=== PATIENT | female | born 1940 | race Caucasian/White ===

== ENCOUNTER 2022-03-21 15:28 | Emergency (ER) | payer MEDICARE, MEDICAID, SELFPAY ==
[2022-03-21] VITALS (8 sets, daily range): BP systolic 153–176; BP diastolic 67–92; PULSE 96–110; RESP 16–20; TEMP 36.4; O2SAT 93–97
--- NOTE | ~2022-03-21 | CT_ITS ---
EXAMINATION: CT abdomen pelvis wo con DATE: 03/21/2022 16:43 INDICATION: L flank pain, difficulty urinating. TECHNIQUE: Computed tomography (CT) of the abdomen and pelvis was performed without intravenous contr ast. Automated exposure control and iterative reconstruction technique were employed. The dose-length product was 1146.22 mGy-cm. COMPARISON: None. FINDINGS: Lower thorax: Right medial basal scar/atelectasis. Peripheral tree-in-bud opacities. Aortic valve, co ronary artery, and mediastinal/hilar node calcifications. Small hiatal hernia. Liver: Hepatomegaly. Granulomas calcifications. Biliary/Gallbladder: Gallbladder is absent. No bile duct dilation. Pancreas: No mass or duct dilation. Spleen: Granulomatous calcifications Adrenals:No mass. Kidneys: Bilateral perinephric stranding. No mass, stone, or hydronephrosis. GI tract: No small or large bowel dilation. Appendix not confidently visualized. Hypermobile cecum. D iverticulosis without diverticulitis. Mesentery/Peritoneum: No ascites, mass, or free air. Retroperitoneum: No mass. Atherosclerotic abdominal aortic and/or arterial calcifications. Pelvis: Calcified uterine fibroids. Urinary bladder wall thickening and inflammation.. Soft Tissues: Uncomplicated fat-containing umbilical and bilateral inguinal hernias. Bilateral lower abdominal dermal thickening, likely injection sites. Bones: No acute osseous finding. IMPRESSION: Pulmonary opacities as can be seen with atypical infection (MAC, TB, fungal), ABPA, airways disease ( CF, bronchiectasis), and aspiration. Bladder wall thickening and inflammation, which may represent cy stitis in the appropriate clinical context. Otherwise, no acute abdominopelvic process detected. Reviewed, dictated and finalized at location K. LY PHYSICIAN IMPRESSION: Pulmonary opacities as can be seen with atypical infection (MAC, TB, fungal), A BPA, airways disease (CF, bronchiectasis), and aspiration. Bladder wall thicken ing and inflammation, which may represent cystitis in the appropriate clinical context. Otherwise, no acute abdominopelvic process detected.
[2022-03-21 16:07] LABS: Appearance Urine Cloudy (Clear); Bilirubin Urine Negative (Negative); Blood Urine Trace-lysed (Negative); Color Urine Yellow (Yellow); Glucose Urine UA 1+ mg/dL (Negative); Ketones Urine Negative (Negative); Leukocyte Esterase Ur 2+ LEU/UL (Negative); Nitrate Urine Negative (Negative); Protein Urine Negative (Negative); Specific Grav Ur 1.015 (1.001-1.035); Urobilinogen Urine 0.2 mg/dL (<2.0)
--- NOTE | 2022-03-21 16:16 | PC.NURSE ---
EDP at bedside to assess pt.
--- NOTE | 2022-03-21 16:19 | ED.GENADULT ---
HPI - General Adult General Chief complaint: Urogenital-Female Stated complaint: low back pain, diff urinating Time Seen by Provider: 03/21/22 15:37 Source: patient Mode of arrival: EMS Limitations: no limitations History of Present Illness HPI narrative: Patient is an 81 y/o female who presents to the ED via EMS from [facility] with c/o L flank pain and difficulty urinating. Patient reports having difficulty urinating over the last 3 to 4 days, mostly at night. She states she feels the urge to go, but is only able to void a small amount. She complains of dysuria, denies hematuria. This morning, she also developed pain in her left-sided abdomen/left lower back. She was referred to the ED for further evaluation. Patient has a history of chronic UTIs and sees Dr. Gaitan. Scheduled to be seen in the office on . She also notes a history of a kidney stone 15 years ago. Patient does also report having diarrhea, denies any fever, nausea, vomiting, constipation, rectal bleeding, CP, SOB. Related Data Home Medications Medication Instructions Recorded Confirmed acetaminophen 500 mg tablet 500 mg PO Q6H PRN 12/17/19 12/17/19 (Tylenol Extra Strength) amlodipine 5 mg tablet 5 mg PO DAILY 12/17/19 12/17/19 aspirin 81 mg tablet,delayed 81 mg PO DAILY 12/17/19 12/17/19 release (Adult Aspirin Regimen) atorvastatin 40 mg tablet 40 mg PO DAILY 12/17/19 12/17/19 cannabidiol 100 mg/mL oral solution PO 12/17/19 12/17/19 cholecalciferol (vitamin D3) 125 125 mcg PO DAILY 12/17/19 12/17/19 mcg (5,000 unit) capsule citalopram 20 mg tablet 20 mg PO DAILY 12/17/19 12/17/19 clotrimazole 1 % topical cream 1 applic topical Q12H 12/17/19 12/17/19 conjugated estrogens 0.625 mg 0.625 mg PO DAILY 12/17/19 12/17/19 tablet cranberry 400 mg capsule 400 mg PO DAILY 12/17/19 12/17/19 duloxetine 30 mg capsule,delayed 30 mg PO DAILY 12/17/19 12/17/19 release esomeprazole magnesium 40 mg 40 mg PO DAILY 12/17/19 12/17/19 capsule,delayed release ferrous sulfate 325 mg (65 mg 325 mg PO DAILY 12/17/19 12/17/19 iron) tablet flaxseed oil 1,000 mg capsule 1,000 mg PO DAILY 12/17/19 12/17/19 gabapentin 300 mg capsule 300 mg PO DAILY 12/17/19 12/17/19 insulin aspart U-100 100 unit/mL 5 unit subcut TID 12/17/19 12/17/19 (3 mL) subcutaneous pen (Novolog FlexPen U-100 Insulin aspart) lisinopril 2.5 mg tablet 2.5 mg PO DAILY 12/17/19 12/17/19 loratadine 10 mg capsule 10 mg PO DAILY 12/17/19 12/17/19 meclizine 25 mg tablet 25 mg PO BID 12/17/19 12/17/19 melatonin 3 mg capsule mg PO 12/17/19 12/17/19 metoprolol succinate 50 mg 50 mg PO DAILY 12/17/19 12/17/19 tablet,extended release 24 hr mirabegron 50 mg tablet,extended 50 mg PO DAILY 12/17/19 12/17/19 release 24 hr nitrofurantoin macrocrystal 50 mg 50 mg PO Q12H 12/17/19 12/17/19 capsule sennosides 8.6 mg tablet 8.6 mg PO DAILY 12/17/19 12/17/19 trazodone 100 mg tablet 50 mg PO BID 12/17/19 12/17/19 Allergies Allergy/AdvReac Type Severity Reaction Status Date / Time prednisone Allergy Mild Verified 05/23/10 15:41 azithromycin Allergy Unknown Verified 07/09/18 09:15 ceftriaxone Allergy Unknown Verified 07/09/18 09:15 codeine Allergy Unknown Verified 06/12/14 08:23 ibuprofen Allergy Unknown Verified 10/14/12 15:14 latex Allergy Unknown Verified 06/12/14 08:23 naproxen Allergy Unknown Verified 06/12/14 08:23 CEFTRIAXONE SODIUM Allergy Mild Uncoded 05/23/10 14:55 ROSIGLITAZONE MALEATE Allergy Mild Uncoded 05/23/10 14:55 Review of Systems Review of Systems: CONSTITUTIONAL: Denies fever, chills, or sweats. CARDIOVASCULAR: Denies chest pain. RESPIRATORY: Denies dyspnea. GASTROINTESTINAL: See HPI. GENITOURINARY: See HPI. SKIN: Denies rash or itching. MUSCULOSKELETAL: See HPI. NEUROLOGIC: Denies headache, numbness, or weakness. All systems reviewed & are unremarkable except as noted in HPI and below [facility] Past Medical History Medical History (Reviewed 03/21/22 @ 16:25 by
[2022-03-21 16:21] LABS: Bacteria Urine Trace /hpf; RBC Urine 0-2 /hpf (0-2); WBC Urine >75 /hpf
[2022-03-21 16:22] LABS: Add Urine Microscopic? YES
[2022-03-21 16:26] LABS: Basophils Absolute Auto 0.1 K/mm3 (0.0-0.1); Basophils Percent Auto 0.5 % (0.2-1.2); Eosinophils Absolute Auto 0.3 K/mm3 (0-0.3); Eosinophils Percent Auto 1.8 % (0-4.4); Hematocrit 38.7 % (37.0-47.0); Hemoglobin 12.1 g/dL (12.0-15.0); Immature Granulocyte Absolute 0.06 K/mm3 (0.00-0.031); Immature Granulocyte Percent A 0.4 % (0-0.5); Lymphocytes Absolute Auto 3.23 K/mm3 (0.9-3.2); Lymphocytes Percent Auto 21.9 % (18.3-44.2); Mean Corpuscular HGB Conc 31.3 g/dl (32-36); Mean Corpuscular Hemoglobin 27.9 pg (26-34); Mean Corpuscular Volume 89.2 fl (80-100); Mean Platelet Volume 8.8 fl (7.4-10.4); Monocytes Absolute Auto 1.2 K/mm3 (0.1-0.6); Monocytes Percent Auto 8.3 % (2.6-8.5); Neutrophils Absolute Auto 9.9 K/mm3 (1.3-6.7); Neutrophils Percent Auto 67.1 % (45.5-73.1); Platelet Count Result 354 k/mm3 (150-375); Red Blood Count 4.34 M/mm3 (4.2-5.4); Red Cell Distribution Width 15.2 % (11.5-14.5); White Blood Count 14.7 K/mm3 (4.5-10.0)
[2022-03-21] MEDS: SODIUM CHLORIDE 0.9% IV 1,000 ML 999 ML IV CONT (16:28)
--- NOTE | 2022-03-21 16:34 | PC.NURSE ---
Patient off unit to CT.
[2022-03-21 17:36] LABS: Alanine Aminotransferase 28 U/L (6-35); Albumin Level 4.2 g/dL (3.5-5.1); Alkaline Phosphatase 96 U/L (38-126); Anion Gap 6 mmol/L (8-16); Aspartate Amino Transferase 21 U/L (14-36); Bilirubin,Total 0.9 mg/dL (0.2-1.3); Blood Urea Nitrogen 13 mg/dL (7-17); Calcium 8.7 mg/dL (8.4-10.2); Carbon Dioxide 26 mmol/L (22-30); Chloride 96 mmol/L (98-107); Estimated CRCL calculation 52 ml/min; Estimated Glomerular Filt Rate > 60; Glucose 236 mg/dL (65-110); Potassium 4.6 mmol/L (3.4-5.0); Sodium 128 mmol/L (137-145)
[2022-03-21] MEDS: CIPROFLOXACIN 500 MG TAB PO (19:27)
== END 2022-03-21 20:14 ==
PROVIDERS: Emergency Provider Physician Assistant
DX: E87.1 Hypo-osmolality and hyponatremia (principal); N30.00 Acute cystitis without hematuria; D64.9 Anemia, unspecified; I11.0 Hypertensive heart disease with heart failure; I50.9 Heart failure, unspecified; E11.9 Type 2 diabetes mellitus without complications; Z79.4 Long term (current) use of insulin
CPT/HCPCS: 36415; 51701; 74176; 80053; 81001; 83605; 85025; 87077; 87086; 87186; 96361; 96365; 99284; A9270; J0131; J7030

== ENCOUNTER 2022-04-04 15:45 | Emergency (ER) | payer MEDICARE, MEDICAID, SELFPAY ==
[2022-04-04] VITALS (16 sets, daily range): BP systolic 124–172; BP diastolic 58–75; PULSE 76–93; RESP 16–23; TEMP 36.6–36.7; O2SAT 92–98
--- NOTE | ~2022-04-04 | US_ITS ---
EXAMINATION: US venous doppler [facility] DATE: 04/04/2022 19:21 INDICATION: Left lower limb pain and swelling TECHNIQUE: Grayscale ultrasound images without and with compression and Doppler ultrasound images of the left lower extremity veins were obtained. COMPARISON: None. FINDINGS: The visualized portions of left common femoral vein, profunda (deep) femoral vein, femoral vein, popl iteal vein, peroneal veins, posterior tibial veins, gastrocnemius vein and greater saphenous vein out flow are patent. IMPRESSION: 1. No deep venous thrombosis in the left lower limb. Reviewed, dictated and finalized at location A. EL LATHE OPERATOR OUTSIDE
--- NOTE | ~2022-04-04 | CT_ITS ---
EXAMINATION: CT lumbar spine wo con DATE: 04/04/2022 17:50 INDICATION: Fall with midline lumbar tenderness TECHNIQUE: Computed tomography (CT) of the lumbar spine was performed without intravenous contrast. A utomated exposure control and iterative reconstruction technique were employed. The dose-length produ ct was 1233.33 mGy-cm. COMPARISON: None FINDINGS: 4 mm retrolisthesis L1 on L2, 2 mm retrolisthesis L2 on L3 and L3 on L4, 3 mm anterolisthesis L4 on L 5. Vertebral body heights are normal. No fracture. Severe disc height loss at T11-T12, L1 and L2-L3 L 4 and at L5-S1. Mild disc height loss at T12-L1 . Moderate disc height loss at L4-L5. Small sliding-t ype hiatal hernia. There are calcified hepatic and splenic nodules consistent with old granulomatous disease. Severe sigmoid diverticulosis without adjacent inflammatory stranding to suggest diverticuli tis. Calcified uterine fibroids. The following disc levels are specifically discussed: T11-T12: Right paracentral disc protrusion. There is moderate bilateral facet joint osteoarthritis. T here is mild left neural foraminal stenosis. There is mild central canal stenosis. T12-L1: Disc is mildly bulging. There is severe left facet joint osteoarthritis. There is mild right neural foraminal stenosis. There is mild central canal stenosis. L1-L2: Small posterior endplate osteophytes. There is mild bilateral facet joint osteoarthritis. Ther e is moderate bilateral neural foraminal stenosis. There is mild central canal stenosis. L2-L3: Small posterior endplate osteophytes. There is mild left and moderate right facet joint osteoa rthritis. There is moderate bilateral neural foraminal stenosis. There is mild to moderate central ca nal stenosis. L3-L4: Small posterior endplate osteophytes. There is mild right and moderate left facet joint osteoa rthritis. There is right and moderate to severe left neural foraminal stenosis. There is moderate to severe central canal stenosis. L4-L5: Disc is bulging. There is severe bilateral facet joint osteoarthritis. There is moderate bilat eral neural foraminal stenosis. There is severe central canal stenosis. L5-S1: Left paracentral to foraminal zone disc protrusion There is moderate bilateral facet joint ost eoarthritis. There is moderate left and mild right neural foraminal stenosis. There is no central can al stenosis. IMPRESSION: 1. Severe lumbar spondylosis. No acute osseous abnormality. Reviewed, dictated and finalized at location A. K SURFACING MACHINE OPERATOR
[2022-04-04 16:22] LABS: Basophils Absolute Auto 0.1 K/mm3 (0.0-0.1); Basophils Percent Auto 0.7 % (0.2-1.2); Eosinophils Absolute Auto 0.3 K/mm3 (0-0.3); Eosinophils Percent Auto 3.1 % (0-4.4); Hematocrit 36.3 % (37.0-47.0); Hemoglobin 11.6 g/dL (12.0-15.0); Immature Granulocyte Absolute 0.03 K/mm3 (0.00-0.031); Immature Granulocyte Percent A 0.3 % (0-0.5); Lymphocytes Absolute Auto 3.08 K/mm3 (0.9-3.2); Lymphocytes Percent Auto 29.9 % (18.3-44.2); Mean Corpuscular Hemoglobin 28.4 pg (26-34); Mean Platelet Volume 8.8 fl (7.4-10.4); Monocytes Absolute Auto 0.8 K/mm3 (0.1-0.6); Monocytes Percent Auto 7.7 % (2.6-8.5); Neutrophils Percent Auto 58.3 % (45.5-73.1); Platelet Count Result 364 k/mm3 (150-375); Red Blood Count 4.08 M/mm3 (4.2-5.4); Red Cell Distribution Width 15.1 % (11.5-14.5); White Blood Count 10.3 K/mm3 (4.5-10.0)
[2022-04-04 16:31] LABS: Alanine Aminotransferase 33 U/L (6-35); Albumin Level 4.3 g/dL (3.5-5.1); Alkaline Phosphatase 44 U/L (38-126); Anion Gap 7 mmol/L (8-16); Aspartate Amino Transferase 38 U/L (14-36); Blood Urea Nitrogen 16 mg/dL (7-17); Calcium 8.5 mg/dL (8.4-10.2); Carbon Dioxide 26 mmol/L (22-30); Chloride 95 mmol/L (98-107); Estimated CRCL calculation 51 ml/min; Estimated Glomerular Filt Rate > 60; Glucose 89 mg/dL (65-110); Potassium 4.9 mmol/L (3.4-5.0); Sodium 128 mmol/L (137-145)
--- NOTE | 2022-04-04 17:19 | ECG_ITS ---
Measurements Intervals [place] Rate: 79 P: 33 HI: 196 QRS: -33 QRSD: 154 T: 120 QT: 400 QTc: 460 Interpretive Statements SINUS RHYTHM LEFT AXIS DEVIATION LEFT BUNDLE BRANCH BLOCK ABNORMAL ECG NO PREVIOUS ECG AVAILABLE FOR COMPARISON Electronically Signed On 04-05-2022 15:04:29 [employer]'S [employer] by Adan Aguilar M.D.
--- NOTE | 2022-04-04 17:39 | ED.GENADULT ---
HPI - General Adult General Chief complaint: Extremity Injury, Lower Stated complaint: swelling left leg Time Seen by Provider: 04/04/22 17:16 History of Present Illness HPI narrative: Patient is an 81-year-old female with a history of hyperlipidemia, CAD, hypertension, diabetes presenting with concerns for cellulitis. Patient states that she noticed pain in her left calf about a day ago. She went to urgent care earlier today and was told that she had signs of early cellulitis. She was prescribed Bactrim which she took 1 dose of. She then returned to her nursing facility and complained of persistent pain in her left calf. It was noticed that the redness in that leg had gotten worse so they brought her in for evaluation. Patient states that it has also been weeping clear fluid. Patient also complains of acute on chronic lower back pain after a mechanical fall several days ago. States that she fell from the toilet landing on her back. States her pain has been persistent since then. No fevers or chills, numbness or weakness, saddle anesthesia, bladder or bowel incontinence. No chest pain, shortness of breath, abdominal pain, vomiting, diarrhea, dysuria. Related Data Home Medications Medication Instructions Recorded Confirmed acetaminophen 500 mg tablet 500 mg PO Q6H PRN 12/17/19 12/17/19 (Tylenol Extra Strength) amlodipine 5 mg tablet 5 mg PO DAILY 12/17/19 12/17/19 aspirin 81 mg tablet,delayed 81 mg PO DAILY 12/17/19 12/17/19 release (Adult Aspirin Regimen) atorvastatin 40 mg tablet 40 mg PO DAILY 12/17/19 12/17/19 cannabidiol 100 mg/mL oral solution PO 12/17/19 12/17/19 cholecalciferol (vitamin D3) 125 125 mcg PO DAILY 12/17/19 12/17/19 mcg (5,000 unit) capsule citalopram 20 mg tablet 20 mg PO DAILY 12/17/19 12/17/19 clotrimazole 1 % topical cream 1 applic topical Q12H 12/17/19 12/17/19 conjugated estrogens 0.625 mg 0.625 mg PO DAILY 12/17/19 12/17/19 tablet cranberry 400 mg capsule 400 mg PO DAILY 12/17/19 12/17/19 duloxetine 30 mg capsule,delayed 30 mg PO DAILY 12/17/19 12/17/19 release esomeprazole magnesium 40 mg 40 mg PO DAILY 12/17/19 12/17/19 capsule,delayed release ferrous sulfate 325 mg (65 mg 325 mg PO DAILY 12/17/19 12/17/19 iron) tablet flaxseed oil 1,000 mg capsule 1,000 mg PO DAILY 12/17/19 12/17/19 gabapentin 300 mg capsule 300 mg PO DAILY 12/17/19 12/17/19 insulin aspart U-100 100 unit/mL 5 unit subcut TID 12/17/19 12/17/19 (3 mL) subcutaneous pen (Novolog FlexPen U-100 Insulin aspart) lisinopril 2.5 mg tablet 2.5 mg PO DAILY 12/17/19 12/17/19 loratadine 10 mg capsule 10 mg PO DAILY 12/17/19 12/17/19 meclizine 25 mg tablet 25 mg PO BID 12/17/19 12/17/19 melatonin 3 mg capsule mg PO 12/17/19 12/17/19 metoprolol succinate 50 mg 50 mg PO DAILY 12/17/19 12/17/19 tablet,extended release 24 hr mirabegron 50 mg tablet,extended 50 mg PO DAILY 12/17/19 12/17/19 release 24 hr nitrofurantoin macrocrystal 50 mg 50 mg PO Q12H 12/17/19 12/17/19 capsule sennosides 8.6 mg tablet 8.6 mg PO DAILY 12/17/19 12/17/19 trazodone 100 mg tablet 50 mg PO BID 12/17/19 12/17/19 Allergies Allergy/AdvReac Type Severity Reaction Status Date / Time prednisone Allergy Mild Verified 05/23/10 15:41 azithromycin Allergy Unknown Verified 07/09/18 09:15 ceftriaxone Allergy Unknown Verified 07/09/18 09:15 codeine Allergy Unknown Verified 06/12/14 08:23 ibuprofen Allergy Unknown Verified 10/14/12 15:14 latex Allergy Unknown Verified 06/12/14 08:23 naproxen Allergy Unknown Verified 06/12/14 08:23 CEFTRIAXONE SODIUM Allergy Mild Uncoded 05/23/10 14:55 ROSIGLITAZONE MALEATE Allergy Mild Uncoded 05/23/10 14:55 Review of Systems Review of Systems: All systems reviewed & are unremarkable except as noted in HPI and below [facility] Past Medical History Medical History Anemia Arthritis of lumbar spine BMI 35.0-35.9,adult CHF (congestive heart failure) Diab
[2022-04-04] MEDS: fentaNYL CITRATE INJ (*CRX) 100 MCG/2 ML VIAL 50 MCG IV PUSH (18:17)
[2022-04-04 19:32] LABS: NT Pro B Type Natriuretic Pept 291 pg/mL (19.9-100)
[2022-04-04] MEDS: SULFAMETHOXAZOLE/TRIMETHOPRIM 800/160 MG DS TABLET 1 TAB PO (20:18)
[2022-04-04] MEDS: CEPHALEXIN 500 MG CAPSULE PO (22:21)
== END 2022-04-04 22:43 ==
PROVIDERS: Emergency Medicine; Emergency Provider Emergency Medicine
DX: L03.116 Cellulitis of left lower limb (principal); M54.50 Low back pain, unspecified; E78.5 Hyperlipidemia, unspecified; I25.10 Atherosclerotic heart disease of native coronary artery without angina pectoris; E11.9 Type 2 diabetes mellitus without complications; I50.9 Heart failure, unspecified; D64.9 Anemia, unspecified; M47.816 Spondylosis without myelopathy or radiculopathy, lumbar region; M85.80 Other specified disorders of bone density and structure, unspecified site; Z87.891 Personal history of nicotine dependence; Z79.4 Long term (current) use of insulin; Z79.82 Long term (current) use of aspirin; I44.7 Left bundle-branch block, unspecified
CPT/HCPCS: 36415; 72131; 80053; 83880; 85025; 93005; 93971; 96365; 96366; 96375; 99284; A9270; J0131; J3010

== ENCOUNTER 2022-04-18 09:55 | Outpatient (CLI) | payer MEDICARE, MEDICAID, SELFPAY ==
[2022-04-18 18:09] LABS: Anion Gap 10 mmol/L (8-16); Blood Urea Nitrogen 14 mg/dL (7-17); Calcium 9.2 mg/dL (8.4-10.2); Carbon Dioxide 26 mmol/L (22-30); Chloride 93 mmol/L (98-107); Cholesterol 151 mg/dL (0-200); Estimated Glomerular Filt Rate > 60; Glucose 160 mg/dL (65-110); HDL Direct 34 mg/dL; Potassium 5.1 mmol/L (3.4-5.0); Sodium 129 mmol/L (137-145); Triglycerides 221 mg/dL (<150)
[2022-04-18 18:21] LABS: LDL Cholesterol Direct 69 mg/dL
[2022-04-18 18:40] LABS: Free T4 Free Thyroxine 0.91 ng/mL (0.78-2.19); Vitamin D 25 Hydroxy 36.2 ng/mL
== END 2022-04-18 09:56 | disposition home or self-care (01) ==
LOC: ANHWCLAB 09:57
PROVIDERS: PCP Internal Medicine; Visit Provider Internal Medicine Endocrinology, Diabetes & Metabolism
DX: E11.9 Type 2 diabetes mellitus without complications (principal); E87.1 Hypo-osmolality and hyponatremia; R79.89 Other specified abnormal findings of blood chemistry
CPT/HCPCS: 36415; 80048; 80061; 82306; 82607; 83930; 84439; 84443

== ENCOUNTER 2022-04-18 13:46 | Inpatient (IN) | payer MEDICARE, MEDICAID, SELFPAY ==
[2022-04-18] VITALS (18 sets, daily range): BP systolic 153–194; BP diastolic 59–99; PULSE 96–189; RESP 15–31; TEMP 36.5; O2SAT 91–100; BMI 36.8
--- NOTE | ~2022-04-18 | CT_ITS ---
EXAMINATION: CT abdomen pelvis w con DATE: 04/18/2022 16:43 INDICATION: Left lower quadrant abdominal pain TECHNIQUE: Computed tomography (CT) of the abdomen and pelvis was performed with 100 mL Omnipaque-350 intravenous contrast. Automated exposure control and iterative reconstruction technique were employe d. The dose-length product was 1236.47 mGy-cm. COMPARISON: 03/21/2022 FINDINGS: No significant overall change in multiple <5 mm pulmonary nodules scattered throughout both lungs wit h random distribution. Again seen is mild discoid atelectasis at the lingula and dependent atelectasi s/scarring in the posterior medial right lower lobe. Heart size is normal. Atherosclerotic coronary a rtery calcification. Aortic valve calcification. Calcified right hilar and mediastinal lymph nodes al aric with multiple hepatic and splenic calcifications consistent with old granulomatous disease. No pe ricardial or pleural effusion. Small sliding-type hiatal hernia. Cholecystectomy clips the gallbladde r fossa. 1.6 cm duodenal diverticulum posterior to the second portion of the duodenum. Pancreas and a nd bilateral adrenal glands are normal. 7 mm cyst at the lower pole of the left kidney. There are cou ple small wedge-shaped region of subtle decreased parenchymal enhancement at the left kidney which co uld be seen in the setting of pyelonephritis. Mild wall thickening with smooth mucosal surface along the anterior bladder with subtle haziness to the adjacent fat which could be seen with cystitis. Calc ified uterine fibroids. Small fat-containing right inguinal hernia. There is moderate colonic diverti culosis with a sigmoid predominance. There is no adjacent inflammatory change to suggest diverticuli tis. No bowel obstruction. No free intraperitoneal gas or fluid. No pathologically enlarged abdomina l or pelvic lymphadenopathy. Severe lumbar and moderate lower thoracic spondylosis. IMPRESSION: 1. Wall thickening and subtle associated inflammatory change along the anterior bladder wall suspicio us for cystitis which could be either acute or chronic. Correlate with urinalysis. 2. Possible small wedge-shaped region of subtle decreased parenchymal enhancement the left kidney whi ch can be seen with pyelonephritis or sequela of scarring related to chronic infection or infarction. Again would correlate with urinalysis. 3. Multiple small pulmonary nodules in the bilateral lower lungs most likely sequela of old granuloma tous disease however differential would include metastatic disease in the appropriate clinical settin g. If there is a known history of prior malignancy would consider 3-6 month follow-up low-dose noncon trast chest CT. 4. Diverticulosis. 5. Small sliding-type hiatal hernia. Reviewed, dictated and finalized at location A. TELEHEALTH IMPRESSION: 1. Wall thickening and subtle associated inflammatory change along the anterior bladder wall suspicious for cystitis which could be either acute or chronic. C orrelate with urinalysis. 2. Possible small wedge-shaped region of subtle decreased parenchymal enhanceme nt the left kidney which can be seen with pyelonephritis or sequela of scarring related to chronic infection or infarction. Again would correlate with urinaly sis. 3. Multiple small pulmonary nodules in the bilateral lower lungs most likely se quela of old granulomatous disease however differential would include metastati c disease in the appropriate clinical setting. If there is a known history of p rior malignancy would consider 3-6 month follow-up low-dose noncontrast chest C T. 4. Diverticulosis. 5. Small sliding-type hiatal hernia.
--- NOTE | ~2022-04-18 | US_ITS ---
EXAMINATION:US venous doppler LE BI INDICATION:Lower extremity edema. TECHNIQUE: Multiple grayscale, color flow and Doppler images of the right and left lower extremity de ep venous systems were obtained and reviewed. COMPARISON:04/04/2022 FINDINGS: The common femoral, superficial femoral and popliteal veins demonstrate normal respiratory variation, augmentation and compressibility. Color flow is also seen within the posterior tibial, pe roneal, greater saphenous and profunda veins. IMPRESSION: 1: No lower extremity deep venous thrombosis. Reviewed, dictated and finalized at location B. II TUBE BENDER
--- NOTE | 2022-04-18 13:58 | ED.ABDPAIN ---
HPI - Abdominal Pain General Chief Complaint: GI Bleed Stated Complaint: GI bleed Time Seen by Provider: 04/18/22 13:58 History of Present Illness HPI narrative: This is a 81-year-old female with PMH of diabetes type 2 who presents to the ED via EMS with chief complaint of GI bleed. She had 4 episodes of diarrhea this morning starting at around 8:00. Reports during the fifth or 6 episodes she started seeing bright red blood in the stool. Patient reports some abdominal pain with palpation. She notes eating some spicy food last night, but is unsure of anything else that would have caused the diarrhea. Patient also reports some shortness of breath and lightheadedness. Denies any known sick contacts. Denies nausea or vomiting. Denies fevers, chills, LOC. Related Data Home Medications Medication Instructions Recorded Confirmed acetaminophen 500 mg tablet 500 mg PO Q6H PRN 12/17/19 04/18/22 (Tylenol Extra Strength) amlodipine 5 mg tablet 5 mg PO DAILY 12/17/19 04/18/22 aspirin 81 mg tablet,delayed 81 mg PO DAILY 12/17/19 04/18/22 release (Adult Aspirin Regimen) atorvastatin 40 mg tablet 40 mg PO DAILY 12/17/19 04/18/22 cholecalciferol (vitamin D3) 125 125 mcg PO DAILY 12/17/19 04/18/22 mcg (5,000 unit) capsule cranberry 400 mg capsule 400 mg PO DAILY 12/17/19 04/18/22 duloxetine 30 mg capsule,delayed 30 mg PO DAILY 12/17/19 04/18/22 release esomeprazole magnesium 40 mg 40 mg PO DAILY 12/17/19 04/18/22 capsule,delayed release ferrous sulfate 325 mg (65 mg 325 mg PO DAILY 12/17/19 04/18/22 iron) tablet gabapentin 300 mg capsule 300 mg PO DAILY 12/17/19 04/18/22 lisinopril 2.5 mg tablet 2.5 mg PO DAILY 12/17/19 04/18/22 loratadine 10 mg capsule 10 mg PO DAILY 12/17/19 04/18/22 melatonin 3 mg capsule mg PO 12/17/19 04/18/22 metoprolol succinate 50 mg 50 mg PO DAILY 12/17/19 04/18/22 tablet,extended release 24 hr mirabegron 50 mg tablet,extended 50 mg PO DAILY 12/17/19 04/18/22 release 24 hr nitrofurantoin macrocrystal 50 mg 50 mg PO Q12H 12/17/19 04/18/22 capsule sennosides 8.6 mg tablet 8.6 mg PO DAILY 12/17/19 04/18/22 albuterol sulfate 90 mcg/actuation 1 puff inhalation Q4H PRN 04/18/22 aerosol inhaler benzonatate 100 mg capsule 100 mg PO TID 04/18/22 esomeprazole magnesium 40 mg 40 mg PO DAILY 04/18/22 granules delayed release for susp fluorometholone 0.1 % eye 1 drp EACH EYE DAILY 04/18/22 drops,suspension fluticasone propionate 115 2 puff inhalation Q12H 04/18/22 mcg-salmeterol 21 mcg/actuation HFA inhaler (Advair HFA) insulin glargine U-300 conc 300 95 unit subcut DAILY 04/18/22 04/18/22 unit/mL (3 mL) subcutaneous pen (Toujeo Max U-300 SoloStar) insulin lispro 100 unit/mL 35 sliding scale dose subcut 04/18/22 04/18/22 subcutaneous pen (Humalog KwikPen TIDWMEAL (U-100) Insulin) ketoconazole 2 % topical cream 1 applic topical DAILY 04/18/22 losartan 100 mg tablet 100 mg PO DAILY 04/18/22 mirabegron 50 mg tablet,extended 50 mg PO DAILY 04/18/22 release 24 hr (Myrbetriq) Allergies Allergy/AdvReac Type Severity Reaction Status Date / Time prednisone Allergy Mild Unknown Verified 04/18/22 14:12 azithromycin Allergy Unknown Unknown Verified 04/18/22 14:12 ceftriaxone Allergy Unknown Unknown Verified 04/18/22 14:12 codeine Allergy Unknown Unknown Verified 04/18/22 14:12 ibuprofen Allergy Unknown Unknown Verified 04/18/22 14:12 latex Allergy Unknown Unknown Verified 04/18/22 14:12 naproxen Allergy Unknown Unknown Verified 04/18/22 14:12 CEFTRIAXONE SODIUM Allergy Mild Unknown Uncoded 04/18/22 14:12 ROSIGLITAZONE MALEATE Allergy Mild Unknown Uncoded 04/18/22 14:12 Review of Systems Review of Systems: CONSTITUTIONAL: Denies fever, chills, or sweats. EYES: Denies visual changes, redness, or discharge. ENT: Denies rhinorrhea, congestion, sore throat, or otalgia. CARDIOVASCULAR: Endorses palpitations. Denies chest pain, or edema. RESPIRATORY: Endorses dyspnea. Denies cough
--- NOTE | 2022-04-18 14:26 | ECG_ITS ---
Measurements Intervals [place] Rate: 104 P: 112 WA: 198 QRS: -53 QRSD: 142 T: 111 QT: 348 QTc: 458 Interpretive Statements SINUS TACHYCARDIA MARKED LEFT AXIS DEVIATION [QRS AXIS < -30] LEFT BUNDLE BRANCH BLOCK [120+ ms QRS DURATION, 80+ ms Q/S IN V1/V2, 85+ ms R IN I/aVL/V5/V6] ABNORMAL ECG COMPARED TO ECG 04/04/2022 17:25:33 SINUS TACHYCARDIA NOW PRESENT Electronically Signed On 04-19-2022 13:35:39 REPLACER by Ottoniel Cantrell M.D.
[2022-04-18 15:15] LABS: Basophils Absolute Auto 0.1 K/mm3 (0.0-0.1); Basophils Percent Auto 0.9 % (0.2-1.2); Eosinophils Absolute Auto 0.4 K/mm3 (0-0.3); Eosinophils Percent Auto 3.7 % (0-4.4); Hematocrit 36.4 % (37.0-47.0); Hemoglobin 11.9 g/dL (12.0-15.0); Immature Granulocyte Absolute 0.04 K/mm3 (0.00-0.031); Immature Granulocyte Percent A 0.4 % (0-0.5); Lymphocytes Absolute Auto 2.73 K/mm3 (0.9-3.2); Lymphocytes Percent Auto 26.7 % (18.3-44.2); Mean Corpuscular HGB Conc 32.7 g/dl (32-36); Mean Corpuscular Hemoglobin 28.5 pg (26-34); Mean Corpuscular Volume 87.1 fl (80-100); Mean Platelet Volume 8.4 fl (7.4-10.4); Monocytes Absolute Auto 0.8 K/mm3 (0.1-0.6); Monocytes Percent Auto 7.5 % (2.6-8.5); Neutrophils Absolute Auto 6.2 K/mm3 (1.3-6.7); Neutrophils Percent Auto 60.8 % (45.5-73.1); Platelet Count Result 368 k/mm3 (150-375); Red Blood Count 4.18 M/mm3 (4.2-5.4); Red Cell Distribution Width 14.8 % (11.5-14.5); White Blood Count 10.2 K/mm3 (4.5-10.0)
[2022-04-18] MEDS: SODIUM CHLORIDE 0.9% IV 1,000 ML 999 ML IV CONT (15:15)
[2022-04-18 15:25] LABS: Prothrombin Time 12.9 Seconds (11.1-14.7)
[2022-04-18 15:26] LABS: Partial Thromboplastin Time 25.2 SECONDS (22.3-36.8)
[2022-04-18 15:37] LABS: Alanine Aminotransferase 33 U/L (6-35); Albumin Level 4.4 g/dL (3.5-5.1); Alkaline Phosphatase 76 U/L (38-126); Anion Gap 6 mmol/L (8-16); Aspartate Amino Transferase 26 U/L (14-36); Bilirubin,Total 0.6 mg/dL (0.2-1.3); Blood Urea Nitrogen 13 mg/dL (7-17); CRP < 0.5 mg/dL (<1.0); Calcium 9.1 mg/dL (8.4-10.2); Carbon Dioxide 27 mmol/L (22-30); Chloride 89 mmol/L (98-107); Estimated CRCL calculation 58 ml/min; Estimated Glomerular Filt Rate > 60; Glucose 213 mg/dL (65-110); Sodium 122 mmol/L (137-145); Troponin I < 0.012 ng/mL (0.000-0.034)
[2022-04-18 15:40] LABS: D Dimer 0.59 ug/mL (<0.48)
[2022-04-18 15:45] LABS: Potassium 4.6 mmol/L (3.4-5.0)
[2022-04-18 16:16] LABS: Influenza A QL RT-PCR Negative (Negative); Influenza B QL RT-PCR Negative (Negative); SARS-CoV-2 RNA PCR Negative
[2022-04-18 18:01] LABS: Anion Gap 9 mmol/L (8-16); Blood Urea Nitrogen 11 mg/dL (7-17); Calcium 9.1 mg/dL (8.4-10.2); Carbon Dioxide 23 mmol/L (22-30); Chloride 94 mmol/L (98-107); Estimated CRCL calculation 67 ml/min; Estimated Glomerular Filt Rate > 60; Glucose 237 mg/dL (65-110); Lactic Acid Reflex 1.2 mmol/L (0.7-2.0); Potassium 4.6 mmol/L (3.4-5.0); Sodium 126 mmol/L (137-145)
--- NOTE | 2022-04-18 19:00 | PM.IMHP ---
H&P: HPI History of Present Illness Date/Time: 04/18/22 19:00 Chief Complaint: Blood in stool. Narrative: This is a pleasant 81-year-old female with insulin-dependent diabetes, congestive heart failure, sleep apnea, hypertension, GERD, and other comorbidities who presented to the emergency department via EMS from [facility] for evaluation of blood in stool. Patient provides the following history. She felt fine when she got up this morning and when saw her inspector golf ball for routine appointment. While at the office she reports the sudden sensation of having to have a bowel movement and she had a couple of small episodes of diarrhea. When she got back to [facility] she got ready for lunch but she once again had some diarrhea and when she stood up she noticed that she had passed bright red blood per rectum admixed with clots. She cleaned herself up and went to lunch. Unfortunately she had several other similar episodes thereafter and she came in for evaluation. She has not had any abdominal pain or discomfort with the bowel movements. She has not felt lightheaded or dizzy or weak. Blood pressures were stable on arrival to the emergency department though she has been tachycardic however admittedly anxious. Hemoglobin and hematocrit are stable when compared to labs drawn a couple of weeks ago. Her lactic acid level was within normal limits. It appears that she has chronic hyponatremia but her sodium level was lower today than what it usually runs, currently 122 with a baseline sodium between [address] of the abdomen and pelvis did not show any findings to correlate with the bright red blood per rectum. Wall thickening and subtle associated phlegm a jada changes were noted along the anterior bladder wall and patient reports having frequent urinary tract infections and more recently she has had urgency, hesitancy, dysuria, and incontinence. She is being admitted in this setting for closer monitoring and GI evaluation given rectal bleeding. Review of Systems Review of Systems: Twelve systems were reviewed. No fever, chills, or sweats. No cold or flu symptoms. She denies chest pain shortness a breath. Mild sensations of racing heart. She admits that she is feeling anxious and she thinks that is why her heart is going fast. No epigastric pain, bloating, or belching. She has not had nausea or vomiting. She has occasional lower extremity edema which is unchanged. Denies history of venous thromboembolism. Except as documented, all other systems were reviewed and are negative. [facility]LY [facility] Past Medical History Medical History (Updated 04/18/22 @ 23:50 by Bronwyn Walker PA-C) Anemia Arthritis Depression Diabetes Frequent urinary tract infections Gastroesophageal reflux disease Heart failure of unknown type Hypertension Insulin dependent type 2 diabetes mellitus Obstructive sleep apnea Osteopenia Skin cancer Surgical History Surgical History (Updated 04/18/22 @ 23:50 by Bronwyn Walker PA-C) History of appendectomy History of cholecystectomy History of dilation and curettage History of esophageal dilatation History of lumbar surgery (1990) Family History Family History Mother Hypertension Family history of diabetes mellitus in first degree relative Family history of heart disease in male family member before age 55 Father Carcinoma of colon Family history of malignant neoplasm of gastrointestinal tract Social History Social History (Updated 04/18/22 @ 23:47 by Bronwyn Walker PA-C) Social History: Surrogate medical decision maker: angel Dye. Code status: Full code. Smoking status: Never smoker Second hand tobacco smoke exposure: No Smoking end date: 02/27/80 Alcohol intake: never Substance use: never Lack of Transportation: No Lack of Food: Never True Current Housing: I Have Housing Concerned About Future Housing: No Di
[2022-04-18 20:39] LABS: Anion Gap 7 mmol/L (8-16); Blood Urea Nitrogen 10 mg/dL (7-17); Calcium 8.9 mg/dL (8.4-10.2); Carbon Dioxide 26 mmol/L (22-30); Chloride 93 mmol/L (98-107); Estimated CRCL calculation 67 ml/min; Estimated Glomerular Filt Rate > 60; Glucose 234 mg/dL (65-110); Potassium 4.6 mmol/L (3.4-5.0); Sodium 126 mmol/L (137-145)
[2022-04-19] VITALS (9 sets, daily range): BP systolic 178–188; BP diastolic 68–74; PULSE 81–124; RESP 16–18; TEMP 36.6–36.7; O2SAT 95–97
[2022-04-19] MEDS: ACETAMINOPHEN 325 MG TABLET 650 MG PO (00:25)
[2022-04-19 00:38] LABS: Hematocrit 36.3 % (37.0-47.0); Hemoglobin 12.4 g/dL (12.0-15.0)
[2022-04-19] MEDS: METOPROLOL TARTRATE 50 MG TAB PO (04:26)
[2022-04-19 05:54] LABS: Hematocrit 37.4 % (37.0-47.0); Hemoglobin 12.8 g/dL (12.0-15.0); Mean Corpuscular HGB Conc 34.2 g/dl (32-36); Mean Corpuscular Hemoglobin 28.3 pg (26-34); Mean Corpuscular Volume 82.6 fl (80-100); Mean Platelet Volume 8.5 fl (7.4-10.4); Platelet Count Result 406 k/mm3 (150-375); Red Blood Count 4.53 M/mm3 (4.2-5.4); Red Cell Distribution Width 14.6 % (11.5-14.5); White Blood Count 12.4 K/mm3 (4.5-10.0)
[2022-04-19 06:16] LABS: Alanine Aminotransferase 30 U/L (6-35); Albumin Level 4.5 g/dL (3.5-5.1); Alkaline Phosphatase 71 U/L (38-126); Anion Gap 8 mmol/L (8-16); Aspartate Amino Transferase 27 U/L (14-36); Bilirubin,Total 1.1 mg/dL (0.2-1.3); Blood Urea Nitrogen 9 mg/dL (7-17); Carbon Dioxide 24 mmol/L (22-30); Chloride 94 mmol/L (98-107); Estimated CRCL calculation 78 ml/min; Estimated Glomerular Filt Rate > 60; Glucose 222 mg/dL (65-110); Magnesium 1.5 mg/dL (1.6-2.3); Potassium 4.4 mmol/L (3.4-5.0); Sodium 126 mmol/L (137-145)
--- NOTE | 2022-04-19 08:00 | ECHO_ITS ---
Patient Info Name: Megan Menon Age: 81 years : 1940 Gender: Female Ht: 63 in Wt: 208 lbs BSA: 2.09 m2 HR: 88 bpm BP: 185 / 60 mmHg Exam Date: 04/19/2022 1:04 PM Exam Location: [facility] Patient Status: Inpatient Admit Date: 04/18/2022 Staff Ordering Physician: Bronwyn Walker PA-C Tone Cabinet Assembler: Oscar Romano RDCS, RT Attending Provider: Ana Morris MD Referring Physician: Aaron ROGEL; Exam Type: CA echo doppler color flow Study Info Indications R00.0 - Tachycardia, unspecified I11.0 - Hypertensive heart disease with heart failure I50.9 - Heart failure, unspecified Complete two-dimensional, color flow and Doppler transthoracic echocardiogram is performed. Strain analysis performed. Summary 1. Complete two-dimensional, color flow and Doppler transthoracic echocardiogram is performed. 2. Left ventricular chamber dimension is normal. 3. Left ventricular systolic function is mildly reduced, estimated at 40-45%. 4. There is mildly increased left ventricular wall thickness. 5. Left ventricular septal wall motion is abnormal with septal motion related to bundle branch block. 6. Global longitudinal strain is abnormal at -10 %. 7. Right ventricular systolic function is normal. 8. There is mild mitral valve regurgitation. 9. There is small pericardial effusion. Left Ventricle Left ventricular chamber dimension is normal. Left ventricular systolic function is mildly reduced, estimated at 40-45%. There is mildly increased left ventricular wall thickness. Left ventricular septal wall motion is abnormal with septal motion related to bundle branch block. Global longitudinal strain is abnormal at -10 %. Right Ventricle Right ventricular chamber dimension is normal. Right ventricular systolic function is normal. Left Atria Left atrial chamber dimension is normal. Right Atria Right atrial chamber dimension is normal. Atrial Septum Intact interatrial septum visualized by color flow imaging. Aortic Valve The aortic valve is probable trileaflet. There is mild aortic valve sclerosis. There is no aortic valve stenosis. There is no aortic valve regurgitation. Pulmonic Valve The pulmonic valve is not well visualized. Mitral Valve There is no mitral valve stenosis. There is mild mitral valve regurgitation. The mitral valve annulus is mildly calcified. Tricuspid Valve There is no significant tricuspid valve stenosis. There is trace tricuspid valve regurgitation. Pericardium/Pleural There is small pericardial effusion. Inferior Vena Cava Normal inferior vena cava with >50% collapse upon inspiration consistent with normal right atrial pressure, 3 mmHg. Aorta The aortic root size at the sinus of Valsalva is normal. Left Ventricular Outflow Tract Name Value Normal LVOT 2D LVOT Diameter 1.9 cm LVOT Doppler LVOT Peak Gradient 4 mmHg LVOT Mean Gradient 2 mmHg LVOT VTI 17 cm LVOT VTI/AV VTI Ratio 0.7 LVOT Stroke Volume
[2022-04-19 08:53] LABS: Glucose Point of Care 278 mg/dl (65-105)
[2022-04-19] MEDS: INSULIN ASPART (*BKC) 100 UNITS/ML SUB-Q ×3 (09:20→17:09)
--- NOTE | 2022-04-19 11:53 | P.PNIM_ITS ---
Progress Note: A&P Assessment and Plan (1) Lower GI bleeding: Code(s): K92.2 - Gastrointestinal hemorrhage, unspecified Status: Acute Assessment and Plan: Patient presented to the hospital with c/o blood in her stool and multiple loose bowel movements. * Monitor H/H, currently 12.8 and stable. * Monitor I/O and stools * GI consulted and appreciate recommendations. * Hold aspirin (2) Lower urinary tract symptoms: Code(s): R39.9 - Unspecified symptoms and signs involving the genitourinary system Status: Acute Assessment and Plan: Patient c/o dysuria, urinary urgency, hesitancy and incontinence. She reports acute worsening of chronic lower back pain. She endorses frequent urinary tract infections and appears she was treated with Cephalexin recently for cellulitis and prescribed Bactrim prior to this but ED notes report she only took a few tablets. * CT abd/pelvis with possible left kidney pyelonephritis versus scarring. * WBC increased 12.4. Trend CBC * Check UA C&S as it does not appear one was sent in the ED. * Patient requesting Urology consult, which has been placed. * Start empiric Levaquin 750 mg PO daily IV (until evaluated by GI) and adjust per urine culture and Urology recommendations. * Hold Myrbetriq due to ADR urinary retention (3) Chronic anemia: Code(s): D64.9 - Anemia, unspecified Status: Chronic Assessment and Plan: Patient is on iron supplementation outpatient. * Hemoglobin 12.8 and stable from admission. * MCV, MCH, MCHC all within normal limits * Continue to trend H&H. * Continue iron supplementation (4) Hyponatremia: Code(s): E87.1 - Hypo-osmolality and hyponatremia Status: Acute Assessment and Plan: Acute on chronic hyponatremia, baseline sodium appears to be 128-129. Was 122 admission * May be secondary to Cymbalta. Hold Cymbalta for now. * Give gentle IV fluids NS at 50 mL/hour, * Check urine sodium, creatinine, urea -FENa 0.8% suggesting pre-renal * Monitor I's and O's (5) Insulin dependent type 2 diabetes mellitus: Code(s): E11.9 - Type 2 diabetes mellitus without complications; Z79.4 - skilled nursing (current) use of insulin Status: Chronic Assessment and Plan: Patient has be NPO for most of the day and. She takes approximately 80 units of Toujeo daily and 35 units Humalog t.i.d. with meals. * Accu-Cheks a.c. HS while eating changed to q.6 when NPO * Will give high-dose aspart sliding scale with meals and give Lantus 23 units at HS and will likely need a dosing again in the morning opal await GI recommendations that p.o. status to adjust insulin dosing (6) Tachycardia: Code(s): R00.0 - Tachycardia, unspecified Status: Acute Assessment and Plan: HR 84-95 today, was noted to be 124 overnight. May be secondary to acute infection, such as UTI versus GI bleeding versus anxiety. BP stable. (7) Hypertension: Qualifiers: Hypertension type: primary hypertension Qualified Code(s): I10 - Essential (primary) hypertension Code(s): I10 - Essential (primary) hypertension Status: Chronic Assessment and Plan: Chronic, blood pressures reviewed. * Continue amlodipine 5 mg daily, losartan 100 mg daily, Toprol XL 50 mg daily (8) Heart failure: Qualifiers: Heart failure type: systolic Heart failure chronicity: chronic Qualified Code(s): I50.22 - Chronic systolic (congestive) heart failure Code(s): I50.9 - Heart failure, unspecified Status: Chronic
--- NOTE | 2022-04-19 11:53 | PM.IMPN ---
Progress Note: A&P Assessment and Plan (1) Lower GI bleeding: Code(s): K92.2 - Gastrointestinal hemorrhage, unspecified Status: Acute Assessment and Plan: Patient presented to the hospital with c/o blood in her stool and multiple loose bowel movements. Monitor H/H, currently 12.8 and stable. Monitor I/O and stools GI consulted and appreciate recommendations. Hold aspirin (2) Lower urinary tract symptoms: Code(s): R39.9 - Unspecified symptoms and signs involving the genitourinary system Status: Acute Assessment and Plan: Patient c/o dysuria, urinary urgency, hesitancy and incontinence. She reports acute worsening of chronic lower back pain. She endorses frequent urinary tract infections and appears she was treated with Cephalexin recently for cellulitis and prescribed Bactrim prior to this but ED notes report she only took a few tablets. CT abd/pelvis with possible left kidney pyelonephritis versus scarring. WBC increased 12.4. Trend CBC Check UA C&S as it does not appear one was sent in the ED. Patient requesting Urology consult, which has been placed. Start empiric Levaquin 750 mg PO daily IV (until evaluated by GI) and adjust per urine culture and Urology recommendations. Hold Myrbetriq due to ADR urinary retention (3) Chronic anemia: Code(s): D64.9 - Anemia, unspecified Status: Chronic Assessment and Plan: Patient is on iron supplementation outpatient. Hemoglobin 12.8 and stable from admission. MCV, MCH, MCHC all within normal limits Continue to trend H&H. Continue iron supplementation (4) Hyponatremia: Code(s): E87.1 - Hypo-osmolality and hyponatremia Status: Acute Assessment and Plan: Acute on chronic hyponatremia, baseline sodium appears to be 128-129. Was 122 admission May be secondary to Cymbalta. Hold Cymbalta for now. Give gentle IV fluids NS at 50 mL/hour, Check urine sodium, creatinine, urea -FENa 0.8% suggesting pre-renal Monitor I's and O's (5) Insulin dependent type 2 diabetes mellitus: Code(s): E11.9 - Type 2 diabetes mellitus without complications; Z79.4 - senior care (current) use of insulin Status: Chronic Assessment and Plan: Patient has be NPO for most of the day and. She takes approximately 80 units of Toujeo daily and 35 units Humalog t.i.d. with meals. Accu-Cheks a.c. HS while eating changed to q.6 when NPO Will give high-dose aspart sliding scale with meals and give Lantus 23 units at HS and will likely need a dosing again in the morning opal await GI recommendations that p.o. status to adjust insulin dosing (6) Tachycardia: Code(s): R00.0 - Tachycardia, unspecified Status: Acute Assessment and Plan: HR 84-95 today, was noted to be 124 overnight. May be secondary to acute infection, such as UTI versus GI bleeding versus anxiety. BP stable. (7) Hypertension: Qualifiers: Hypertension type: primary hypertension Qualified Code(s): I10 - Essential (primary) hypertension Code(s): I10 - Essential (primary) hypertension Status: Chronic Assessment and Plan: Chronic, blood pressures reviewed. Continue amlodipine 5 mg daily, losartan 100 mg daily, Toprol XL 50 mg daily (8) Heart failure: Qualifiers: Heart failure type: systolic Heart failure chronicity: chronic Qualified Code(s): I50.22 - Chronic systolic (congestive) heart failure Code(s): I50.9 - Heart failure, unspecified Status: Chronic Assessment and Plan: Chronic, does not appear to be in acute exacerbation Echocardiogram shows mildly reduced left ventricular systolic function with EF 40-45% and mildly increased left ventricular wall thickness, septal wall motion is abnormal consistent with bundle branch block which is known, normal right ventricular systolic function and mild MR Will good gentle IV fluids for hyponatremia
[2022-04-19 12:08] LABS: Glucose Point of Care 253 mg/dl (65-105)
[2022-04-19] MEDS: PROCHLORPERAZINE EDISYLATE 10 MG/2 ML VIAL 5 MG IV PUSH ×2 (12:36→18:50)
[2022-04-19] MEDS: HYDROcodone/acetaminophen (*CRX) 5-325 MG TABLET 1 TAB PO ×2 (12:37→18:54)
[2022-04-19] MEDS: MAGNESIUM SULF 2 GM/WATER 50ML 2 GM/50 ML BAG IVPB (12:39)
[2022-04-19] MEDS: SODIUM CHLORIDE 0.9% IV 1,000 ML 50 ML IV CONT (12:40)
[2022-04-19 13:16] LABS: Appearance Urine Clear (Clear); Bilirubin Urine Negative (Negative); Blood Urine 3+ (Negative); Color Urine Yellow (Yellow); Glucose Urine UA 2+ mg/dL (Negative); Ketones Urine 1+ mg/dL (Negative); Leukocyte Esterase Ur Negative LEU/UL (Negative); Nitrate Urine Negative (Negative); Protein Urine 2+ mg/dL (Negative); Urobilinogen Urine 0.2 mg/dL (<2.0)
[2022-04-19 13:20] LABS: Mucus Urine Rare /lpf; RBC Urine >75 /hpf (0-2); Squamous Epithelial Cell Urine Rare /hpf (Few); WBC Urine 21-30 /hpf
[2022-04-19 13:37] LABS: Add Urine Microscopic? YES
[2022-04-19 15:08] LABS: Creatinine Urine 60.3 mg/dL
[2022-04-19 15:11] LABS: Sodium Urine Random 124 meq/L
--- NOTE | 2022-04-19 16:08 | WPDURCON ---
Assessment and Plan Assessment and plan (1) Lower urinary tract symptoms: Code(s): R39.9 - Unspecified symptoms and signs involving the genitourinary system Status: Acute Assessment and Plan: Continue Myrbetriq 50mg and add Vesicare 10mg QD for maximal OAB control. Bladder scan after void to ensure complete emptying and rule out retention. (2) Chronic UTI: Code(s): N39.0 - Urinary tract infection, site not specified Status: Acute Assessment and Plan: We discussed starting Cephalexin 250mg after discharge when infection is gone. She has no obvious source of infection in her upper tracts, cysto from 2019 was normal, but she should have a repeat cysto as an outpatient with Dr. De Los Santos. No further evaluation at this time. Urology Consult Note HPI Date Seen: 04/19/22 Time Seen: 16:08 Requesting Physician: Ana Morris MD Primary Care Provider: Deandre Waters, Consult Narrative Reason for consult: OAB/Chronic UTI/Pyelonehpritis. Narrative: Megan Menon is a 81 year old female who was in the ER on 04/18/22 initially for a GI bleed. She was found on CT to have bladder wall thickening as well as left pyelonephritis. Her culture from 03/21/22 grew Klebsiella and she has current symptoms of dysuria, frequency, urgency and diaphoresis. She denies hematuria, incontinence or flank pain at this time. SHe is afebrile but has a WBC of 12.4 and creatinine of 0.50. She is currently on Levaquin for her UTI, but requested a urology consult d/t worsening OAB symptoms and chronic UTI's. She is a patient in the office and was seen recently on 03/23/22 by Lora davis [employer] APPRENTICE. She remains on Myrbetriq 50mg which is not effective for her as she is interested in other options for treatment. She had a repeat urine culture today and blood cultures as well as a positive urine culture in 01/17 growing E-Coli at that time. Review of Systems Cardiovascular: Cardiovascular: Denies chest pain Respiratory: Respiratory: Reports no additional respiratory complaints Gastrointestinal: Gastrointestinal: Denies abdominal pain, Denies nausea and Denies vomiting Genitourinary: Genitourinary: Denies hematuria, Reports nocturia, Reports dysuria, Denies pelvic pain, Denies flank pain, Denies urinary hesitancy and Reports urinary urgency [facility] Past Medical History Medical History Anemia Arthritis Depression Diabetes Frequent urinary tract infections Gastroesophageal reflux disease Heart failure of unknown type Hypertension Insulin dependent type 2 diabetes mellitus Obstructive sleep apnea Osteopenia Skin cancer Surgical History Surgical History History of appendectomy History of cholecystectomy History of dilation and curettage History of esophageal dilatation History of lumbar surgery (1990) Family History Family History Mother Hypertension Family history of diabetes mellitus in first degree relative Family history of heart disease in male family member before age 55 Father Carcinoma of colon Family history of malignant neoplasm of gastrointestinal tract Social History Social History Social History: Surrogate medical decision maker: angel Dye. Code status: Full code. Smoking status: Never smoker Second hand tobacco smoke exposure: No Smoking end date: 02/27/80 Alcohol intake: never Substance use: never Lack of Transportation: No Lack of Food: Never True Current Housing: I Have Housing Concerned About Future Housing: No Difficulty Paying Gas/Electric Bills: No Difficulty Paying for Meds: No Currently Unemployed: No Education: High School Diploma/GED Difficulty w/ Childcare or Family Care: No Additional living arrangements c
--- NOTE | 2022-04-19 16:52 | WPDGICN ---
Assessment and Plan Assessment and plan (1) Lower GI bleeding: Code(s): K92.2 - Gastrointestinal hemorrhage, unspecified Status: Acute Assessment and Plan: she denies any more bleeding h/h stable differential include perianal source, diverticular bleeding, etc she says that already had several colonoscopies and does not want it continue medical management and monitor for more signs of bleeding (2) Chronic anemia: Code(s): D64.9 - Anemia, unspecified Status: Chronic Assessment and Plan: h/h stable (3) Colon, diverticulosis: Code(s): K57.30 - Diverticulosis of large intestine without perforation or abscess without bleeding Status: Acute (4) Hyponatremia: Code(s): E87.1 - Hypo-osmolality and hyponatremia Status: Acute Assessment and Plan: by medical team (5) Chronic UTI: Code(s): N39.0 - Urinary tract infection, site not specified Status: Acute Assessment and Plan: by urology, on abx (6) Hypertension: Qualifiers: Hypertension type: primary hypertension Qualified Code(s): I10 - Essential (primary) hypertension Code(s): I10 - Essential (primary) hypertension Status: Chronic (7) Insulin dependent type 2 diabetes mellitus: Code(s): E11.9 - Type 2 diabetes mellitus without complications; Z79.4 - [facility] (current) use of insulin Status: Chronic GI Consult Note Consult date/time: 04/19/22 16:52 Reason for consult: rectal bleeding HPI: Megan Menon is a 81 year old female with history of insulin-dependent diabetes, congestive heart failure, sleep apnea, hypertension, GERD who came to the emergency department via EMS from [facility] for evaluation of blood in stool and loose stool. She says that had couple of small episodes of diarrhea while at her doctor office then noted small amount of blood in stool, nursing staff decided to call EMS. She says that her BP was also high and was tachycardic, also has chronic hyponatremia but on admission lower than usual 122 with a baseline sodium between [address] of the abdomen and pelvis reviewed and showed wall thickening and subtle associated inflammatory change along the anterior bladder wall suspicious for cystitis which could be either acute or chronic, also diverticulosis. She says that had multiple colonoscopies normally every 3 years being last time about 3 years ago (father had colon cancer) and she does not want to get anymore. She is hungry. Review of Systems Constitutional: Constitutional: Denies chills Eyes: Eyes: Denies blurry vision ENT: Reports Normal hearing present Cardiovascular: Cardiovascular: Denies chest pain Respiratory: Respiratory: Denies chest congestion Gastrointestinal: Gastrointestinal: Reports hematochezia and Reports diarrhea Genitourinary: Genitourinary: Reports urinary urgency Musculoskeletal: Musculoskeletal: Denies back pain Integumentary/Breasts: Skin/Breast: Denies dry skin Neurologic: Denies Abnormal speech present Psychiatric: Psychiatric: Denies behavioral changes FORMERLY [facility], 1928–1983 Past Medical History Medical History (Updated 04/19/22 @ 16:57 by Scott Arceo MD) Anemia Arthritis Colon, diverticulosis Depression Diabetes Frequent urinary tract infections Gastroesophageal reflux disease Heart failure of unknown type Hypertension Insulin dependent type 2 diabetes mellitus Obstructive sleep apnea Osteopenia Skin cancer Surgical History Surgical History History of appendectomy History of cholecystectomy History of dilation and curettage History of esophageal dilatation History of lumbar surgery (1990) Family History Family History Mother Hypertension Family history of diabetes mellitus in first degree relative Family history of heart disease in male family membe
[2022-04-19 17:00] LABS: Glucose Point of Care 201 mg/dl (65-105)
[2022-04-19] MEDS: methocarbamoL 500 MG TABLET PO (17:08)
[2022-04-19] MEDS: ACETAMINOPHEN 500 MG TABLET 1000 MG PO (17:08)
[2022-04-19] MEDS: GABAPENTIN 300 MG CAPSULE 600 MG PO (17:08)
[2022-04-19] MEDS: MELATONIN 5 MG TABLET 10 MG PO (22:19)
[2022-04-19] MEDS: ATORVASTATIN 40 MG TABLET PO (22:19)
[2022-04-19] MEDS: INSULIN GLARGINE (*BKC) 100 UNITS/ML 23 UNITS SUB-Q (22:19)
[2022-04-20] VITALS (10 sets, daily range): BP systolic 123–172; BP diastolic 46–61; PULSE 71–111; RESP 17–18; TEMP 36.4–37.3; O2SAT 95–97
[2022-04-20] MEDS: HYDROcodone/acetaminophen (*CRX) 5-325 MG TABLET 1 TAB PO ×3 (04:11→20:45)
[2022-04-20 06:04] LABS: Basophils Absolute Auto 0.1 K/mm3 (0.0-0.1); Basophils Percent Auto 0.7 % (0.2-1.2); Eosinophils Absolute Auto 0.2 K/mm3 (0-0.3); Eosinophils Percent Auto 1.6 % (0-4.4); Hematocrit 37.9 % (37.0-47.0); Hemoglobin 12.5 g/dL (12.0-15.0); Immature Granulocyte Absolute 0.07 K/mm3 (0.00-0.031); Immature Granulocyte Percent A 0.5 % (0-0.5); Lymphocytes Absolute Auto 3.44 K/mm3 (0.9-3.2); Lymphocytes Percent Auto 26.4 % (18.3-44.2); Mean Corpuscular Volume 84.8 fl (80-100); Mean Platelet Volume 8.3 fl (7.4-10.4); Monocytes Absolute Auto 1.1 K/mm3 (0.1-0.6); Monocytes Percent Auto 8.2 % (2.6-8.5); Neutrophils Absolute Auto 8.2 K/mm3 (1.3-6.7); Neutrophils Percent Auto 62.6 % (45.5-73.1); Platelet Count Result 406 k/mm3 (150-375); Red Blood Count 4.47 M/mm3 (4.2-5.4); Red Cell Distribution Width 14.7 % (11.5-14.5)
[2022-04-20 06:19] LABS: Alanine Aminotransferase 29 U/L (6-35); Albumin Level 4.4 g/dL (3.5-5.1); Alkaline Phosphatase 70 U/L (38-126); Anion Gap 10 mmol/L (8-16); Aspartate Amino Transferase 22 U/L (14-36); Blood Urea Nitrogen 11 mg/dL (7-17); Calcium 8.9 mg/dL (8.4-10.2); Carbon Dioxide 25 mmol/L (22-30); Chloride 92 mmol/L (98-107); Estimated CRCL calculation 57 ml/min; Estimated Glomerular Filt Rate > 60; Glucose 188 mg/dL (65-110); Potassium 3.9 mmol/L (3.4-5.0); Sodium 127 mmol/L (137-145)
[2022-04-20 08:08] LABS: Glucose Point of Care 197 mg/dl (65-105)
[2022-04-20] MEDS: ACETAMINOPHEN 500 MG TABLET 1000 MG PO ×2 (08:18→16:51)
[2022-04-20] MEDS: LOSARTAN POTASSIUM 100 MG TABLET PO (08:18)
[2022-04-20] MEDS: SOLIFENACIN 5 MG TABLET 10 MG PO (08:18)
[2022-04-20] MEDS: methocarbamoL 500 MG TABLET PO ×2 (08:19→16:52)
[2022-04-20] MEDS: GABAPENTIN 300 MG CAPSULE 600 MG PO ×2 (08:19→16:51)
[2022-04-20] MEDS: METOPROLOL SUCCINATE EXT REL 50 MG TABCR PO (08:19)
[2022-04-20] MEDS: FERROUS SULFATE 324 MG TABLET PO (08:20)
[2022-04-20] MEDS: amLODIPine BESYLATE 5 MG TABLET PO (08:20)
[2022-04-20] MEDS: CHOLECALCIFEROL 1,000 UNITS TABLET 1000 UNITS PO (08:21)
[2022-04-20] MEDS: PANTOPRAZOLE SODIUM IV 40 MG VIAL IV PUSH (08:21)
--- NOTE | 2022-04-20 08:43 | P.PNIM_ITS ---
Progress Note: A&P Assessment and Plan (1) Lower GI bleeding: Code(s): K92.2 - Gastrointestinal hemorrhage, unspecified Status: Acute Assessment and Plan: Patient presented to the hospital with c/o blood in her stool and multiple loose bowel movements. * Monitor H/H, currently 12.5 and stable. * Monitor I/O and stools * GI consulted and appreciate recommendations- Patient does not want endoscopy. Continue supportive care. * Hold aspirin for now. Resume in am if H/H still stable. (2) Lower urinary tract symptoms: Code(s): R39.9 - Unspecified symptoms and signs involving the genitourinary system Status: Acute Assessment and Plan: Patient c/o dysuria, urinary urgency, hesitancy and incontinence. She reports acute worsening of chronic lower back pain. She endorses frequent urinary tract infections and appears she was treated with Cephalexin recently for cellulitis and prescribed Bactrim prior to this but ED notes report she only took a few tablets. * CT abd/pelvis with possible left kidney pyelonephritis versus scarring. * WBC increased 13. Trend CBC * UA C&S with 3+ blood, 21-30 WBC, rare epi, negative for nitrates and leukocytes. * Patient requesting Urology consult, which has been placed. * Continue empiric Levaquin 750 mg PO daily IV (until evaluated by GI) and adjust per urine culture and Urology recommendations. * Awaiting urine culture, but symptoms improving. (3) Chronic anemia: Code(s): D64.9 - Anemia, unspecified Status: Chronic Assessment and Plan: Patient is on iron supplementation outpatient. * Hemoglobin 12.8 and stable from admission. * MCV, MCH, MCHC all within normal limits * Continue to trend H&H. * Continue iron supplementation (4) Hyponatremia: Code(s): E87.1 - Hypo-osmolality and hyponatremia Status: Acute Assessment and Plan: Acute on chronic hyponatremia, baseline sodium appears to be 128-129. Was 122 admission * Hold Cymbalta for now. * Give gentle IV fluids NS at 50 mL/hour, * Check urine sodium, creatinine, urea -FENa 0.8% suggesting pre-renal * Monitor I's and O's * Sodium improving 127 today, with baseline 128-129 (5) Insulin dependent type 2 diabetes mellitus: Code(s): E11.9 - Type 2 diabetes mellitus without complications; Z79.4 - [facility] (current) use of insulin Status: Chronic Assessment and Plan: Patient has be NPO for most of the day and. She takes approximately 80 units of Toujeo daily and 35 units Humalog t.i.d. with meals. * Accu-Cheks a.c. HS * Continue high-dose aspart sliding scale with meals * Increase Lantus 40 units at HS and give 20 units in am (reduced dose from usual 80 units daily). (6) Tachycardia: Code(s): R00.0 - Tachycardia, unspecified Status: Acute Assessment and Plan: HR/BP stable. May be secondary to acute infection, such as UTI versus GI bleeding versus anxiety. (7) Hypertension: Qualifiers: Hypertension type: primary hypertension Qualified Code(s): I10 - Essential (primary) hypertension Code(s): I10 - Essential (primary) hypertension Status: Chronic Assessment and Plan: Chronic, blood pressures reviewed. * Continue amlodipine 5 mg daily, losartan 100 mg daily, Toprol XL 50 mg daily (8) Heart failure: Qualifiers: Heart failure chronicity: chronic Heart failure type: systolic Qualified Code(s): I50.22 - Chronic systolic (congestive) heart failure Code(s): I50.9 - Heart failure, unspe
--- NOTE | 2022-04-20 08:43 | PM.IMPN ---
Progress Note: A&P Assessment and Plan (1) Lower GI bleeding: Code(s): K92.2 - Gastrointestinal hemorrhage, unspecified Status: Acute Assessment and Plan: Patient presented to the hospital with c/o blood in her stool and multiple loose bowel movements. Monitor H/H, currently 12.5 and stable. Monitor I/O and stools GI consulted and appreciate recommendations- Patient does not want endoscopy. Continue supportive care. Hold aspirin for now. Resume in am if H/H still stable. (2) Lower urinary tract symptoms: Code(s): R39.9 - Unspecified symptoms and signs involving the genitourinary system Status: Acute Assessment and Plan: Patient c/o dysuria, urinary urgency, hesitancy and incontinence. She reports acute worsening of chronic lower back pain. She endorses frequent urinary tract infections and appears she was treated with Cephalexin recently for cellulitis and prescribed Bactrim prior to this but ED notes report she only took a few tablets. CT abd/pelvis with possible left kidney pyelonephritis versus scarring. WBC increased 13. Trend CBC UA C&S with 3+ blood, 21-30 WBC, rare epi, negative for nitrates and leukocytes. Patient requesting Urology consult, which has been placed. Continue empiric Levaquin 750 mg PO daily IV (until evaluated by GI) and adjust per urine culture and Urology recommendations. Awaiting urine culture, but symptoms improving. (3) Chronic anemia: Code(s): D64.9 - Anemia, unspecified Status: Chronic Assessment and Plan: Patient is on iron supplementation outpatient. Hemoglobin 12.8 and stable from admission. MCV, MCH, MCHC all within normal limits Continue to trend H&H. Continue iron supplementation (4) Hyponatremia: Code(s): E87.1 - Hypo-osmolality and hyponatremia Status: Acute Assessment and Plan: Acute on chronic hyponatremia, baseline sodium appears to be 128-129. Was 122 admission Hold Cymbalta for now. 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 She takes approximately 80 units of Toujeo daily and 35 units Humalog t.i.d. with meals. Accu-Cheks a.c. HS Continue high-dose aspart sliding scale with meals Increase Lantus 40 units at HS and give 20 units in am (reduced dose from usual 80 units daily). (6) Tachycardia: Code(s): R00.0 - Tachycardia, unspecified Status: Acute Assessment and Plan: HR/BP stable. May be secondary to acute infection, such as UTI versus GI bleeding versus anxiety. (7) Hypertension: Qualifiers: Hypertension type: primary hypertension Qualified Code(s): I10 - Essential (primary) hypertension Code(s): I10 - Essential (primary) hypertension Status: Chronic Assessment and Plan: Chronic, blood pressures reviewed. Continue amlodipine 5 mg daily, losartan 100 mg daily, Toprol XL 50 mg daily (8) Heart failure: Qualifiers: Heart failure chronicity: chronic Heart failure type: systolic Qualified Code(s): I50.22 - Chronic systolic (congestive) heart failure Code(s): I50.9 - Heart failure, unspecified Status: Chronic Assessment and Plan: Chronic, does not appear to be in acute exacerbation Echocardiogram shows mildly reduced left ventricular systolic function with EF 40-45% and mildly increased left ventricular wall thickness, septal wall motion is abnormal consistent with bundle branch block which is known, normal right ventricular systolic function and mild MR continue gentle IV fluids for
--- NOTE | 2022-04-20 10:12 | WPDGIPROGNO ---
Progress Note: A&P Assessment and Plan (1) Lower GI bleeding: Code(s): K92.2 - Gastrointestinal hemorrhage, unspecified Status: Acute Assessment and Plan: no more bleeding and h/h stable patient does not want to have another colonoscopy [place], call if questions (2) Colon, diverticulosis: Code(s): K57.30 - Diverticulosis of large intestine without perforation or abscess without bleeding Status: Acute (3) Chronic UTI: Code(s): N39.0 - Urinary tract infection, site not specified Status: Acute Assessment and Plan: on abx (4) Hypertension: Qualifiers: Hypertension type: primary hypertension Qualified Code(s): I10 - Essential (primary) hypertension Code(s): I10 - Essential (primary) hypertension Status: Chronic (5) Hyponatremia: Code(s): E87.1 - Hypo-osmolality and hyponatremia Status: Acute Assessment and Plan: na now is stable, chronic problem Subjective Date/time seen: 04/20/22 10:12 Interval history: doing well, no more gib Review of Systems Review of Systems: All systems reviewed & are unremarkable except as noted in HPI and below Exam Const: General: comfortable and no acute distress HENMT: Face/Nose/Sinus: Normal nares present Eyes: General: appearance normal, both eyes and all related structures Neck: Neck: supple Resp: Auscultation: clear to auscultation bilaterally Cardio: Rate: regular rate Rhythm: regular rhythm GI: Inspection: non-distended GI Palp: Yes Soft to palpation, No Tenderness to palpation present (GI) and No Guarding due to palpation present (GI) Skin: General skin exam: normal color Neuro: Speech: normal speech Motor exam (neuro): 5/5 motor strength present throughout Extrem: General: normal to inspection Psych: Mental Status: mental status grossly normal Objective Data Vital Signs Vital Signs: Vital Signs - 24 hr 04/19/22 12:00 04/19/22 15:00 04/19/22 16:00 Temperature 98.1 F Pulse Rate 86 95 85 Respiratory Rate 18 Blood Pressure 178/68 H Pulse Oximetry 95 Oxygen Delivery 04/19/22 20:00 04/19/22 20:00 04/20/22 00:00 Temperature Pulse Rate 85 91 90 Respiratory Rate 18 Blood Pressure Pulse Oximetry 95 Oxygen Delivery Room Air 04/20/22 04:00 04/20/22 05:46 04/20/22 08:19 Temperature 97.6 F Pulse Rate 95 111 H 96 Respiratory Rate 18 Blood Pressure 172/61 H Pulse Oximetry 95 Oxygen Delivery Intake/Output Intake/Output: Intake & Output 04/17/22 04/18/22 04/19/22 04/20/22 23:59 23:59 23:59 23:59 Intake Total 1000 400 460 Output Total 300 400 Balance 1000 100 60 Meds/Results Medications: Active Medications Generic Name Dose Route Start Last Admin Trade Name Freq PRN Reason Stop Dose Admin Acetaminophen 650 mg 04/18/22 23:56 04/19/22 00:25 Acetaminophen 325 Mg Tablet PO 650 mg Q6H PRN Administration Mild Pain (1-3) or Fever Acetaminophen 1,000 mg 04/19/22 17:00 04/20/22 08:18 Acetaminophen 500 Mg Tablet PO 1,000 mg BID LIDIA Administration Hydrocodone Bitart/Acetaminophen 1 tab 04/19/22 11:44 04/20/22 04:11 Hydrocodone/Acetaminophen (*Crx) 5-325 Mg Tablet PO 1 tab Q6H PRN Administration moderate to severe pain Amlodipine Besylate 5 mg 04/20/22 09:00 04/20/22 08:20 Amlodipine Besylate 5 Mg Tablet PO 5 mg DAILY LIDIA Administration Atorvastatin Calcium 40 mg 04/19/22 21:00 04/19/22 22:19 Atorvastatin 40 Mg Tablet PO 40 mg HS LIDIA Administration Dextrose 12.5 gm 04/18/22 23:57 Dextrose 50% 25 Gm/50 Ml Syringe IV PUSH PRN PRN Hypoglycemia Protocol Ferrous Sulfate 324 mg 04/20/22 09:00 04/20/22 08:20 Ferrous Sulfate 324 Mg Tablet PO 324 mg DAILY LIDIA Administration Fluticasone Propionate 1 spray 04/19/22 17:00 04/20/22 08:30 Fluticasone Propionate 0.05% Na Spr 16 Gm Btl (*Bkc) [employer]
[2022-04-20 12:04] LABS: Glucose Point of Care 269 mg/dl (65-105)
[2022-04-20] MEDS: INSULIN ASPART (*BKC) 100 UNITS/ML SUB-Q (12:08)
[2022-04-20 16:54] LABS: Glucose Point of Care 161 mg/dl (65-105)
[2022-04-20] MEDS: MELATONIN 5 MG TABLET 10 MG PO (20:44)
[2022-04-20] MEDS: ATORVASTATIN 40 MG TABLET PO (20:45)
[2022-04-20] MEDS: INSULIN GLARGINE (*BKC) 100 UNITS/ML 40 UNITS SUB-Q (20:45)
[2022-04-20 21:00] LABS: Glucose Point of Care 211 mg/dl (65-105)
[2022-04-21 03:43] VITALS: BP 144/56; PULSE 90; RESP 17; TEMP 36.6; O2SAT 99
[2022-04-21 05:09] LABS: Hematocrit 35.3 % (37.0-47.0); Hemoglobin 11.5 g/dL (12.0-15.0); Mean Corpuscular HGB Conc 32.6 g/dl (32-36); Mean Corpuscular Hemoglobin 27.9 pg (26-34); Mean Corpuscular Volume 85.7 fl (80-100); Mean Platelet Volume 8.4 fl (7.4-10.4); Platelet Count Result 371 k/mm3 (150-375); Red Blood Count 4.12 M/mm3 (4.2-5.4); Red Cell Distribution Width 14.6 % (11.5-14.5); White Blood Count 10.4 K/mm3 (4.5-10.0)
[2022-04-21 05:21] LABS: Anion Gap 4 mmol/L (8-16); Blood Urea Nitrogen 9 mg/dL (7-17); CRP < 0.5 mg/dL (<1.0); Calcium 8.7 mg/dL (8.4-10.2); Carbon Dioxide 25 mmol/L (22-30); Chloride 97 mmol/L (98-107); Estimated CRCL calculation 58 ml/min; Estimated Glomerular Filt Rate > 60; Glucose 142 mg/dL (65-110); Magnesium 1.8 mg/dL (1.6-2.3); Potassium 3.7 mmol/L (3.4-5.0); Sodium 126 mmol/L (137-145)
[2022-04-21 08:00] VITALS: O2SAT 98
[2022-04-21 08:25] LABS: Glucose Point of Care 171 mg/dl (65-105)
[2022-04-21 08:39] VITALS: BP 153/67; PULSE 98; O2SAT 98
[2022-04-21] MEDS: GABAPENTIN 300 MG CAPSULE 600 MG PO ×2 (08:41→16:23)
[2022-04-21] MEDS: ACETAMINOPHEN 500 MG TABLET 1000 MG PO ×2 (08:41→16:23)
[2022-04-21] MEDS: CHOLECALCIFEROL 1,000 UNITS TABLET 1000 UNITS PO (08:41)
[2022-04-21] MEDS: SOLIFENACIN 5 MG TABLET 10 MG PO (08:41)
[2022-04-21] MEDS: LOSARTAN POTASSIUM 100 MG TABLET PO (08:41)
[2022-04-21] MEDS: methocarbamoL 500 MG TABLET PO ×2 (08:41→16:23)
[2022-04-21] MEDS: amLODIPine BESYLATE 5 MG TABLET PO (08:41)
[2022-04-21] MEDS: FERROUS SULFATE 324 MG TABLET PO (08:41)
[2022-04-21] MEDS: PANTOPRAZOLE SODIUM IV 40 MG VIAL IV PUSH (08:41)
[2022-04-21 08:42] VITALS: PULSE 98
[2022-04-21] MEDS: METOPROLOL SUCCINATE EXT REL 50 MG TABCR PO (08:42)
[2022-04-21] MEDS: INSULIN GLARGINE (*BKC) 100 UNITS/ML 20 UNITS SUB-Q (08:47)
[2022-04-21] MEDS: levoFLOXacin 750 MG TABLET PO (10:03)
[2022-04-21 11:58] LABS: Glucose Point of Care 251 mg/dl (65-105)
[2022-04-21] MEDS: INSULIN ASPART (*BKC) 100 UNITS/ML SUB-Q ×2 (12:03→17:03)
[2022-04-21 14:32] VITALS: BP 146/61; PULSE 93; RESP 18; TEMP 36.8; O2SAT 98
[2022-04-21 14:39] LABS: Sodium 124 mmol/L (137-145)
--- NOTE | 2022-04-21 15:21 | P.PNIM_ITS ---
Progress Note: A&P Assessment and Plan (1) Lower GI bleeding: Code(s): K92.2 - Gastrointestinal hemorrhage, unspecified Status: Acute Assessment and Plan: Patient presented to the hospital with c/o blood in her stool and multiple loose bowel movements. * Monitor H/H, currently 12.5 and stable. * Monitor I/O and stools * GI consulted and appreciate recommendations- Patient does not want endoscopy. Continue supportive care. * Hold aspirin for now. Resume in am if H/H still stable. (2) Lower urinary tract symptoms: Code(s): R39.9 - Unspecified symptoms and signs involving the genitourinary system Status: Acute Assessment and Plan: Patient c/o dysuria, urinary urgency, hesitancy and incontinence. She reports acute worsening of chronic lower back pain. She endorses frequent urinary tract infections and appears she was treated with Cephalexin recently for cellulitis and prescribed Bactrim prior to this but ED notes report she only took a few tablets. * CT abd/pelvis with possible left kidney pyelonephritis versus scarring. * WBC increased 13. Trend CBC * UA C&S with 3+ blood, 21-30 WBC, rare epi, negative for nitrates and leukocytes. * Patient requesting Urology consult, which has been placed. * Continue empiric Levaquin 750 mg PO daily IV (until evaluated by GI) and adjust per urine culture and Urology recommendations. * Awaiting urine culture, but symptoms improving. (3) Chronic anemia: Code(s): D64.9 - Anemia, unspecified Status: Chronic Assessment and Plan: Patient is on iron supplementation outpatient. * Hemoglobin 12.8 and stable from admission. * MCV, MCH, MCHC all within normal limits * Continue to trend H&H. * Continue iron supplementation (4) Hyponatremia: Code(s): E87.1 - Hypo-osmolality and hyponatremia Status: Acute Assessment and Plan: Acute on chronic hyponatremia, baseline sodium appears to be 128-129. Was 122 admission * Hold Cymbalta for now. * Give gentle IV fluids NS at 50 mL/hour, * Check urine sodium, creatinine, urea -FENa 0.8% suggesting pre-renal * Monitor I's and O's * Sodium improving 127 today, with baseline 128-129 (5) Insulin dependent type 2 diabetes mellitus: Code(s): E11.9 - Type 2 diabetes mellitus without complications; Z79.4 - [facility] (current) use of insulin Status: Chronic Assessment and Plan: Patient has be NPO for most of the day and. She takes approximately 80 units of Toujeo daily and 35 units Humalog t.i.d. with meals. * Accu-Cheks a.c. HS * Continue high-dose aspart sliding scale with meals * Increase Lantus 40 units at HS and give 20 units in am (reduced dose from usual 80 units daily). (6) Tachycardia: Code(s): R00.0 - Tachycardia, unspecified Status: Acute Assessment and Plan: HR/BP stable. May be secondary to acute infection, such as UTI versus GI bleeding versus anxiety. (7) Hypertension: Qualifiers: Hypertension type: primary hypertension Qualified Code(s): I10 - Essential (primary) hypertension Code(s): I10 - Essential (primary) hypertension Status: Chronic Assessment and Plan: Chronic, blood pressures reviewed. * Continue amlodipine 5 mg daily, losartan 100 mg daily, Toprol XL 50 mg daily (8) Heart failure: Qualifiers: Heart failure type: systolic Heart failure chronicity: chronic Qualified Code(s): I50.22 - Chronic systolic (congestive) heart failure Code(s): I50.9 - Heart failure, unspe
--- NOTE | 2022-04-21 15:21 | PM.IMPN ---
Progress Note: A&P Assessment and Plan (1) Lower GI bleeding: Code(s): K92.2 - Gastrointestinal hemorrhage, unspecified Status: Acute Assessment and Plan: Patient presented to the hospital with c/o blood in her stool and multiple loose bowel movements. Monitor H/H, currently 12.5 and stable. Monitor I/O and stools GI consulted and appreciate recommendations- Patient does not want endoscopy. Continue supportive care. Hold aspirin for now. Resume in am if H/H still stable. (2) Lower urinary tract symptoms: Code(s): R39.9 - Unspecified symptoms and signs involving the genitourinary system Status: Acute Assessment and Plan: Patient c/o dysuria, urinary urgency, hesitancy and incontinence. She reports acute worsening of chronic lower back pain. She endorses frequent urinary tract infections and appears she was treated with Cephalexin recently for cellulitis and prescribed Bactrim prior to this but ED notes report she only took a few tablets. CT abd/pelvis with possible left kidney pyelonephritis versus scarring. WBC increased 13. Trend CBC UA C&S with 3+ blood, 21-30 WBC, rare epi, negative for nitrates and leukocytes. Patient requesting Urology consult, which has been placed. Continue empiric Levaquin 750 mg PO daily IV (until evaluated by GI) and adjust per urine culture and Urology recommendations. Awaiting urine culture, but symptoms improving. (3) Chronic anemia: Code(s): D64.9 - Anemia, unspecified Status: Chronic Assessment and Plan: Patient is on iron supplementation outpatient. Hemoglobin 12.8 and stable from admission. MCV, MCH, MCHC all within normal limits Continue to trend H&H. Continue iron supplementation (4) Hyponatremia: Code(s): E87.1 - Hypo-osmolality and hyponatremia Status: Acute Assessment and Plan: Acute on chronic hyponatremia, baseline sodium appears to be 128-129. Was 122 admission Hold Cymbalta for now. 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 She takes approximately 80 units of Toujeo daily and 35 units Humalog t.i.d. with meals. Accu-Cheks a.c. HS Continue high-dose aspart sliding scale with meals Increase Lantus 40 units at HS and give 20 units in am (reduced dose from usual 80 units daily). (6) Tachycardia: Code(s): R00.0 - Tachycardia, unspecified Status: Acute Assessment and Plan: HR/BP stable. May be secondary to acute infection, such as UTI versus GI bleeding versus anxiety. (7) Hypertension: Qualifiers: Hypertension type: primary hypertension Qualified Code(s): I10 - Essential (primary) hypertension Code(s): I10 - Essential (primary) hypertension Status: Chronic Assessment and Plan: Chronic, blood pressures reviewed. Continue amlodipine 5 mg daily, losartan 100 mg daily, Toprol XL 50 mg daily (8) Heart failure: Qualifiers: Heart failure type: systolic Heart failure chronicity: chronic Qualified Code(s): I50.22 - Chronic systolic (congestive) heart failure Code(s): I50.9 - Heart failure, unspecified Status: Chronic Assessment and Plan: Chronic, does not appear to be in acute exacerbation Echocardiogram shows mildly reduced left ventricular systolic function with EF 40-45% and mildly increased left ventricular wall thickness, septal wall motion is abnormal consistent with bundle branch block which is known, normal right ventricular systolic function and mild MR continue gentle IV fluids for
[2022-04-21] MEDS: FLUTICASONE PROPIONATE 0.05% NA SPR 16 GM BTL (*BKC) 1 SPRAY NASAL (16:23)
[2022-04-21 16:54] LABS: Glucose Point of Care 203 mg/dl (65-105)
[2022-04-21] MEDS: INSULIN ASPART (*BKC) 100 UNITS/ML 10 UNITS SUB-Q (17:02)
--- NOTE | 2022-04-21 21:37 | PC.NURSE ---
Pt voided 40ml, post-void bladder scan shows 300ml, pt then voided an additional 50ml.
[2022-04-21] MEDS: ATORVASTATIN 40 MG TABLET PO (21:40)
[2022-04-21] MEDS: MELATONIN 5 MG TABLET 10 MG PO (21:40)
[2022-04-21] MEDS: INSULIN GLARGINE (*BKC) 100 UNITS/ML 40 UNITS SUB-Q (21:47)
[2022-04-21 22:00] LABS: Glucose Point of Care 191 mg/dl (65-105)
[2022-04-21 22:17] LABS: Potassium Urine Random 10.8 meq/L; Sodium Urine Random 33 meq/L
[2022-04-21 22:33] VITALS: BP 128/47; PULSE 82; RESP 21; TEMP 36.2; O2SAT 100
[2022-04-22 05:36] LABS: Hematocrit 33.1 % (37.0-47.0); Mean Corpuscular HGB Conc 33.2 g/dl (32-36); Mean Corpuscular Hemoglobin 28.6 pg (26-34); Mean Platelet Volume 8.1 fl (7.4-10.4); Platelet Count Result 334 k/mm3 (150-375); Red Blood Count 3.85 M/mm3 (4.2-5.4); Red Cell Distribution Width 15.1 % (11.5-14.5); White Blood Count 9.9 K/mm3 (4.5-10.0)
[2022-04-22] MEDS: HYDROcodone/acetaminophen (*CRX) 5-325 MG TABLET 1 TAB PO (05:39)
[2022-04-22 05:48] LABS: Albumin Level 3.8 g/dL (3.5-5.1); Anion Gap 7 mmol/L (8-16); Blood Urea Nitrogen 11 mg/dL (7-17); Calcium 9.2 mg/dL (8.4-10.2); Carbon Dioxide 24 mmol/L (22-30); Chloride 97 mmol/L (98-107); Estimated CRCL calculation 51 ml/min; Estimated Glomerular Filt Rate > 60; Glucose 198 mg/dL (65-110); Magnesium 1.5 mg/dL (1.6-2.3); Potassium 3.9 mmol/L (3.4-5.0); Sodium 128 mmol/L (137-145)
[2022-04-22 06:00] VITALS: BP 147/46; PULSE 82; RESP 18; TEMP 36.6; O2SAT 95
--- NOTE | 2022-04-22 07:35 | PM.DS ---
DS: Admitting Diagnosis Discharge Date 04/22/2022 Admitting Diagnosis Lower GI bleeding Anemia, unspecified Hyponatremia Insulin dependent type 2 diabetes mellitus: Lower urinary tract symptoms: Abnormal findings on diagnostic imaging of other abdominal regions, including retroperitoneum Tachycardia, unspecified Heart failure, unspecified? 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 Status: Chronic (6) Tachycardia: Code(s): R00.0 - Tachycardia, unspecified Status: Acute (7) Hypertension: Qualifiers: Hypertension type: primary hypertension Qualified Code(s): I10 - Essential (primary) hypertension Code(s): I10 - Essential (primary) hypertension Status: Chronic (8) Pulmonary nodules: Code(s): R91.8 - Other nonspecific abnormal finding of lung field Status: Chronic (9) Systolic heart failure: Qualifiers: Heart failure chronicity: chronic Qualified Code(s): I50.22 - Chronic systolic (congestive) heart failure Code(s): I50.20 - Unspecified systolic (congestive) heart failure Status: Acute (10) Colon, diverticulosis: Code(s): K57.30 - Diverticulosis of large intestine without perforation or abscess without bleeding Status: Chronic (11) Chronic UTI: Code(s): N39.0 - Urinary tract infection, site not specified Status: Chronic (12) OAB (overactive bladder): Code(s): N32.81 - Overactive bladder Status: Acute DS: Summary Hospital Course Reason for hospitalization: blood in stool Hospital Course: Patient is an 81-year-old insulin-dependent diabetic, unspecified congestive heart failure, sleep apnea, hypertension, GERD and hypertension.? She presented to the emergency department for evaluation of blood in her stool.?She reported bright red blood per rectum admixed with clots while at her PCPs office on the day of admission. She had several other similar episodes thereafter and she came in for evaluation. She denied abdominal pain or discomfort with the bowel movements. She denied lightheadedness, dizziness or weak. Blood pressures were stable on arrival to the emergency department though she was tachycardic, however admittedly anxious. Hemoglobin and hematocrit were stable when compared to labs drawn a couple of weeks ago. Her lactic acid level was within normal limits. She also complained of frequent urination, urgency, hesitancy and incontinence.? She was admitted for further GI evaluation. 1) Lower GI bleeding Patient presented to the hospital with c/o blood in her stool and multiple loose bowel movements. Monitor H/H, currently 11-12.5 and stable. Monitor I/O and stools diverticulosis without diverticulitis present GI consulted and appreciate recommendations- Patient does not want endoscopy. Given supportive care. Held aspirin for now. Resumed prior to discharge with stable H/H 2) Lower urinary tract symptoms 3) Chronic UTIs 4) overactive bladder Patient c/o dysuria, urinary urgency, hesitancy and incontinence. She reported acute worsening of chronic lower back pain. She endorsed frequent urinary tract infections and appears she was treated with Cephalexin recently for cellulitis and prescribed Bactrim prior to this but ED notes report she only took a few tablets. CT abd/
[2022-04-22] MEDS: MAGNESIUM SULF 2 GM/WATER 50ML 2 GM/50 ML BAG IVPB (07:41)
[2022-04-22 08:43] LABS: Glucose Point of Care 198 mg/dl (65-105)
[2022-04-22] MEDS: PANTOPRAZOLE SODIUM IV 40 MG VIAL IV PUSH (08:55)
[2022-04-22 08:59] VITALS: PULSE 80
[2022-04-22] MEDS: METOPROLOL SUCCINATE EXT REL 50 MG TABCR PO (08:59)
[2022-04-22] MEDS: amLODIPine BESYLATE 5 MG TABLET PO (09:00)
[2022-04-22] MEDS: FERROUS SULFATE 324 MG TABLET PO (09:00)
[2022-04-22] MEDS: GABAPENTIN 300 MG CAPSULE 600 MG PO (09:00)
[2022-04-22] MEDS: LOSARTAN POTASSIUM 100 MG TABLET PO (09:00)
[2022-04-22] MEDS: CHOLECALCIFEROL 1,000 UNITS TABLET 1000 UNITS PO (09:00)
[2022-04-22] MEDS: methocarbamoL 500 MG TABLET PO (09:00)
[2022-04-22] MEDS: INSULIN ASPART (*BKC) 100 UNITS/ML 10 UNITS SUB-Q ×2 (09:01→12:04)
[2022-04-22] MEDS: ACETAMINOPHEN 500 MG TABLET 1000 MG PO (09:01)
[2022-04-22] MEDS: FLUTICASONE PROPIONATE 0.05% NA SPR 16 GM BTL (*BKC) 1 SPRAY NASAL (09:01)
[2022-04-22] MEDS: MIRABEGRON 50 MG ER TABLET PO (09:02)
[2022-04-22] MEDS: BISACODYL 5 MG TABLET EC 10 MG PO (11:11)
[2022-04-22 12:12] LABS: Glucose Point of Care 155 mg/dl (65-105)
[2022-04-25 20:26] LABS: Osmolality, Urine 219 mOsm/kg (50-1200)
== END 2022-04-22 13:11 | DRG 378 ==
LOC: ANHED 15:17 → ANH2MED 20:08
PROVIDERS: Emergency Medicine; Physician Assistant; Admitting Provider Family Medicine; Emergency Provider Physician Assistant; PCP Internal Medicine; Visit Provider Nurse Practitioner Family
DX: K92.2 Gastrointestinal hemorrhage, unspecified (principal); E87.1 Hypo-osmolality and hyponatremia; I50.22 Chronic systolic (congestive) heart failure; N39.0 Urinary tract infection, site not specified; I11.0 Hypertensive heart disease with heart failure; K57.30 Diverticulosis of large intestine without perforation or abscess without bleeding; Z20.822 Contact with and (suspected) exposure to COVID-19; D64.9 Anemia, unspecified; E11.9 Type 2 diabetes mellitus without complications; R00.0 Tachycardia, unspecified; F41.9 Anxiety disorder, unspecified; N32.81 Overactive bladder; K21.9 Gastro-esophageal reflux disease without esophagitis; G47.33 Obstructive sleep apnea (adult) (pediatric); R91.8 Other nonspecific abnormal finding of lung field; M19.09 Primary osteoarthritis, other specified site; Z79.4 Long term (current) use of insulin; Z79.82 Long term (current) use of aspirin; Z90.49 Acquired absence of other specified parts of digestive tract; Z85.828 Personal history of other malignant neoplasm of skin
CPT/HCPCS: 36415; 74177; 80048; 80053; 80061; 80069; 81001; 82306; 82533; 82570; 82607; 82948; 83605; 83735; 83930; 83935; 84133; 84145; 84295; 84300; 84439; 84443; 84484; 85014; 85018; 85025; 85027; 85380; 85610; 85730; 86140; 86850; 86900; 86901; 87040; 87086; 87636; 93005; 93306; 93970; 96360; 97161; 97165; 99285; A9270; C9113; J0780; J1815; J1956; J3475; J7030; Q9967

== ENCOUNTER 2022-04-28 14:54 | Outpatient (CLI) | payer MEDICARE, MEDICAID, SELFPAY ==
[2022-04-28 15:46] LABS: Anion Gap 9 mmol/L (8-16); Blood Urea Nitrogen 15 mg/dL (7-17); Calcium 9.3 mg/dL (8.4-10.2); Carbon Dioxide 25 mmol/L (22-30); Chloride 102 mmol/L (98-107); Estimated Glomerular Filt Rate 60; Glucose 76 mg/dL (65-110); Potassium 4.2 mmol/L (3.4-5.0); Sodium 136 mmol/L (137-145)
== END 2022-04-28 14:55 | disposition home or self-care (01) ==
LOC: ANHLAB 14:57
PROVIDERS: PCP Internal Medicine; Visit Provider Nurse Practitioner Family
DX: E87.1 Hypo-osmolality and hyponatremia (principal); I50.20 Unspecified systolic (congestive) heart failure
CPT/HCPCS: 36415; 80048

== ENCOUNTER 2022-05-30 09:48 | Outpatient (CLI) | payer MEDICARE, MEDICAID, SELFPAY ==
[2022-05-30 17:10] LABS: HDL Direct 32 mg/dL
[2022-05-30 17:21] LABS: LDL Cholesterol Direct 60 mg/dL
[2022-05-30 17:40] LABS: MALB Creatinine Ratio 213.8 mg/g (0-30); Microalbumin Urine Random 153.9 mg/L (0-16.7)
== END 2022-05-30 09:49 | disposition home or self-care (01) ==
LOC: ANHWCLAB 09:54
PROVIDERS: PCP Internal Medicine; Visit Provider Internal Medicine Endocrinology, Diabetes & Metabolism
DX: E11.9 Type 2 diabetes mellitus without complications (principal); E87.1 Hypo-osmolality and hyponatremia; Z71.3 Dietary counseling and surveillance; R79.89 Other specified abnormal findings of blood chemistry
CPT/HCPCS: 36415; 82043; 83718; 83721

== ENCOUNTER 2022-07-18 15:26 | Outpatient (CLI) | payer MEDICARE, MEDICAID, SELFPAY ==
[2022-07-18 18:13] LABS: Appearance Urine Cloudy (Clear); Bilirubin Urine Negative (Negative); Blood Urine 2+ (Negative); Color Urine Yellow (Yellow); Glucose Urine UA Negative (Negative); Ketones Urine Negative (Negative); Leukocyte Esterase Ur 3+ LEU/UL (Negative); Nitrate Urine Positive (Negative); Protein Urine 2+ mg/dL (Negative); Specific Grav Ur 1.015 (1.001-1.035); Urobilinogen Urine 0.2 mg/dL (<2.0); pH Urine 6.5 (5.0-9.0)
[2022-07-18 18:34] LABS: Add Urine Microscopic? YES
[2022-07-18 18:35] LABS: Bacteria Urine 3+ /hpf; WBC Urine >100 /hpf
== END 2022-07-18 15:27 | disposition home or self-care (01) ==
LOC: ANHWCLAB 15:28
PROVIDERS: PCP Internal Medicine; Visit Provider Internal Medicine Endocrinology, Diabetes & Metabolism
DX: N39.0 Urinary tract infection, site not specified (principal)
CPT/HCPCS: 81001; 87077; 87086; 87186

== ENCOUNTER 2022-12-13 16:39 | Emergency (ER) | payer MEDICARE, MEDICAID, SELFPAY ==
--- NOTE | ~2022-12-13 | XR_ITS ---
EXAMINATION: XR chest 2V DATE: 12/13/2022 17:30 INDICATION: Congestive heart failure. TECHNIQUE: Frontal and lateral views of the chest were obtained. COMPARISON: CT abdomen and pelvis 04/18/2022 FINDINGS: There is chronic mild elevation of right hemidiaphragm. No pneumonia, pleural effusion, or pneumothorax. The heart size is normal. Surgical clips in the right upper quadrant are likely from ch olecystectomy. IMPRESSION: 1. Chronic mild elevation of right hemidiaphragm. Reviewed, dictated and finalized at location E.
--- NOTE | ~2022-12-13 | US_ITS ---
EXAMINATION: US venous doppler [facility] DATE: 12/13/2022 22:31 INDICATION: Lower limb pain. TECHNIQUE: Grayscale ultrasound images without and with compression and Doppler ultrasound images of the bilateral lower extremity veins were obtained. COMPARISON: Ultrasound 04/19/2022 FINDINGS: The visualized portions of right common femoral vein, profunda (deep) femoral vein, femoral vein, pop liteal vein, peroneal veins, posterior tibial veins, and greater saphenous vein outflow are patent. The visualized portions of left common femoral vein, profunda femoral vein, femoral vein, popliteal v ein, peroneal veins, posterior tibial veins, and greater saphenous vein outflow are patent. IMPRESSION: 1. No deep venous thrombosis. Reviewed, dictated and finalized at location E.
[2022-12-13 16:42] VITALS: BP 133/81; PULSE 88; RESP 18; TEMP 36.7; O2SAT 96
--- NOTE | 2022-12-13 16:45 | ECG_ITS ---
Measurements Intervals [place] Rate: 82 P: 63 [place]: 193 QRS: -49 QRSD: 144 T: 97 QT: 394 QTc: 463 Interpretive Statements SINUS RHYTHM LEFT AXIS DEVIATION [QRS AXIS < -30] LEFT BUNDLE BRANCH BLOCK [120+ ms QRS DURATION, 80+ ms Q/S IN V1/V2, 85+ ms R IN I/aVL/V5/V6] ABNORMAL ECG COMPARED TO ECG 07/29/2022 10:37:57 SINUS RHYTHM NOW PRESENT LEFT-AXIS DEVIATION NOW PRESENT Electronically Signed On 12-13-2022 18:39:56 CDT by Adan Aguilar M.D.
[2022-12-13 17:13] LABS: Basophils Absolute Auto 0.1 K/mm3 (0.0-0.1); Basophils Percent Auto 0.8 % (0.2-1.2); Eosinophils Absolute Auto 0.4 K/mm3 (0-0.3); Eosinophils Percent Auto 3.5 % (0-4.4); Hematocrit 38.7 % (37.0-47.0); Hemoglobin 12.1 g/dL (12.0-15.0); Immature Granulocyte Absolute 0.05 K/mm3 (0.00-0.031); Immature Granulocyte Percent A 0.4 % (0-0.5); Lymphocytes Absolute Auto 3.74 K/mm3 (0.9-3.2); Lymphocytes Percent Auto 33.5 % (18.3-44.2); Mean Corpuscular HGB Conc 31.3 g/dl (32-36); Mean Corpuscular Hemoglobin 28.5 pg (26-34); Mean Corpuscular Volume 91.1 fl (80-100); Mean Platelet Volume 8.9 fl (7.4-10.4); Monocytes Absolute Auto 0.9 K/mm3 (0.1-0.6); Monocytes Percent Auto 8.3 % (2.6-8.5); Neutrophils Percent Auto 53.5 % (45.5-73.1); Platelet Count Result 342 k/mm3 (150-375); Red Blood Count 4.25 M/mm3 (4.2-5.4); Red Cell Distribution Width 14.5 % (11.5-14.5); White Blood Count 11.2 K/mm3 (4.5-10.0)
[2022-12-13 17:26] LABS: Alanine Aminotransferase 24 U/L (6-35); Albumin Level 4.2 g/dL (3.5-5.1); Alkaline Phosphatase 68 U/L (38-126); Anion Gap 10 mmol/L (8-16); Aspartate Amino Transferase 22 U/L (14-36); Bilirubin,Total 0.9 mg/dL (0.2-1.3); Blood Urea Nitrogen 13 mg/dL (7-17); Calcium 9.2 mg/dL (8.4-10.2); Carbon Dioxide 25 mmol/L (22-30); Chloride 100 mmol/L (98-107); Estimated Glomerular Filt Rate 53; Glucose 91 mg/dL (65-110); Potassium 3.9 mmol/L (3.4-5.0); Sodium 135 mmol/L (137-145)
[2022-12-13 17:27] LABS: INR 0.9; Partial Thromboplastin Time 23.2 SECONDS (22.3-36.8)
[2022-12-13 17:38] LABS: NT Pro B Type Natriuretic Pept 251 pg/mL (19.9-100); Troponin I < 0.012 ng/mL (0.000-0.034)
[2022-12-13 21:11] VITALS: BP 179/78; PULSE 88; RESP 16; TEMP 36.5; O2SAT 96
[2022-12-13 21:40] LABS: Appearance Urine Clear (Clear); Bacteria Urine None Seen /hpf; Bilirubin Urine Negative (Negative); Blood Urine Negative (Negative); Color Urine Dark Yellow (Yellow); Glucose Urine UA Negative (Negative); Ketones Urine Negative (Negative); Leukocyte Esterase Ur 2+ LEU/UL (Negative); Need Manual Microscopic Reviewed; Nitrate Urine Positive (Negative); Non Pathogenic Casts 0-2; Protein Urine Negative (Negative); RBC Urine 0-2 /hpf (0-2); Specific Grav Ur 1.008 (1.001-1.035); Squamous Epithelial Cell Urine Few /hpf (Few)
[2022-12-13 21:46] LABS: Add Urine Microscopic? YES
[2022-12-13 22:58] VITALS: BP 154/62; PULSE 91; RESP 14; O2SAT 94
--- NOTE | 2022-12-13 22:58 | ED.GENADULT ---
HPI - General Adult General Chief complaint: Extremity Problem,Nontraumatic Stated complaint: left leg swelling Time Seen by Provider: 12/13/22 21:28 Source: patient Mode of arrival: ambulatory Limitations: no limitations History of Present Illness HPI narrative: This is a 82-year-old female presents to the ED with chief complaint of bilateral lower extremity swelling and left leg pain ongoing for the last couple of days. She reports she called the primary care office who told her to come here to rule out a DVT or cellulitis. Patient reports both legs have been generally painful but the left seems to be a little worse. She has known arthritis in the left knee and feels that it is flared up lately. Denies any fevers, chills, nausea, vomiting. Related Data Home Medications Medication Instructions Recorded Confirmed acetaminophen 500 mg tablet 100 mg PO BID 12/17/19 11/08/22 (Tylenol Extra Strength) amlodipine 5 mg tablet 5 mg PO DAILY 12/17/19 11/08/22 aspirin 81 mg tablet,delayed 81 mg PO DAILY 12/17/19 11/08/22 release (Adult Aspirin Regimen) atorvastatin 40 mg tablet 40 mg PO HS 12/17/19 11/08/22 gabapentin 300 mg capsule 600 mg PO BID 12/17/19 11/08/22 metoprolol succinate 50 mg 50 mg PO DAILY 12/17/19 11/08/22 tablet,extended release 24 hr sennosides 8.6 mg tablet 17.2 mg PO BID 12/17/19 11/08/22 Daily-Danette 1 tab-cap PO DAILY 04/18/22 11/08/22 albuterol sulfate 90 mcg/actuation 1 puff inhalation Q4H PRN Wheezing 04/18/22 11/08/22 aerosol inhaler fluticasone propionate 50 1 spray intranasal BID 04/18/22 11/08/22 mcg/actuation nasal spray,suspension losartan 100 mg tablet 100 mg PO DAILY 04/18/22 11/08/22 melatonin 10 mg tablet 10 mg PO HS 04/18/22 11/08/22 methocarbamol 500 mg tablet 500 mg PO BID 04/18/22 11/08/22 nitroglycerin 0.4 mg sublingual 0.4 mg sublingual PRN PRN Chest 04/18/22 11/08/22 tablet Pain ergocalciferol (vitamin D2) 1,250 1,250 mcg PO DIRECTED 07/29/22 11/08/22 mcg (50,000 unit) capsule polyethylene glycol 3350 17 17 g PO DAILY PRN Constipation 07/29/22 11/08/22 gram/dose oral powder cranberry 400 mg capsule 400 mg PO DAILY 08/15/22 11/08/22 cephalexin 250 mg capsule 250 mg PO QHS 11/07/22 11/08/22 clobetasol 0.05 % topical ointment 1 applic topical DAILY 11/07/22 11/08/22 conjugated estrogens 0.625 mg/gram 0.625 mg vaginal .COMPLEX 11/07/22 11/08/22 vaginal cream (Premarin) hydroxyzine HCl 25 mg tablet 25 mg PO TID PRN 11/07/22 11/08/22 trazodone 50 mg tablet 50 mg PO QHS PRN 11/07/22 11/08/22 Allergies Allergy/AdvReac Type Severity Reaction Status Date / Time prednisone Allergy Mild Unknown Verified 11/07/22 10:54 rosiglitazone Allergy Mild Unknown Verified 11/07/22 10:54 azithromycin Allergy Unknown Unknown Verified 11/07/22 10:54 ceftriaxone Allergy Unknown Unknown Verified 11/07/22 10:54 codeine Allergy Unknown Unknown Verified 11/07/22 10:54 ibuprofen Allergy Unknown Unknown Verified 11/07/22 10:54 latex Allergy Unknown Unknown Verified 11/07/22 10:54 naproxen Allergy Unknown Unknown Verified 11/07/22 10:54 Review of Systems Review of Systems: All systems as dictated in [facility] Past Medical History Medical History Anemia Arthritis Basal cell carcinoma Depression Frequent urinary tract infections Gastroesophageal reflux disease Heart failure with reduced ejection fraction (03/2022) EF 40 to 45%. Hyperlipidemia Hypertension Insulin dependent type 2 diabetes mellitus Obstructive sleep apnea Osteopenia Overactive bladder Surgical History Surgical History History of appendectomy History of cholecystectomy History of dilation and curettage History of esophageal dilatation History of lumbar surgery (1990) Family History Family History Mother Hypertension Family history of diabet
[2022-12-13] MEDS: HYDROcodone/acetaminophen (*CRX) 5-325 MG TABLET 1 TAB PO (23:03)
[2022-12-13] MEDS: GABAPENTIN 300 MG CAPSULE PO (23:10)
== END 2022-12-14 00:17 | disposition home or self-care (01) ==
PROVIDERS: Emergency Medicine; Emergency Provider Physician Assistant; PCP Nurse Practitioner
DX: R60.0 Localized edema (principal); N39.0 Urinary tract infection, site not specified; E78.5 Hyperlipidemia, unspecified; E11.9 Type 2 diabetes mellitus without complications; I11.0 Hypertensive heart disease with heart failure; I50.20 Unspecified systolic (congestive) heart failure
CPT/HCPCS: 36415; 71046; 80053; 81001; 83880; 84484; 85025; 85610; 85730; 87086; 87088; 93005; 93970; 99284; A9270

== ENCOUNTER 2023-01-30 09:47 | Outpatient (CLI) | payer MEDICARE, MEDICAID, SELFPAY ==
--- NOTE | ~2023-01-30 | XR_ITS ---
XR abdomen/kub 1V 01/30/2023 10:10 INDICATION: Flank pain TECHNIQUE: KUB COMPARISON: None FINDINGS: Bowel gas pattern is normal. There is no evidence of free air, mass, organomegaly, ascites or obstruction. There are multiple coarse calcifications in the pelvis, some of which may represent calcified uterine fibroids. Many are phleboliths. The bones appear intact. There are cholecystectomy clips. IMPRESSION: 1: No acute abdominal abnormality identified. Reviewed, dictated and finalized at location L. ONNEL PSYCHOLOGIST
--- NOTE | ~2023-01-30 | CT_ITS ---
Non-contrast CT scan of the Abdomen and Pelvis Clinical indication: Infection Technique: 2.5 mm axial scans were obtained through the abdomen and pelvis without intravenous or or al contrast. Dose reduction technique was used on this scan by utilizing automated exposure control a nd iterative reconstruction technique. The dose-length product (DLP) was 1036.25 mGy-cm. COMPARISON: 04/18/2022 Findings: Images through the lung bases reveal several subcentimeter groundglass pulmonary nodules o f the lung bases. There is no evidence of renal or ureteral calculi. The kidneys and the ureters are nondilated. The liver, spleen, pancreas, and adrenals appear normal. Cholecystectomy clips are present. There are atherosclerotic calcifications of the aorta. There is no evidence of bowel obstruction. Images through the pelvis were performed. There is no evidence of ascites or lymphadenopathy. Urinary bladder unremarkable. Small fat-containing right inguinal hernia present. Small calcified fibroids p resent. Impression: No acute abnormality evident. Small calcified fibroids. Small fat-containing right inguinal hernia. Several subcentimeter groundglass pulmonary nodules the lung bases. These appear less confluent/promi nent as compared to prior exam. Reviewed, dictated and finalized at location . 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 Small calcified fibroids. Small fat-containing right inguinal hernia. Several subcentimeter groundglass pulmonary nodules the lung bases. These appea r less confluent/prominent as compared to prior exam.
== END 2023-01-30 09:48 | disposition home or self-care (01) ==
PROVIDERS: PCP Nurse Practitioner; Visit Provider Nurse Practitioner Adult Health
DX: A49.8 Other bacterial infections of unspecified site (principal); K40.90 Unilateral inguinal hernia, without obstruction or gangrene, not specified as recurrent; R91.8 Other nonspecific abnormal finding of lung field
CPT/HCPCS: 74018; 74176

== ENCOUNTER 2023-07-13 08:48 | Emergency (ER) | payer MEDICARE, MEDICAID, SELFPAY ==
--- NOTE | ~2023-07-13 | XR_ITS ---
EXAMINATION: XR foot LT min 3V DATE: 07/13/2023 09:23 INDICATION: Left foot pain TECHNIQUE: Dorsoplantar, two oblique and lateral views of the left foot were obtained. COMPARISON: None. FINDINGS: Bone alignment is normal. No fracture. Sensitivity for nondisplaced fractures mildly decreased by dif fuse osteopenia. There is flattening of the articular surface at the head of the fifth metatarsal wit hout underlying sclerosis or lucency which could represent sequela of old trauma or osteonecrosis. Mi ld polyarticular osteoarthritis at several of the tarsal metatarsal, metatarsophalangeal and interpha langeal joints. Moderate-sized Achilles and plantar calcaneal spurs. Soft tissues are unremarkable. IMPRESSION: 1. Chronic appearing flattening of the head of the left fifth metatarsal which could represent sequel a of old trauma or osteonecrosis. No acute osseous abnormality. 2. Degenerative changes including calcaneal enthesophytes and mild polyarticular osteoarthritis in th e mid and forefoot. Reviewed, dictated and finalized at location A. IMPRESSION: 1. Chronic appearing flattening of the head of the left fifth metatarsal which could represent sequela of old trauma or osteonecrosis. No acute osseous abnorm ality. 2. Degenerative changes including calcaneal enthesophytes and mild polyarticula r osteoarthritis in the mid and forefoot.
[2023-07-13 08:52] VITALS: BP 179/60; PULSE 70; RESP 16; TEMP 36.5; O2SAT 97
--- NOTE | 2023-07-13 09:05 | ED.LOWEXIN ---
HPI - Extremity Injury (Lower) General Chief Complaint: Extremity Injury, Lower <Claudine Isabel PA-C - Last Filed: 07/13/23 10:09> Stated Complaint: L foot/ankle pain after fall <Claudine Isabel PA-C - Last Filed: 07/13/23 10:09> Time Seen by Provider: 07/13/23 08:57 <Claudine Isabel PA-C - Last Filed: 07/13/23 10:09> History of Present Illness HPI Narrative: 83 y/o F presents to the emergency department for left foot pain. Patient states last night around 3:30 a.m. she went to the bathroom and sat on the toilet for too long. States her left leg became numb and when she got up she lowered herself to the ground while holding onto the safety bars. States in the process she hit her left foot on the toilet. She did not hit her head or lose consciousness. She denies other injuries acquired. She is reporting pain to the plantar aspect of her left foot and her left great toe. States she normally ambulates with a walker. Lives at [facility]. <Claudine Isabel PA-C - Last Filed: 07/13/23 10:09> Related Data Home Medications: Home Medications Medication Instructions Recorded Confirmed acetaminophen 500 mg tablet 100 mg PO BID 12/17/19 04/04/23 (Tylenol Extra Strength) amlodipine 5 mg tablet 5 mg PO DAILY 12/17/19 04/04/23 aspirin 81 mg tablet,delayed 81 mg PO DAILY 12/17/19 04/04/23 release (Adult Aspirin Regimen) atorvastatin 40 mg tablet 40 mg PO HS 12/17/19 04/04/23 gabapentin 300 mg capsule 600 mg PO BID 12/17/19 04/04/23 metoprolol succinate 50 mg 50 mg PO DAILY 12/17/19 04/04/23 tablet,extended release 24 hr sennosides 8.6 mg tablet 17.2 mg PO BID 12/17/19 04/04/23 Daily-Danette 1 tab-cap PO DAILY 04/18/22 04/04/23 albuterol sulfate 90 mcg/actuation 1 puff inhalation Q4H PRN Wheezing 04/18/22 04/04/23 aerosol inhaler fluticasone propionate 50 1 spray intranasal BID 04/18/22 04/04/23 mcg/actuation nasal spray,suspension losartan 100 mg tablet 100 mg PO DAILY 04/18/22 04/04/23 melatonin 10 mg tablet 10 mg PO HS 04/18/22 04/04/23 methocarbamol 500 mg tablet 500 mg PO BID 04/18/22 04/04/23 nitroglycerin 0.4 mg sublingual 0.4 mg sublingual PRN PRN Chest 04/18/22 04/04/23 tablet Pain ergocalciferol (vitamin D2) 1,250 1,250 mcg PO DIRECTED 07/29/22 04/04/23 mcg (50,000 unit) capsule polyethylene glycol 3350 17 17 g PO DAILY PRN Constipation 07/29/22 04/04/23 gram/dose oral powder cranberry 400 mg capsule 400 mg PO DAILY 08/15/22 04/04/23 clobetasol 0.05 % topical ointment 1 applic topical DAILY 11/07/22 04/04/23 conjugated estrogens 0.625 mg/gram 0.625 mg vaginal .COMPLEX 11/07/22 04/04/23 vaginal cream (Premarin) hydroxyzine HCl 25 mg tablet 25 mg PO TID PRN 11/07/22 04/04/23 trazodone 50 mg tablet 50 mg PO QHS PRN 11/07/22 04/04/23 <Claudine Isabel PA-C - Last Filed: 07/13/23 10:09> Allergies/Adverse Reactions: Allergies Allergy/AdvReac Type Severity Reaction Status Date / Time prednisone Allergy Mild Unknown Verified 07/13/23 09:01 rosiglitazone Allergy Mild Unknown Verified 07/13/23 09:01 azithromycin Allergy Unknown Unknown Verified 07/13/23 09:01 ceftriaxone Allergy Unknown Unknown Verified 07/13/23 09:01 codeine Allergy Unknown Unknown Verified 07/13/23 09:01 ibuprofen Allergy Unknown Unknown Verified 07/13/23 09:01 latex Allergy Unknown Unknown Verified 07/13/23 09:01 naproxen Allergy Unknown Unknown Verified 07/13/23 09:01 <Claudine Isabel PA-C - Last Filed: 07/13/23 10:09> Review of Systems Review of Systems: CONSTITUTIONAL: Denies fever, chills, or sweats. EYES: Denies visual changes, redness, or discharge. ENT: Denies rhinorrhea, congestion, sore throat, or otalgia. CARDIOVASCULAR: Denies chest pain, palpitations, or edema. RESPIRATORY: Denies cough or dyspnea. GASTROINTESTINAL: Denies abdominal pain, nausea, vomiting, or diarrhea. GENITOURINARY: Denies dysuria or hematuria. SKIN: Denies rash or itching. MUSCULOSKELETAL: S
[2023-07-13] MEDS: ACETAMINOPHEN 500 MG TABLET 1000 MG PO (09:13)
== END 2023-07-13 10:28 ==
PROVIDERS: Emergency Provider Physician Assistant; PCP Nurse Practitioner
DX: M79.672 Pain in left foot (principal); Z79.82 Long term (current) use of aspirin; F32.A Depression, unspecified; E78.5 Hyperlipidemia, unspecified; K21.9 Gastro-esophageal reflux disease without esophagitis; G47.33 Obstructive sleep apnea (adult) (pediatric); Z79.4 Long term (current) use of insulin; E11.9 Type 2 diabetes mellitus without complications; I50.9 Heart failure, unspecified; I11.0 Hypertensive heart disease with heart failure
CPT/HCPCS: 73630; 99283; A9270

== ENCOUNTER 2023-07-17 11:56 | Outpatient (CLI) | payer MEDICARE, MEDICAID, SELFPAY ==
[2023-07-17 12:53] LABS: Basophils Absolute Auto 0.1 K/mm3 (0.0-0.1); Basophils Percent Auto 0.6 % (0.2-1.2); Eosinophils Absolute Auto 0.3 K/mm3 (0-0.3); Eosinophils Percent Auto 3.6 % (0-4.4); Hemoglobin 12.5 g/dL (12.0-15.0); Immature Granulocyte Absolute 0.03 K/mm3 (0.00-0.031); Immature Granulocyte Percent A 0.4 % (0-0.5); Lymphocytes Absolute Auto 2.89 K/mm3 (0.9-3.2); Lymphocytes Percent Auto 34.3 % (18.3-44.2); Mean Corpuscular HGB Conc 31.3 g/dl (32-36); Mean Corpuscular Hemoglobin 28.9 pg (26-34); Mean Corpuscular Volume 92.4 fl (80-100); Mean Platelet Volume 9.3 fl (7.4-10.4); Monocytes Absolute Auto 0.5 K/mm3 (0.1-0.6); Monocytes Percent Auto 5.8 % (2.6-8.5); Neutrophils Absolute Auto 4.7 K/mm3 (1.3-6.7); Neutrophils Percent Auto 55.3 % (45.5-73.1); Platelet Count Result 318 k/mm3 (150-375); Red Blood Count 4.33 M/mm3 (4.2-5.4); Red Cell Distribution Width 13.6 % (11.5-14.5); White Blood Count 8.4 K/mm3 (4.5-10.0)
[2023-07-17 13:03] LABS: Alanine Aminotransferase 22 U/L (6-35); Albumin Level 4.4 g/dL (3.5-5.1); Alkaline Phosphatase 74 U/L (38-126); Anion Gap 9 mmol/L (4-12); Aspartate Amino Transferase 21 U/L (14-36); Blood Urea Nitrogen 12 mg/dL (7-17); Calcium 9.3 mg/dL (8.4-10.2); Carbon Dioxide 22 mmol/L (22-30); Chloride 104 mmol/L (98-107); Cholesterol 136 mg/dL (0-200); Estimated Glomerular Filt Rate 47; Glucose 194 mg/dL (65-110); HDL Direct 37 mg/dL; Potassium 4.6 mmol/L (3.4-5.0); Sodium 135 mmol/L (137-145); Triglycerides 183 mg/dL (<150)
[2023-07-17 13:14] LABS: LDL Cholesterol Direct 77 mg/dL
[2023-07-17 13:21] LABS: Vitamin D 25 Hydroxy 60.7 ng/mL
[2023-07-19 21:13] LABS: Vitamin B6 15.6 ng/mL (2.1-21.7)
[2023-07-20 08:13] LABS: Vitamin B1 18 nmol/L (8-30)
== END 2023-07-17 11:57 | disposition home or self-care (01) ==
LOC: ANHLAB 12:02
PROVIDERS: PCP Nurse Practitioner; Visit Provider Nurse Practitioner
DX: E55.9 Vitamin D deficiency, unspecified (principal); G62.9 Polyneuropathy, unspecified; I10 Essential (primary) hypertension; E11.69 Type 2 diabetes mellitus with other specified complication; E78.2 Mixed hyperlipidemia; Z79.4 Long term (current) use of insulin
CPT/HCPCS: 36415; 80053; 80061; 82306; 82607; 84207; 84425; 84443; 85025

== ENCOUNTER 2023-11-19 09:24 | Emergency (ER) | payer MEDICARE, MEDICAID, SELFPAY ==
[2023-11-19 09:27] VITALS: BP 141/42; PULSE 75; RESP 20; TEMP 37.1; O2SAT 95
--- NOTE | 2023-11-19 09:48 | ED.SKABFB ---
HPI - Skin/Abscess/Foreign Bdy General Chief complaint: Skin/Abscess/Foreign Body Stated complaint: Rash/Body Itching Source: patient, RN notes reviewed and old records reviewed Mode of arrival: ambulatory Limitations: no limitations History of Present Illness HPI narrative: patient presents with complaints of redness and tenderness to the skin of the left lower leg. She also reports some urinary frequency and burning. She reports that the skin symptoms began about 3 days ago, the urinary symptoms began earlier today. She does take cephalexin daily as prophylaxis against UTI. She denies any fever, chills, sweats. Patient was in Express Care for an extended period of time, she was having difficulty giving a urine sample Related Data Home Medications Medication Instructions Recorded Confirmed acetaminophen 500 mg tablet 100 mg PO BID 12/17/19 11/19/23 (Tylenol Extra Strength) amlodipine 5 mg tablet 5 mg PO DAILY 12/17/19 11/19/23 aspirin 81 mg tablet,delayed 81 mg PO DAILY 12/17/19 11/19/23 release (Adult Aspirin Regimen) atorvastatin 40 mg tablet 40 mg PO HS 12/17/19 11/19/23 metoprolol succinate 50 mg 50 mg PO DAILY 12/17/19 11/19/23 tablet,extended release 24 hr sennosides 8.6 mg tablet 17.2 mg PO BID 12/17/19 11/19/23 Daily-Danette 1 tab-cap PO DAILY 04/18/22 11/19/23 albuterol sulfate 90 mcg/actuation 1 puff inhalation Q4H PRN Wheezing 04/18/22 11/19/23 aerosol inhaler fluticasone propionate 50 1 spray intranasal BID 04/18/22 11/19/23 mcg/actuation nasal spray,suspension melatonin 10 mg tablet 10 mg PO HS 04/18/22 11/19/23 methocarbamol 500 mg tablet 500 mg PO BID 04/18/22 11/19/23 nitroglycerin 0.4 mg sublingual 0.4 mg sublingual PRN PRN Chest 04/18/22 11/19/23 tablet Pain ergocalciferol (vitamin D2) 1,250 1,250 mcg PO DIRECTED 07/29/22 11/19/23 mcg (50,000 unit) capsule polyethylene glycol 3350 17 17 g PO DAILY PRN Constipation 07/29/22 11/19/23 gram/dose oral powder cranberry 400 mg capsule 400 mg PO DAILY 08/15/22 11/19/23 clobetasol 0.05 % topical ointment 1 applic topical DAILY 11/07/22 11/19/23 conjugated estrogens 0.625 mg/gram 0.625 mg vaginal .COMPLEX 11/07/22 11/19/23 vaginal cream (Premarin) hydroxyzine HCl 25 mg tablet 25 mg PO TID 11/07/22 11/19/23 trazodone 50 mg tablet 50 mg PO QHS 11/07/22 11/19/23 gabapentin 300 mg capsule 1,100 mg PO TID 07/19/23 11/19/23 losartan 100 mg tablet 50 mg PO DAILY 07/19/23 11/19/23 Allergies Allergy/AdvReac Type Severity Reaction Status Date / Time prednisone Allergy Mild Unknown Verified 11/19/23 09:37 rosiglitazone Allergy Mild Unknown Verified 11/19/23 09:37 azithromycin Allergy Unknown Unknown Verified 11/19/23 09:37 ceftriaxone Allergy Unknown Unknown Verified 11/19/23 09:37 codeine Allergy Unknown Unknown Verified 11/19/23 09:37 ibuprofen Allergy Unknown Unknown Verified 11/19/23 09:37 latex Allergy Unknown Unknown Verified 11/19/23 09:37 naproxen Allergy Unknown Unknown Verified 11/19/23 09:37 Review of Systems Review of Systems: All systems reviewed & are unremarkable except as noted in HPI and below Constitutional: Constitutional: Reports as per HPI, Reports no additional constitutional complaints and Denies fever(s) ENT: Reports system reviewed and no additional complaints, except as documented Cardiovascular: Cardiovascular: Reports no additional cardiovascular complaints Respiratory: Respiratory: Reports no additional respiratory complaints Gastrointestinal: Gastrointestinal: Reports no additional gastrointestinal complaints Genitourinary: Genitourinary: Reports no additional female genitourinary complaints, Reports as per HPI, Reports dysuria, Reports urinary hesitancy and Reports urinary urgency Integumentary/Breasts: Skin/Breast: Reports system reviewed and no additional complaints, except as docu, Reports as per HPI and Reports erythema PMFSH Past Medical History Medical History (Reviewed 10/31/23 @ 09:50 by Cecily Nicole
[2023-11-19 11:07] LABS: EDUAAPPEAR Clear; EDUABILI Negative (Negative); EDUABLOOD Negative (Negative); EDUACOLOR1 Yellow; EDUAGLUCOSE Negative (Negative); EDUAKETONE Negative (Negative); EDUALEUKO Trace (Negative); EDUANITRATE Negative (Negative); EDUAPROTEIN Negative (Negative); EDUASPGRAVITY 1.025; EDUAUROBILI 0.2
== END 2023-11-19 11:35 | disposition home or self-care (01) ==
PROVIDERS: Emergency Provider Nurse Practitioner Family; PCP Nurse Practitioner
DX: L03.115 Cellulitis of right lower limb (principal); N39.0 Urinary tract infection, site not specified; M19.90 Unspecified osteoarthritis, unspecified site; K21.9 Gastro-esophageal reflux disease without esophagitis; E78.5 Hyperlipidemia, unspecified; I10 Essential (primary) hypertension; E11.9 Type 2 diabetes mellitus without complications; Z79.4 Long term (current) use of insulin; M85.80 Other specified disorders of bone density and structure, unspecified site; Z85.828 Personal history of other malignant neoplasm of skin; F32.A Depression, unspecified; I50.9 Heart failure, unspecified; Z79.82 Long term (current) use of aspirin
CPT/HCPCS: 81003; 87086; 99213; G0463

== ENCOUNTER 2024-01-09 11:36 | Outpatient (CLI) | payer MEDICARE, MEDICAID, SELFPAY ==
--- NOTE | ~2024-01-09 | XR_ITS ---
3 VIEWS LUMBAR SPINE Ordering provider: Natalie Tam, ANP History: . CHRONIC LBP, PAST INJURY . Comparison: None. FINDINGS: VERTEBRAL BODIES: No visible fracture or subluxation. Degenerative changes of the spine. Minimal ante rolisthesis at the level of L4-L5. Minimal retrolisthesis at the level of L1-L2 and L2-L3 DISK SPACES: Narrowing of all the disc spaces. Facet joint disease at the level of L4-L5 and L5-S1 SOFT TISSUES: Atherosclerotic changes of the aorta. Calcified fibroid or lymph node in the right side of the pelvis. IMPRESSION: No acute osseous abnormality lumbar spine. Multilevel degenerative disc disease. Reviewed, dictated and finalized at location A. 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
== END 2024-01-09 11:37 | disposition home or self-care (01) ==
PROVIDERS: PCP Nurse Practitioner; Visit Provider Nurse Practitioner
DX: M54.42 Lumbago with sciatica, left side (principal); M54.41 Lumbago with sciatica, right side; G89.29 Other chronic pain; M48.061 Spinal stenosis, lumbar region without neurogenic claudication; M51.369 Other intervertebral disc degeneration, lumbar region without mention of lumbar back pain or lower extremity pain
CPT/HCPCS: 72100

== ENCOUNTER 2024-03-11 09:12 | Outpatient (CLI) | payer MEDICARE, MEDICAID, SELFPAY ==
--- NOTE | ~2024-03-11 | MR_ITS ---
EXAMINATION: MR lumbar spine wo con DATE: 03/11/2024 11:36 INDICATION: Foraminal stenosis of lumbar region. TECHNIQUE: Magnetic resonance imaging (MRI) of the lumbar spine was performed without intravenous con trast. Sequences included sagittal T2-weighted FSE, sagittal T2-weighted FS FSE, sagittal T1-weighted FSE, and axial T2-weighted FSE. COMPARISON: Lumbar spine radiographs 01/09/2024 FINDINGS: There is 12 degrees levoscoliosis of thoracolumbar spine. There is 4 mm retrolisthesis of L 1 on L2 and L2 on L3, 3 mm retrolisthesis of L3 on L4, and 4 mm anterolisthesis of L4 on L5. Vertebra l body heights are normal. There is severely decreased disc height from L1-L2 through L3-L4, moderate ly decreased disc height at L4-L5, and severely decreased disc height at L5-S1. There is interbody fu marcy at L5-S1. There is ligamentum flavum hypertrophy at the disc levels from L1-L2 through L4-L5. Th e distal spinal cord signal intensity is normal. The conus medullaris is at L1. The following disc le vels are specifically discussed: L1-L2: The disc is bulging. There is moderate bilateral facet joint osteoarthritis. There is moderate bilateral neural foraminal stenosis. There is mild central canal stenosis. L2-L3: The disc is bulging. There is moderate right and mild left facet joint osteoarthritis. There i s mild bilateral neural foraminal stenosis. There is mild central canal stenosis. L3-L4: The disc is bulging. There is moderate bilateral facet joint osteoarthritis. There is moderate bilateral neural foraminal stenosis. There is mild central canal stenosis. L4-L5: The disc is bulging with superimposed central extrusion. There is severe bilateral facet joint osteoarthritis. There is moderate bilateral neural foraminal stenosis. There is severe central canal stenosis. L5-S1: The disc is bulging. There is moderate bilateral facet joint osteoarthritis. There is mild elise ateral neural foraminal stenosis. There is mild central canal stenosis. IMPRESSION: 1. Severe lumbar spondylosis. Reviewed, dictated and finalized at location A. 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
== END 2024-03-11 09:13 | disposition home or self-care (01) ==
PROVIDERS: PCP Nurse Practitioner; Visit Provider Nurse Practitioner
DX: M48.061 Spinal stenosis, lumbar region without neurogenic claudication (principal); M43.06 Spondylolysis, lumbar region
CPT/HCPCS: 72148

== ENCOUNTER 2024-04-01 10:24 | Emergency (ER) | payer MEDICARE, MEDICAID, SELFPAY ==
--- NOTE | ~2024-04-01 | XR_ITS ---
EXAMINATION: XR chest 2V DATE: 04/01/2024 11:23 INDICATION: Cough and wheezing and fever. TECHNIQUE: Frontal and lateral views of the chest were obtained. 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 No pleural effusion or pneumo thorax. The heart size is normal. Surgical clips in the right upper quadrant are likely from cholecys tectomy. IMPRESSION: 1. No acute cardiopulmonary disease. Reviewed, dictated and finalized at location A. [employer]
--- NOTE | 2024-04-01 10:35 | ED.URI ---
HPI - URI/Sore Throat General Chief Complaint: Upper Respiratory Infection Stated Complaint: Upper Respiratory Symptoms Time Seen by Provider: 04/01/24 11:02 Source: patient Mode of arrival: ambulatory Limitations: no limitations History of Present Illness HPI Narrative: Megan is a 83-year-old female patient presenting to the clinic today with complaints of productive cough with feeling feverish, coughing up yellow phlegm, nasal congestion, and chest congestion. She reports no shortness of breath or chest pain. Does feel rattling in her chest MD elicited complaint: sore throat and nasal congestion Related Data Home Medications ?Medication ?Instructions ?Recorded ?Confirmed ?Last Taken ?Type acetaminophen 500 mg tablet 100 mg PO BID 12/17/19 02/06/24 Unknown History (Tylenol Extra Strength) amlodipine 5 mg tablet 5 mg PO DAILY 12/17/19 02/06/24 Unknown History aspirin 81 mg tablet,delayed 81 mg PO DAILY 12/17/19 02/06/24 Unknown History release (Adult Aspirin Regimen) atorvastatin 40 mg tablet 40 mg PO HS 12/17/19 02/06/24 Unknown History metoprolol succinate 50 mg 50 mg PO DAILY 12/17/19 02/06/24 Unknown History tablet,extended release 24 hr sennosides 8.6 mg tablet 17.2 mg PO BID 12/17/19 02/06/24 Unknown History Daily-Danette 1 tab-cap PO DAILY 04/18/22 02/06/24 Unknown History albuterol sulfate 90 mcg/actuation 1 puff inhalation Q4H PRN Wheezing 04/18/22 02/06/24 Unknown History aerosol inhaler fluticasone propionate 50 1 spray intranasal BID 04/18/22 02/06/24 Unknown History mcg/actuation nasal spray,suspension melatonin 10 mg tablet 10 mg PO HS 04/18/22 02/06/24 Unknown History methocarbamol 500 mg tablet 500 mg PO BID 04/18/22 02/06/24 Unknown History nitroglycerin 0.4 mg sublingual 0.4 mg sublingual PRN PRN Chest 04/18/22 02/06/24 Unknown History tablet Pain ergocalciferol (vitamin D2) 1,250 1,250 mcg PO DIRECTED 07/29/22 02/06/24 Unknown History mcg (50,000 unit) capsule polyethylene glycol 3350 17 17 g PO DAILY PRN Constipation 07/29/22 02/06/24 Unknown History gram/dose oral powder cranberry 400 mg capsule 400 mg PO DAILY 08/15/22 02/06/24 Unknown History clobetasol 0.05 % topical ointment 1 applic topical DAILY 11/07/22 02/06/24 Unknown History conjugated estrogens 0.625 mg/gram 0.625 mg vaginal .COMPLEX 11/07/22 02/06/24 Unknown History vaginal cream (Premarin) hydroxyzine HCl 25 mg tablet 25 mg PO TID 11/07/22 02/06/24 Unknown History trazodone 50 mg tablet 50 mg PO QHS 11/07/22 02/06/24 Unknown History gabapentin 300 mg capsule 1,100 mg PO TID 07/19/23 02/06/24 Unknown History losartan 100 mg tablet 50 mg PO DAILY 07/19/23 02/06/24 Unknown History duloxetine 30 mg capsule,delayed mg PO 04/01/24 Unknown History release gabapentin 600 mg tablet mg 04/01/24 Unknown History levocetirizine 5 mg tablet mg 04/01/24 Unknown History vibegron 75 mg tablet (Gemtesa) mg 04/01/24 Unknown History Allergies Allergy/AdvReac Type Severity Reaction Status Date / Time prednisone Allergy Mild Unknown Verified 04/01/24 10:56 rosiglitazone Allergy Mild Unknown Verified 04/01/24 10:56 azithromycin Allergy Unknown Unknown Verified 04/01/24 10:56 ceftriaxone Allergy Unknown Unknown Verified 04/01/24 10:56 codeine Allergy Unknown Unknown Verified 04/01/24 10:56 ibuprofen Allergy Unknown Unknown Verified 04/01/24 10:56 latex Allergy Unknown Unknown Verified 04/01/24 10:56 naproxen Allergy Unknown Unknown Verified 04/01/24 10:56 Review of Systems Review of Systems: Pertinent positives per HPI. Patient denies any rash, headache, visual changes, dizziness, shortness of breath, chest pain, palpitations, nausea, vomiting, diarrhea, constipation, abdominal pain, or any urinary issues. [facility] Past Medical History Medical History Hyperlipidemia Heart failure with reduced ejection fraction (03/2022) EF 40 to 45%. Basal cell carcinoma Overactive bladder Depression Frequent urinary tract infections Obstructive sleep apnea Arthritis Insulin dependent type 2 diabetes mellitus Gastroesophageal reflux disease Anemia Hypertension Osteopenia Surgical History Surgical History History of esophageal dilatation History of dilation and curettage History of lumbar surgery (1990) History of cholecystectomy History of appendectomy Family History Family History Mother Hypertension Family history of diabetes mellitus in first degree relative Family history of heart disease in male family member before age 55 Father Carcinoma of colon Family history of malignant neoplasm of gastrointestinal tract Social History Social History Social History: Surrogate medical decision maker: angel Dye. Code status: Full code. Smoking status: Never smoker Second hand tobacco smoke exposure: No Alcohol intake: never Substance use: never Lack of Transportation: No Lack of Food: Never True Current Housing: I Have Housing Concerned About Future Housing: No Difficulty Paying Gas/Electric Bills: No Difficulty Paying for Meds: No Currently Unemployed: No Education: High School Diploma/GED Difficulty w/ Childcare or Family Care: No Additional living arrangements comments: Assisted living at [facility] since 12/15/2021. Spiritual care concerns: No Comments At the time of my signature, I reviewed and agree with the nursing past medical, surgical, social, and family history. There is no relevant family history pertinent to the patient complaint. Exam Narrative: General: Well-developed, well nourished, in no apparent distress Head: Normocephalic, atraumatic Eyes: Pupils equally round and reactive to light bilaterally, EOM intact, sclera and conjunctive clear, no discharge, lids normal Ears: TMs intact and clear, ear canals clear, no drainage, grossly hearing normal. Nose: Nares patent, clear nasal discharge, no inflammation, no sinus tenderness. Mouth: Oral pharynx red without lesions or masses, good dentition, MMM. Postnasal drip Neck: Supple, trachea midline, no enlargement of anterior or posterior cervical nodes, no thyroid masses or goiter palpable. Cardio: Regular rate and rhythm, s1 and s2 normal, no murmur appreciated. Resp: Inspiratory wheezing with faint expiratory rhonchi, no rales or rubs Course Course Emergency Course: Portions of this record may have been created with voice recognition software. Level of Care: Express Care Visit Vital Signs Vital signs: Vital Signs Temperature 36.6 C 04/01/24 11:01 Pulse Rate 75 04/01/24 11:01 Respiratory Rate 16 04/01/24 11:01 Blood Pressure 138/84 04/01/24 11:01 Pulse Oximetry 98 04/01/24 11:01 Temperature 36.6 C 04/01/24 11:01 Pulse Rate 75 04/01/24 11:01 Respiratory Rate 16 04/01/24 11:01 Blood Pressure 138/84 04/01/24 11:01 Pulse Oximetry 98 04/01/24 11:01 Vital signs reviewed MDM - URI/Sore Throat MDM Narrative Medical decision making narrative: At the time of visit patient is resting comfortably on the exam table. Patient appears to be nontoxic. Labs: COVID and Influenza testing was negative. Diagnostics: Chest x-rays negative for any acute cardiopulmonary process. Plan: I suspect patient has URI with cough and congestion and bronchitis. Prescription for albuterol inhaler and doxycycline was sent to the pharmacy. Allergy to steroids. Supportive measures were discussed with the patient and they voiced understanding discharge instructions and agrees to treatment plan. Return precautions reviewed Differential Diagnosis Differential diagnosis: Likely upper respiratory infection, otitis media, sinusitis, viral infection, bronchitis, influenza, pharyngitis and other (COVID) Lab Data Labs: Lab Results 04/01/24 Range/Units 11:24 POC Influenza A Ag Negative (Negative) POC Influenza B Ag Negative (Negative) POC SARS CoV-2 Ag Negative (Negative) Imaging Data Radiologist's impression: ITS Impressions Chest X-Ray 04/01/24 11:27 IMPRESSION: 1. No acute cardiopulmonary disease. Discharge Plan Discharge Clinical Impression: Upper respiratory infection with cough and congestion, Bronchitis Patient Disposition: Home, Self-Care Condition: Stable Instructions: Antibiotic Form, Acute Bronchitis (ED), Cold Symptoms (ED) Additional Instructions: Chest x-rays negative for any acute cardiopulmonary process. COVID and influenza testing was negative Take prescription medications only as prescribed-albuterol inhaler and doxycycline May continue use of albuterol inhaler Increase fluids and stay well hydrated Tylenol/motrin for pain/fever Flonase and OTC antihistamines as directed Vicks vapor rub to open sinuses Sinus rinses for congestion Cepacol spray, cough drops, throat lozenges, warm tea with honey/lemon, gargle salt water to soothe throat BRAT diet for diarrhea Clear liquids x 24 hours then advance as tolerated for nausea/vomiting Go to the ED if you develop a worsening in your condition- high fever not controlled by Tylenol or Motrin, dehydration, weakness, lethargy, shortness of breath, or chest pain. Follow up with your PCP in 3-5 days if symptoms persist. Patient Language: Spanish Prescriptions: New doxycycline monohydrate 100 mg capsule 100 mg PO BID 7 Days Qty: 14 0RF albuterol sulfate 90 mcg/actuation HFA aerosol inhaler 2 puff inhalation Q4-6H PRN (Reason: shortness of breath or wheezing) 30 Days Qty: 8.5 0RF No Action gabapentin 600 mg tablet duloxetine 30 mg capsule,delayed release(DR/EC) PO levocetirizine 5 mg tablet Gemtesa 75 mg tablet albuterol sulfate 90 mcg/actuation HFA aerosol inhaler 1 puff inhalation Q4H PRN (Reason: Wheezing) Ozempic 2 mg/dose (8 mg/3 mL) pen injector 2 mg subcut WEEKLY 90 Days Qty: 9 3RF insulin regular hum U-500 conc 500 unit/mL (3 mL) insulin pen See Rx Instructions subcut BIDWMEAL Qty: 42 1RF Rx Instructions: Humulin u500 115 units 10 mins before breakfast, 40 units 10 mins before lunch acetaminophen [Tylenol Extra Strength] 500 mg tablet 100 mg PO BID amlodipine 5 mg tablet 5 mg PO DAILY aspirin [Adult Aspirin Regimen] 81 mg tablet,delayed release (DR/EC) 81 mg PO DAILY atorvastatin 40 mg tablet 40 mg PO HS metoprolol succinate 50 mg tablet extended release 24 hr 50 mg PO DAILY sennosides 8.6 mg tablet 17.2 mg PO BID gabapentin 300 mg capsule 1,100 mg PO TID Rx Instructions: 400mg in am, 300mg at lunch and 400mg qhs cranberry 400 mg capsule 400 mg PO DAILY Rx Instructions: administer with a meal trazodone 50 mg tablet 50 mg PO QHS Premarin 0.625 mg/gram cream 0.625 mg vaginal .COMPLEX Rx Instructions: 0.625 mg vaginally Sunday and Sunday; apply a peas size amount clobetasol 0.05 % ointment 1 applic topical DAILY hydroxyzine HCl 25 mg tablet 25 mg PO TID famotidine [Pepcid] 40 mg tablet 40 mg PO QHS Qty: 90 3RF losartan 100 mg tablet 50 mg PO DAILY methocarbamol 500 mg tablet 500 mg PO BID nitroglycerin 0.4 mg tablet, sublingual 0.4 mg sublingual PRN PRN (Reason: Chest Pain) Rx Instructions: dissolve 1 tab under the tongue every 5 min for chest pain up to 3 doses in 15 mins if pain persists seek medical attention fluticasone propionate 50 mcg/actuation spray,suspension 1 spray INTRANASAL BID melatonin 10 mg Tablet 10 mg PO HS Daily-Danette 1 tab-cap PO DAILY trimethoprim 100 mg tablet 100 mg PO HS Qty: 30 6RF pantoprazole 40 mg tablet,delayed release (DR/EC) 40 mg PO HS Qty: 30 0RF ergocalciferol (vitamin D2) 1,250 mcg (50,000 unit) capsule 1,250 mcg PO DIRECTED Rx Instructions: every sunday polyethylene glycol 3350 17 gram/dose powder 17 g PO DAILY PRN (Reason: Constipation) miconazole nitrate 2 % Cream 1 appful vaginal HS Qty: 45 0RF phenazopyridine 100 mg Tablet 200 mg PO TIDWM Qty: 30 0RF hydrocodone-acetaminophen 5-325 mg tablet 1 tablet PO Q8H PRN (Reason: Pain) Qty: 12 0RF nystatin 100,000 unit/gram powder 1 applic TOPICAL BID Qty: 60 1RF Rx Instructions: apply to gential area bid Follow-up/Referrals: PHYSICIAN,CHILD WELFARE WORKER [Primary Care Provider] - Time of Disposition: 11:38 Quality NIHSS Nursing Documentation ED NIHSS nursing documentation: reviewed/agree
[2024-04-01 11:01] VITALS: BP 138/84; PULSE 75; RESP 16; TEMP 36.6; O2SAT 98
[2024-04-01 11:26] LABS: EDCOVIDSCREEN Negative (Negative); EDINFLUASCREEN Negative (Negative); EDINFLUBSCREEN Negative (Negative)
== END 2024-04-01 11:43 | disposition home or self-care (01) ==
PROVIDERS: Emergency Provider Nurse Practitioner Family
DX: J06.9 Acute upper respiratory infection, unspecified (principal); R05.9 Cough, unspecified; J40 Bronchitis, not specified as acute or chronic; Z20.822 Contact with and (suspected) exposure to COVID-19; I11.0 Hypertensive heart disease with heart failure; I50.9 Heart failure, unspecified; E78.5 Hyperlipidemia, unspecified; E11.9 Type 2 diabetes mellitus without complications; Z79.4 Long term (current) use of insulin; Z79.85 Long-term (current) use of injectable non-insulin antidiabetic drugs; K21.9 Gastro-esophageal reflux disease without esophagitis; M85.80 Other specified disorders of bone density and structure, unspecified site; M19.90 Unspecified osteoarthritis, unspecified site; F32.A Depression, unspecified; Z79.82 Long term (current) use of aspirin
CPT/HCPCS: 71046; 87426; 87804; 99213; G0463

== ENCOUNTER 2024-05-20 16:04 | Emergency (ER) | payer MEDICARE, MEDICAID, SELFPAY ==
[2024-05-20 16:12] VITALS: BP 125/56; PULSE 72; RESP 16; TEMP 36.6; O2SAT 99
--- NOTE | 2024-05-20 16:21 | ED.DIZZY ---
HPI - Dizziness General Chief Complaint: Dizziness Stated Complaint: Dizziness Time Seen by Provider: 05/20/24 16:15 Source: patient, RN notes reviewed and old records reviewed Mode of arrival: ambulatory (walker) Limitations: no limitations History of Present Illness HPI Narrative: 84 year old female who [facility] with family friend with complaints of falling last week onto her right side scratching up her elbow but does not recall if she hit her head. Patient reports that she started yesterday having some dizziness some left sided headache and some double vision to left eye. Patient is not on any daily blood thinners. Patient ambulates with wheeled walker is able to move all extremities on own power.Patient reports that she had no LOC at time of fall. MD elicited complaint: dizziness and other (headache and double vision left eye) Onset (ago): day(s) (reports started yesterday) History of similar symptoms: No Related Data Home Medications ?Medication ?Instructions ?Recorded ?Confirmed ?Last Taken ?Type amlodipine 5 mg tablet 5 mg PO DAILY 12/17/19 04/30/24 Unknown History aspirin 81 mg tablet,delayed 81 mg PO DAILY 12/17/19 04/30/24 Unknown History release (Adult Aspirin Regimen) atorvastatin 40 mg tablet 40 mg PO HS 12/17/19 04/30/24 Unknown History metoprolol succinate 50 mg 50 mg PO DAILY 12/17/19 04/30/24 Unknown History tablet,extended release 24 hr Daily-Danette 1 tab-cap PO DAILY 04/18/22 04/30/24 Unknown History fluticasone propionate 50 1 spray intranasal BID 04/18/22 04/30/24 Unknown History mcg/actuation nasal spray,suspension nitroglycerin 0.4 mg sublingual 0.4 mg sublingual PRN PRN Chest 04/18/22 04/30/24 Unknown History tablet Pain ergocalciferol (vitamin D2) 1,250 1,250 mcg PO DIRECTED 07/29/22 04/30/24 Unknown History mcg (50,000 unit) capsule polyethylene glycol 3350 17 17 g PO DAILY PRN Constipation 07/29/22 04/30/24 Unknown History gram/dose oral powder clobetasol 0.05 % topical ointment 1 applic topical DAILY 11/07/22 04/30/24 Unknown History conjugated estrogens 0.625 mg/gram 0.625 mg vaginal .COMPLEX 11/07/22 04/30/24 Unknown History vaginal cream (Premarin) trazodone 50 mg tablet 50 mg PO QHS 11/07/22 04/30/24 Unknown History duloxetine 30 mg capsule,delayed mg PO 04/01/24 04/30/24 Unknown History release levocetirizine 5 mg tablet mg 04/01/24 04/30/24 Unknown History vibegron 75 mg tablet (Gemtesa) mg 04/01/24 04/30/24 Unknown History acetaminophen 500 mg tablet 100 mg PO BID PRN 04/30/24 04/30/24 Unknown History (Tylenol Extra Strength) gabapentin 600 mg tablet 600 mg PO TID 04/30/24 04/30/24 Unknown History losartan 50 mg tablet 50 mg PO DAILY 04/30/24 04/30/24 Unknown History amlodipine 2.5 mg tablet mg 05/20/24 Unknown History aspirin 81 mg chewable tablet 05/20/24 Unknown History duloxetine 60 mg capsule,delayed mg PO 05/20/24 Unknown History release hydroxyzine HCl 25 mg tablet mg 05/20/24 Unknown History losartan 100 mg tablet mg 05/20/24 Unknown History multivitamin with folic acid 400 tablet PO 05/20/24 Unknown History mcg tablet (Tab-A-Danette) nystatin 100,000 unit/gram topical topical 05/20/24 Unknown History cream nystatin 100,000 unit/gram topical topical 05/20/24 Unknown History ointment pantoprazole 40 mg tablet,delayed mg PO 05/20/24 Unknown History release sennosides 8.6 mg tablet (senna) mg 05/20/24 Unknown History Allergies Allergy/AdvReac Type Severity Reaction Status Date / Time prednisone Allergy Mild Unknown Verified 05/20/24 16:09 rosiglitazone Allergy Mild Unknown Verified 05/20/24 16:09 azithromycin Allergy Unknown Unknown Verified 05/20/24 16:09 ceftriaxone Allergy Unknown Unknown Verified 05/20/24 16:09 codeine Allergy Unknown Unknown Verified 05/20/24 16:09 ibuprofen Allergy Unknown Unknown Verified 05/20/24 16:09 latex Allergy Unknown Unknown Verified 05/20/24 16:09 naproxen Allergy Unknown Unknown Verified 05/20/24 16:09 Review of Systems Review of Systems: CONSTITUTIONAL: Denies fever, chills, or sweats. EYES: Reports visual changes of double vision to the left eye, no redness, or discharge.reports previous cataract surgery ENT: Denies rhinorrhea, congestion, sore throat, or otalgia. CARDIOVASCULAR: Denies chest pain, palpitations, or edema. RESPIRATORY: Denies cough or dyspnea. GASTROINTESTINAL: Denies abdominal pain, nausea, vomiting, or diarrhea. GENITOURINARY: Denies dysuria or hematuria. SKIN: Denies rash or itching. MUSCULOSKELETAL: Denies back pain, joint pain, or myalgia. NEUROLOGIC: Reports left sided headache,no numbness, or weakness. reports feelings of dizziness PSYCHIATRIC: reports history of anxiety or depression. All systems reviewed & are unremarkable except as noted in HPI and below PMFSH Past Medical History Medical History Hyperlipidemia Heart failure with reduced ejection fraction (03/2022) EF 40 to 45%. Basal cell carcinoma Overactive bladder Depression Frequent urinary tract infections Obstructive sleep apnea Arthritis Insulin dependent type 2 diabetes mellitus Gastroesophageal reflux disease Anemia Hypertension Osteopenia Surgical History Surgical History History of esophageal dilatation History of dilation and curettage History of lumbar surgery (1990) History of cholecystectomy History of appendectomy Family History Family History Mother Hypertension Family history of diabetes mellitus in first degree relative Family history of heart disease in male family member before age 55 Father Carcinoma of colon Family history of malignant neoplasm of gastrointestinal tract Social History Social History Social History: Surrogate medical decision maker: Mario Menon, angel. Code status: Full code. Smoking status: Never smoker Second hand tobacco smoke exposure: No Alcohol intake: never Substance use: never Do You Feel Safe in your Home?: Yes Lack of Transportation: YES Lack of Food: Never True Current Housing: I Have Housing Concerned About Future Housing: No Difficulty Paying Gas/Electric Bills: No Difficulty Paying for Meds: No Currently Unemployed: No Education: High School Diploma/GED Difficulty w/ Childcare or Family Care: No Additional living arrangements comments: Assisted living at [facility] since 12/15/2021. Spiritual care concerns: No Comments At time of signature, agree with nursing past medical, surgical, social and family history. There is no relevant family history pertinent to the presenting complaint Exam Narrative: GENERAL: chronic ill appearing, well-nourished, and in no acute distress. HEAD: Normocephalic, atraumatic.no bumps or bruising noted to head EYES: PERRLA and EOMI. reports visual changes to left eye states double vision. ENT: Nares clear, no rhinorrhea or epistaxis. Mucous membranes moist. NECK: Supple. no lymphadenopathy CHEST: Clear to auscultation. No respiratory distress.SAO2 99% on room air HEART: Regular rate and rhythm. No murmur heard. Normal peripheral pulses. ABDOMEN: Soft, nontender, nondistended, normal active bowel sounds. EXTREMITIES: Normal range of motion. No edema.Moves all extremities on own power, no drift noted SKIN: Warm, dry, no rash. NEURO: No focal deficits. Alert and oriented x3. states some forgetfulness reports left sided headache and visual changes with dizziness, Course Course Emergency Course: Patient is aware of diagnosis, understands and agrees to treatment plan.? Patient agrees to follow-up as directed and is aware of reasons to seek care at the emergency department. Portions of this record may have been created with voice recognition software Level of Care: Express Care Visit Vital Signs Vital signs: Vital Signs Temperature 36.6 C 05/20/24 16:12 Pulse Rate 72 05/20/24 16:12 Respiratory Rate 16 05/20/24 16:12 Blood Pressure 125/56 L 05/20/24 16:12 Pulse Oximetry 99 05/20/24 16:12 Temperature 36.6 C 05/20/24 16:12 Pulse Rate 72 05/20/24 16:12 Respiratory Rate 16 05/20/24 16:12 Blood Pressure 125/56 L 05/20/24 16:12 Pulse Oximetry 99 05/20/24 16:12 Reviewed Transfer Transfered to: [facility] Transportation: Other (per private car with family friend) Transfer rationale: left sided headache with visual changes, had fall last week does not recall if hit head complaining of feelings of dizziness, need higher level of care. Accepting physician: Dr Gonzalez Transfer comments: To [facility] per private car accompanied by family friend MDM - Dizziness MDM Narrative Medical decision making narrative: [id number] Call placed to ED at [facility] ad condition report, vital signs, past medical history reviewed with Leta DANIELS with Dr Gonzalez accepting physician for transfer. Differential Diagnosis Differential diagnosis: Likely benign paroxysmal positional vertigo, cerebrovascular accident, acute vestibular neuronitis and other (visual disturbance left eye, dizziness, left sided headache, fall one week ago) Medical Records Attestation: I reviewed the patient's medical records. Critical Care Time Critical Care Time Critical Care Time: No Discharge Plan Discharge Clinical Impression: Left-sided headache, Alteration in vision, Dizziness Patient Disposition: Acute Care Hospital Condition: Stable Patient Language: Sinhala Prescriptions: No Action duloxetine 30 mg capsule,delayed release(DR/EC) PO levocetirizine 5 mg tablet Gemtesa 75 mg tablet albuterol sulfate 90 mcg/actuation HFA aerosol inhaler 2 puff inhalation Q4-6H PRN (Reason: shortness of breath or wheezing) 30 Days Qty: 8.5 0RF gabapentin 600 mg tablet 600 mg PO TID sennosides [senna] 8.6 mg tablet nystatin 100,000 unit/gram ointment TOPICAL amlodipine 2.5 mg tablet pantoprazole 40 mg tablet,delayed release (DR/EC) PO nystatin 100,000 unit/gram cream TOPICAL aspirin 81 mg tablet,chewable hydroxyzine HCl 25 mg tablet losartan 100 mg tablet duloxetine 60 mg capsule,delayed release(DR/EC) PO multivitamin with folic acid [Tab-A-Danette] 400 mcg tablet PO amlodipine 5 mg tablet 5 mg PO DAILY aspirin [Adult Aspirin Regimen] 81 mg tablet,delayed release (DR/EC) 81 mg PO DAILY atorvastatin 40 mg tablet 40 mg PO HS metoprolol succinate 50 mg tablet extended release 24 hr 50 mg PO DAILY acetaminophen [Tylenol Extra Strength] 500 mg tablet 100 mg PO BID PRN trazodone 50 mg tablet 50 mg PO QHS Premarin 0.625 mg/gram cream 0.625 mg vaginal .COMPLEX Rx Instructions: 0.625 mg vaginally Sunday and Sunday; apply a peas size amount clobetasol 0.05 % ointment 1 applic topical DAILY famotidine [Pepcid] 40 mg tablet 40 mg PO QHS Qty: 90 3RF losartan 50 mg tablet 50 mg PO DAILY insulin regular hum U-500 conc 500 unit/mL (3 mL) insulin pen See Rx Instructions subcut BIDWMEAL 90 Days Qty: 27 1RF Rx Instructions: Humulin u500 115 units 10 mins before breakfast, 35 units 10 mins before lunch Ozempic 2 mg/dose (8 mg/3 mL) pen injector 2 mg subcut WEEKLY 90 Days Qty: 9 3RF doxycycline hyclate 100 mg capsule 100 mg PO BID 7 Days Qty: 14 0RF fluticasone propionate [Flonase Allergy Relief] 50 mcg/actuation spray,suspension 1 spray intranasal Q12H Qty: 16 0RF Rx Instructions: administer into each nostril meclizine 25 mg tablet 25 mg PO BID PRN (Reason: dizziness) Qty: 20 0RF meclizine 25 mg tablet 25 mg PO BID PRN (Reason: dizziness) Qty: 30 0RF doxycycline hyclate 100 mg capsule 100 mg PO BID 7 Days Qty: 14 0RF fluticasone propionate [Flonase Allergy Relief] 50 mcg/actuation spray,suspension 1 spray intranasal BID Qty: 16 0RF Rx Instructions: administer into each nostril nitroglycerin 0.4 mg tablet, sublingual 0.4 mg sublingual PRN PRN (Reason: Chest Pain) Rx Instructions: dissolve 1 tab under the tongue every 5 min for chest pain up to 3 doses in 15 mins if pain persists seek medical attention fluticasone propionate 50 mcg/actuation spray,suspension 1 spray INTRANASAL BID Daily-Danette 1 tab-cap PO DAILY trimethoprim 100 mg tablet 100 mg PO HS Qty: 30 6RF ergocalciferol (vitamin D2) 1,250 mcg (50,000 unit) capsule 1,250 mcg PO DIRECTED Rx Instructions: every sunday polyethylene glycol 3350 17 gram/dose powder 17 g PO DAILY PRN (Reason: Constipation) miconazole nitrate 2 % Cream 1 appful vaginal HS Qty: 45 0RF phenazopyridine 100 mg Tablet 200 mg PO TIDWM Qty: 30 0RF hydrocodone-acetaminophen 5-325 mg tablet 1 tablet PO Q8H PRN (Reason: Pain) Qty: 12 0RF nystatin 100,000 unit/gram powder 1 applic TOPICAL BID Qty: 60 1RF Rx Instructions: apply to gential area bid Follow-up/Referrals: 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
== END 2024-05-20 16:20 | disposition short-term general hospital (02) ==
LOC: EXPGOSH 16:05
PROVIDERS: Emergency Provider Registered Nurse
DX: R51.9 Headache, unspecified (principal); H53.2 Diplopia; R42 Dizziness and giddiness; I11.0 Hypertensive heart disease with heart failure; I50.9 Heart failure, unspecified; E78.5 Hyperlipidemia, unspecified; E11.9 Type 2 diabetes mellitus without complications; Z79.4 Long term (current) use of insulin; Z79.85 Long-term (current) use of injectable non-insulin antidiabetic drugs; K21.9 Gastro-esophageal reflux disease without esophagitis; M19.90 Unspecified osteoarthritis, unspecified site; M85.80 Other specified disorders of bone density and structure, unspecified site; Z79.82 Long term (current) use of aspirin
CPT/HCPCS: 99213; G0463

== ENCOUNTER 2024-05-20 16:47 | Emergency (ER) | payer MEDICARE, MEDICAID, SELFPAY ==
[2024-05-20] VITALS (9 sets, daily range): BP systolic 115–135; BP diastolic 42–76; PULSE 71–81; RESP 16–20; TEMP 36.6; O2SAT 95–98
--- NOTE | ~2024-05-20 | CT_ITS ---
EXAMINATION: CTA brain carotid DATE: 05/20/2024 19:09 INDICATION: fall, head injury, COOK, photophobia, L eye blurred TECHNIQUE: Computed tomographic angiography (CTA) of the head was performed without and with 100 mL O mnipaque-350 intravenous contrast. CTA of the neck was performed with intravenous contrast. Automated exposure control and iterative reconstruction technique were employed. The dose-length product was 1 734.12 mGy-cm. Maximum intensity projection and volume rendered 3D-reconstructions were created by america le technologist on a separate workstation. COMPARISON: CT brain 04/17/2006. FINDINGS: CT BRAIN: No acute large vessel infarct, intracranial hemorrhage, mass, or hydrocephalus. Moderate atrophy and chronic white matter change. Atherosclerotic intracranial calcification. Bilateral lens replacements. CTA HEAD: No large vessel occlusion, aneurysm, high flow vascular malformation, nidus or extravasation. CTA NECK: Aortic arch and proximal great vessels: Normal arch anatomy. Atherosclerotic calcifications at the vi sualized aortic arch and proximal great vessels. Right common carotid, carotid bifurcation, and internal carotid artery: Calcified atherosclerotic omega que at the carotid bifurcation.There is 0% stenosis of the proximal right internal carotid artery rel ative to normal distal artery lumen diameter (NASCET criteria). Left common carotid, carotid bifurcation, and internal carotid artery: No plaque.There is 0% stenosis of the proximal left internal carotid artery relative to normal distal artery lumen diameter (NASCET criteria). Vertebral arteries: No significant plaque or stenosis. Vertebral arteries co-dominant. Other findings: Degenerative changes in the cervical spine. Subcentimeter thyroid nodules. IMPRESSION: No acute intracranial process. No large vessel intracranial occlusion, high-grade intracranial stenosis, or aneurysm. No carotid or vertebral artery occlusion, dissection, or significant stenosis. Reviewed, dictated and finalized at location K. IMPRESSION: No acute intracranial process. No large vessel intracranial occlusion, high-grade intracranial stenosis, or an eurysm. No carotid or vertebral artery occlusion, dissection, or significant stenosis.
--- NOTE | 2024-05-20 17:26 | ED.HA ---
HPI - Headache General Chief Complaint: Headache <Dilip Feng PA-C - Last Filed: 05/21/24 03:03> Stated Complaint: Headache, L eye vision changes- fell 1 week ago <Dilip Feng PA-C - Last Filed: 05/21/24 03:03> Time Seen by Provider: 05/20/24 17:05 <Dilip Feng PA-C - Last Filed: 05/21/24 03:03> Source: patient <Dilip Feng PA-C - Last Filed: 05/21/24 03:03> Mode of arrival: ambulatory <Dilip Feng PA-C - Last Filed: 05/21/24 03:03> Limitations: no limitations <Dilip Feng PA-C - Last Filed: 05/21/24 03:03> History of Present Illness HPI Narrative: This is an 84-year-old female who with PMH of T2 dm, systolic heart failure, GERD, HTN, PONCHO who presents to the ED for chief complaint of headache after head injury that occurred 1 week ago. She states that she was getting ready to play we [employer] at [employer] when she accidentally turned around too fast and hit her head on the bookshelf. Patient states that over the past couple of days she has developed increasing headaches to the left side as well as photophobia to the left eye. States the left eye vision seems more blurry than normal. Endorses nausea, dizziness since the fall as well. Denies extremity numbness, weakness, slurred speech, confusion, neck pain or any further injury <Dilip Feng PA-C - Last Filed: 05/21/24 03:03> Related Data Home Medications: Home Medications ?Medication ?Instructions ?Recorded ?Confirmed ?Last Taken ?Type amlodipine 5 mg tablet 5 mg PO DAILY 12/17/19 04/30/24 Unknown History aspirin 81 mg tablet,delayed 81 mg PO DAILY 12/17/19 04/30/24 Unknown History release (Adult Aspirin Regimen) atorvastatin 40 mg tablet 40 mg PO HS 12/17/19 04/30/24 Unknown History metoprolol succinate 50 mg 50 mg PO DAILY 12/17/19 04/30/24 Unknown History tablet,extended release 24 hr Daily-Danette 1 tab-cap PO DAILY 04/18/22 04/30/24 Unknown History fluticasone propionate 50 1 spray intranasal BID 04/18/22 04/30/24 Unknown History mcg/actuation nasal spray,suspension nitroglycerin 0.4 mg sublingual 0.4 mg sublingual PRN PRN Chest 04/18/22 04/30/24 Unknown History tablet Pain ergocalciferol (vitamin D2) 1,250 1,250 mcg PO DIRECTED 07/29/22 04/30/24 Unknown History mcg (50,000 unit) capsule polyethylene glycol 3350 17 17 g PO DAILY PRN Constipation 07/29/22 04/30/24 Unknown History gram/dose oral powder clobetasol 0.05 % topical ointment 1 applic topical DAILY 11/07/22 04/30/24 Unknown History conjugated estrogens 0.625 mg/gram 0.625 mg vaginal .COMPLEX 11/07/22 04/30/24 Unknown History vaginal cream (Premarin) trazodone 50 mg tablet 50 mg PO QHS 11/07/22 04/30/24 Unknown History duloxetine 30 mg capsule,delayed mg PO 04/01/24 04/30/24 Unknown History release levocetirizine 5 mg tablet mg 04/01/24 04/30/24 Unknown History vibegron 75 mg tablet (Gemtesa) mg 04/01/24 04/30/24 Unknown History acetaminophen 500 mg tablet 100 mg PO BID PRN 04/30/24 04/30/24 Unknown History (Tylenol Extra Strength) gabapentin 600 mg tablet 600 mg PO TID 04/30/24 04/30/24 Unknown History losartan 50 mg tablet 50 mg PO DAILY 04/30/24 04/30/24 Unknown History amlodipine 2.5 mg tablet mg 05/20/24 Unknown History aspirin 81 mg chewable tablet 05/20/24 Unknown History duloxetine 60 mg capsule,delayed mg PO 05/20/24 Unknown History release hydroxyzine HCl 25 mg tablet mg 05/20/24 Unknown History losartan 100 mg tablet mg 05/20/24 Unknown History multivitamin with folic acid 400 tablet PO 05/20/24 Unknown History mcg tablet (Tab-A-Danette) nystatin 100,000 unit/gram topical topical 05/20/24 Unknown History cream nystatin 100,000 unit/gram topical topical 05/20/24 Unknown History ointment pantoprazole 40 mg tablet,delayed mg PO 05/20/24 Unknown History release sennosides 8.6 mg tablet (senna) mg 05/20/24 Unknown History <Dilip Feng PA-C - Last Filed: 05/21/24 03:03> Allergies/Adverse Reactions: Allergies Allergy/AdvReac Type Severity Reaction Status Date / Time prednisone Allergy Mild Unknown Verified 05/20/24 16:09 rosiglitazone Allergy Mild Unknown Verified 05/20/24 16:09 azithromycin Allergy Unknown Unknown Verified 05/20/24 16:09 ceftriaxone Allergy Unknown Unknown Verified 05/20/24 16:09 codeine Allergy Unknown Unknown Verified 05/20/24 16:09 ibuprofen Allergy Unknown Unknown Verified 05/20/24 16:09 latex Allergy Unknown Unknown Verified 05/20/24 16:09 naproxen Allergy Unknown Unknown Verified 05/20/24 16:09 <Dilip Feng PA-C - Last Filed: 05/21/24 03:03> Review of Systems Review of Systems: All systems as dictated in HPI <Dilip Feng PA-C - Last Filed: 05/21/24 03:03> [facility], [facility] Past Medical History Medical History: Medical History Hyperlipidemia Heart failure with reduced ejection fraction (03/2022) EF 40 to 45%. Basal cell carcinoma Overactive bladder Depression Frequent urinary tract infections Obstructive sleep apnea Arthritis Insulin dependent type 2 diabetes mellitus Gastroesophageal reflux disease Anemia Hypertension Osteopenia <IKE Christy Last Filed: 05/21/24 03:03> Surgical History Surgical History: Surgical History History of esophageal dilatation History of dilation and curettage History of lumbar surgery (1990) History of cholecystectomy History of appendectomy <IKE Christy Last Filed: 05/21/24 03:03> Family History Family History: Family History Mother Hypertension Family history of diabetes mellitus in first degree relative Family history of heart disease in male family member before age 55 Father Carcinoma of colon Family history of malignant neoplasm of gastrointestinal tract <Dilip Feng PA-C - Last Filed: 05/21/24 03:03> Social History Social History: Social History Social History: Surrogate medical decision maker: Mario or angel Cannon. Code status: Full code. Smoking status: Never smoker Second hand tobacco smoke exposure: No Alcohol intake: never Substance use: never Do You Feel Safe in your Home?: Yes Lack of Transportation: YES Lack of Food: Never True Current Housing: I Have Housing Concerned About Future Housing: No Difficulty Paying Gas/Electric Bills: No Difficulty Paying for Meds: No Currently Unemployed: No Education: High School Diploma/GED Difficulty w/ Childcare or Family Care: No Additional living arrangements comments: Assisted living at [facility] since 12/15/2021. Spiritual care concerns: No <Dilip Feng PA-C - Last Filed: 05/21/24 03:03> Exam Narrative: GENERAL: Well-appearing, well-nourished, and in no acute distress. HEAD: Normocephalic, atraumatic. EYES: PERRLA. Photophobia present on the left eye. There is some drift of the bilateral eyes during EOMs, worse with the left eye. ENT: Nares clear, no rhinorrhea or epistaxis. Mucous membranes moist. Oropharynx without tonsillar hypertrophy exudate or other lesions. NECK: Supple. No adenopathy or masses. CHEST: No respiratory distress. Clear to auscultation. No wheezes rales or rhonchi HEART: Regular rate and rhythm. No murmur heard. Normal peripheral pulses. ABDOMEN: Soft, nontender, nondistended, normal active bowel sounds. MSK: Normal range of motion. No edema. SKIN: Warm, dry, no rash. NEURO: Alert and oriented x4. Visual velez intact bilaterally. No dysarthria. Normal [id number] and normal [id number]. Negative pronator drift to the upper and lower extremities. PSYCH: Normal mood and affect. <Dilip Feng PA-C - Last Filed: 05/21/24 03:03> Course DATABASE DESIGNER/PA Physician Supervision PA discussed patient with myself. Noted that she had been given medications for headache as well as dizziness with some improvement but not fully resolved initially. I did recommend that could trial promethazine, and antihistamine in it suppresses the tibia end-organ receptors inhibits activation vagal response. This was trialed and patient was feeling much better. SUMA had also discussed patient with the hospitalist given initial consideration of possible admission. She had recommended orthostatics be obtained. There was cerumen and effusion noted by report on physical exam upon removal of hearing aid. This is irrigated by hospitalist who comes down to bedside. It is reported at this time that patient feeling much better and would prefer discharge with outpatient follow-up but with strict ED return precautions. As above, I was available for consultation but did not personally examine this patient and was not directly involved in their care. <Brea Bojorquez MD - Last Filed: 05/21/24 17:58> Reevaluation(s) Reevaluation #1: Patient is feeling much improved overall. She states that the dizziness is resolved. I did re-evaluate the patient with her hearing aids taken out. She does have a left ear effusion and the right TM is normal. This would potentially correlate with a cause of her dizziness. Upon further questioning she is stating that she has had sinusitis symptoms for the past 2 weeks. Again this could be a reason for the dizziness. She was offered admission for further workup for possible stroke, however patient is feeling better and is declining. She would like to go home and follow-up with her doctor. Rx for doxycycline given as well as meclizine and Flonase. <Dilip Feng PA-C - Last Filed: 05/21/24 03:03> Date: 05/20/24 <Dilip Feng PA-C - Last Filed: 05/21/24 03:03> Time: 22:35 <Dilip Feng PA-C - Last Filed: 05/21/24 03:03> Vital Signs Vital signs: Vital Signs Temperature 97.9 F 05/20/24 16:59 Pulse Rate 74 05/20/24 16:59 Respiratory Rate 20 05/20/24 16:59 Blood Pressure 123/42 L 05/20/24 16:59 Pulse Oximetry 95 05/20/24 16:59 Temperature 97.9 F 05/20/24 16:59 Pulse Rate 78 05/20/24 23:23 Respiratory Rate 16 05/20/24 23:23 Blood Pressure 115/76 05/20/24 23:23 Pulse Oximetry 98 05/20/24 23:23 <Dilip Feng PA-C - Last Filed: 05/21/24 03:03> Vital Signs Temperature 97.9 F 05/20/24 16:59 Pulse Rate 74 05/20/24 16:59 Respiratory Rate 20 05/20/24 16:59 Blood Pressure 123/42 L 05/20/24 16:59 Pulse Oximetry 95 05/20/24 16:59 Temperature 97.9 F 05/20/24 16:59 Pulse Rate 78 05/20/24 23:23 Respiratory Rate 16 05/20/24 23:23 Blood Pressure 115/76 05/20/24 23:23 Pulse Oximetry 98 05/20/24 23:23 <Brea Bojorquez MD - Last Filed: 05/21/24 17:58> MDM - Headache Lab Data Result diagrams: 05/20/24 17:34 05/20/24 17:34 <Dilip Feng PA-C - Last Filed: 05/21/24 03:03> Labs: Lab Results 05/20/24 Range/Units 17:34 WBC 12.6 H (4.5-10.0) K/mm3 RBC 4.21 (4.2-5.4) M/mm3 Hgb 12.5 (12.0-15.0) g/dL Hct 37.5 (37.0-47.0) % MCV 89.1 (80-100) fl MCH 29.7 (26-34) pg MCHC 33.3 (32-36) g/dl RDW 12.8 (11.5-14.5) % Plt Count 315 (150-375) k/mm3 MPV 8.3 (7.4-10.4) fl Immature Gran % (Auto) 0.4 (0-0.5) % Neut % (Auto) 63.1 (45.5-73.1) % Lymph % (Auto) 27.2 (18.3-44.2) % [place] % (Auto) 7.0 (2.6-8.5) % Eos % (Auto) 1.7 (0-4.4) % Baso % (Auto) 0.6 (0.2-1.2) % Lymph # (Auto) 3.43 H (0.9-3.2) K/mm3 [place] # (Auto) 0.9 H (0.1-0.6) K/mm3 Eos # (Auto) 0.2 (0-0.3) K/mm3 Baso # (Auto) 0.1 (0.0-0.1) K/mm3 Abs Immat Gran (auto) 0.05 H (0.00-0.031) K/mm3 Absolute Neuts (auto) 8.0 H (1.3-6.7) K/mm3 Absolute Nucleated RBC 0.000 (0.0-0.012) K/mm3 Nucleated RBC % 0.0 (0.0-0.2) % PT 12.7 (11.1-14.7) Seconds INR 0.9 APTT 24.4 (22.3-36.8) Seconds Sodium 131 L (137-145) mmol/L Potassium 4.1 (3.4-5.0) mmol/L Chloride 98 (98-107) mmol/L Carbon Dioxide 23 (22-30) mmol/L Anion Gap 10 (4-12) mmol/L BUN 12 (7-17) mg/dL Creatinine 0.95 (0.7-1.0) mg/dL Estim Creat Clear Calc 40 ml/min Estimated GFR 56 L (59 - ) Glucose 144 H (65-110) mg/dL Calcium 9.0 (8.4-10.2) mg/dL Total Bilirubin 0.6 (0.2-1.3) mg/dL AST 19 (14-36) U/L ALT 28 (6-35) U/L Alkaline Phosphatase 59 (38-126) U/L Total Protein 7.0 (6.3-8.2) g/dL Albumin 4.0 (3.5-5.1) g/dL Urine Color Yellow (Yellow) Urine Appearance Clear (Clear) Urine pH 6.0 (5.0-9.0) Ur Specific [place] 1.014 (1.001-1.035) Urine Protein Negative (Negative) mg/dL Urine Glucose (UA) Negative (Negative) mg/dL Urine Ketones Negative (Negative) mg/dL Ur Blood (Man) Negative (Negative) Urine Nitrate Negative (Negative) Urine Bilirubin Negative (Negative) Urine Urobilinogen 0.2 (<2.0) mg/dL Leukocyte Esterase Rfl Trace H (Negative) JEAN-CLAUDE/UL Urine RBC 3-5 H (0-2) /hpf Urine WBC 6-10 H (0-3) /hpf Ur Squamous Epith Cells Occasional (Few) /hpf Urine Bacteria Rare /hpf Urine Casts 0-2 <Dilip Feng PA-C - Last Filed: 05/21/24 03:03> Lab Results 05/20/24 Range/Units 17:34 WBC 12.6 H (4.5-10.0) K/mm3 RBC 4.21 (4.2-5.4) M/mm3 Hgb 12.5 (12.0-15.0) g/dL Hct 37.5 (37.0-47.0) % MCV 89.1 (80-100) fl MCH 29.7 (26-34) pg MCHC 33.3 (32-36) g/dl RDW 12.8 (11.5-14.5) % Plt Count 315 (150-375) k/mm3 MPV 8.3 (7.4-10.4) fl Immature Gran % (Auto) 0.4 (0-0.5) % Neut % (Auto) 63.1 (45.5-73.1) % Lymph % (Auto) 27.2 (18.3-44.2) % [place] % (Auto) 7.0 (2.6-8.5) % Eos % (Auto) 1.7 (0-4.4) % Baso % (Auto) 0.6 (0.2-1.2) % Lymph # (Auto) 3.43 H (0.9-3.2) K/mm3 [place] # (Auto) 0.9 H (0.1-0.6) K/mm3 Eos # (Auto) 0.2 (0-0.3) K/mm3 Baso # (Auto) 0.1 (0.0-0.1) K/mm3 Abs Immat Gran (auto) 0.05 H (0.00-0.031) K/mm3 Absolute Neuts (auto) 8.0 H (1.3-6.7) K/mm3 Absolute Nucleated RBC 0.000 (0.0-0.012) K/mm3 Nucleated RBC % 0.0 (0.0-0.2) % PT 12.7 (11.1-14.7) Seconds INR 0.9 APTT 24.4 (22.3-36.8) Seconds Sodium 131 L (137-145) mmol/L Potassium 4.1 (3.4-5.0) mmol/L Chloride 98 (98-107) mmol/L Carbon Dioxide 23 (22-30) mmol/L Anion Gap 10 (4-12) mmol/L BUN 12 (7-17) mg/dL Creatinine 0.95 (0.7-1.0) mg/dL Estim Creat Clear Calc 40 ml/min Estimated GFR 56 L (59 - ) Glucose 144 H (65-110) mg/dL Calcium 9.0 (8.4-10.2) mg/dL Total Bilirubin 0.6 (0.2-1.3) mg/dL AST 19 (14-36) U/L ALT 28 (6-35) U/L Alkaline Phosphatase 59 (38-126) U/L Total Protein 7.0 (6.3-8.2) g/dL Albumin 4.0 (3.5-5.1) g/dL Urine Color Yellow (Yellow) Urine Appearance Clear (Clear) Urine pH 6.0 (5.0-9.0) Ur Specific [place] 1.014 (1.001-1.035) Urine Protein Negative (Negative) mg/dL Urine Glucose (UA) Negative (Negative) mg/dL Urine Ketones Negative (Negative) mg/dL Ur Blood (Man) Negative (Negative) Urine Nitrate Negative (Negative) Urine Bilirubin Negative (Negative) Urine Urobilinogen 0.2 (<2.0) mg/dL Leukocyte Esterase Rfl Trace H (Negative) JEAN-CLAUDE/UL Urine RBC 3-5 H (0-2) /hpf Urine WBC 6-10 H (0-3) /hpf Ur Squamous Epith Cells Occasional (Few) /hpf Urine Bacteria Rare /hpf Urine Casts 0-2 <Brea Bojorquez MD - Last Filed: 05/21/24 17:58> Discharge Plan Discharge Clinical Impression: Acute effusion of left ear, Dizziness <Dilip Feng PA-C - Last Filed: 05/21/24 03:03> Patient Disposition: Home, Self-Care <Dilip Feng PA-C - Last Filed: 05/21/24 03:03> Condition: Stable <Dilip Feng PA-C - Last Filed: 05/21/24 03:03> Instructions: Antibiotic Form <Dilip Feng PA-C - Last Filed: 05/21/24 03:03> Additional Instructions: Exam and imaging today are reassuring. There does appear to be collection of fluid on the left ear which could be causing your dizziness. Please take Flonase as prescribed. Use doxycycline for potential sinus infection. Follow-up very closely with your physician on this issue. Please return to the ER immediately if you have any new or worsening symptoms such as increasing dizziness. <Dilip Feng PA-C - Last Filed: 05/21/24 03:03> Patient Language: Thai <Dilip Feng PA-C - Last Filed: 05/21/24 03:03> Prescriptions: New doxycycline hyclate 100 mg capsule 100 mg PO BID 7 Days Qty: 14 0RF fluticasone propionate [Flonase Allergy Relief] 50 mcg/actuation spray,suspension 1 spray intranasal Q12H Qty: 16 0RF Rx Instructions: administer into each nostril meclizine 25 mg tablet 25 mg PO BID PRN (Reason: dizziness) Qty: 20 0RF meclizine 25 mg tablet 25 mg PO BID PRN (Reason: dizziness) Qty: 30 0RF doxycycline hyclate 100 mg capsule 100 mg PO BID 7 Days Qty: 14 0RF fluticasone propionate [Flonase Allergy Relief] 50 mcg/actuation spray,suspension 1 spray intranasal BID Qty: 16 0RF Rx Instructions: administer into each nostril No Action duloxetine 30 mg capsule,delayed release(DR/EC) PO levocetirizine 5 mg tablet Gemtesa 75 mg tablet albuterol sulfate 90 mcg/actuation HFA aerosol inhaler 2 puff inhalation Q4-6H PRN (Reason: shortness of breath or wheezing) 30 Days Qty: 8.5 0RF gabapentin 600 mg tablet 600 mg PO TID sennosides [senna] 8.6 mg tablet nystatin 100,000 unit/gram ointment TOPICAL amlodipine 2.5 mg tablet pantoprazole 40 mg tablet,delayed release (DR/EC) PO nystatin 100,000 unit/gram cream TOPICAL aspirin 81 mg tablet,chewable hydroxyzine HCl 25 mg tablet losartan 100 mg tablet duloxetine 60 mg capsule,delayed release(DR/EC) PO multivitamin with folic acid [Tab-A-Danette] 400 mcg tablet PO amlodipine 5 mg tablet 5 mg PO DAILY aspirin [Adult Aspirin Regimen] 81 mg tablet,delayed release (DR/EC) 81 mg PO DAILY atorvastatin 40 mg tablet 40 mg PO HS metoprolol succinate 50 mg tablet extended release 24 hr 50 mg PO DAILY acetaminophen [Tylenol Extra Strength] 500 mg tablet 100 mg PO BID PRN trazodone 50 mg tablet 50 mg PO QHS Premarin 0.625 mg/gram cream 0.625 mg vaginal .COMPLEX Rx Instructions: 0.625 mg vaginally Sunday and Sunday; apply a peas size amount clobetasol 0.05 % ointment 1 applic topical DAILY famotidine [Pepcid] 40 mg tablet 40 mg PO QHS Qty: 90 3RF losartan 50 mg tablet 50 mg PO DAILY insulin regular hum U-500 conc 500 unit/mL (3 mL) insulin pen See Rx Instructions subcut BIDWMEAL 90 Days Qty: 27 1RF Rx Instructions: Humulin u500 115 units 10 mins before breakfast, 35 units 10 mins before lunch Ozempic 2 mg/dose (8 mg/3 mL) pen injector 2 mg subcut WEEKLY 90 Days Qty: 9 3RF nitroglycerin 0.4 mg tablet, sublingual 0.4 mg sublingual PRN PRN (Reason: Chest Pain) Rx Instructions: dissolve 1 tab under the tongue every 5 min for chest pain up to 3 doses in 15 mins if pain persists seek medical attention fluticasone propionate 50 mcg/actuation spray,suspension 1 spray INTRANASAL BID Daily-Danette 1 tab-cap PO DAILY trimethoprim 100 mg tablet 100 mg PO HS Qty: 30 6RF ergocalciferol (vitamin D2) 1,250 mcg (50,000 unit) capsule 1,250 mcg PO DIRECTED Rx Instructions: every sunday polyethylene glycol 3350 17 gram/dose powder 17 g PO DAILY PRN (Reason: Constipation) miconazole nitrate 2 % Cream 1 appful vaginal HS Qty: 45 0RF phenazopyridine 100 mg Tablet 200 mg PO TIDWM Qty: 30 0RF hydrocodone-acetaminophen 5-325 mg tablet 1 tablet PO Q8H PRN (Reason: Pain) Qty: 12 0RF nystatin 100,000 unit/gram powder 1 applic TOPICAL BID Qty: 60 1RF Rx Instructions: apply to gential area bid <Dilip Feng PA-C - Last Filed: 05/21/24 03:03> Follow-up/Referrals: PHYSICIAN,DIRECTOR VACCINE [Non-Staff] - <Dilip Feng PA-C - Last Filed: 05/21/24 03:03> Time of Disposition: 22:39 <Dilip Feng PA-C - Last Filed: 05/21/24 03:03> 22:39 <Brea Bojorquez MD - Last Filed: 05/21/24 17:58>
[2024-05-20 17:41] LABS: Basophils Absolute Auto 0.1 K/mm3 (0.0-0.1); Basophils Percent Auto 0.6 % (0.2-1.2); Eosinophils Absolute Auto 0.2 K/mm3 (0-0.3); Eosinophils Percent Auto 1.7 % (0-4.4); Hematocrit 37.5 % (37.0-47.0); Hemoglobin 12.5 g/dL (12.0-15.0); Immature Granulocyte Absolute 0.05 K/mm3 (0.00-0.031); Immature Granulocyte Percent A 0.4 % (0-0.5); Lymphocytes Absolute Auto 3.43 K/mm3 (0.9-3.2); Lymphocytes Percent Auto 27.2 % (18.3-44.2); Mean Corpuscular HGB Conc 33.3 g/dl (32-36); Mean Corpuscular Hemoglobin 29.7 pg (26-34); Mean Corpuscular Volume 89.1 fl (80-100); Mean Platelet Volume 8.3 fl (7.4-10.4); Monocytes Absolute Auto 0.9 K/mm3 (0.1-0.6); Neutrophils Percent Auto 63.1 % (45.5-73.1); Platelet Count Result 315 k/mm3 (150-375); Red Blood Count 4.21 M/mm3 (4.2-5.4); Red Cell Distribution Width 12.8 % (11.5-14.5); White Blood Count 12.6 K/mm3 (4.5-10.0)
[2024-05-20 17:52] LABS: Alanine Aminotransferase 28 U/L (6-35); Alkaline Phosphatase 59 U/L (38-126); Anion Gap 10 mmol/L (4-12); Aspartate Amino Transferase 19 U/L (14-36); Bilirubin,Total 0.6 mg/dL (0.2-1.3); Blood Urea Nitrogen 12 mg/dL (7-17); Carbon Dioxide 23 mmol/L (22-30); Chloride 98 mmol/L (98-107); Estimated CRCL calculation 40 ml/min; Estimated Glomerular Filt Rate 56; Glucose 144 mg/dL (65-110); Potassium 4.1 mmol/L (3.4-5.0); Sodium 131 mmol/L (137-145)
[2024-05-20 17:53] LABS: INR 0.9; Prothrombin Time 12.7 Seconds (11.1-14.7)
[2024-05-20 17:54] LABS: Partial Thromboplastin Time 24.4 Seconds (22.3-36.8)
--- NOTE | 2024-05-20 18:00 | ECG_ITS ---
Test Date: 2024-05-20 22:54:35 Measurements Intervals [place] Rate: 69 P: 37 FL: 208 QRS: -26 QRSD: 151 T: 87 QT: 438 QTc: 470 Interpretive Statements SINUS RHYTHM LEFT BUNDLE BRANCH BLOCK [120+ ms QRS DURATION, 80+ ms Q/S IN V1/V2, 85+ ms R IN I/aVL/V5/V6] No previous ECG available for comparison Electronically Signed On 05-21-2024 12:50:07 CDT by Terrie Garcia M.D.
[2024-05-20 18:02] LABS: Add Urine Microscopic? YES; Appearance Urine Clear (Clear); Bacteria Urine Rare /hpf; Bilirubin Urine Negative (Negative); Blood Urine Negative (Negative); Color Urine Yellow (Yellow); Glucose Urine UA Negative (Negative); Ketones Urine Negative (Negative); Leukocyte Esterase Ur Trace LEU/UL (Negative); Nitrate Urine Negative (Negative); Non Pathogenic Casts 0-2; Protein Urine Negative (Negative); Specific Grav Ur 1.014 (1.001-1.035); Squamous Epithelial Cell Urine Occasional /hpf (Few); Urobilinogen Urine 0.2 mg/dL (<2.0)
[2024-05-20] MEDS: LACTATED RINGERS 500 ML 250 ML IV CONT (18:42)
--- OUTSIDE RECORDS SUMMARY | 2024-05-20 18:42 | XMS_ITS | Clinical Summary ---
Author Organization [facility] Address [address] [address] Phone Care Team Providers Care Commercial Airplane Pilot Name Role Phone Ji Blankenship MD Primary Care Provider [phone] Allergies Active Allergy Reactions Criticality Noted Date Comments Codeine Nausea and Vomiting Low 09/22/2014 Latex Rash Low 09/22/2014 Naproxen Hives,Shortness of Breath/Wheezing High 0 09/22/2014 Unclassified Drug Hives,Rash,Itching High 09/22/2014 Medications amLODIPine (NORVASC) 5 mg tablet 09/10/2014 Active valsartan-Hydroc hlorothiazide (DIOVAN HCT) 320-12.5 mg tablet 09/10/2014 Active citalopram (CELEXA) 20 mg tablet 07/17/2014 Active celecoxib (CELEBREX) 200 mg capsule 09/10/2014 Active metoprolol succinate (TOPROL XL) 50 mg Extended Release 24 hour tablet 09/10/2014 Active NOVOLOG FLEXPEN 100 unit/mL Insulin Pen 09/17/2014 Active LANTUS SOLOSTAR 100 unit/mL (3 mL) solution for injection 09/11/2014 Active traZODone (DESYREL) 100 mg tablet 09/10/2014 Active atorvastatin (LIPITOR) 20 mg tablet 09/04/2014 Active INVOKANA 100 mg 06/26/2014 Act dorota cyclobenzaprine (FLEXERIL) 10 mg tablet 08/03/2014 Active metFORMIN (GLUCOPHAGE XR) 500 mg Extended Release 24 hour tablet 07/23/2014 Active gabapentin (NEURONTIN) 300 mg capsule 08/15/2014 Active FIBER, HERBAL, ORAL Take by mouth. Active multivitamin (DAILY-PING) tablet Take 1 Tab by mouth daily. Active FLAXSEED ORAL by Misc.(Non-D rug; Combo Route) route. Active RABEprazole (ACIPHEX) 20 mg Tablet, Delayed Release (E.C.) Take 20 mg by mouth daily. Active FLAXSEED ORALIndications: jackson flaxseed mix with cereal in am by [facility].(Non-D rug; Combo Route) route. Active Active Problems Patient Care Coordination No te Formatting of this note migh t be different from the original. Primary Care: Ji Blankenship MD (General) Referring Provider: Ji Blankenship MD [facility] [address] [place] [address] Other: Problem Noted Date Diagnosed Date Breast pain 09/22/2014 DM (diabetes mellitus), type 2 Arthritis HTN (hypertension) Neuropathy Hx of bladder infections Anemia Diverticulitis Family History Medical History Relation Name Comments Cancer Father rectal ca Colon Cancer Father Diabetes Father Diabetes Maternal Grandmother Cancer Maternal Uncle skin ca Colon Cancer Maternal Uncle Heart Disease Mother Relation Name Status Comments Father Maternal Grandmother Maternal Uncle Mother Social History Tobacco Use Types Packs/Day Years Used Date Smoking Tobacco: Former Cigarettes Q uit: 09/22/1998 Smokeless Tobacco: Never Alcohol Use Standard Drinks/Week Comments Yes 0 (1 standard drink = 0.6 oz pur e alcohol) rarely Comments No Sex and Gender Information Value Date Recorded Sex Assigned at Not on file Legal Sex Female 9:38 AM CDT Gender Identity Not on file Sexual Orientation Not on file Last Filed Vital Signs Vital Sign Reading Time Taken Comments Blood Pressure 125/58 09/22/2014 2:09 PM CDT Pulse 80 09/22/2014 2:09 PM CDT Temperature - - Respiratory Rate - - Oxygen Saturation - - Inhaled Oxygen Concentration - - Weight 88.4 kg (194 lb 12.8 oz) 09/22/2014 2:09 PM CDT Height 160 cm (5' 3 ) 09/22/2014 2:09 PM CDT Body Mass Index 34.51 09/22/2014 2:09 PM CDT Plan of Treatment Health Maintenance Due Date Last Done Comments DIABETES ANNUAL FOOT EXAM 1958 DIABETES ANNUAL RETINAL EXAM 1956 DIABETES MICROALBUMIN ANNUAL SCREEN 1956 LDL CHOLESTEROL ANNUAL 1956 DTAP/TDAP/TD VACCINES (1 - Tdap) 1957 PNEUMOCOCCAL VACCINE 50+ YEARS (1 of 2 - PCV) 04/27/18 58 ZOSTER VACCINE (1 of 2) 1988 OSTEOPOROSIS SCREENING 04/28/2003 DIABETES HBA1C Q 6 MONTHS 05/23/2012 11/24/2011 RSV VACCINE (60+ or ) (1 - 1-dose 75+ series) 2013 INFLUENZA VACCINE (#1) 2023 Insurance MEDICARE PART A AND B Care Teams Commercial Airplane Pilot Relationship Specialty Start Date End Date Ji Blankenship MD [facility] [address] [place] [id number] PCP - General Internal Medicine 09/22/14
--- OUTSIDE RECORDS SUMMARY | 2024-05-20 18:43 | XMS_ITS | Clinical Summary ---
Author Organization [facility] Address [address] [place] [address] Care Team Providers Care Visual Merchandising Coordinator Name Role Phone Marlee Dumont NP Primary Care Provider [phone] Allergies Active Allergy Reactions Criticality Noted Date Comments Azithromycin Barium Sulfate Unknown 04/04/2022 Ceftriaxone Codeine Ibuprofen Latex Lidocaine-Prilocaine Hives,Itching,Rash Medium 015 Stated has used Lidocaine patches without itching or rash Naproxen Prednisone [place] Hips Unknown 04/04/2022 Rosiglitazone Tramadol Unclassified Drug Hives,Itching,Rash High 09/22/2014 Medications ProAir HFA 90 mcg/actuation inhaler INHALE 2 PUFFS BY MOUTH INTO THE LUNGS EVERY 6 HOURS NEEDED FOR WHEEZING 1 Active amLODIPine (NORVASC) 5 mg tablet 1 Active atorvastatin (LIPITOR) 40 mg tablet 1 Active cefdinir (OMNICEF) 300 mg capsule 1 Active citalopram (CeleXA) 20 mg tablet [address] (CYMBALTA) 30 mg capsule [address] (NexIUM) 40 mg capsule 1 Active furosemide (LASIX) 40 mg tablet 1 Active gabapentin (NEURONTIN) 300 mg capsule 1 Active TOUJEO MAX 300 unit/mL (3 mL) pen for injection 1 Active HumaLOG 100 unit/mL pen for injection 1 Active losartan (COZAAR) 100 mg tablet 1 Active metoprolol XL (TOPROL-XL) 50 mg extended release tablet 1 Active Myrbetriq 50 mg tablet extended release 24 hr 1 Active nitrofurantoin (MACRODANTIN) 50 mg capsule 1 Active potassium chloride ER 20 mEq CR tablet 1 Active traZODone (DESYREL) 100 mg tablet 1 Active triamcinolone (NASACORT) 55 mcg nasal inhalerIndication s:Chronic pansinusitis Administer 2 sprays into each nostril daily 16.9 mL 3 1 Active acetaminophen (TYLENOL) 500 mg tablet 3 Active aspirin 81 mg chewable tablet 3 Active clobetasoL (TEMOVATE) 0.05 % ointment 2 Active fluticasone propionate (FLONASE) 50 mcg/actuation nasal spray Administer 1 spray into affected nostril(s) 2 (two) times a day 2 Active losartan-hydrochl orothiazide (HYZAAR) 100-25 mg per tablet losartan 100 mg-hydrochloro thiazide 25 mg tablet Active fluticasone propion-salmetero L (ADVAIR HFA) 115-21 mcg/actuation inhaler Inhale 2 puffs 2 (two) times a day 2 Active benzonatate (TESSALON) 100 mg capsule 2 Active clotrimazole-beta methasone (LOTRISONE) cream 3 Active CRANBERRY ORAL Take 2 capsules by mouth daily 2 Active multivitamin with iron tablet Take 1 tablet by mouth daily 3 Active FeroSuL 325 mg (65 mg iron) tablet 3 Active HYDROcodone-aceta minophen (NORCO) 5-325 mg per tablet Take 1 tablet by mouth every 6 (six) hours as needed 3 Active meloxicam (MOBIC) 15 mg tablet Take 15 mg by mouth daily 2 Active melatonin 10 mg tablet Take 10 mg by mouth daily 1 Active methocarbamoL (ROBAXIN) 500 mg tablet 3 Active Active Problems Problem Noted Date Diagnosed Date Chronic maxillary sinusitis 07/20/2020 Hypertension 07/12/2013 Overview (06/02/2016): HYPERTENSION NOS Type 2 diabetes mellitus 07/12/2013 Overview (06/02/2016): DMII WO CMP UNCNTRLD Pure hypercholesterolemia 07/12/2013 Overview (06/02/2016): PURE HYPERCHOLESTEROLEM Surgical History Surgery Date Site/Laterality Comments OTHER SURGICAL HISTORY D&C BACK SURGERY 02/26/1990 - 02/25/1991 Back surgery APPENDECTOMY Appendectomy CHOLECYSTECTOMY 02/26/1995 - 02/26/1996 Cholecystectomy WRIST SURGERY Medical History Medical History Date Comments Diabetes mellitus (HCC) Diabetes Hypertension Hypertension Hyperlipidemia Hyperlipidemia Hx Other Medical CHF Hx Other Medical DIVERTICULITIS Urinary tract infection Urinary tract infection Type 2 diabetes mellitus (HCC) D iabetes type 2 Hx Other Medical 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 Personal history of other en docrine, nutritional and metabolic disease History of diabetes mellitus - (Added by TW Conv) Personal history of other di seases of the circulatory system History of hypertension - (A dded by TW Conv) Diverticulosis of large inte anahi without perforation or abscess without bleeding Diverticulosis of colon - (A dded by TW Conv) Personal history of other di seases of the digestive system History of diverticulitis of colon - (Added by TW Conv) Sinusitis Family History Medical History Relation Name Comments Colon cancer Father Cancer, colon; /Cancer, colon; Colon cancer Other Family history of Cancer -colon; Relation Name Status Comments Father Other Social History Tobacco Use Types Packs/Day Years Used Date Smoking Tobacco: Never Smokeless Tobacco: Never Tobacco Cessation:Counseling Given: Not Answered Alcohol Use Standard Drinks/Week Comments Yes 0 (1 standard drink = 0.6 oz pur e alcohol) Comments Unknown Sex and Gender Information Value Date Recorded Sex Assigned at Not on file Legal Sex Female 10:21 AM BROADCAST TECHNICIAN Gender Identity Not on file Sexual Orientation Not on file Obstetrics History Last Filed Vital Signs Vital Sign Reading Time Taken Comments Blood Pressure 126/78 04/04/2022 9:19 AM BROADCAST TECHNICIAN Pulse 82 04/04/2022 9:19 AM BROADCAST TECHNICIAN Temperature 36.8 C (98.3 F) 04/04/2022 9:19 AM BROADCAST TECHNICIAN Respiratory Rate 18 04/04/2022 9:19 AM BROADCAST TECHNICIAN Oxygen Saturation 96% 04/04/2022 9:19 AM BROADCAST TECHNICIAN Inhaled Oxygen Concentration - - Weight 100.7 kg (222 lb) 04/04/2022 9:19 AM BROADCAST TECHNICIAN Height 160 cm (5' 3 ) 04/04/2022 9:19 AM BROADCAST TECHNICIAN Body Mass Index 39.33 04/04/2022 9:19 AM BROADCAST TECHNICIAN Plan of Treatment Health Maintenance Due Date Last Done Comments Albumin Creatinine Ratio, Urine 1938 Depression Screening 1938 Fall Risk Assessment 1938 Hemoglobin A1C 1938 eGFR 1938 Dilated Eye Exam 1938 Foot Exam 1938 Lipid Panel 1938 Hepatitis B Screening 1956 Well Visit 65+ 04/28/2003 Zoster Vaccine (2 of 3) 10/17/2015 08/22/2015, 08/09 DTaP/Tdap/Td Vaccine (1 - Tdap) 01/02/2020 0, 01/01/2020 Covid-19 Vaccine (3 - 2023-2 5 season) 2023 06/01/2020, 05/04/2020 Influenza Vaccine (#1) 2023 1, 12/09/2019, 12/09/2019, Additional history exists Pneumococcal vaccine 65+ Completed 019, 08/25/2015, 08/22/2015, Additional history exists Insurance [facility] IDPA IDPA Care Teams Visual Merchandising Coordinator Relationship Specialty [place] [address] [address] [address] PCP - General Nurse Practitioner 04/04/22
--- OUTSIDE RECORDS SUMMARY | 2024-05-20 18:43 | XMS_ITS | Data Portability ---
Author Organization [facility] Address [address] [place] [address] [place] [address] Care Team Providers Care Porcelain Buildup Assistant Name Role Phone VIDHYA CRAFT Referring Provider Assessment No assessment recorded. Plan of Treatment Reminders Order Date Submit Date Provider Last Modified By Organization Details Last Modified Time Details Appointments None recorded. Lab urinalysis, dipstick 2024 025 [email or web address] [address], [address], [place], [address], 5 12:29:59 urinalysis, dipstick 2024 025 [email or web address] [address], [address], [place], [address], 5 15:32:20 urinalysis, dipstick 2023 024 [email or web address] [address], [address], [place], [address], 4 14:45:19 Referral None recorded. Procedures None recorded. Surgeries None recorded. Imaging None recorded. Medication Orders levocetiriz ine 5 mg tablet 2023 024 [facility], [address] [place] [address], [id number], 4 12:03:48 estradiol 0.01% (0.1 mg/gram) vaginal cream 2023 [facility], [address] [place] [address], [address], 11:55:34 Cipro 500 mg tablet 2023 [facility], [address] [place] [address], [address], 11:25:23 oxybutynin chloride ER 5 mg tablet,exte nded release 24 hr 2023 [facility], [address] [place] [address], [id number], 14:55:33 Patient TargetsNo targets recorded. Patient InstructionsNo instructions recorded. Reason for Referral None Reported. Results Created Date Observation Date Name Description Value Unit Range Abnormal Flag Note LastModifiedBy Organization Detail LastModifiedTime 09/19/1909/19/2023 urina lysis , dipst ick Leukocytes + Not Available [facility] [address], [place], [address], 09/19/2023 14:44:49 09/19/1909/19/2023 urina lysis , dipst ick Nitrite neg Not Available Elsa [address], [place], [address], 09/19/2023 14:44:49 09/19/1909/19/2023 urina lysis , dipst ick Urobilinogen neg Not Available Terrence villegas [address], [place], [address], 09/19/2023 14:44:49 09/19/1909/19/2023 urina lysis , dipst ick Protein trace Not Available Elsa [address], [place], [address], 09/19/2023 14:44:49 09/19/1909/19/2023 urina lysis , dipst ick pH 6 Not Available [facility] [address], [place], [address], 09/19/2023 14:44:49 09/19/19 24 09/19/2023 urina lysis , dipst ick Blood trace Not Available [facility], [place], [address], 09/19/2023 14:44:49 09/19/1909/19/2023 urina lysis , dipst ick Specific [place] 1.015 [facility] Available [facility] [address], [place], [address], 09/19/2023 14:44:49 09/19/19 24 09/19/2023 urina lysis , dipst ick Ketone neg Not Available [facility] [address], [place], [address], 09/19/2023 14:44:49 09/19/19 24 09/19/2023 urina lysis , dipst ick Bilirubin neg Not Available Antonietta le [address], [place], [address], 09/19/2023 14:44:49 09/19/1909/19/2023 urina lysis , dipst ick Glucose neg Not Available [facility] [address], [place], [address], 09/19/2023 14:44:49 09/19/19 24 09/19/2023 urina lysis , dipst ick Appearance clear Not Available [facility] [address], [place], [address], 09/19/2023 14:44:49 09/19/19 24 09/19/2023 urina lysis , dipst ick Color yellow Not Available [facility] [address], [place], [address], 09/19/2023 14:44:49 03/14/19 25 03/14/2024 CULTU RE: URINE result report SEE RESULT S BELOW Test: Cultu re: Urine Speci men Sourc e: Urine - Clean Catch Speci men Type: Urine Speci men Date: 2024 1444 Resul t Date: 2024 2134 Resul t Statu s: Final resul t Abnor mal: No Resul ting Lab: [facility] [address] [facility] [address] Tel: CULTU RE ----- ----- ----- --- No growt h in 1 day (dete ction level of 10,00 0 colon ies / ml.) Not Available [facility] (Lab) [address] [facility], [place], [address], 03/15/2024 22:40:00 03/14/19 25 03/14/2024 urina lysis , dipst ick Leukocytes 6 Not Available [facility] [address], [place], [address], 03/14/2024 15:30:25 03/14/19 25 03/14/2024 urina lysis , dipst ick Nitrite NEG Not Available [facility] [address], [place], [address], 03/14/2024 15:30:25 03/14/19 25 03/14/2024 urina lysis , dipst ick Urobilinogen NEG Not Available [facility] bakari [address], [place], [address], 03/14/2024 15:30:25 03/14/19 25 03/14/2024 urina lysis , dipst ick Protein POS Not Available [facility] [address], [place], [address], 03/14/2024 15:30:25 03/14/19 25 03/14/2024 urina lysis , dipst ick pH 5 Not Available [facility] [address], [place], [address], 03/14/2024 15:30:25 03/14/19 25 03/14/2024 urina lysis , dipst ick Blood + Not Available [facility] [address], [place], [address], 03/14/2024 15:30:25 03/14/19 25 03/14/2024 urina lysis , dipst ick Specific [place] 1.010 Not Available [facility] [place] [address], [place], [address], 03/14/2024 15:30:25 03/14/19 25 03/14/2024 urina lysis , dipst ick Ketone NEG Not Available [facility] [address], [place], [address], 03/14/2024 15:30:25 03/14/19 25 03/14/2024 urina lysis , dipst ick Bilirubin NEG Not Available [facility] [address], [place], [address], 03/14/2024 15:30:25 03/14/19 25 03/14/2024 urina lysis , dipst ick Glucose TRACE Not Available [facility] [address], [place], [address], 03/14/2024 15:30:25 03/14/19 25 03/14/2024 urina lysis , dipst ick Color DARK YELLOW Not Available [facility] [address], [place], [address], 03/14/2024 15:30:25 03/24/19 25 03/24/2024 CULTU RE: URINE result report SEE RESULT S BELOW Test: Cultu re: Urine Speci men Sourc e: Urine - Clean Catch Speci men Type: Urine Speci men Date: 2024 1132 Resul t Date: 2024 1110 Resul t Statu s: Final resul t Abnor mal: No Resul ting Lab: [facility] [address] [facility] [address] Tel: CULTU RE ----- ----- ----- --- Cultu re resul t (>=3 organ isms prese nt) indic ates possi ble conta minat ion. Repea t cultu re if sympt oms indic ate. Not Available [facility] (Lab) [address], [place], [address], 03/26/2024 12:15:03 03/24/19 25 03/24/2024 urina lysis , dipst ick Leukocytes + Not Available [facility] [address], [place], [address], 03/24/2024 11:41:12 03/24/19 25 03/24/2024 urina lysis , dipst ick Protein trace Not Available [facility] [address], [place], [address], 03/24/2024 11:41:12 03/24/19 25 03/24/2024 urina lysis , dipst ick pH 5 Not Available [facility] [address], [place], [address], 03/24/2024 11:41:12 03/24/19 25 03/24/2024 urina lysis , dipst ick Blood trace Not Available [facility] [address], [place], [address], 03/24/2024 11:41:12 03/24/19 25 03/24/2024 urina lysis , dipst ick Specific [place] 1.015 Not Available [facility] [address], [place], [address], 03/24/2024 11:41:12 03/24/1903/24/2024 urina lysis , dipst ick Appearance cloudy Not Available [facility] [address], [place], [address], 03/24/2024 11:41:12 03/24/1903/24/2024 urina lysis , dipst ick Color yellow Not Available [place] [address], [place], [address], 03/24/2024 11:41:12 Result Notes None recorded. Problems Name Problem SNOMED Code Status Onset Date Resolution Date Notes Provider Name and Address Organization Details Recorded Time Genital lichen sclerosus 796049812 Active 2021 Jayla Adhikari MD [address], [place], [address], [facility] 11:34:33 Genital herpes simplex 61881558 Active 2022 Jayla Adhikari MD [address], [place], [address], [facility] 12:35:52 Notes:Some problems listed i n Document: #[id number] could not be added to this patient's chart. Please review this document and add these problems to the patient's chart manually as needed. Problem Notes None recorded. Procedures Surgical History Date Name Laterality Status Provider Name and Address Organization Details Recorded Time 022 Vulvar Biopsy completed Jayla Adhikari MD [address], [place], [address], [facility] 09/09/2021 11:23:51 996 cholecystectomy completed Gladys Duran [facility] 08/19/2021 10:18:57 991 procedure on back completed Gladys Duran [facility] 08/19/2021 10:19:23 959 Appendectomy completed Gladys Duran [facility] 08/19/2021 10:19:05 Imaging Results None recorded. Procedure Notes None recorded. Medical Equipment None Reported. Allergies Allergen ID Allergen Name Allergen Category Reaction Reaction Severity Criticality Documentation Date Start Date Code Code System Note Provider Name and Address Organization Details Recorded Time 67895 naproxen medicatio n Not available Not available Not available 08/19/2021 7258 [facility] 10:22:01 20687 codeine medicatio n Not available Not available Not available 08/19/2021 2670 [facility] 10:22:13 74757 latex environme nt,medica tion Not available Not available Not available 08/19/2021 96985 91 RxNorm Gladys holliday, [facility] 2 10:22:18 99534 morphine medicatio n Not available Not available Not available 08/19/2021 7052 [facility] 10:22:23 79675 prednison e medicatio n Not available Not available Not available 08/19/2021 8640 RxNorm Gladys holliday, [facility] 2 10:22:35 57804 Rocephin medicatio n Not available Not available Not available 08/19/2021 9449 [facility] 10:22:42 12253 tramadol medicatio n Not available Not available Not available 08/19/2021 93834 RxNorm Gladys holliday [facility] 2 10:22:53 71232 azithromy franky medicatio n Not available Not available Not available 08/19/2021 58457 RxNorm Gladys Duran null, [facility] 2 10:22:58 99683 Substance with sulfonami de structure and antibacte rial mechanism of action (substanc e) medicatio n Not available Not available Not available 08/19/2021 48165 8003 SNOMED Gladysdonn Duran null, [facility] 2 10:23:26 72743 lidocaine medicatio n rash Not available low 08/19/2021 6387 RxNorm Leesa diaz, [facility]- [address], [place], [address] [place] [address], P[facility] 2 14:19:07 Medications Name Sig Start Date Stop Date Status Note LastModified by Organization Details LastModified Time amoxicillin 500 mg capsule 08/22 completed Not Available Not Available Not Available fluconazole 100 mg tablet TAKE 1 TABLET BY MOUTH DAILY 06/21 completed Not Available Not Available Not Available atorvastati n 40 mg tablet active Not Available Not Available Not Available methocarbam ol 500 mg tablet active Not Available Not Available Not Available BD Alcohol Swabs 03/24 completed Not Available Not Available Not Available prednisone 10 mg tablet 08/22 completed Not Available Not Available Not Available gabapentin 600 mg tablet active Not Available Not Available Not Available doxycycline hyclate 100 mg capsule TAKE 1 CAPSULE BY MOUTH TWICE DAILY FOR 10 DAYS 08/22 completed Not Available Not Available Not Available ipratropium 0.5 mg-albutero l 3 mg (2.5 mg base)/3 mL nebulizatio n soln 08/22 completed Not Available Not Available Not Available trazodone 50 mg tablet active Not Available Not Available Not Available nystatin 100,000 unit/gram topical ointment APPLY TO VULVAR SKIN ALONG WITH TRIAMCINO LONE OINTMENT ONCE DAILY active Not Available Not Available No t Available fluconazole 150 mg tablet Take 1 tablet by oral route. 12/12 completed Not Available Not Available Not Available metoprolol succinate ER 50 mg tablet,exte nded release 24 hr active Not Available Not Available Not Available ampicillin 500 mg capsule 08/19 completed Not Available Not Available Not Available valacyclovi r 1 gram tablet Take 1 tablet every day by oral route for 5 days. 10/03 completed Not Available Not Available Not Available cephalexin 250 mg capsule 12/12 completed Not Available Not Available Not Available hydrocodone 5 mg-acetamin ophen 325 mg tablet TAKE 1 TABLET BY MOUTH EVERY 8 HOURS NEEDED active Not Available Not Available No t Available senna 8.6 mg tablet active Not Available Not Available No t Available fluconazole 200 mg tablet TAKE ONE TABLET BY MOUTH EVERY OTHER DAY FOR 3 DOSES 12/12 completed Not Available Not Available Not Available meloxicam 15 mg tablet 10/03 completed Not Available Not Available Not Available phenazopyri dine 200 mg tablet TAKE ONE TABLET BY MOUTH THREE TIMES DAILY NEEDED 12/12 completed Not Available Not Available Not Available famotidine 40 mg tablet active Not Available Not Available Not Available dexamethaso ne 6 mg tablet 08/22 completed Not Available Not Available Not Available miconazole nitrate 2 % vaginal cream active Not Available Not Available Not Available permethrin 5 % topical cream 08/22 completed Not Available Not Available Not Available clindamycin HCl 150 mg capsule 06/21 completed Not Available Not Available Not Available amlodipine 2.5 mg tablet active Not Available Not Available Not Available amlodipine 5 mg tablet TAKE 1/2 (ONE HALF) TABLET BY MOUTH ONCE DAILY 12/12 completed Not Available Not Available Not Available Benadryl Itch Stopping 1 %-0.1 % topical cream Apply 1 applicati on by topical route as needed, for leg itching. active Not Available Not Available No t Available trimethopri m 100 mg tablet TAKE 1 TABLET BY MOUTH AT BEDTIME active Not Available Not Available No t Available valacyclovi r 500 mg tablet Take 1 tablet twice a day by oral route for 7 days. active Not Available Not Available No t Available ciprofloxac in 500 mg tablet Take 1 tablet every 12 hours by oral route. 12/12 completed Not Available Not Available Not Available sulfamethox azole 800 mg-trimetho prim 160 mg tablet TAKE 1 TABLET BY MOUTH TWICE DAILY FOR 10 DAYS 08/22 completed Not Available Not Available Not Available acetaminoph en 500 mg tablet active Not Available Not Available Not Available triamcinolo ne acetonide 0.1 % topical cream APPLY TOPICALLY TO THE AFFECTED AREA TWICE DAILY 08/22 completed Not Available Not Available Not Available acetaminoph en ER 650 mg tablet,exte nded release 08/22 completed Not Available Not Available Not Available citalopram 20 mg tablet 08/22 completed Not Available Not Available Not Available trazodone 100 mg tablet 08/22 completed Not Available Not Available Not Available phenazopyri dine 100 mg tablet TAKE 1 TABLET BY MOUTH THREE TIMES DAILY NEEDED PAIN 08/19 completed Not Available Not Available Not Available benzonatate 100 mg capsule 08/22 completed Not Available Not Available Not Available doxycycline monohydrate 100 mg capsule TAKE 1 CAPSULE BY MOUTH TWICE DAILY FOR 7 DAYS active Not Available Not Available No t Available cephalexin 500 mg capsule TAKE 1 CAPSULE BY MOUTH EVERY 8 HOURS 12/12 completed Not Available Not Available Not Available pantoprazol e 40 mg tablet,trevor yed release TAKE 1 TABLET BY MOUTH AT BEDTIME active Not Available Not Available No t Available esomeprazol e magnesium 40 mg capsule,del ayed release TAKE 1 CAPSULE BY MOUTH EVERY MORNING BEFORE BREAKFAST 08/22 completed Not Available Not Available Not Available triamcinolo ne acetonide 0.1 % topical ointment APPLY TO VULVAR SKIN ALONG WITH NYSTATIN OINTMENT ONCE DAILY active Not Available Not Available No t Available clotrimazol e-betametha sone 1 %-0.05 % topical cream APPLY TOPICALLY TO THE AFFECTED AREA TWICE DAILY 08/22 completed Not Available Not Available Not Available fluorometho lone 0.1 % eye drops,suspe nsion SHAKE LIQUID AND INSTILL 1 DROP IN LEFT EYE THREE TIMES DAILY 08/22 completed Not Available Not Available Not Available lidocaine 5 % topical patch UNWRAP AND APPLY 1 PATCH TO THE SKIN DAILY. REMOVE AND DISCARD PATCH WITHIN 12 HOURS OR DIRECTED BY 08/19 completed Not Available Not Available Not Available nitroglycer in 0.4 mg sublingual tablet active Not Available Not Available Not Available oxybutynin chloride ER 5 mg tablet,exte nded release 24 hr Take 1 tablet every day by oral route. active Not Available Not Available No t Available gabapentin 300 mg capsule TAKE ONE CAPSULE BY MOUTH TWICE DAILY AND 2 CAPSULES AT BEDTIME 03/24 completed Not Available Not Available Not Available aspirin 81 mg chewable tablet active Not Available Not Available Not Available hydrocortis one 2.5 % topical cream APPLY TOPICALLY TO THE AFFECTED AREA TWICE DAILY 08/19 completed Not Available Not Available Not Available hydroxyzine HCl 25 mg tablet active Not Available Not Available Not Available furosemide 20 mg tablet 08/22 completed Not Available Not Available Not Available gabapentin 100 mg capsule 03/24 completed Not Available Not Available Not Available ergocalcife rol (vitamin D2) 1,250 mcg (50,000 unit) capsule active Not Available Not Available Not Available clobetasol 0.05 % topical ointment APPLY A THIN LAYER TO THE AFFECTED AREA(S) BY TOPICAL ROUTE 2 TIMES PER DAY active Not Available Not Available No t Available nystatin 100,000 unit/gram topical powder active Not Available Not Available Not Available polyethylen e glycol 3350 17 gram/dose oral powder active Not Available Not Available Not Available levofloxaci n 500 mg tablet TAKE 1 TABLET BY MOUTH AT BEDTIME active Not Available Not Available No t Available estradiol 0.01% (0.1 mg/gram) vaginal cream Insert 1 g every 72 hours by vaginal route. active Not Available Not Available No t Available levofloxaci n 750 mg tablet 08/19 completed Not Available Not Available Not Available methylpredn isolone 4 mg tablets in a dose pack 08/19 completed Not Available Not Available Not Available albuterol sulfate HFA 90 mcg/actuati on aerosol inhaler INHALE 2 PUFFS BY MOUTH EVERY 4 TO 6 HOURS NEEDED FOR SHORTNESS OF BREATH OR WHEEZING active Not Available Not Available No t Available ketoconazol e 2 % topical cream 08/22 completed Not Available Not Available Not Available ondansetron 4 mg disintegrat ing tablet DISSOLVE ONE TABLET BY MOUTH EVERY 6 HOURS NEEDED FOR NAUSEA 10/03 completed Not Available Not Available Not Available cefdinir 300 mg capsule 06/21 completed Not Available Not Available Not Available losartan 100 mg tablet active Not Available Not Available Not Available fluticasone propionate 50 mcg/actuati on nasal spray,suspe nsion SHAKE LIQUID AND USE 1 SPRAY IN EACH NOSTRIL TWICE DAILY active Not Available Not Available No t Available amoxicillin 875 mg-potassiu m clavulanate 125 mg tablet 08/22 completed Not Available Not Available Not Available amoxicillin 500 mg-fan m clavulanate 125 mg tablet TAKE 1 TABLET BY MOUTH EVERY 8 HOURS 08/22 completed Not Available Not Available Not Available Premarin 0.625 mg/gram vaginal cream insert 1 applicato rful 3 times a week by vaginal route as needed. active Not Available Not Available No t Available ciprofloxac in 0.3 %-dexametha sone 0.1 % ear drops,suspe nsion INSTILL 4 DROPS INTO LEFT EAR CANAL TWICE DAILY FOR 7 DAYS 08/22 completed Not Available Not Available Not Available nitrofurant oin monohydrate /macrocryst als 100 mg capsule Take 1 capsule every 12 hours by oral route for 7 days. 03/24 completed Not Available Not Available Not Available duloxetine 30 mg capsule,del ayed release active Not Available Not Available Not Available duloxetine 60 mg capsule,del ayed release 08/22 completed Not Available Not Available Not Available solifenacin 10 mg tablet TAKE 1 TABLET BY MOUTH DAILY 10/03 completed Not Available Not Available Not Available Novofine Autocover 30 gauge x 1/3 needle active Not Available Not Available Not Available cranberry 450 mg tablet active Not Available Not Available Not Available Vitamin D active Not Available Not Camila ilable Not Available Premarin 03/24 completed Not Available Not Available Not Available Advair HFA 115 mcg-21 mcg/actuati on aerosol inhaler INHALE 2 PUFFS INTO THE LUNGS TWICE DAILY 08/22 completed Not Available Not Available Not Available FeroSul 325 mg (65 mg iron) tablet 10/03 completed Not Available Not Available Not Available levocetiriz ine 5 mg tablet Take 1 tablet every day by oral route. active Not Available Not Available No t Available Humalog KwikPen (U-100) Insulin 100 unit/mL subcutaneou s active Not Available Not Available Not Available BD AutoShield Duo Pen Needle 30 gauge x 3/16 04/22 completed Not Available Not Available Not Available lidocaine 5 % topical ointment APPLY TOPICALLY TO THE AFFECTED AREA 1 TO 4 TIMES DAILY NEEDED 08/22 completed Not Available Not Available Not Available Myrbetriq 50 mg tablet,exte nded release TAKE ONE TABLET BY MOUTH DAILY 08/22 completed Not Available Not Available Not Available melatonin 10 mg capsule active Not Available Not Available Not Available Humalog KwikPen U-200 Insulin 200 unit/mL (3 mL) subcutaneou s INJECT 40 UNITS UNDER THE SKIN THREE TIMES DAILY WITH MEALS - MAY USE 2 UNITS TO PRIME WITH EACH INJECTION active Not Available Not Available No t Available Humulin R U-500 (Conc) Insulin Kwikpen 500 unit/mL (3 mL) subcutaneou s active Not Available Not Available Not Available Toujeo Max U-300 SoloStar 300 unit/mL (3 mL) subcutaneou s insulin pen ADMINISTE R 90 UNITS UNDER THE SKIN DAILY. MAY USE 2 UNITS TO PRIME BEFORE EACH INJECTION active Not Available Not Available No t Available FreeStyle Shayne 14 Day Edwards USE DIRECTED active Not Available Not Available No t Available Tab-A-Danette 400 mcg tablet active Not Available Not Available Not Available Gemtesa 75 mg tablet active Not Available Not Available No t Available Ozempic 1 mg/dose (4 mg/3 mL) subcutaneou s pen injector 12/12 completed Not Available Not Available Not Available Ozempic 2 mg/dose (8 mg/3 mL) subcutaneou s pen injector active Not Available Not Available Not Available Lagevrio 200 mg capsule (EUA) active Not Available Not Available Not Available Ozempic 0.25 mg or 0.5 mg (2 mg/3 mL) subcutaneou s pen injector 12/12 completed Not Available Not Available Not Available Vitals Date Recorded Body height Body mass index (BMI) Body weight Systolic blood pressure Diastolic blood pressure Provider Name and Address Organization Details Last Updated DateTime 09/19/2023 160.02 cm 35.1 kg/m2 79185.01 g 148 mm[Hg] 67 mm[Hg] Sarah George [facility] 14:02:54 Date Recorded Body height Body mass index (BMI) Body weight Systolic blood pressure Diastolic blood pressure Provider Name and Address Organization Details Last Updated DateTime 12/13/2023 160.02 cm 35.1 kg/m2 34936.29 g 140 mm[Hg] 80 mm[Hg] Lamar Saldana [facility] 4 11:24:48 Date Recorded Body height Body mass index (BMI) Body weight Provider Name and Address Organization Details Last Updated DateTime 03/14/2024 160.02 cm 35.1 kg/m2 62483.29 g ANASTASIA Roach [facility] 03/14/2024 15:30:05 Date Recorded Body height Body mass index (BMI) Body weight Systolic blood pressure Diastolic blood pressure Provider Name and Address Organization Details Last Updated DateTime 03/24/2024 160.02 cm 34.9 kg/m2 24390.7 g 147 mm[Hg] 70 mm[Hg] [facility] 11:39:33 Date Recorded Body height Body mass index (BMI) Body weight Systolic blood pressure Diastolic blood pressure Provider Name and Address Organization Details Last Updated DateTime 04/22/2024 160.02 cm 35.3 kg/m2 85346.88 g 149 mm[Hg] 68 mm[Hg] [facility] [facility] 10:16:43 Social History Question Answer Notes LastModified by Organizat ion Details LastModified Time Tobacco Smoking Status Never Smoker Gladys holliday [facility] 08/19/2021 10:19:33 What Is Your Level Of Alcohol Consumption? None Information not available 08/19/2021 Are You Blind Or Do You Have Difficulty Seeing? No Information not available 08/22/2022 Are You Deaf Or Do You Have Serious Difficulty Hearing? No Information not available 08/22/2022 Do You Use Any Illicit Or Recreational Drugs? No Information not available 08/19/2021 Has Tobacco Cessation Counseling Been Provided? No Information not available 08/19/2021 Do You Or Have You Ever Used Any Other Forms Of Tobacco Or Nicotine? No Information not available 08/19/2021 Sex: Unknown Functional Status Question Answer Note LastModified by Organizat ion Details LastModified Time Do you have difficulty walking or climbing stairs? No Information not available 08/22/2022 Are you able to walk? YESWOREST Information not available 08/22/2022 Are you able to care for yourself? Yes Information not available 08/22/2022 Do you have difficulty dressing or bathing? No Information not available 08/22/2022 Mental Status None recorded. Family History Relationship Description Onset Age of this Age Resolved Age Notes LastModified by Organization Details LastModified Time Mother Heart disease [email or web address] Not available 2021 10:19:44 Mother Hypertensive disorder [email or web address] Not available 2021 10:21:21 Father Carcinoma in situ of colon [email or web address] Not available 2021 10:20:57 Father Diabetes mellitus smcaley Not available 2021 10:21:05 Paternal Uncle Carcinoma in situ of colon smcaley Not available 2021 10:20:58 Medical History Condition Response Allergies (Food, seasonal, environmental ) N Other N Breast Cancer N Drug/Latex Allergies/Reactions N Blood Transfusion N Dermatologic Disorders N Lung Disease N Defects or Inherited Disease N Breast Problem N Gestational Diabetes N Hematologic disorders N Anesthesia Complications N History of STI N Deep Vein Thrombosis N Polycystic ovary syndrome N Anxiety Disorder N Autoimmune disease N Arthritis N Infertility N Polyps N Acid Reflux (GERD) N History of abnormal pap N Cancer N Stroke N Varicosities N Neurologic/Epilepsy N Endometriosis N High Cholesterol Y Headaches N Fibromyalgia N Kidney Disease N Heart Problems N Kidney or Bladder Problems N Thyroid Problems N GI Problems N Eating Disorder N Anemia Y Art (IVF or FET) N Psychiatric Illness N Ovarian Cancer N Diabetes Y Pulmonary (TB, Asthma) N Hepatitis/Liver Disease N No Past Medical History N Eczema N Urinary Tract Infection N Abuse/Domestic Violence N Asthma Y Trauma/Violence N Depression/ depression N Heart Disease N Pre-Eclampsia N Hypertension Y Osteoporosis N Thrombophilias N Gynecological History Statement/Question Response If Post Menopausal, Age at Menopause 50 Abnormal Pap N Sexually Active? N STIs/STDs N Menses Monthly N Age of first menstrual cycle 10 HPV Vaccine N Sexual Problems? N Current Control Method Menopause LMP Unknown Obstetrics History GPAL:G 4 P 4 0 0 4 Type Value Full Term 4 Living 4 Total 4 Past Encounters Encounter ID Performer Location Encounter Start Date Encounter Closed Date Diagnosis/Indication Diagnosis SNOMED-CT Code Diagnosis ICD10 Code Diagnosis Note [id number] Jayla Adhikari MD [facility] [address] [address] 08/19/2021 09:44:34 08/19/2021 11:23:42 Candidal vulvovaginitis 95388989 B37.3 Genital li wan sclerosus 480531668 L90.0 [id number] [facility] [address],[place] [address] 08/30/2021 13:53:12 08/30/2021 14:43:15 Sexually transmitted infectious disease 4526961 A64 Vaginitis 04167536 A60.9 Suspect HSV on examSwab takenNo previous Hx of HSV but does report her spouse was unfaithful in the past when they were together. Medication sentAgreed to updated blood testingCon tinue to use Vulvar care guidelineR eports tolerated Lidocaine Bladder instills so feels she will do okay with topical ointment if needed.Ice the vulva as much as neededLoos e airy clothingBa shara soda soaks in luke warm waterRetur n to see Dr. Adhikari for Bx as scheduled. Time spent in visit is a total of 15 mins with at least 50% of visit consisting of counseling and review of plan of care.If HSV is neg need to r/o other possible issues (i.e. Behcet's dz, LS, DIS). [id number] Jayla Adhikari MD [facility] [address],[place] [address] 09/09/2021 10:55:34 09/09/2021 11:28:40 Pruritus of vulva 88183111 L29.2 Lesion of vulva 93690430 6 N90.89 [id number] Brittani Ríos JEREMIAH [facility] [address],[place] [address] 08/22/2022 09:48:25 08/22/2022 15:12:42 Genital herpes simplex 39398275 A60.9 suspect HSV lesionHSV PCR sentRx for valtrex, R/B/A discussedv ulvar care guidelines discussedl oose clothing recommende drefill clobetasol , R/B/A discussedf /u in 1-2 months for vulvar check Time spent in visit is a total of 30 mins with at least 50% of visit consisting of counseling and review of plan of care. 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 N90.4 [id number] Jayla Adhikari MD [facility] [address],[place] [address] 10/03/2022 12:08:08 10/03/2022 14:13:08 Genital herpes simplex 95795013 A60.9 Genital li wan sclerosus 777846595 L90.0 [id number] DANIELA MCDOWELL MD [facility] [address],[place] [address] 06/22/2023 15:17:12 06/27/2023 02:47:29 Atrophic vaginitis 81081934 N95.2 - UTI symptoms possibly related to genitourin koki syndrome of - will trial estradiol cream 3x weekly to improve atrophy- culture sent- some prolapse on exam, not significan t for causing UTIs- RTC 1 month [id number] DANIELA MCDOWELL MD [facility] [address],[place] [address] 07/24/2023 10:18:06 07/24/2023 11:17:34 Urinary symptoms 100688946 R39.9 - symptoms improved with estradiol cream- continue estradiol per vagina, ok to decrease to 1-2x per week if symptoms continue to improve- rtc 1 year Itching of skin 64808303 0 L29.9 [id number] Db Macario MD [facility] [address],[place] [address] 09/19/2023 13:33:32 09/25/2023 09:16:38 Urinary symptoms 328751763 R39.9 Acute urin koki tract infection 338816594 N39.0 Urgent vilma ethel to urinate 93378999 R39.15 Atrophic vulva 222439104 N90.5 this patient is an 83-year-ol d female who presents for vulvar burning and dysuria. Patient has intense vulvar burning and dysuria. She has a lot of pressure in the pelvis. Has concern about her bladder dropping. She was examined -the vulva is extremely atrophic. , there was severe erythema, it appears very raw and irritated. There is some subclinica l descent of her anterior vaginal compartmen t. No significan t prolapse apically or within any of the anterior-p osterior compartmen ts. Patient has severe atrophic vulvar vaginitis. She needs more specific type of help. She has taken vaginal estrogen. It is not improved the sensation on the vulva. To refer to a vulvovagin al disease expert. Spent over 30 minutes with the patient on her care and with her directly. Treated her for urinary tract infection. Also treated her for urgent urination. We discussed those medication s. We discussed the risks, benefits, and alternativ es to medication s. She was given prescripti ons. She is given precaution s and instructio ns. [id number] Db Macario MD [facility] [address],[place] [address] 12/13/2023 11:00:02 12/14/2023 08:18:55 Atrophic vulvovaginitis 98906894 N95.2 83-year-ol d female severe vulvovagin al atrophy /atrophic vulvovagin itis. She has seen a specialist . She was given a series recommenda tion by the specialist and has noted some improvemen t. She was to follow-up here. She can not make the trip out to [facility]. She has been using Crisco Oil. Keeping it dry as possible. We agreed to add estrogen cream to the affected area. I gave her instructio ns and precaution s on Estrogen cream. We talked about the risks, benefits, and alternativ es to estrogen cream. she agreed to follow up in 3 months. Respirator y tract congestion 593366433 R09.89 [id number] ANASTASIA Roach [facility] [address],[place] [address] 03/14/2024 10:24:18 03/14/2024 16:34:14 Urinary symptoms 489428416 R39.9 [id number] Db Macario MD [facility] [address],[place] [address] 03/24/2024 11:22:24 03/24/2024 12:33:31 Dysuria 34097362 R30.0 Vulvovaginitis 65245257 N76.0 [id number] Db Macario MD [facility] [address] [address] 04/22/2024 09:49:56 04/23/2024 06:32:27 Vulvovaginitis 74745789 N76.0 83-year-ol d female who was treated for severe vulva vaginitis. She had marked skin changes. She reports much improved symptoms. She was treated with a topical antifungal steroid cream. We agreed to treat as needed. She has refills. She will follow-up as needed. Health Concerns Section Related Observation LastModified by Organization Detai ls LastModified Time None Recorded Concern Status LastModified by Organization Details LastModified Time None Recorded Advance Directives Directive None Recorded Payers Encounter Date Sequence Insurance Name Policy Number Policy Mendez Covered Member ID Mendez Member ID Guarantor Name 09/19/2023 1 [facility] (MEDICARE REPLACEMENT/AD VANTAGE - PPO) [id number] Megan Menon [id number] Megan Menon 09/19/2023 2 [facility] (MEDICAID REPLACEMENT - HMO) Megan Menon [id number] Megan Menon 12/13/2023 1 [facility] (MEDICARE REPLACEMENT/AD VANTAGE - PPO) [id number] Megan Menon [id number] Megan Menon 12/13/2023 2 [facility] (MEDICAID REPLACEMENT - HMO) Megan Menon [id number] Megan Menon 03/14/2024 1 [facility] (MEDICARE REPLACEMENT/AD VANTAGE - PPO) [id number] Megan Menon [id number] Megan Menon 03/14/2024 2 [facility] (MEDICAID REPLACEMENT - HMO) Megan Menon [id number] Megan Menon 03/24/2024 1 [facility] (MEDICARE REPLACEMENT/AD VANTAGE - PPO) [id number] Megan Menon [id number] Megan Menon 03/24/2024 2 [facility] (MEDICAID REPLACEMENT - HMO) Megan Menon [id number] Megan Menon 04/22/2024 1 [facility] (MEDICARE REPLACEMENT/AD VANTAGE - PPO) [id number] Megan Menon [id number] Megan Menon 04/22/2024 2 [facility] (MEDICAID REPLACEMENT - HMO) Megna Menon [id number] Megan Menon Notes Date Note Type Note Provider Name and Address Organization Details Recorded Time 09/19/2023 text/html this patient is an 83-year-old female who presents for vulvar burning and dysuria. Patient has intense vulvar burning and dysuria. She has a lot of pressure in the pelvis. Has concern about her bladder dropping. She was examined -the vulva is extremely atrophic. , there was severe erythema, it appears very raw and irritated. There is some subclinical descent of her anterior vaginal compartment. No significant prolapse apically or within any of the anterior-posterior compartments. Patient has severe atrophic vulvar vaginitis. She needs more specific type of help. She has taken vaginal estrogen. It is not improved the sensation on the vulva. To refer to a vulvovaginal disease expert. Spent over 30 minutes with the patient on her care and with her directly. Db Macario MD [address], [place], [address], [facility] 09/22/2023 10:40:41 12/13/2023 text/html 83-year-old fema le severe vulvovaginal atrophy /atrophic vulvovaginitis. She has seen a specialist. She was given a series recommendation by the specialist and has noted some improvement. She was to follow-up here. She can not make the trip out to [place]. She has been using Crisco Oil. Keeping it dry as possible. We agreed to add estrogen cream to the affected area. I gave her instructions and precautions on Estrogen cream. We talked about the risks, benefits, and alternatives to estrogen cream. she agreed to follow up in 3 months. Db Macario MD [address], [place], [address], [facility] 12/14/2023 03:30:45 03/24/2024 text/html 3-year-old femessie le with severe vulvar irritation and dysuria. The patient was examined. There was diffuse widely distributed erythema over the vulva and surrounding areas. There is some excoriated tissue. Areas of thin skin and mild mild breakdown. She reports this area to be wet often. Likely fungal infection. We agreed to treat with antifungal /steroid cream. She will follow up in 1 month. I spent over 20 minutes on her care. We talked about the medication. She was given precautions and instructions. Db Macario MD [address], [place], [address], [facility] 03/24/2024 12:30:45 04/22/2024 text/html 83-year-old femsrinivasa live who was treated for severe vulva vaginitis. She had marked skin changes. She reports much improved symptoms. She was treated with a topical antifungal steroid cream. We agreed to treat as needed. She has refills. She will follow-up as needed. Db Macario MD [address], [place], [address], [facility] 04/22/2024 22:29:52 OBGyn Episode Ob Episode Information Episode Created Date Number of Fetuses Patient Bloodtype Patient rh Status Prepregnancy Weight lbs Domestic Partner Domestic Partner Phone Father Name Softlines Supervisor Status 08/20/19 22 1 CLOSED Fetus Data First Name Last Name Admitted to NICU Weight (g) Sex Living Outcome Pediatric Complications Fetus ID Race Codes Race Delivery Type 2778.25 1 M Full Term [id number] Vaginal Delivery Tony Calculation Initial Tony Date Initial Exam Date Initial Exam Provider Initial Ultrasound Date Last Menstrual Period Date Ultra Sound Weeks Gestation 0 Eighteen To Twenty Week Tony Update Ultra Sound Date Fundal Height At Umbil Quickening Date Ultra Sound Latest Weeks Gestation Final Tony Confirmed By Final Tony Confirmed Date Final Tony Date Ultra Sound Latest Days Gestation 0 0 Menstrual History Last Menstrual Date Menses Monthly On Bcp Conception Prior Menses Frequency Hcg Plus Date Menarche Onset Age Delivery Information Delivery Date Delivery Type Labor Anesthesia Weeks Gestation Incision Type Labor Labor Length Hrs Delivered By Post Complications Tubal Sterilization Discharge Date Comments 5 Discharge Information Feeding Method Contraceptive Method Maternal HG B and HCT Levels Ob Episode Information Episode Created Date Number of Fetuses Patient Bloodtype Patient rh Status Prepregnancy Weight lbs Domestic Partner Domestic Partner Phone Father Name Softlines Supervisor Status 08/20/19 22 1 CLOSED Fetus Data First Name Last Name Admitted to NICU Weight (g) Sex Living Outcome Pediatric Complications Fetus ID Race Codes Race Delivery Type 3288.54 2 F Full Term [id number] Vaginal Delivery Tony Calculation Initial Tony Date Initial Exam Date Initial Exam Provider Initial Ultrasound Date Last Menstrual Period Date Ultra Sound Weeks Gestation 0 Eighteen To Twenty Week Tony Update Ultra Sound Date Fundal Height At Umbil Quickening Date Ultra Sound Latest Weeks Gestation Final Tony Confirmed By Final Tony Confirmed Date Final Tony Date Ultra Sound Latest Days Gestation 0 0 Menstrual History Last Menstrual Date Menses Monthly On Bcp Conception Prior Menses Frequency Hcg Plus Date Menarche Onset Age Delivery Information Delivery Date Delivery Type Labor Anesthesia Weeks Gestation Incision Type Labor Labor Length Hrs Delivered By Post Complications Tubal Sterilization Discharge Date Comments 6 Discharge Information Feeding Method Contraceptive Method Maternal HG B and HCT Levels Ob Episode Information Episode Created Date Number of Fetuses Patient Bloodtype Patient rh Status Prepregnancy Weight lbs Domestic Partner Domestic Partner Phone Father Name Softlines Supervisor Status 09/19/19 24 1 CLOSED Fetus Data First Name Last Name Admitted to NICU Weight (g) Sex Living Outcome Pediatric Complications Fetus ID Race Codes Race Delivery Type Full Term [id number] Tony Calculation Initial Tony Date Initial Exam Date Initial Exam Provider Initial Ultrasound Date Last Menstrual Period Date Ultra Sound Weeks Gestation 0 Eighteen To Twenty Week Tony Update Ultra Sound Date Fundal Height At Umbil Quickening Date Ultra Sound Latest Weeks Gestation Final Tony Confirmed By Final Tony Confirmed Date Final Tony Date Ultra Sound Latest Days Gestation 0 0 Menstrual History Last Menstrual Date Menses Monthly On Bcp Conception Prior Menses Frequency Hcg Plus Date Menarche Onset Age Delivery Information Delivery Date Delivery Type Labor Anesthesia Weeks Gestation Incision Type Labor Labor Length Hrs Delivered By Post Complications Tubal Sterilization Discharge Date Comments 0 Discharge Information Feeding Method Contraceptive Method Maternal HG B and HCT Levels Ob Episode Information Episode Created Date Number of Fetuses Patient Bloodtype Patient rh Status Prepregnancy Weight lbs Domestic Partner Domestic Partner Phone Father Name Softlines Supervisor Status 09/19/19 24 1 CLOSED Fetus Data First Name Last Name Admitted to NICU Weight (g) Sex Living Outcome Pediatric Complications Fetus ID Race Codes Race Delivery Type Full Term [id number] Tony Calculation Initial Tony Date Initial Exam Date Initial Exam Provider Initial Ultrasound Date Last Menstrual Period Date Ultra Sound Weeks Gestation 0 Eighteen To Twenty Week Tony Update Ultra Sound Date Fundal Height At Umbil Quickening Date Ultra Sound Latest Weeks Gestation Final Tony Confirmed By Final Tony Confirmed Date Final Tony Date Ultra Sound Latest Days Gestation 0 0 Menstrual History Last Menstrual Date Menses Monthly On Bcp Conception Prior Menses Frequency Hcg Plus Date Menarche Onset Age Delivery Information Delivery Date Delivery Type Labor Anesthesia Weeks Gestation Incision Type Labor Labor Length Hrs Delivered By Post Complications Tubal Sterilization Discharge Date Comments 8 Discharge Information Feeding Method Contraceptive Method Maternal HG B and HCT Levels
--- OUTSIDE RECORDS SUMMARY | 2024-05-20 18:43 | XMS_ITS | Referral Summary ---
Author Organization [facility] [address] Address [address] [place] [address] Care Team Providers Care Director Of Entertainment Name Role Phone Marlee Dumont NP Primary Care Provider [phone] Allergies Active Allergy Reactions Criticality Noted Date [...] Pure hypercholesterolemia 07/12/2013 Overview (06/02/2016): PURE HYPERCHOLESTEROLEM Social History Tobacco Use Types Packs/Day Years Used Date Smoking Tobacco: Never Smokeless Tobacco: Never Tobacco Cessation:Counseling Given: Not Answered Alcohol Use Standard Drinks/Week Comments Yes 0 (1 standard drink = 0.6 oz pur e alcohol) Comments Unknown Sex and Gender Information Value Date Recorded Sex Assigned at Not on file Legal Sex Female 10:21 AM [facility] PT Gender Identity Not on file Sexual Orientation Not on file Last Filed Vital Signs Vital Sign Reading Time Taken Comments Blood Pressure 126/78 04/04/2022 9:19 AM HOME [facility] PT Pulse 82 04/04/2022 9:19 AM HOME [facility] TRAV[facility] PT Temperature 36.8 C (98.3 F) 04/04/2022 9:19 AM HOME HEALTH TRAVEL PT Respiratory Rate 18 04/04/2022 9:19 AM HOME HEALTH TRAVEL PT Oxygen Saturation 96% 04/04/2022 9:19 AM HOME HEALTH TRAVEL PT Inhaled Oxygen Concentration - - Weight 100.7 kg (222 lb) 04/04/2022 9:19 AM HOME HEALTH TRAVEL PT Height 160 cm (5' 3 ) 04/04/2022 9:19 AM HOME HEALTH TRAVEL PT Body Mass Index 39.33 04/04/2022 9:19 AM HOME HEALTH TRAVEL PT Plan of Treatment Not on file Insurance [address] [place] [id number] [facility] MEDICARE ADVANTAGE IDPA IDPA Care Teams Director Of Entertainment Relationship Specialty [place] [address] [address] [address] PCP - General Nurse Practitioner 04/04/22
--- OUTSIDE RECORDS SUMMARY | 2024-05-20 18:43 | XMS_ITS | Continuity of Care Document ---
Author Organization [facility] Address [address] [place] [address] Phone Care Team Providers Care Mathematics Education Professor Name Role Phone Chandler OD, Cruz[place] Unavailable [...] Diagnoses Date Provider Providers Copied on Encounter [facility], [id number] [place] [address] [address], [place], [place], [id number], tel:[phone] [facility] No Information Oct- 0-201 0 Chandler OD Cruzito. [address] , [address], [place], [address], [place]. tel:[phone] [facility], [address], [place], [place], [address], [place] tel:[phone] [facility] No Information 5-200 9 Chandler OD Cruzito. [address] , [address], [place], [address], [place]. tel:[phone] [facility], [address], [place], [place], [address], [place] tel:[phone] [facility] No Information 0-200 8 Chandler OD Cruzito. [address] [facility] , [address], [place], [address], [place]. tel:[phone] Referring Provider: Umer Tomlinson MD, [address], [place], [address]. tel:[phone] [facility], [address], [place], [place], [address], [place] tel:[phone] [facility] No Information 1-200 7 Chandler OD Cruzito. [address] [facility] , [address], [place], [address], [place]. tel:[phone] Referring Provider: Cruzito Chandler OD Armin, [address] [facility] [address], [place], [place], [facility]. tel:[phone] Family History Family Member Type Diagnosis Age At Onset No Information Payers Payer name Insurance type Covered libertarian ID Authorkaylen jaramillo(s) [place] [id number] Social History Type Description Quantity Date Captured [...]
[2024-05-20] MEDS: diphenhydrAMINE HCl INJ 50 MG/ML VIAL 25 MG IV PUSH (18:44)
[2024-05-20] MEDS: ONDANSETRON INJ 4 MG/2 ML VIAL IV PUSH (18:44)
[2024-05-20] MEDS: MORPHINE SULFATE (*CRX) 2 MG/ML INJ IV PUSH (18:46)
--- OUTSIDE RECORDS SUMMARY | 2024-05-20 18:56 | XMS_ITS | Encounter Summary ---
Author Organization [facility] Address [address] [place] [address] Care Team Providers Care Electric Lineman Name Role Phone Deandre Waters MD Primary Care Provider U Ligia Patel MD Primary Care Provider [phone] Deandre Waters MD Primary Care Provider U Mary Headley NP Primary Care Provider Marlee Kerns [facility]- Primary Care Provider + Marlee Dumont [facility]- Primary Care Provider + Marlee Dumont LEARNING DISABLED TEACHER-BC Unavailable [phone] Jeremias Maguire MD Unavailable [phone] India Schaefer RN Unavailable [phone] Shahla Giles PharmD Unavailable [phone] India Schaefer RN Unavailable + [phone] Marlee Dumont LEARNING DISABLED TEACHER-BC Unavailable [phone] India Schaefer RN Unavailable +[phone] Natalie Tam SAP TREASURY CONSULTANT Primary Care Provider [phone] Lea Rios MD Unavailable [phone] Juana Carmona MD Unavailable [phone] Dudley Acuna Unavailable [phone] Encounter Details Date Type Department Care Team (Late st Contact Info) Description 11/30/2015 Abstract [facility] [address] [place] [address] Bry Mills MA Social History Tobacco Use Types Packs/Day Years Used Date Smoking Tobacco: Former Smokeless Tobacco: Never Comments:quit smoking in 199 5 Alcohol Use Standard Drinks/Week Comments Yes 0 (1 standard drink = 0.6 oz pur e alcohol) socially Comments Unknown Sex and Gender Information Value Date Recorded Sex Assigned at Female 09/20/2018 9:29 AM CDT Legal Sex Female 11:29 PM CDT Gender Identity Female 09/20/2018 9:29 AM CDT Sexual Orientation Straight 09/20/2018 9: 29 AM CDT Occupation Industry Job Start Date Job End Date Retired Not on file Not on file Not on file documented as of this encounter Progress Notes * CANDELARIO Patterson - 11/30/2015 2:37 PM CDT PG pt send letter continue current meds documented in this encounter Plan of Treatment Upcoming Encounters Date Type Department Care Team (Late st Contact Info) Description 11/07/2024 10:45 AM CDT Office Visit [facility] [phone] Lea Rios MD [address] [facility] [address] [place] [address] 05/19/2025 9:30 AM CDT Office Visit [facility] Medical Group Family Medicine - [place] [address] [facility] [address] [place] [phone] Natalie Tam NP [address] [place], [place] [phone] documented as of this encounter Procedures Procedure Name Priority Date/Time Associated Diagnosis Comments CBC (OUTSIDE LAB) Routine 12/08/2017 BASIC METABOLIC PANEL Routine 12/08/2017 COMPREHENSIVE METABOLIC PANEL Routine 11/11/2015 LIPID PANEL Routine 11/11/2015 HEMOGLOBIN, GLYCOSYLATED Routine 11/11/2015 THYROID STIM HORMONE TSH Routine 11/11/2015 documented in this encounter Results * BASIC METABOLIC PANEL (12/08/2017) SODIUM S/P/B 136 POTASSIUM S/P/B 4.7 CO2 26.3 CHLORIDE S/P/B 104 GLUCOSE 134 mg/dL CALCIUM S/P/B 9.0 BUN 18 CREATININE S/P/B 0.86 0.5 - 1.0 EGFR AFR. AMER. 74 <=90 EGFR NON-AFR. AMER. 64 <=90 12/08/2017 us Doc [facility] Abstract LABORATORY Final Result * CBC (OUTSIDE LAB) (12/08/2017) WBC 10.0 HGB 11.1 HCT 35.3 PLT 490 12/08/2017 us Doc [facility] Abstract LAB-OUTSIDE/ABSTRACTED Edite d Result - Final * THYROID STIM HORMONE, TSH (11/11/2015) TSH 2.49 11/11/2015 us Doc [facility] Abstract LABORATORY Final Result * LIPID PANEL (11/11/2015) CHOLESTEROL 163 HDL 36 TRIGLYCERIDES 173 LDL (CALCULATED) 92.4 11/11/2015 us Doc [facility] Abstract LABORATORY Edited Resul t - Final * HEMOGLOBIN, GLYCATED (11/11/2015) HGB A1C 7.4 11/11/2015 us Doc [facility] Abstract LABORATORY Final Result * COMPREHENSIVE METABOLIC PANEL (11/11/2015) SODIUM S/P/B 139 POTASSIUM S/P/B 4.8 CO2 29 CHLORIDE S/P/B 106 GLUCOSE 117 CALCIUM S/P/B 9.7 BUN 12 CREATININE S/P/B 0.94 EGFR NON-AFR. AMER. 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 COVID-19 Rule Out 10/02/2020 10/02/2020 10/02/2020 9:20 AM CDT COVID-19 Rule Out 02/22/2021 02/22/2021 02/22/2021 9:18 AM BUILDING TRADES TEACHER COVID-19 Rule Out 02/22/2021 02/22/2021 02/23/2021 7:12 PM BUILDING TRADES TEACHER COVID-19 Rule Out 05/20/2021 05/20/2021 05/20/2021 7:38 PM CDT COVID-19 Patient Reported Positive 09/26/2021202110/17/2021 12:32 AM CDT documented as of this encounter Care Teams Electric Lineman Relationship Specialty Start Date End Date Deandre Waters MD PCP - General INTERNAL MEDICINE 07/28/15 12/14/15 Ligia Waters MD PCP - General 12/15/15 10/09/16 Deandre Waters MD PCP - General 10/10/16 07/30/19 Mary Kirkland, SAP TREASURY CONSULTANT PCP - General NURSE PRACTITIONER 07/31/19 12/22/19 [facility] - General Nurse Practitioner Family 12/23/19 11/29/20 [facility] PCP - General Nurse Practitioner Family 11/30/20 10/16/22 Natalie Tam NP [address] [place] [address] PCP - General NURSE PRACTITIONER 10/17/22 [facility] Nurse Practitioner Family 11/30/20 05/05/24 Jeremias Maguire [facility]. [address] [id number] [place] Wood Heel Flap Trimmer CARDIOVASCULAR DISEASE 07/28/15 India Schaefer, RN [address] [place], [place] [phone] Chef French (Ambulatory) REGISTERED NURSE 05/16/18 06/19/18 Shahla Giles, PharmD [address] [place], [place] [phone] Pharmacist Pharmacist 05/16/18 05/09/22 India Schaefer, RN [address] [place] [address] Chef French (Ambulatory) REGISTERED NURSE 10/02/18 [facility] Nurse Practitioner Nurse Practitioner Family 12/23/19 12/23/19 India Schaefer, RN [address] [place] [address] Chef French (Ambulatory) REGISTERED NURSE 12/01/20 01/30/21 Lea Rios MD [facility] [address] [facility] [place] [address] Consulting Physician CARDIOVASCULAR DISEASE 05/06/24 Juana Carmona MD [address] [place] [address] ENDOCRINOLOGY 05/06/24 Dudley Acuna PA [address] [facility] [address] [place] [address] Physician Science And Operations Officer ORTHOPAEDICS 05/06/24 documented as of this encounter
--- OUTSIDE RECORDS SUMMARY | 2024-05-20 18:56 | XMS_ITS | Encounter Summary ---
Author Organization [facility] Address [facility] [place] [address] Care Team Providers Care Clinical Pathologist Name Role Phone Deandre Waters MD Primary Care Provider Mary Griffin NP Primary Care Provider UnaMarlee Alonso [facility] Primary Care Provider + Julia Marlee [facility] Primary Care Provider + Julia [facility] Unavailable [phone] Jeremias Maguire MD Unavailable [phone] India Schaefer RN Unavailable [phone] Shahla Giles PharmD Unavailable [phone] India Schaefer RN Unavailable [phone] Marlee Dumont [facility] Unavailable + [phone] India Schaefer RN Unavailable [phone] Natalie Tam HIGH SCHOOL SPORTS COACH Primary Care Provider [phone] Lea Rios MD Unavailable [phone] Juana Carmona MD Unavailable [phone] Dudley Acuna Unavailable [phone] Encounter Details Date Type Department Care Team (Late st Contact Info) Description 05/02/2018 Abstract [facility] Scanned, Documents Social History Tobacco Use Types Packs/Day Years Used Date Smoking Tobacco: Former Smokeless Tobacco: Never Comments:quit smoking in 199 5 Alcohol Use Standard Drinks/Week Comments Yes 0 (1 standard drink = 0.6 oz pur e alcohol) socially Comments No Sex and Gender Information Value Date Recorded Sex Assigned at Female 09/20/2018 9:29 AM CDT Legal Sex Female 11:29 PM CDT Gender Identity Female 09/20/2018 9:29 AM CDT Sexual Orientation Straight 09/20/2018 9: 29 AM CDT Occupation Industry Job Start Date Job End Date Not on file Not on file Not on file Not on file documented as of this encounter Plan of Treatment Upcoming Encounters Date Type Department Care Team (Late st Contact Info) Description 11/07/2024 10:45 AM CDT Office Visit [facility]-[address] [phone] Lea Rios MD [facility] [address] [place] [address] 05/19/2025 9:30 AM CDT Office Visit [facility] Medical Group Family Medicine - [place] [address] [facility] [address] [place] [address] Natalie Tam, JEREMIAH [address] [place] [address] documented as of this encounter Visit Diagnoses Not on filedocumented in this encounter Additional Health Concerns Infection Onset Date Last Indicated Resolved Time COVID-19 Rule Out 05/01/2020 05/01/2020 05/02/2020 3:51 PM 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 COVID-19 Rule Out 10/02/2020 10/02/2020 10/02/2020 9:20 AM CDT COVID-19 Rule Out 02/22/2021 02/22/2021 02/22/2021 9:18 AM 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 COVID-19 Rule Out 02/22/2021 02/22/2021 02/23/2021 7:12 PM 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 COVID-19 Rule Out 05/20/2021 05/20/2021 05/20/2021 7:38 PM CDT COVID-19 Patient Reported Positive 09/26/2021202110/17/2021 12:32 AM CDT documented as of this encounter Care Teams Clinical Pathologist Relationship Specialty Start Date End Date Deandre Waters MD PCP - General 10/10/16 07/30/19 Mary Kirkland, HIGH SCHOOL SPORTS COACH PCP - General NURSE PRACTITIONER 07/31/19 12/22/19 [facility] - General Nurse Practitioner Family 12/23/19 11/29/20 Marlee Dumont [facility] PCP - General Nurse Practitioner Family 11/30/20 10/16/22 Natalie Tam NP [address] [place] [address] PCP - General NURSE PRACTITIONER 10/17/22 [facility] Nurse Practitioner Family 11/30/20 05/05/24 Jeremias Maguire MD [facility]. [address] [address] [place] Bee Worker CARDIOVASCULAR DISEASE 07/28/15 India Scheafer, RN [address] [place] [address] Screen Printer (Ambulatory) REGISTERED NURSE 05/16/18 06/19/18 Shahla iGles, PharmD [address] [place], [place] [phone] Pharmacist Pharmacist 05/16/18 05/09/22 India Schaefer, RN [address] [place] [address] Screen Printer (Ambulatory) REGISTERED NURSE 10/02/18 [facility] Nurse Practitioner Nurse Practitioner Family 12/23/19 12/23/19 India Schaefer, RN [address] [place] [address] Screen Printer (Ambulatory) REGISTERED NURSE 12/01/20 01/30/21 Lea Rios MD [address] [facility] [address] [facility] [place] [address] Consulting Physician CARDIOVASCULAR DISEASE 05/06/24 Juana Carmona MD [address] [facility] 1 [place], [place] [phone] ENDOCRINOLOGY 05/06/24 Dudley Acuna PA [address] [facility] [address] [place] [address] Physician Pot Fireman ORTHOPAEDICS 05/06/24 documented as of this encounter
--- OUTSIDE RECORDS SUMMARY | 2024-05-20 18:56 | XMS_ITS | Encounter Summary ---
Author Organization [facility] Address [address] [place] [address] Care Team Providers Care Operations Lead Name Role Phone Obdulia Shepherd MD Primary Care Provider Mary Griffin NP Primary Care Provider UnaMarlee Alonso [facility]- Primary Care Provider + Marlee Dumont [facility] Primary Care Provider + [facility] Unavailable [phone] Jeremias Maguire MD Unavailable [phone] Shahla Giles PharmD Unavailable [phone] India Schaefer RN Unavailable [phone] Marlee Dumont [facility]- Unavailable [phone] India Schaefer RN Unavailable [phone] Natalie Tam COFFEE SAMPLER Primary Care Provider [phone] Lea Rios MD Unavailable [phone] Juana Carmona MD Unavailable [phone] Dudley Acuna Unavailable [phone] Encounter Details Date Type Department Care Team (Late st Contact Info) Description 06/25/2018 SUSPECT ARTIST ONLY [facility] Medical Group Priority Care - Guilherme Cobb [address] [place] [address] Scanned, Documents Social History Tobacco Use Types Packs/Day Years Used Date Smoking Tobacco: Former Smokeless Tobacco: Never Comments:quit smoking in 199 5 Alcohol Use Standard Drinks/Week Comments Yes 0 (1 standard drink = 0.6 oz pur e alcohol) socially PHQ-2 Answer Date Recorded PHQ-2 Score 1 05/23/2018 Comments No Sex and Gender Information Value [...] as of this encounter Progress Notes * Zscanned, Documents - 06/25/2018 12:00 AM CDT MEGAN MENON MD: ACCT: [id number] ADMIT/SERVICE DATE: 07/04/18 DISCHARGE DATE: : 1940 PT TYPE: REG RCR SEX: F ORD SITE: [facility] CHART DOCUMENT PHYSICIAN CERTIFICATION AND PLAN OF CARE PHYSICAL THERAPY MEDICAL DIAGNOSIS: LOW BACK PAIN, FALLS, ACUTE KNEE PAIN BILATERALLY PT DIAGNOSIS: SAME ASSESSMENT: THIS PATIENT WAS RECEIVING PHYSICAL THERAPY UP UNTIL JANUARY OF 2018. SHE HAD TO STOP DUE TO TRANSPORTATION ISSUES. RECENTLY SHE WAS ADMITTED TO [facility] FOR DIVERTICULITIS AND STARTED HOME HEALTH SERVICES. SHE NOW HAS ACCESS TO A VEHICLE AGAIN AND WAS WANTING TO RESUME HER PT ON AN OUTPATIENT BASIS. SHE FEELS ELECTRICAL STIMULATION HAS BEEN VERY HELPFUL FOR HER BACK OVERALL. WE HAVE GIVEN HER INFORMATION ON HOW TO OBTAIN AN [id number]. SHE HAS HISTORY OF LOW BACK PAIN WITH BACK SURGERY IN 1990 WITHOUT RELIEF. SHE STATES INJECTIONS IN THE PAST HAVE NOT BEEN HELPFUL. SHE'S HAD A HISTORY OF MULTIPLE FALLS WITH MOST RECENT FALL BEING LAST WEEK CAUSING BURCH ABRASION. SHE DOES PRESENT WITH HAVING LOWER EXTREMITY WEAKNESS AND MUSCLE TIGHTNESS. SHE'S ALSO HIGH FALL RISKS WITH A PERDOMO BALANCE SCORE OF 34/56. SHE WOULD BENEFIT FROM SKILLED PHYSICAL THERAPY TO ASSIST HER TO INCREASE HER STRENGTH, INCREASE HER FLEXIBILITY, INCREASE HER SAFETY AND DECREASE HER PAIN WITH FUNCTIONAL ACTIVITIES. PROBLEM/GOALS LIST: PROBLEM 1: PAIN. GOAL 1: PATIENT TO RATE HER LOWER BACK/LOWER EXTREMITY PAIN 5/10 AT THE WORST WITH WALKING ACTIVITIES IN 4 WEEKS. PROBLEM 2: DECREASED STRENGTH. GOAL 2: PATIENT TO HAVE 4+/5 STRENGTH FOR HIP FLEXORS, LEFT HIP ROTATORS AND LOWER ABDOMINAL MUSCLES TO IMPROVE TRUNK AND LOWER EXTREMITY SUPPORT FOR DAILY ACTIVITIES IN 4 WEEKS. PROBLEM 3: MUSCLE TIGHTNESS. GOAL 3: PATIENT TO HAVE MODERATE TIGHTNESS FOR BILATERAL QUADRICEPS, MINIMAL TIGHTNESS FOR BILATERAL PIRIFORMIS, 15 DEGREES BILATERAL GASTROC, AND -20 DEGREES BILATERAL HAMSTRING WITH 90/90 TEST TO IMPROVE LOWER QUARTER MOBILITY FOR GAIT ACTIVITIES IN 4 WEEKS. PROBLEM 4: IMPAIRED GAIT/BALANCE. GOAL 4: PATIENT TO BE INDEPENDENT WITH AMBULATION WITH IMPROVED HEEL STRIKE PATTERN AND TO HAVE PERDOMO BALANCE SCORE OF 45/56 TO BE A LOWER FALL RISK IN 4 WEEKS. PROBLEM 5: IMPAIRED KNOWLEDGE. GOAL 5: PATIENT TO BE INDEPENDENT WITH HEP BY DISCHARGE. TREATMENT PLAN TYPE: PATIENT TO RECEIVE SKILLED PHYSICAL THERAPY FOR THERAPEUTIC EXERCISE, PATIENT EDUCATION, HEP, MODALITIES NEEDED AND MANUAL THERAPY TECHNIQUES NEEDED. PT TO ALSO ADDRESS BALANCE ACTIVITIES AND GAIT TRAINING. FREQUENCY AND DURATION: 2 TIMES PER WEEK FOR 4 TO 8 WEEKS. REHAB POTENTIAL: GOOD FOR GOALS. HIDE AND SKIN PROCESSING WORKER GOAL: PATIENT TO HAVE IMPROVED STRENGTH, FLEXIBILITY, AND BALANCE SO THAT SHE CAN HAVE LESS PAIN WITH WALKING ACTIVITIES AND IMPROVED OVERALL GAIT SAFETY. TREATMENT PLAN, GOALS, AND PROCEDURES WERE DISCUSSED WITH THIS PATIENT WHO AGREES TO PROCEED AND COOPERATE. PLAN OF CARE PREPARED AND REVIEWED BY ALEJANDRO YANG P.T. ELECTRONICALLY SIGNED BY OBDULIA SHEPHERD MD 07/04/2018 11:30 A ALEJANDRO YANG P.T. MD MAJO TRAYLOR/FRAN 06/25/2018 06/27/2018 09:17 A JOB NO: [id number] DOC NO: [id number] documented in this encounter Plan of Treatment Upcoming Encounters Date Type Department Care Team (Late st Contact Info) Description 11/07/2024 10:45 AM CDT Office Visit [facility]-[address] [phone] Lea Rios MD [address] [facility] [address] [place] [address] 05/19/2025 9:30 AM CDT Office Visit [facility] Medical Group Family Medicine - [place] [address] [facility] [address] [place], [place] [address] Natalie Tam NP [address] [place], [place] [address] documented as of this encounter Visit Diagnoses Not on filedocumented in this encounter Additional Health Concerns Infection Onset Date Last Indicated Resolved Time COVID-19 Rule Out 05/01/2020 05/01/2020 05/02/2020 3:51 PM AUTISM MOTOR SPECIALIST COVID-19 Rule Out 10/02/2020 10/02/2020 10/02/2020 9:20 AM CDT COVID-19 Rule Out 02/22/2021 02/22/2021 02/22/2021 9:18 AM AUTISM MOTOR SPECIALIST COVID-19 Rule Out 02/22/2021 02/22/2021 02/23/2021 7:12 PM AUTISM MOTOR SPECIALIST COVID-19 Rule Out 05/20/2021 05/20/2021 05/20/2021 7:38 PM CDT COVID-19 Patient Reported Positive 09/26/2021202110/17/2021 12:32 AM CDT Assessment Noted Time PHQ-9 Depression Total Score: 6 05/15/19 19 12:39 PM CDT documented as of this encounter Care Teams Operations Lead Relationship Specialty Start Date End Date Obdulia Shepherd MD PCP - General 10/10/16 07/30/19 Mary Kirkland NP PCP - General NURSE PRACTITIONER 07/31/19 12/22/19 Marlee Dumont [facility] PCP - General Nurse Practitioner Family 12/23/19 11/29/20 Marlee Dumont [facility] PCP - General Nurse Practitioner Family 11/30/20 10/16/22 Natalie Tam, JEREMIAH [address] [place] [address] PCP - General NURSE PRACTITIONER 10/17/22 Marlee Dumont [facility] Nurse Practitioner Family 11/30/20 05/05/24 Jeremias Maguire MD [address] [address] [place] [address] CARDIOVASCULAR DISEASE 07/28/15 Shahla Giles, PharmD [address] [place] [address] Pharmacist Pharmacist 05/16/18 05/09/22 India Schaefer, RN [address] [place] [address] Adobe Developer (Ambulatory) REGISTERED NURSE 10/02/18 Marlee Dumont [facility] Nurse Practitioner Nurse Practitioner Family 12/23/19 12/23/19 India Schaefer, RN [address] [place] [address] Adobe Developer (Ambulatory) REGISTERED NURSE 12/01/20 01/30/21 Lea Rios MD Three [facility] [address] [facility] [place] [address] Consulting Physician CARDIOVASCULAR DISEASE 05/06/24 Juana Carmona MD [address] [facility] 1 [place], [place] [id number] ENDOCRINOLOGY 05/06/24 Dudley Acuna PA [facility] [address] [place] [address] Physician Edge Blacker ORTHOPAEDICS 05/06/24 documented as of this encounter
--- OUTSIDE RECORDS SUMMARY | 2024-05-20 18:56 | XMS_ITS | Encounter Summary ---
Author Organization [facility] Address [address] [place] [address] Care Team Providers Care Frame Hand Name Role Phone Deandre Waters MD Primary Care Provider Mary Griffin NP Primary Care Provider UnaMarlee Alonso [facility] Primary Care Provider + Julia Marlee [facility] Primary Care Provider + Julia [facility] Unavailable [phone] Jeremias Maguire MD Unavailable [phone] India Schaefer RN Unavailable [phone] Shahla Giles PharmD Unavailable [phone] India Schaefer RN Unavailable +[phone] Marlee Dumont [facility] Unavailable + [phone] India Schaefer RN Unavailable [phone] Natalie Tam TERRAZZO POLISHER Primary Care Provider [phone] Lea Rios MD Unavailable [phone] Juana Carmona MD Unavailable [phone] Dudley Acuna Unavailable [phone] Encounter Details Date Type Department Care Team (Late st Contact Info) Description 05/28/2018 WOOD MILLER ONLY [facility] Medical Group Priority Care - [place] [address] [place] [address] Scanned, Documents Social History Tobacco Use Types [...] encounter Progress Notes * Zscanned, Documents - 05/28/2018 12:00 AM CDT MEGAN MENON MD: ACCT: [id number] ADMIT/SERVICE DATE: 02/05/18 DISCHARGE DATE: 03/09/18 : 1940 PT TYPE: DIS RCR SEX: F ORD SITE: [facility] CHART DOCUMENT REHABILITATION DISCHARGE SUMMARY THIS PATIENT WAS SEEN FROM 01/29/18 THROUGH 02/05/18 FOR A TOTAL OF THREE VISITS. REASON FOR DISCONTINUATION OF SERVICE: THE PATIENT HAD CALLED AND CANCELLED HER LAST TWO VISITS AND DID NOT RESCHEDULE. CURRENT PHYSICAL/FUNCTIONAL STATUS: AT THE PATIENT'S LAST VISIT SHE REPORTED CONTINUED COMPLAINTS OF LOW BACK AND LEFT KNEE PAIN. THE PATIENT DID HAVE A GOOD UNDERSTANDING OF HER HEP WHICH WAS PROGRESSED AT HER LAST VISIT THE PATIENT WAS GOING TO BE OUT OF TOWN VISITING HER DAUGHTER OVER NADER. SHE DID HAVE DECREASED COMPLAINTS OF PAIN AFTER THE MODALITIES DURING HER THERAPY SESSION. THE PATIENT'S BALANCE AND STRENGTH AND STABILITY WERE NOT REASSESSED DUE TO UNPLANNED DISCHARGE. DEGREE OF GOAL ACHIEVEMENT: THE PATIENT DID NOT MEET GOAL 1 SHE WAS SEEN FOR ONLY 3 VISITS. GOAL 2 WAS MET DURING HER THERAPY SESSIONS. GOAL 3 WAS NOT REASSESSED SECONDARY TO UNPLANNED DISCHARGE. GOAL 4 WAS MET. DISCHARGE PLAN: THIS PATIENT WAS DISCHARGED FROM PT SHE DID NOT CALL TO SCHEDULE FOR FURTHER VISITS. ELECTRONICALLY SIGNED BY LOBITO BRINK P.T. 05/28/2018 06:05 P BM/ JOB NO: [id number] DOC NO: [id number] 05/28/2018 05/28/2018 04:15 P CC: documented in this encounter Plan of Treatment Upcoming Encounters Date Type Department Care Team (Late st Contact Info) Description 11/07/2024 10:45 AM CDT Office Visit [facility] [phone] Lea Rios MD [facility] [address] [place] [address] 05/19/2025 9:30 AM CDT Office Visit [facility] Medical Group Family Medicine - [place] [address] [facility] [address] [place] [address] Natalie Tam, JEREMIAH [address] [place] [address] documented as of this encounter Visit Diagnoses Not on filedocumented in this encounter Additional Health Concerns Infection Onset Date Last Indicated Resolved Time COVID-19 Rule Out 05/01/2020 05/01/2020 05/02/2020 3:51 PM BOX PRESS OPERATOR COVID-19 Rule Out 10/02/2020 10/02/2020 10/02/2020 9:20 AM CDT COVID-19 Rule Out 02/22/2021 02/22/2021 02/22/2021 9:18 AM BOX PRESS OPERATOR COVID-19 Rule Out 02/22/2021 02/22/2021 02/23/2021 7:12 PM BOX PRESS OPERATOR COVID-19 Rule Out 05/20/2021 05/20/2021 05/20/2021 7:38 PM CDT COVID-19 Patient Reported Positive 09/26/2021202110/17/2021 12:32 AM CDT Assessment Noted Time PHQ-9 Depression Total Score: 6 05/15/19 19 12:39 PM CDT documented as of this encounter Care Teams Frame Hand Relationship Specialty Start Date End Date Deandre Waters MD PCP - General 10/10/16 07/30/19 Mary Kirkland, TERRAZZO POLISHER PCP - General NURSE PRACTITIONER 07/31/19 12/22/19 Marlee Dumont [facility] PCP - General Nurse Practitioner Family 12/23/19 11/29/20 Marlee Dumont [facility] PCP - General Nurse Practitioner Family 11/30/20 10/16/22 Natalie Tam, JEREMIAH [address] [place] [address] PCP - General NURSE PRACTITIONER 10/17/22 Marlee Dumont [facility] Nurse Practitioner Family 11/30/20 05/05/24 Jeremias Maguire MD [facility]. [address] [address] [place] Fre[employer] Car Builder CARDIOVASCULAR DISEASE 07/28/15 India Schaefer, RN [address] [place], [place] [id number] [place] (Ambulatory) REGISTERED NURSE 05/16/18 06/19/18 Shahla Giles, PharmD [address] [place], [place] [address] Pharmacist Pharmacist 05/16/18 05/09/22 India Schaefer, RN [address] [place] [address] [place] (Ambulatory) REGISTERED NURSE 10/02/18 [facility] Nurse Practitioner Nurse Practitioner Family 12/23/19 12/23/19 India Schaefer RN [address] [place] [address] [place] (Ambulatory) REGISTERED NURSE 12/01/20 01/30/21 Lea Rios MD [facility] [address] [place] [address] Consulting Physician CARDIOVASCULAR DISEASE 05/06/24 Juana Carmona MD [address] [facility] [place], [place] [id number] ENDOCRINOLOGY 05/06/24 Dudley Acuna PA [address] [facility] [address] [place] [address] Physician Boat Puller ORTHOPAEDICS 05/06/24 documented as of this encounter
--- OUTSIDE RECORDS SUMMARY | 2024-05-20 18:56 | XMS_ITS | Continuity of Care Document ---
Author Organization [facility] Address [address] [place] [address] Phone Care Team Providers Care Manager Aviation Name Role Phone Chandler OD, Cruzito Unavailable [...] Diagnoses Date Provider Providers Copied on Encounter [facility], [id number] [place] [address] [address], [place], [place], [id number], tel:[phone] [facility] No Information Oct- 0-201 0 Chandler OD Cruzito. [address] , [address], [place], [address], [place]. tel:[phone] [facility], [address], [place], [place], [address], [place] tel:[phone] [facility] No Information 5-200 9 Chandler OD Cruzito. [address] , [address], [place], [address], [place]. tel:[phone] [facility], [address], [place], [place], [address], [place] tel:[phone] [facility] No Information 0-200 8 Chandler OD Cruzito. [address] [facility] , [address], [place], [address], [place]. tel:[phone] Referring Provider: Umer Tomlinson MD, [address], [place], [address]. tel:[phone] [facility], [address], [place], [place], [address], [place] tel:[phone] [facility] No Information 1-200 7 Chandler OD Cruzito. [address] [facility] [address] [facility] , [address], [place], [address], [place]. tel:[phone] Referring Provider: Cruzito Chandler OD Armin, [address] [facility] [address], [place], [place], [facility]. tel:[phone] Family History Family Member Type Diagnosis Age At Onset No Information Payers Payer name Insurance type Covered republican ID Authorkaylen jaramillo(s) [place] [id number] Social History Type Description Quantity Date Captured [...]
--- OUTSIDE RECORDS SUMMARY | 2024-05-20 18:56 | XMS_ITS | Encounter Summary ---
Author Organization [facility] Address [address] [place] [address] Care Team Providers Care Graduate Internship Name Role Phone Ji Blankenship MD Primary Care Provider [phone] Deandre Waters MD Primary Care Provider U Ligia Patel MD Primary Care Provider + [phone] Deandre Waters MD Primary Care Provider U Mary Headley MAINTENANCE COORDINATOR Primary Care Provider UnaMarlee Alonso [facility]- Primary Care Provider + Marlee Dumont [facility]- Primary Care Provider + Marlee Dumont [facility]-BC Unavailable [phone] Jeremias Maguire MD Unavailable [phone] Michelle Lang ANP-BC Unavailable Unavailab India Gonzalez RN Unavailable +[phone] Shahla Giles PharmD Unavailable [phone] India Schaefer RN Unavailable +[phone] Marlee Dumont SERVER ADMINISTRATOR-BC Unavailable [phone] India Schaefer RN Unavailable +[phone] Natalie Tam MAINTENANCE COORDINATOR Primary Care Provider [phone] Lea Rios MD Unavailable Juana Carmona MD Unavailable Dudley Acuna Unavailable [phone] Encounter Details Date Type Department Care Team (Late st Contact Info) Description 09/15/2013 Abstract [facility] CONVERSION [address] [place] [address] , Andreea Pollock MD Social History Tobacco Use Types Packs/Day Years Used Date Smoking Tobacco: Never Assessed Comments Unknown Sex and Gender Information Value Date Recorded Sex Assigned at Female 09/20/2018 9:29 AM CDT Legal Sex Female 11:29 PM CDT Gender Identity Female 09/20/2018 9:29 AM CDT Sexual Orientation Straight 09/20/2018 9: 29 AM CDT documented as of this encounter Plan of Treatment Upcoming Encounters Date Type Department Care Team (Late Contact Info) Description 11/07/2024 10:45 AM CDT Office Visit [facility] [phone] Lea Rios MD [address] [facility] [facility] [address] [place] [address] 05/19/2025 9:30 AM CDT Office Visit [facility] Medical [facility] Family Medicine - [place] [address] [facility] [address] [place] [address] Natalie Tam NP [address] [place] [address] [place] [address] documented as of this encounter Visit Diagnoses Not on filedocumented in this encounter Additional Health Concerns Infection Onset Date Last Indicated Resolved Time COVID-19 Rule Out 05/01/2020 05/01/2020 05/02/2020 3:51 PM TELEX OPERATOR COVID-19 Rule Out 10/02/2020 10/02/2020 10/02/2020 9:20 AM CDT COVID-19 Rule Out 02/22/2021 02/22/2021 02/22/2021 9:18 AM TELEX OPERATOR COVID-19 Rule Out 02/22/2021 02/22/2021 02/23/2021 7:12 PM TELEX OPERATOR COVID-19 Rule Out 05/20/2021 05/20/2021 05/20/2021 7:38 PM CDT COVID-19 Patient Reported Positive 09/26/2021202110/17/2021 12:32 AM CDT documented as of this encounter Care Teams Graduate Internship Relationship Specialty Start Date End Date Ji Blankenship MD PCP - General 12/25/12 07/27/15 Deandre Waters MD PCP - General INTERNAL MEDICINE 07/28/15 12/14/15 Ligia Waters MD PCP - General 12/15/15 10/09/16 Deandre Waters MD PCP - General 10/10/16 07/30/19 Mary Kirkland NP PCP - General NURSE PRACTITIONER 07/31/19 12/22/19 [facility] PCP - General Nurse Practitioner Family 12/23/19 11/29/20 [facility] PCP - General Nurse Practitioner Family 11/30/20 10/16/22 Natalie Tam NP [address] [place] [address] PCP - General NURSE PRACTITIONER 10/17/22 [facility] Nurse Practitioner Family 11/30/20 05/05/24 Jeremias Maguire MD [facility]. [address] [place] [address] [place] Staff Weapons Officer CARDIOVASCULAR DISEASE 07/28/15 Michelle Lang, [facility]. [address] [place] [address] NURSE PRACTITIONER 07/28/15 07/28/15 India Schaefer, RN [address] [place] [address] Merchandise Processor (Ambulatory) REGISTERED NURSE 05/16/18 06/19/18 Shahla Giles, PharmD [address] [place] [address] Pharmacist Pharmacist 05/16/18 05/09/22 India Schaefer, RN [address] [place] [address] Merchandise Processor (Ambulatory) REGISTERED NURSE 10/02/18 Marlee Dumont, [facility] Nurse Practitioner Nurse Practitioner Family 12/23/19 12/23/19 India Schaefer, RN [address] [place] [address] Merchandise Processor (Ambulatory) REGISTERED NURSE 12/01/20 01/30/21 Lea Rios MD [facility] [address] [place] [address] Consulting Physician CARDIOVASCULAR DISEASE 05/06/24 Juana Carmona MD [address] [place] [address] ENDOCRINOLOGY 05/06/24 Dudley Acuna PA [address] [address] [address] [place] [address] Physician Lawn Mower ORTHOPAEDICS 05/06/24 documented as of this encounter
--- OUTSIDE RECORDS SUMMARY | 2024-05-20 18:56 | XMS_ITS | Encounter Summary ---
Author Organization [facility] Address [address] [place] [address] Care Team Providers Care Centerpuncher Name Role Phone Deandre Waters MD Primary Care Provider Mary Griffin NP Primary Care Provider UnaMarlee Alonso [facility] Primary Care Provider + Julia [facility] Primary Care Provider + Julia [facility] Unavailable [phone] Jeremias Maguire MD Unavailable [phone] India Schaefer RN Unavailable [phone] Shahla Giles PharmD Unavailable [phone] India Schaefer RN Unavailable +[phone] [facility] Unavailable + [phone] India Schaefer RN Unavailable [phone] Natalie Tam PRACTICE MANAGER Primary Care Provider [phone] Lea Rios MD Unavailable [phone] Juana Carmona MD Unavailable [phone] Dudley Acuna Unavailable [phone] Encounter Details Date Type Department Care Team (Latest Contact Info) Description 11/06/2017 Abstract [facility] Medical Group , Andreea Pollock MD Social History Tobacco [...] Description 11/07/2024 10:45 AM CDT Office Visit [facility] [address] Lea Rios MD [facility] [address] [place] [address] 05/19/2025 9:30 AM CDT Office Visit [facility] Medical Group Family Medicine - [place] [address] [facility] [address] [place] [address] Natalie Tam, JEREMIAH [address] [place] [address] documented as of this encounter Visit Diagnoses Not on filedocumented in this encounter Additional Health Concerns Infection Onset Date Last Indicated Resolved Time COVID-19 Rule Out 05/01/2020 05/01/2020 05/02/2020 3:51 PM TRUCK DRIVER INSTRUCTOR COVID-19 Rule Out 10/02/2020 10/02/2020 10/02/2020 9:20 AM CDT COVID-19 Rule Out 02/22/2021 02/22/2021 02/22/2021 9:18 AM TRUCK DRIVER INSTRUCTOR COVID-19 Rule Out 02/22/2021 02/22/2021 02/23/2021 7:12 PM TRUCK DRIVER INSTRUCTOR COVID-19 Rule Out 05/20/2021 05/20/2021 05/20/2021 7:38 PM CDT COVID-19 Patient Reported Positive 09/26/2021202110/17/2021 12:32 AM CDT documented as of this encounter Care Teams Centerpuncher Relationship Specialty Start Date End Date Deandre Waters MD PCP - General 10/10/16 07/30/19 Mary Kirkland, PRACTICE MANAGER PCP - General NURSE PRACTITIONER 07/31/19 12/22/19 [facility] PCP - General Nurse Practitioner Family 12/23/19 11/29/[address] [facility] PCP - General Nurse Practitioner Family 11/30/20 10/16/22 Natalie Tam NP [address] [place] [address] PCP - General NURSE PRACTITIONER 10/17/22 [facility] Nurse Practitioner Family 11/30/20 05/05/24 Jeremias Maguire MD [facility]. [address] [address] [place] Front Desk Worker CARDIOVASCULAR DISEASE 07/28/15 India Schaefer, RN [address] [place] [address] Handbag Parts Cutter (Ambulatory) REGISTERED NURSE 05/16/18 06/19/18 Shahla Giles, PharmD [address] [place], [place] [id number] Pharmacist Pharmacist 05/16/18 05/09/22 India Schaefer, RN [address] [place] [address] Handbag Parts Cutter (Ambulatory) REGISTERED NURSE 10/02/18 [facility] Nurse Practitioner Nurse Practitioner Family 12/23/19 12/23/19 India Schaefer, RN [address] [place] [address] Handbag Parts Cutter (Ambulatory) REGISTERED NURSE 12/01/20 01/30/21 Lea Rios MD [address] [facility] [address] [facility] [place] [address] Consulting Physician CARDIOVASCULAR DISEASE 05/06/24 Juana Carmona MD [address] [facility] 1 [place], [place] [id number] ENDOCRINOLOGY 05/06/24 Dudley Acuna PA [address] [facility] [address] [place] [address] Physician Fisher Pot ORTHOPAEDICS 05/06/24 documented as of this encounter
--- OUTSIDE RECORDS SUMMARY | 2024-05-20 18:56 | XMS_ITS | Encounter Summary ---
Author Organization [facility] Address Critical access hospital[address] [place] [address] Care Team Providers Care Electron Beam Machine Welder Setter Name Role Phone Marlee Dumont [facility] Primary Care Provider + Marlee Dumont [facility] Primary Care Provider + Marlee Dumont [facility] Unavailable +[phone] Jeremias Maguire MD Unavailable [phone] Shahla Giles PharmD Unavailable [phone] India Schaefer RN Unavailable [phone] India Schaefer RN Unavailable [phone] Natalie Tam NP Primary Care Provider [phone] Lea Rios MD Unavailable [phone] Juana Carmona MD Unavailable [phone] Dudley Acuna Unavailable [phone] Encounter Details Date Type Department Care Team (Late st Contact Info) Description 04/26/2020 Prep for Procedure [facility] Day Services [address] [place] [address] Jules Barroso MD [address] [place] [address] Social History Tobacco Use Types Packs/Day Years Used Date Smoking Tobacco: Former Cigarettes 0.3 1 Smokeless Tobacco: Never Comments:quit smoking in 199 5 Alcohol Use Standard Drinks/Week Comments Yes 0 (1 standard drink = 0.6 oz pur e alcohol) socially PHQ-2 Answer Date Recorded PHQ-2 Score 1 04/19/2020 Comments No Sex and Gender Information Value Date Recorded Sex Assigned at Female 09/20/2018 9:29 AM CDT Legal Sex Female 11:29 PM CDT Gender Identity Female 09/20/2018 9:29 AM CDT Sexual Orientation Straight 09/20/2018 9: 29 AM CDT Occupation Industry Job Start Date Job End Date Not on file Not on file Not on file Not on file COVID-19 Exposure Response Date Recorded In the last month, have you been in contact with someone who was confirmed or suspected to have Coronavirus / COVID-19? No / Unsure 04/29/2020 9:04 AM VENEER SUPERVISOR documented as of this encounter Functional Status * RETIRED Are you deaf or do you have serious difficulty hearing Answer Date of Assessment Author Status No 04/28/2019 7:36 PM VENEER SUPERVISOR Activ e * RETIRED Are you blind or do you have serious difficulty seeing, even when wearing glasses? Answer Date of Assessment Author Status No 04/28/2019 7:36 PM VENEER SUPERVISOR Activ e * Do you have serious difficulty walking or climbing stairs? Answer Date of Assessment Author Status Yes 04/28/2019 7:36 PM VENEER SUPERVISOR Erika Solorzano RN Active * Do you have difficulty dressing or bathing? Answer Date of Assessment Author Status No 04/28/2019 7:36 PM Erika Marshall RN Active * Because of a physical, mental, or emotional condition, do you have difficulty doing errands alone such as visiting a doctor's office or shopping? Answer Date of Assessment Author Status Yes 04/28/2019 7:36 PM Erika Marshall RN Active documented as of this encounter Mental Status * Because of a physical, mental, or emotional condition, do you have serious difficulty concentrating, remembering, or making decisions? Answer Entry Date Author Status No 04/28/2019 7:36 PM Erika Marshall RN Active documented in this encounter Plan of Treatment Upcoming Encounters Date Type Department Care Team (Late st Contact Info) Description 11/07/2024 10:45 AM CDT Office Visit [facility]-[address] [phone] Lea Rios MD [address] [facility] [address] [place] [address] 05/19/2025 9:30 AM CDT Office Visit [facility] Family Medicine - [place] [address] [facility] [address] [place] [address] Natalie Tam NP [address] [place] [address] documented as of this encounter Results * PRE-SURGICAL/PRE-PROCEDURE CORONAVIRUS (COVID 19) (05/01/2020 8:25 AM VENEER SUPERVISOR) CORONAVIRUS SARS COV 2 PCR (RESP) NOT DETECTED NOT DETECTED 05/02/2020 3:51 PM VENEER SUPERVISOR [facility] Comment: A Not Detected (negative) test result for this test means that SARS- CoV-2 RNA was not present in the specimen above the limit of detection. A negative result does not rule out the possibility of COVID-19 and should not be used as the sole basis for treatment or patient management decisions. If COVID-19 is still suspected, based on exposure history together with other clinical findings, re-testing should be considered in consultation with public health authorities. Laboratory test results should always be considered in the context of clinical observations and epidemiological data in making a final diagnosis and patient management decisions. Please review the Fact Sheets and FDA authorized labeling available for health care providers and patients using the following websites: https://www.[employer].com/home/Covid-19/HCP/QuestIVD/fact- sheet.html https://www.[employer].ActionRun/home/Covid-19/Patients/ QuestIVD/fact-sheet.html This test has been authorized by the FDA under an Emergency Use Authorization (EUA) for use by authorized laboratories. Due to the current public health emergency, [facility] is receiving a high volume of samples from a wide variety of swabs and media for COVID-19 testing. In order to serve patients during this public health crisis, samples from appropriate clinical sources are being tested. Negative test results derived from specimens received in non-commercially manufactured viral collection and transport media, or in media and sample collection kits not yet authorized by FDA for COVID-19 testing should be cautiously evaluated and the patient potentially subjected to extra precautions such as additional clinical monitoring, including collection of an additional specimen. Methodology: Nucleic Acid Amplification Test (NAAT) includes RT-PCR or TMA Additional information about COVID-19 can be found at the [facility] website: www.[employer].ActionRun/Covid19. Test performed at [facility] [address] [place] [address] Director: MEGAN BARBOSA DO,MPH FIRST TEST NO 05/01/2020 8:22 AM [facility] EMPLOYED IN HEALTHCARE NO 05/01/2020 8:22 AM [facility] SYMPTOMATIC DEFINED BY CDC NO 05/01/2020 8:22 AM [facility] DATE OF SYMPTOM ONSET UNKNOWN 05/01/2020 8:33 AM [facility] HOSPITALIZATION STATUS NO 05/01/2020 8:22 AM [facility] PATIENT IN ICU NO 05/01/2020 8:22 AM [facility] RESIDENT OF [facility] NO 05/01/2020 8:22 AM [facility] UNKNOWN 05/01/2020 8:33 AM [facility] PATIENT'S RACE WHITE OR 05/01/2020 8:22 AM [facility] ETHNICITY NONHISPANIC 05/01/2020 8:22 AM [facility] SOURCE (QST) NASOPHARYNGEAL SWAB 05/01/2020 8:22 AM [facility] NASOPHARYNGEAL SWAB / Unknown 05/01/2020 8:25 AM VENEER SUPERVISOR us Jules Barroso MD MICROBIOLOGY - GENERAL ORDERABL ES Final Result [facility] [address] [place] [address], [place] [phone] [facility] [address] [place] [address], documented in this encounter Visit Diagnoses Diagnosis Preop testing- Primary Preoperative examination, unspecified documented in this encounter Additional Health Concerns Infection Onset Date Last Indicated Resolved Time COVID-19 Rule Out 05/01/2020 05/01/2020 05/02/2020 3:51 PM VENEER SUPERVISOR COVID-19 Rule Out 10/02/2020 10/02/2020 10/02/2020 9:20 AM CDT COVID-19 Rule Out 02/22/2021 02/22/2021 02/22/2021 9:18 AM VENEER SUPERVISOR COVID-19 Rule Out 02/22/2021 02/22/2021 02/23/2021 7:12 PM VENEER SUPERVISOR COVID-19 Rule Out 05/20/2021 05/20/2021 05/20/2021 7:38 PM CDT COVID-19 Patient Reported Positive 09/26/2021202110/17/2021 12:32 AM CDT Assessment Noted Time PHQ-9 Depression Total Score: 6 05/15/19 19 12:39 PM CDT documented as of this encounter Care Teams Electron Beam Machine Welder Setter Relationship Specialty Start Date End Date Marlee Dumont FNP-BC PCP - General Nurse Practitioner Family 12/23/19 11/29/20 Marlee Dumont FNP-BC PCP - General Nurse Practitioner Family 11/30/20 10/16/22 Natalie Tam NP [address] [place] [address] PCP - General NURSE PRACTITIONER 10/17/22 Marlee Dumont, [employer]ERS D[employer]ER- Nurse Practitioner Family 11/30/20 05/05/24 Jeremias Maguire MD [facility]. [address] [place], [place] [address] Roberts Hydrometer Calibrator CARDIOVASCULAR DISEASE 07/28/15 Shahla Giles, PharmD [address] [place], [place] [address] Pharmacist Pharmacist 05/16/18 05/09/22 India Schaefer, RN [address] [place] [address] Cooking Teacher (Ambulatory) REGISTERED NURSE 10/02/18 India Schaefer, RN [address] [place], [place] [address] Cooking Teacher (Ambulatory) REGISTERED NURSE 12/01/20 01/30/21 Lea Rios MD [address] [facility] [address] [place] [address] Consulting Physician CARDIOVASCULAR DISEASE 05/06/24 Juana Carmona MD [address] [place], [place] [id number] ENDOCRINOLOGY 05/06/24 Dudley Acuna PA [address] [facility] [address] [place] [address] Physician Commercial Engineer ORTHOPAEDICS 05/06/24 documented as of this encounter
--- OUTSIDE RECORDS SUMMARY | 2024-05-20 18:56 | XMS_ITS | Encounter Summary ---
Author Organization [facility] Address Pending sale to [facility] [place] [address] Care Team Providers Care Compo Caster Name Role Phone Deandre Waters MD Primary Care Provider Mary Griffin NP Primary Care Provider UnaMarlee Alonso [facility] Primary Care Provider + Marlee Dumont [facility] Primary Care Provider + Julia [facility] Unavailable [phone] Jeremias Maguire MD Unavailable [phone] India Schaefer RN Unavailable [phone] Shahla Giles PharmD Unavailable [phone] India Schaefer RN Unavailable [phone] Marlee Dumont [facility] Unavailable + [phone] India Schaefer RN Unavailable [phone] Natalie Tam SUPERVISOR [employer] Primary Care Provider [phone] Lea Rios MD Unavailable [phone] Juana Carmona MD Unavailable [phone] Dudley Acuna Unavailable [phone] Encounter Details Date Type Department Care Team (Late st Contact Info) Description 10/19/2016 Abstract [facility] CONVERSION [address] [place] [address] , Generic MD Maris Social History Tobacco Use Types Packs/Day Years [...] Description 11/07/2024 10:45 AM CDT Office Visit [facility]-[address] [phone] Lea Rios MD [facility] [address] [place] [address] 05/19/2025 9:30 AM CDT Office Visit [facility] Family Medicine - [place] [address] [facility] [address] [place] [address] Natalie Tam NP [address] [place] [address] documented as of this encounter Visit Diagnoses Not on filedocumented in this encounter Additional Health Concerns Infection Onset Date Last Indicated Resolved Time COVID-19 Rule Out 05/01/2020 05/01/2020 05/02/2020 3:51 PM SURFACE HYDROLOGIST COVID-19 Rule Out 10/02/2020 10/02/2020 10/02/2020 9:20 AM CDT COVID-19 Rule Out 02/22/2021 02/22/2021 02/22/2021 9:18 AM SURFACE HYDROLOGIST COVID-19 Rule Out 02/22/2021 02/22/2021 02/23/2021 7:12 PM SURFACE HYDROLOGIST COVID-19 Rule Out 05/20/2021 05/20/2021 05/20/2021 7:38 PM CDT COVID-19 Patient Reported Positive 09/26/2021202110/17/2021 12:32 AM CDT documented as of this encounter Care Teams Compo Caster Relationship Specialty Start Date End Date Deandre Waters MD PCP - General 10/10/16 07/30/19 Mary Kirkland NP PCP - General NURSE PRACTITIONER 07/31/19 12/22/19 Marlee Dumont [facility] PCP - General Nurse Practitioner Family 12/23/19 11/29/20 Marlee Dumont [facility] PCP - General Nurse Practitioner Family 11/30/20 10/16/22 Natalie Tam NP [address] [place], [place] [address] PCP - General NURSE PRACTITIONER 10/17/22 Marlee Dumont [facility] Nurse Practitioner Family 11/30/20 05/05/24 Jeremias Maguire MD [facility]. [address] [place] [address], [place] [address] [place] [employer] Top Hat Body Maker CARDIOVASCULAR DISEASE 07/28/15 India Schaefer, RN [address] [place], [place] [address] Leather Shaver (Ambulatory) REGISTERED NURSE 05/16/18 06/19/18 Shahla Giles, PharmD [address] [place] [address] Pharmacist Pharmacist 05/16/18 05/09/22 India Schaefer, RN [address] [place] [address] Leather Shaver (Ambulatory) REGISTERED NURSE 10/02/18 Marlee Dumont [facility] Nurse Practitioner Nurse Practitioner Family 12/23/19 12/23/19 India Schaefer, RN [address] [place] [address] Leather Shaver (Ambulatory) REGISTERED NURSE 12/01/20 01/30/[address] [facility] [address] [place] [address] Consulting Physician CARDIOVASCULAR DISEASE 05/06/24 Juana Carmona MD [address] [facility] [address] [place] [address] ENDOCRINOLOGY 05/06/24 Dudley Acuna PA [facility]4 [facility] [address] [place] [address] Physician Small Products I Assembler ORTHOPAEDICS 05/06/24 documented as of this encounter
--- OUTSIDE RECORDS SUMMARY | 2024-05-20 18:56 | XMS_ITS | Clinical Summary ---
Author Organization [facility] Address [address] [place] [address] Care Team Providers Care Assistant Secretary Name Role Phone Jeremias Maguire MD Unavailable [phone] India Schaefer RN Unavailable [phone] Natalie Tam NP Primary Care Provider [phone] Lea Rios MD Unavailable [phone] Juana Carmona MD Unavailable [phone] Dudley Acuna Unavailable [phone] Allergies Active Allergy Reactions Criticality Noted Date Comments Barium Sulfate Unknown 04/04/2022 Codeine Nausea and Vomiting Low 09/22/2014 Latex Rash Low 11/29/2015 Lidocaine-Prilocaine Hives,Rash,Itching High 015 Stated has used Lidocaine patches without itching or rash Morphine And Codeine GI Upset Low 11/29/2015 Naproxen Itching,Rash,Shortne ss of Breath,Hives High 09/22/2014 Prednisone GI Upset Low 12/13/2015 Ceftriaxone Rash Low 11/29/2015 Rocephin (3rd gen cephalosporin) Pt tolerates Keflex (1st generation cephalo) Sulfa Antibiotics Diarrhea,Rash Medium 03/18/2019 Tramadol Diarrhea Low 10/25/2016 Azithromycin Hives Low 11/29/2015 Medications * This document contains information received from the source organization and may not represent a complete record from that organization. acetaminophen 500 MG tabletIndication s:Pain Take 2 tablets (1,000 mg total) by mouth 2 (two) times daily as needed for Pain or Fever. Indications: Pain Active melatonin 10 MG tabletIndication s:Sleep Disorder Take 1 tablet (10 mg total) by mouth nightly at bedtime. Indications: Sleep Disorder Active fluticasone propionate (FLONASE) 50 MCG/ACT nasal sprayIndications :Acute sinusitis 1 spray by Nasal route 2 (two) times a day. 16 g 022 Active nitroglycerin 0.[address] 1 tablet (0.4 mg total) under the tongue every 5 (five) minutes as needed for Chest Pain. Maximum of 3 doses. If taking 3rd dose, call 911. 25 tablet 1 Active Glucose Blood (FREESTYLE PRECISION FRIDA TEST) test stripIndications :Type 2 diabetes mellitus with diabetic neuropathy, with long-term current use of insulin ([facility]) 1 strip by Other route 4 (four) times daily. Use with freestyle elton continuous glucose monitor 100 strip 6 022 Active atorvastatin (LIPITOR) 40 MG tabletIndication s:Mixed hyperlipidemia TAKE 1 TABLET(40 MG) BY MOUTH EVERY NIGHT AT BEDTIME 90 tablet 022 Active losartan (COZAAR) 100 MG tablet TAKE 1 TABLET(100 MG) BY MOUTH DAILY 90 tablet 1 022 Active metoprolol succinate ER (TOPROL-XL) 50 MG 24 hr tabletIndication s:Essential hypertension Take 1 tablet (50 mg total) by mouth daily. 90 tablet 022 Active trimethoprim (TRIMPEX) 100 MG tablet Take 1 tablet (100 mg total) by mouth nightly at bedtime. Active vitamin D2, ergocalciferol, (DRISDOL) 1.25 mg capsule Take 1 capsule (1.25 mg total) by mouth every 7 days. On Sunday Active conjugated estrogens (PREMARIN) 0.625 MG/GM vaginal cream Apply 1 applicator full vaginally three times weekly as needed. Active Multiple Vitamin (DAILY-PING) Tab Take 1 tablet by mouth daily. Active cranberry 450 MG Tab tablet Take 1 tablet (450 mg total) by mouth daily. Active famotidine (PEPCID) 40 MG tablet Take 1 tablet (40 mg total) by mouth nightly at bedtime. Active pantoprazole EC (PROTONIX) 40 MG tablet Take 1 tablet (40 mg total) by mouth nightly at bedtime. Active Insulin Glargine, 2 Unit Dial, (TOUJEO MAX SOLOSTAR) 300 UNIT/ML Solution Pen-injector Active GEMTESA 75 MG tablet Take 1 tablet (75 mg total) by mouth daily. Active Olopatadine HCl (PATADAY OP) Apply to eye daily as needed. Active Polyvinyl Alcohol-Povidone (REFRESH OP) Apply to eye daily as needed. Active amLODIPine (NORVASC) 2.5 MG tablet Take 1 tablet (2.5 mg total) by mouth daily. Active WALKER MISC, DME,Indications: Neuropathy Rollator Walker with back rest Patient prefers the wider back rest if possible. 1 Device Active insulin regular, CONCENTRATED, (HUMULIN R U-500 KWIKPEN) 500 UNIT/ML injectionIndicat ions:Type 2 diabetes mellitus with other specified complication, with long-term current use of insulin ([facility]) INJECT 115 UNITS SUB-Q DAILY BEFORE BREAKFAST INJECT SUBCUTANEOUSLY 45 UNITS AT NOON INJECT 25 UNITS SUBCUTANEOUSLY EVERY EVENING 12 mL 3 Active Senna (SENOKOT) 8.6 MG tabletIndication s:constipation Take 2 tablets (17.2 mg total) by mouth daily as needed for Constipation. Indications: constipation Active aspirin 81 MG chewable tablet Active triamcinolone (KENALOG) 0.1 % ointment Use with nystatin ointment to vulvar skin once a day. Active OZEMPIC 2 mg/dose injection (PEN) Inject 2 mg into the skin once a week. Active hydrOXYzine (ATARAX) 25 MG tabletIndication s:Anxiety Take 1 tablet (25 mg total) by mouth 3 (three) times daily as needed for Anxiety. 60 tablet 1 Active clobetasol (TEMOVATE) 0.05 % ointmentIndicati ons:Groin rash APPLY VAGINALLY ONCE DAILY FOR ITCHING -AVOID USING FOR MORE THAN 2 WEEKS AT A TIME 30 g 024 Active gabapentin (NEURONTIN) 600 MG tabletIndication s:Peripheral polyneuropathy Take 1 tablet (600 mg total) by mouth 3 (three) times daily. 360 tablet 1 025 Active HYDROcodone-acet aminophen (NORCO) 5-325 MG tabletIndication s:Chronic Pain Take 1 tablet by mouth 2 (two) times daily as needed for Pain. Indications: Chronic Pain 60 tablet 025 Active polyethylene glycol (GLYCOLAX) 17 GM/SCOOP powder 025 Active estradiol (ESTRACE) 0.1 MG/GM vaginal cream Insert 1 g every 72 hours by vaginal route. Active albuterol sulfate HFA 108 (90 Base) MCG/ACT inhaler INHALE 2 PUFFS BY MOUTH EVERY 4 TO 6 HOURS NEEDED FOR SHORTNESS OF BREATH OR WHEEZING 025 Active levocetirizine (XYZAL) 5 MG tablet Take 1 tablet every day by oral route. Active nystatin (MYCOSTATIN) creamIndications :Intertrigo Apply topically 2 (two) times daily. 30 g 025 Active DULoxetine (CYMBALTA) 60 MG capsuleIndicatio ns:Neuropathy Take 1 capsule (60 mg total) by mouth daily. 90 capsule 1 025 Active insulin lispro, 1 Unit Dial, (HUMALOG KWIKPEN) 100 UNIT/ML injection (PEN)Indications :Diabetes Mellitus Inject 40 Units into the skin 3 (three) times daily before meals. If BS < 100 skip meal time insulin. Indications: Diabetes 022 Discontinued(D uplicate Med) NOVOFINE AUTOCOVER PEN NEEDLE 30G X 8 MM Misc 023 2024 Discontinued polyethylene glycol (GLYCOLAX) packet Take 240 mLs (17 g total) by mouth daily as needed. Dissolve powder in 240 mL water 2024 Discontinued nystatin (MYCOSTATIN) powderIndication s:Candidiasis of perineum APPLY TO GENTIAL AREA TWICE DAILY 60 g 023 2024 Discontinued ALBUTEROL IN Inhale 1 puff by mouth every 4 hours as needed for wheezing 2024 Discontinued fluconazole (DIFLUCAN) 200 MG tablet Take 1 tablet (200 mg total) by mouth. One tablet every other day for three doses. 2024 Discontinued nystatin (MYCOSTATIN) ointment Use to vulvar skin with the triamcinolone ointment 0.1% once a day. 2024 Discontinued DULoxetine (CYMBALTA) 30 MG capsuleIndicatio ns:Neuropathy,Ot her chronic pain,Anxiety and depression Take 1 capsule (30 mg total) by mouth daily. 90 capsule 1 024 2024 Discontinued gabapentin (NEURONTIN) 600 MG tabletIndication s:Peripheral polyneuropathy Take 1 tablet (600 mg total) by mouth 3 (three) times daily. 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 ([facility]) 08/31/2022 Morbid obesity 08/31/2022 Primary insomnia 08/31/2022 Obstructive sleep apnea 11/23/2021 Type 2 diabetes mellitus wit h hyperglycemia, with long-term current use of insulin ([facility]) 11/23/2021 Type 2 diabetes mellitus wit h stage 3a chronic kidney disease, with long-term current use of insulin ([facility]) 11/23/2021 History of nephrolithiasis 09/19/2021 Lichen sclerosus of female genitalia 09/12/2021 OAB (overactive bladder) 08/01/2021 Vaginal atrophy 08/01/2021 Candidiasis of perineum 08/01/2021 Asthma ([facility]) 05/20/2021 Care Management 05/11/2021 Pharyngoesophageal dysphagia 04/11/2021 Overview (04/11/2021): Added automatically from request for surgery [id number] Cricopharyngeal achalasia 04/11/2021 Overview (04/11/2021): Added automatically from request for surgery [id number] Primary osteoarthritis of both knees 01/04/2021 Assessment & Plan (04/23/2023 12:02 PM DIAMOND DIE MAKER): Recommendation at this time: went over the risks, benefits as well as the alternatives. She is not interested in surgical intervention at this time. Received durolane injections bilateral knees today. Tolerated it well. Patient will be seen back in six weeks for Zilretta injections. Assessment & Plan (09/04/2022 2:47 PM CDT): We discussed the risks, benefits, and alternatives. The only thing proven to slow the progression of osteoarthritis is weight loss. Every pound lost relieves 4 to 6 pounds of stress across the knee. We discussed unloading braces. Formal physical therapy to help with flexibility, mobility, and strength. We discussed TENS units. Nonsteroidal anti-inflammatories as well as Tylenol and pain medication and their side effects. We discussed steroid versus Visco supplement injection. We discussed eventual total knee arthroplasty. Durolane was injected, tolerated well. We'll see her back in 3 months. Assessment & Plan (05/22/2022 5:27 PM CDT): We discussed the adverse effects of weight on osteoarthritis. For every 1 pound loss, 4 to 6 pounds of stress is relieved from the knee, slightly more at the ankle and slightly less at the hip. We discussed low carbohydrate diet to help with weight loss. 80% of weight loss is through diet. We discussed the risks, benefits, and alternatives. The only thing proven to slow the progression of osteoarthritis is weight loss. Every pound lost relieves 4 to 6 pounds of stress across the knee. We discussed unloading braces. Formal physical therapy to help with flexibility, mobility, and strength. We discussed TENS units. Nonsteroidal anti-inflammatories as well as Tylenol and pain medication and their side effects. We discussed steroid versus Visco supplement injection. We discussed eventual total knee arthroplasty. The patient elected for steroid injections into both knees today. She tolerated this well. She will follow up in 3 months and possibly discuss a knee replacement at that time. Assessment & Plan (02/16/2022 7:41 PM DIAMOND DIE MAKER): We discussed the risks, benefits and alternatives. The only thing proven to slow the progression of osteoarthritis is weight loss. Every pound lost relieves 4 to 6 pounds of stress across the knee. We discussed unloading braces. Formal physical therapy to help with flexibility, mobility and strength. We discussed TENS units. Nonsteroidal anti-inflammatories as well as Tylenol and pain medication and their side effects. We discussed steroid versus Visco supplement injection. We discussed eventual total knee arthroplasty. Durolane injected left Follow-up in 3 months Assessment & Plan (11/17/2021 11:34 AM CDT): We discussed the risks, benefits and alternatives. The only thing proven to slow the progression of osteoarthritis is weight loss. Every pound lost relieves 4 to 6 pounds of stress across the knee. We discussed unloading braces. Formal physical therapy to help with flexibility, mobility and strength. We discussed TENS units. Nonsteroidal anti-inflammatories as well as Tylenol and pain medication and their side effects. We discussed steroid versus Visco supplement injection. We discussed eventual total knee arthroplasty. Gloria injected bilateral Potentially preapproval for Durolane, could possibly be repeated at 02/02/2022 Follow-up in 3 months for repeat evaluation Continue with weight loss Meloxicam 15 mg once daily Assessment & Plan (08/07/2021 9:19 AM CDT): We discussed the risks, benefits and alternatives. The only thing proven to slow the progression of osteoarthritis is weight loss. Every pound lost relieves 4 to 6 pounds of stress across the knee. We discussed unloading braces. Formal physical therapy to help with flexibility, mobility and strength. We discussed TENS units. Nonsteroidal anti-inflammatories as well as Tylenol and pain medication and their side effects. We discussed steroid versus Visco supplement injection. We discussed eventual total knee arthroplasty. Durolane injected bilateral Follow-up in 3 months Assessment & Plan (2021 7:25 PM DIAMOND DIE MAKER): We discussed the risks, benefits and alternatives. The only thing proven to slow the progression of osteoarthritis is weight loss. Every pound lost relieves 4 to 6 pounds of stress across the knee. We discussed unloading braces. Formal physical therapy to help with flexibility, mobility and strength. We discussed TENS units. Nonsteroidal anti-inflammatories as well as Tylenol and pain medication and their side effects. We discussed steroid versus Visco supplement injection. We discussed eventual total knee arthroplasty. After going over the risks, benefits and alternatives Zilretta is injected Medial unloading brace left knee for pain and stability Assessment & Plan (01/29/2021 7:24 PM DIAMOND DIE MAKER): We discussed the risks, benefits and alternatives. The only thing proven to slow the progression of osteoarthritis is weight loss. Every pound lost relieves 4 to 6 pounds of stress across the knee. We discussed unloading braces. Formal physical therapy to help with flexibility, mobility and strength. We discussed TENS units. Nonsteroidal anti-inflammatories as well as Tylenol and pain medication and their side effects. We discussed steroid versus Visco supplement injection. We discussed eventual total knee arthroplasty. Durolane injected today. Follow-up in 3 months Assessment & Plan (01/04/2021 8:52 AM DIAMOND DIE MAKER): We discussed the risks, benefits and alternatives. The only thing proven to slow the progression of osteoarthritis is weight loss. Every pound lost relieves 4 to 6 pounds of stress across the knee. We discussed unloading braces. Formal physical therapy to help with flexibility, mobility and strength. We discussed TENS units. Nonsteroidal anti-inflammatories as well as Tylenol and pain medication and their side effects. We discussed steroid versus Visco supplement injection. We discussed eventual total knee arthroplasty. Regular steroids elevate her blood sugars too high. Recommend preapproval for Zilretta and viscosupplementation. While we are waiting we will try a TENS unit to help with pain and swelling. Physician directed exercises are given as she is finding it difficult to seek significant treatment such as physical therapy for the time commitment and need to travel. Foraminal stenosis of lumbar region 01/04/2021 Assessment & Plan (01/04/2021 8:53 AM DIAMOND DIE MAKER): Severe foraminal stenosis on the left at L3-4 and L4-5 along with central canal stenosis. Has been to pain management in the past but the pain meds caused diarrhea and the steroids elevated her blood sugars too high. May need to consider neurosurgical consult TIA (transient ischemic attack) 11/30/2020 Chronic maxillary sinusitis 07/20/2020 Polypharmacy 06/30/2020 Leukocytosis 04/28/2019 Edema, lower extremity 04/08/2019 Hemorrhoids, unspecified hemorrhoid type 019 Shortness of breath 11/13/2018 History of small bowel obstruction 11/02/2018 Diverticulitis 05/22/2018 Constipation, unspecified constipation type 04/27 Recurrent UTI 05/22/2018 Assessment & Plan (05/07/2019 2:06 PM CDT): Has FU with Dr Killian next week for cystoscopy Non-rheumatic mitral regurgitation 04/08/2018 Peripheral vascular disorder 06/03/2017 Vitamin D deficiency 05/31/2017 Spinal stenosis 10/11/2016 Schatzki's ring 12/15/2015 Hiatal hernia 12/15/2015 Anemia 12/13/2015 Hyperlipidemia 11/16/2015 Generalized anxiety disorder 11/10/2015 Neuropathy 11/10/2015 Assessment & Plan (05/12/2024 12:30 PM CDT): Chronic condition. Stable but can be better. Pt to increase Duloxetine to 60mg daily to help with neuropathy. Assessment & Plan (01/04/2021 8:55 AM DIAMOND DIE MAKER): Currently on gabapentin. Certainly could be contributing to her bilateral lower extremity pain as well. Type 2 diabetes mellitus ([facility]) 07/12 Overview (05/24/2020): DMII WO CMP UNCNTRLD Assessment & Plan (11/17/2021 11:35 AM CDT): Therefore would like to use Zilretta to avoid elevation of blood sugars Patient would be at increased risk for postoperative complications Assessment & Plan (2021 7:25 PM DIAMOND DIE MAKER): Therefore would like to use Zilretta and avoid glucose elevation Assessment & Plan (01/04/2021 8:54 AM DIAMOND DIE MAKER): Last hemoglobin A1c was 8.2. Discussed the need for her to also take action and responsibility for getting her diabetes better under control. Certainly would increase postoperative complications. Because of adverse reaction with elevated glucose with steroid injection from her spinal stenosis would recommend Gloria. Assessment & Plan (05/07/2019 2:06 PM CDT): con't current regimen Pure hypercholesterolemia 07/12/2013 Overview (05/24/2020): Overview: PURE HYPERCHOLESTEROLEM PURE HYPERCHOLESTEROLEM GERD (gastroesophageal reflux disease) Class 2 severe obesity due t o excess calories with serious comorbidity and body mass index (BMI) of 35.0 to 35.9 in adult Overview (05/12/2024): A1C 6.8 04/30/24. Follows with endo. Recently seen by needs a urine microalbumin. Assessment & Plan (05/12/2024 12:27 PM CDT): Continue to follow with endo as directed. Urine microalbumin checked today Goal for blood sugars to be between 80-130 fasting and 180 or less two hours after eating. Be sure you have a diabetic eye exam yearly. Encourage daily foot checks, avoid walking around barefoot. Goal for A1C to below 7 Urine Microalbumin- 05/06/24 TIERA/ARB- yes Statin-yes Assessment & Plan (11/17/2021 11:35 AM CDT): Continue with weight loss Assessment & Plan (2021 7:26 PM DIAMOND DIE MAKER): We discussed the adverse effects of weight on osteoarthritis of the knee. For every 1 pound loss, 4 to 6 pounds of stress is relieved from the knee. We discussed low carbohydrate diet to help with weight loss. 80% of weight loss is through diet. Assessment & Plan (01/04/2021 8:54 AM DIAMOND DIE MAKER): We discussed the adverse effects of weight on osteoarthritis of the knee. For every 1 pound loss, 4 to 6 pounds of stress is relieved from the knee. We discussed low carbohydrate diet to help with weight loss. 80% of weight loss is through diet. Essential hypertension Resolved Problems Problem Noted Date Diagnosed Date Resolved Date Current moderate episode of major depressive disorder without prior episode 11/23/2021 3 COVID-19 virus infection 09/26/2021 Acute recurrent frontal sinusitis 06/30/2020 12/11/2020 Physical deconditioning 05/01/201910/28 Lactic acidosis 04/28/2019 01/01/2020 Sepsis ([facility]) 04/28/2019 Acute left ankle pain 04/08/20192019 Burning with urination 03/12/201912/31 Lower abdominal pain 03/12/2019 020 BMI 34.0-34.9,adult 11/12/2018 01/01/20 20 Closed fracture of multiple ribs of right side, sequela 10/09/2018 01/01/2020 Allergic rhinitis, unspecifi ed seasonality, unspecified trigger 10/09/2018 12/11/2020 Ileus, unspecified ([facility]) 10/09/2018 01/01/2020 Partial small bowel obstruct ion ([facility]) 09/29/2018 06/23/2020 Closed nondisplaced fracture of middle phalanx of lesser toe of left foot, initial encounter 09/10/2018 01/01/2020 Uncontrolled type 2 diabetes mellitus with hyperglycemia ([facility]) 06/21/2018 06/24/19 21 Frequency of micturition 06/18/2018 Rash 06/18/2018 01/01/2020 Pain of right hip joint 05/01/201806/2019 Sciatic pain, right 05/01/2018 12/12/19 21 Fungal rash of trunk 05/01/2018 020 Arthritis 04/30/2018 02/20/2022 Sore throat 03/27/2018 01/01/2020 Weakness 03/27/2018 11/23/2021 Acute bronchitis, unspecified organism 03/27/2018 11/23/2021 Flu syndrome 02/28/2018 01/01/2020 Cough 02/28/2018 01/01/2020 Fall, initial encounter 01/22/201806/2019 Acute pain of both knees 01/22/201806/2019 Acute left-sided thoracic back pain 01/22/2018 01/01/2020 Fungal infection 01/22/2018 01/01/2020 Flank pain, acute 01/22/2018 01/01/2020 Mass of breast 12/04/2017 12/11/2020 Depression 08/10/2017 11/23/2021 Lumbar back pain 07/27/2017 01/01/2020 Abnormal EKG 11/29/2015 12/11/2020 Hypertension 07/12/2013 06/23/2020 Overview (05/24/2020): HYPERTENSION NOS Dyslipidemia 01/01/2020 Encounters Date Type Department Care Team Description 05/14/2024 Scan [employer] INFO SRVCS Scanned, Doc Med Group 05/14/2024 Patient Outreach [address] [place] [address] India Schaefer, RN Care Management 05/07/[address] [place] [address] Natalie Tam NP Orders (PT orders) 05/06/2024 2:00 PM CDT Office Visit [address] [place] [address] Natalie Tam NP Anxiety (Follow up- doing well/); Diabetic Neuropathy (Improving but would like to adjust her medicaiton) 05/06/2024 1:00 PM CDT Office Visit [address] [place] [address] Natalie Tam NP Medicare Wellness (Patient presents today for her Medicare Annual Wellness Visit) 05/06/2024 - 05/06/2024 11:59 PM CDT Hospital Encounter [facility] [address] [place] [address] Natalie Tam NP Discharge Disposition: Home or Self Care (Routine Discharge) 05/06/[address] [place] [address] Natalie Tam NP Lab Order (Lab order from Endocrynologist) 05/06/2024 Travel 04/29/[address] [place] [address] Natalie Tam NP Lab Order 04/29/2024 Patient Outreach [address] [place] [address] India Schaefer, RN Care Management 04/25/2024 9:45 AM DIAMOND DIE MAKER Office Visit [facility] [phone] Lea Rios MD Hypertension (6mo) 04/25/2024 Travel 04/10/[address] [place] [id number] Natalie Tam NP Information 04/08/[address] [place] [id number] Natalie Tam NP Other 04/08/2024 Telephone [facility] [address] [phone] Natalie Tam NP Follow Up Call 04/07/2024 Patient Outreach [address] [place] [address] India Schaefer, RN Care Management 04/02/2024 Patient Outreach [address] [place] [address] India Schaefer, RN Record Request 04/01/2024 Scan [facility] INFO [facility] Scanned, Doc Med Group 03/31/2024 Scan [facility] INFO [facility] Scanned, Doc Med Group 03/31/[address] [place] [address] Natalie Tam NP Concerns 03/27/[address] [place], [place] [address] Natalie Tam NP Orders ([employer]) 03/18/[address] [place] [address] Natalie Tam NP Referral 03/13/2024 Patient Outreach [address] [place], [place] [address] India Schaefer RN Care Management 03/13/[address] [place], [place] [address] Natalie Tam NP Medication 03/11/[address] [place], [place] [address] Natalie Tam NP Results (MR Lumbar Spine) 03/08/2024 Scan HEALTH INFO SRVCS Scanned, Doc Med Group 03/06/2024 Scan HEALTH INFO SRVCS Scanned, Doc Med Group 03/05/[address] [place] [address] Natalie Tam NP Foot Pain; Medication Request 03/04/[address] [place], [place] [address] Natalie Tam NP Appointment Request (AWV- Unable to leave message) from Last 3 Months Immunizations Name Administration Dates Next Due Arexvy Respiratory Syncytial Virus (RSV, adjuvanted) 0.5 mL, PF 03/01/2023 Fluarix 12/25/2012 Fluzone 6 Months+ Quad (0.5 mL Prefilled Syringe) 12/02/2020 Fluzone High Dose - >Age 65 (Prefilled Syringe) 11/22/2021,12/09/2019,12/03/2018,2017,12/11/2016,12/05/2016,11/10/2015 Influenza (Generic) 12/13/2023,12/25/2012 Influenza Adult (Generic) 12/21/2022,,12/03/2018,2017,12/11/2016,11/10/2015 MODERNA COVID-19 (12+) MRNA, LNP-S, PF, 100 MCG/ 0.5 ML DOSE 01/04/2021,06/01/2020,05/04/2020 PFIZER COVID-19 BIVALENT (12 +) mRNA, LNP-S, PF, 30 MCG/0.3 ML DOSE 12/28/2021 Pneumococcal (Pneumovax 23) 12/17/2018, 2 Pneumococcal (Prevnar 13) 08/25/2015,08/22/2015 Td (Tenivac) preservative free 01/01/2020 Td, Adsorbed, Preservative F ree, Adult Use, Lf Unspecified 01/01/2020 Zoster (Zostavax) 88017 Unt/0.65Ml 08/22/2015, Family History Medical History Relation Comments Alzheimers Father Cancer Father COLON Diabetes Father Hypertension Father No Known Problems Maternal Aunt Black lung Maternal Grandfather Curvature of spine Maternal Grandmother No Known Problems Maternal Uncle Coronary artery disease Mother Diabetes Mother Heart Disease Mother Hypertension Mother No Known Problems Paternal Aunt No Known Problems Paternal Grandfather No Known Problems Paternal Grandmother No Known Problems Paternal Uncle Relation Status Comments Father Maternal Aunt Maternal Grandfather Maternal Grandmother Maternal Uncle Mother Paternal Aunt Paternal Grandfather Paternal Grandmother Paternal Uncle Social History Tobacco Use Types Packs/Day Years Used Date Smoking Tobacco: Former Cigarettes Passive Smoke Exposure: Past Smokeless Tobacco: Never Tobacco Cessation:Counseling Given: Not Answered Comments:quit smoking in 1994- smoked for a short time Alcohol Use Standard Drinks/Week Comments Not Currently 0 (1 standard drink = 0.6 oz pur e alcohol) AUDIT-C Answer Date Recorded Q1: How often do you have a drink containing alcohol? Never 05/06/2024 Q2: How many drinks containi ng alcohol do you have on a typical day when you are drinking? Patient does not drink Q3: How often do you have si x or more drinks on one occasion? Never 05/06/2024 Overall Financial Resource Strain (CARDIA) Answe r Date Recorded How hard is it for you to pa y for the very basics like food, housing, medical care, and heating? Not hard at all 03/29/2022 PHQ-2 Answer Date Recorded Patient Health Questionnaire-2 Score 0 05/06/2024 Hunger Vital Sign Answer Date Recorded Within the past 12 months, y ou worried that your food would run out before you got the money to buy more. Never true 03/29/19 23 Within the past 12 months, t he food you bought just didn't last and you didn't have money to get more. Never true 03/29/2022 PRAPARE - Transportation Answer Date Re corded In the past 12 months, has l ack of transportation kept you from medical appointments or from getting medications? No 02/2022 In the past 12 months, has l ack of transportation kept you from meetings, work, or from getting things needed for daily living? No 03/29/2022 Housing Stability Vital Sign Answer Peterson e Recorded In the last 12 months, was t here a time when you were not able to pay the mortgage or rent on time? No 03/29/2022 In the last 12 months, how many places have you lived? 2 03/29/2022 In the last 12 months, was t here a time when you did not have a steady place to sleep or slept in a group home (including now)? No 03/29/2022 Comments No Sex and Gender Information Value Date Recorded Sex Assigned at Female 09/20/2018 9:29 AM CDT Legal Sex Female 11:29 PM CDT Gender Identity Female 09/20/2018 9:29 AM CDT Sexual Orientation Straight 09/20/2018 9: 29 AM CDT Occupation Industry Job Start Date Job End Date Not on file Not on file Not on file Not on file Last Filed Vital Signs Vital Sign Reading Time Taken Comments Blood Pressure 137/68 05/06/2024 4:51 PM CDT Pulse 71 05/06/2024 1:13 PM CDT Temperature 37.2 C (99 F) 05/06/2024 1:13 PM CDT Respiratory Rate 18 05/06/2024 1:13 PM CDT Oxygen Saturation 95% 05/06/2024 1:13 PM CDT Inhaled Oxygen Concentration - - Weight 89.8 kg (198 lb) 05/06/2024 1:13 PM CDT Height 160 cm (5' 3 ) 05/06/2024 1:13 PM CDT Body Mass Index 35.07 05/06/2024 1:13 PM CDT Plan of Treatment Upcoming Encounters Date Type Department Care Team (Late st Contact Info) Description 11/07/2024 10:45 AM CDT Office Visit [facility] [address] Lea Rios MD [facility] [address] [place] [address] 05/19/2025 9:30 AM CDT Office Visit [facility] Family Medicine - [place] [address] [facility] [address] [place] [address] Natalie Tam, JEREMIAH [address] [place] [address] Health Maintenance Due Date Last Done Comments Diabetes: Retinopathy Eye Exam 06/06/2024 03/22/2021, 05/02/2018 Postponed from 03/22/2022 (Awaiting Documentation) Hemoglobin A1C 07/29/2024 04/30/2024, 09/0 05/2023, 07/17/2023, Additional history exists Lipid Panel 10/31/2024 04/30/2024, 0607/2022, 12/01/2020, Additional history exists COVID-19 Vaccine ( season) 2025 12/28/2021, 01/04/2021, 06/01/2020, Additional history exists Postponed from 10/28/2023 (Patient Refused) Zoster Vaccines (2 of 3) 05/06/2025 08/22/2015, 07/27 Postponed from 10/17/2015 (Going to Outside Clinic) Annual Medicare Wellness Visit 05/07/2025 05/06/2024 ASCVD Statin 05/12/2025 Postponed from 1938 (Future Appointment) DTaP, Tdap and Td Vaccines (1 - Tdap) 12/31/2029 01/01/2020, 01/01/2020 Postponed from 01/02/2020 (Per Provider Recommendation) Pneumococcal Vaccine: 65+ Years Completed 12/17/2018, 08/25/2015, 08/22/2015, Additional history exists RSV Immunization or 60+ Years Completed 03/01/2023 Influenza Adult Completed 12/13/2023, 11/27, 11/22/2021, Additional history exists PHQ-2 (Physician [place]) Completed 05/06/2024 Meningococcal B Vaccine Aged Out No l onger eligible based on patient's age to complete this topic Meningococcal Vaccine Aged Out No deb tracy eligible based on patient's age to complete this topic RSV Immunizations Under 20 Months Aged Out No longer eligible based on patient's age to complete this topic Goals Goal Patient Goal Type Associated Problems Recent Progress Patient-Stated? Author Consistently take medications as Prescribed General On track(2024 3:52 PM CDT) India Walker, DAVID Note: 11/22/23: Patient taking medications as directed. 08/01/23: [facility] takes care of patient's medications. Establish Plan for Symptom Monitoring-DM General On track(2024 3:52 PM CDT) India Walker, RN Note: Patient will manage diabetes and report any symptoms of hypo/hyperglycemia to provider. Patient to follow diabetic medication regimen. Patient will maintain a carb consistent diet and avoid concentrated sweets. Patient will monitor blood sugar readings at least twice a day and call provider with consistent readings <80 and >200. If symptoms of excessive hunger, blurred vision, shakiness, light headedness, anxiety present, check blood sugar if able or treat the hypoglycemia. If glucose is less than 70, take 15 grams of glucose that is half a cup of juice or milk or regular soda or 3 glucose tablets and recheck in 15 minutes. Patient will take medications as prescribed. Patient will follow up with provider as scheduled. 03/20/23: Electric [employer] office gets readings on her CGM now. She continues to follow up with Endo to manage diabetes. Establish Plan for Symptom Monitoring-HTN General On track(2024 3:52 PM CDT) India Walker RN Note: Hypertension: Patient will recognize symptoms of hypertension and report to physician should they occur Notify your physician for symptoms of: Severe headache Shortness of breath Nosebleed Severe anxiety Feeling of pulsations in the neck or head Take your medications as prescribed. Follow up with your provider as scheduled. Take your blood pressure at least several times a week if able. Procedures Procedure Name Priority Date/Time Associated Diagnosis Comments URINE BACTERIA CULTURE Routine 05/06/2024 2:27 PM CDT Burning with urination ALBUMIN URINE RANDOM W/CREATININE Routine 05/06/2024 2:27 PM CDT Type 2 diabetes mellitus with stage 3a chronic kidney disease, with long-term current use of insulin ([facility] HHS/HCC) URINALYSIS AUTO DIP Routine 05/06/2024 Burning with urination HEMOGLOBIN, GLYCOSYLATED Routine 04/30/2024 11:02 AM DIAMOND DIE MAKER Type 2 diabetes mellitus with other specified complication, with long-term current use of insulin ([facility] HHS/HCC) TSH W/REFLEX Routine 04/30/2024 11:02 AM DIAMOND DIE MAKER Screening for thyroid disorder LIPID PANEL Routine 04/30/2024 11:02 AM DIAMOND DIE MAKER Mixed hyperlipidemia COMPREHENSIVE METABOLIC PANEL Routine 04/30/2024 11:02 AM DIAMOND DIE MAKER Type 2 diabetes mellitus with other specified complication, with long-term current use of insulin ([facility] HHS/HCC) CBC W/DIFF AUTOMATED Routine 04/30/2024 11:02 AM DIAMOND DIE MAKER Type 2 diabetes mellitus with other specified complication, with long-term current use of insulin ([facility] HHS/HCC) MRI LUMB SPINE WO CON Routine 03/11/2024 12:00 AM DIAMOND DIE MAKER Foraminal stenosis of lumbar region Lumbar radiculopathy DIABETIC RETINOPATHY EXAM (NEGATIVE)(SCAN ORDER) Routine 03/22/2021 from Last 3 Months or Most Recently Relevant to Health Maintenance Results * URINE BACTERIA CULTURE (05/06/2024 2:27 PM CDT) SPEC DESCRIPTION URINE CLEAN CATCH 05/06/2024 2:27 PM CDT [facility] SPECIAL REQUESTS NO SPECIAL REQUEST 05/06/2024 2:27 PM CDT [facility] CULTURE RESULT FEW CONTAMINANTS 04/26 3:09 PM CDT [facility] URINE SPECIMEN OBTAINED BY CLEAN CATCH PROCEDURE / Unknown 05/06/2024 2:27 PM CDT 05/06/2024 8:42 PM CDT Natalie Tam [employer] MICROBIOLOGY - GENERAL OR DERABLES Final Result Performing Organization Address [facility] de Phone Number [facility] [address] [place] [address], [phone] * (ABNORMAL) ALBUMIN/CREATININE RATIO, RANDOM URINE (05/06/2024 2:27 PM CDT) MICROALBUMIN (U) 22.8(H) <20 MG/L 05/08/19 10:55 AM CDT [facility] CREATININE RANDOM (U) 87.7 MG/DL 05/07/2024 10:55 AM CDT [facility] ALBUMIN/CREAT RATIO 26.0 <30 MG/G 05/07/2024 10:55 AM CDT -[facility] URINE SPECIMEN / Unknown 05/06/2024 2:27 PM CDT Natalie Tam [employer] URINE ORDERABLES Final Re sult Performing Organization Address [facility]/ZIP Co de Phone Number [facility], [place] [address] [facility] [place] [address], * (ABNORMAL) URINALYSIS AUTO DIP (05/06/2024) COLOR (U) DARK YELLOW YELLOW [facility], [place] TRANSPARENCY CLOUDY(A) CLEAR [facility]-[address], [place] GLUCOSE (U) 100 mg/dl(A) NEGATIVE MG/DL [facility], [place] BILIRUBIN (U) NEGATIVE NEGATIVE [facility], [place] KETONES MG/DL (U) NEGATIVE NEGATIVE MG/DL [facility], [place] SPECIFIC GRAVITY (U) 1.015 1.001 - 1.035 [facility], [place] BLOOD (U) NEGATIVE NEGATIVE [address], [place] U PH 6.5 5.0 - 9.0 [address], [place] PROTEIN (U) NEGATIVE NEGATIVE mg/dL [address], [place] UROBILINOGEN 0.2 0.2 - 1.0 EU/dL = mg/dL [facility], [place] NITRITES NEGATIVE NEGATIVE MG/DL [facility], [place] LEUKOCYTES (U) TRACE(A) NEGATIVE MG-[address], [place] URINE SPECIMEN OBTAINED BY CLEAN CATCH PROCEDURE / Unknown 05/06/2024 us Natalie Tam [employer] URINE ORDERABLES Final Re sult Performing Organization Address [facility]/ZIP Co de Phone Number [facility] [place] [address] [facility] [address] [place] [phone], * TSH W/REFLEX (04/30/2024 11:02 AM DIAMOND DIE MAKER) TSH 2.61 0.40 - 4.50 mIU/L [facility] 04/30/2024 11:0 2 AM DIAMOND DIE MAKER 04/30/2024 11:02 AM DIAMOND DIE MAKER Narrative [facility] - [place] - 05/01/2024 10:51 AM DIAMOND DIE MAKER FASTING:YES COLLECTION KIT GIVEN TO PATIENT. PATIENT ADVISED TO RETURN. FASTING: YES Resulting Agency Comment Performing Organization Information: Site ID: [place] Name: [facility] Address: [address] [address] Director: Navid Ramos MD Nataliesaul Tam NP LABORATORY Final Res ult Performing Organization Address [facility] Co de Phone Number [address] - MI[place] MEJIA [address] [facility] [address] [place] [address], * (ABNORMAL) HEMOGLOBIN, GLYCOSYLATED (04/30/2024 11:02 AM DIAMOND DIE MAKER) HGB A1C 6.8(H) <5.7 % of total Hgb [facility] [place] Comment: For someone without known diabetes, a hemoglobin A1c value of 6.5% or greater indicates that they may have diabetes and this should be confirmed with a follow-up test. For someone with known diabetes, a value <7% indicates that their diabetes is well controlled and a value greater than or equal to 7% indicates suboptimal control. A1c targets should be individualized based on duration of diabetes, age, comorbid conditions, and other considerations. Currently, no consensus exists regarding use of hemoglobin A1c for diagnosis of diabetes for children. 04/30/2024 11:0 2 AM DIAMOND DIE MAKER 04/30/2024 11:02 AM DIAMOND DIE MAKER Narrative [address] [facility] - [facility] - 05/01/2024 10:51 AM DIAMOND DIE MAKER FASTING:YES COLLECTION KIT GIVEN TO PATIENT. PATIENT ADVISED TO RETURN. FASTING: YES Resulting Agency Comment Performing Organization Information: Site ID: [place] Name: [facility] Address: [address] [place] [address] Director: Navid Ramos Natalie Tam NP LABORATORY Final Res ult Performing Organization Address [facility] Co de Phone Number [facility] [place], [place] [address] [place] [address], * (ABNORMAL) COMPREHENSIVE METABOLIC PANEL (04/30/2024 11:02 AM DIAMOND DIE MAKER) GLUCOSE 63(L) 65 - 99 mg/dL [facility] Comment: Fasting reference interval BUN 12 7 - 25 mg/dL [facility] CREATININE S/P/B 0.98(H) 0.60 - 0.95 mg/dL [facility] [place] [facility] GFR ESTIMATE 56(L) > OR = 60 mL/min/1. 73m2 [facility] BUN CREATININE RATIO 12 6 - 22 (calc) [facility] SODIUM S/P/B 138 135 - 146 mmol/L [facility] POTASSIUM S/P/B 4.5 3.5 - 5.3 mmol/L [facility] CHLORIDE S/P/B 100 98 - 110 mmol/L [facility] CO2 26 20 - 32 mmol/L [facility] CALCIUM S/P/B 9.8 8.6 - 10.4 mg/dL [facility] TOTAL PROTEIN S/P/B 7.0 6.1 - 8.1 g/dL [facility] [place] [facility] ALBUMIN S/P/B 4.3 3.6 - 5.1 g/dL [facility] GLOBULIN 2.7 1.9 - 3.7 g/dL (calc) [facility] ALBUMIN/GLOBULIN RATIO 1.6 1.0 - 2.5 (calc) [facility] BILIRUBIN TOTAL S/P/B 0.9 0.2 - 1.2 mg/dL [facility] ALKALINE PHOSPHATASE S/P/B 78 37 - 153 U/L [facility] AST 19 10 - 35 U/L [facility] ALT 25 6 - 29 U/L [facility] 04/30/2024 11:0 2 AM DIAMOND DIE MAKER 04/30/2024 11:02 AM DIAMOND DIE MAKER Narrative [facility] - 05/01/2024 10:51 AM DIAMOND DIE MAKER FASTING:YES COLLECTION KIT GIVEN TO PATIENT. PATIENT ADVISED TO RETURN. FASTING: YES Resulting Agency Comment Performing Organization Information: Site ID: [place] Name: [employer] [facility] Address: [address] [address] Director: Navid Ramos MD Nataliesaul Tam NP LABORATORY Final Res ult [facility] [place] - [place] JACKIE [facility] FELIX [facility] [address] [place] [address], * (ABNORMAL) LIPID PANEL (04/30/2024 11:02 AM DIAMOND DIE MAKER) Pathologist [facility] CHOLESTEROL 140 <200 mg/dL [facility] HDL 42(L) > OR = 50 mg/dL [facility] TRIGLYCERIDES 116 <150 mg/dL [facility] LDL (CALCULATED) 78 mg/dL (calc) [facility] Comment: Reference range: <100 Desirable range <100 mg/dL for primary prevention; <70 mg/dL for patients with CHD or diabetic patients with > or = 2 CHD risk factors. LDL-C is now calculated using the Chen calculation, which is a validated novel method providing better accuracy than the Friedewald equation in the estimation of LDL-C. Marco Antonio SS et al. LIEN. 2013;310(19): 4963-8139 (http://education.GroundWork/faq/CNW083) CHOL/HDL RATIO 3.3 <5.0 (calc) [facility] NON HDL CHOLESTEROL 98 <130 mg/dL (calc) [facility] Comment: For patients with diabetes plus 1 major ASCVD risk factor, treating to a non-HDL-C goal of <100 mg/dL (LDL-C of <70 mg/dL) is considered a therapeutic option. 04/30/2024 11:0 2 AM DIAMOND DIE MAKER 04/30/2024 11:02 AM DIAMOND DIE MAKER Narrative [facility] [place] - 05/01/2024 10:51 AM DIAMOND DIE MAKER FASTING:YES COLLECTION KIT GIVEN TO PATIENT. PATIENT ADVISED TO RETURN. FASTING: YES Resulting Agency Comment Performing Organization Information: Site ID: [place] Name: [facility] Address: [address] [address] Director: Navid Ramos MD us Natalie Tam NP LABORATORY Final Res ult [facility] [place] [facility] [place] MEJIA [facility] [address] [place] [address], * (ABNORMAL) CBC W/DIFF AUTOMATED (04/30/2024 11:02 AM DIAMOND DIE MAKER) WBC 12.6(H) 3.8 - 10.8 Thousand/ uL [facility] RBC 4.36 3.80 - 5.10 Million/u L [facility] HGB 13.1 11.7 - 15.5 g/dL [facility] HCT 40.2 35.0 - 45.0 % [facility] MCV 92.2 80.0 - 100.0 fL [facility] MCH 30.0 27.0 - 33.0 pg [facility] MCHC 32.6 32.0 - 36.0 g/dL [facility] Comment: For adults, a slight decrease in the calculated MCHC value (in the range of 30 to 32 g/dL) is most likely not clinically significant; however, it should be interpreted with caution in correlation with other red cell parameters and the patient's clinical condition. RDW 12.2 11.0 - 15.0 % [facility] PLT 392 140 - 400 Thousand/ uL [facility] MPV 9.1 7.5 - 12.5 fL [facility] ABS. NEUTROPHILS 6,565 1,500 - 7,800 cells/uL [facility] ABS. LYMPHOCYTES 4,687(H) 850 - 3,900 cells/uL [facility] ABS. MONOCYTES 920 200 - 950 cells/uL [facility] ABS. EOSINOPHILS 328 15 - 500 cells/uL [facility] ABS. BASOPHILS 101 0 - 200 cells/uL [facility] SEG NEUTROPHILS 52.1 % [facility] T[facility] LYMPHOCYTES 37.2 % [facility] T[facility] MONOCYTES 7.3 % [facility] TONE EOSINOPHILS 2.6 % [facility] T[facility] BASOPHILS 0.8 % [facility] 04/30/2024 11:0 2 AM DIAMOND DIE MAKER 04/30/2024 11:02 AM DIAMOND DIE MAKER Narrative [facility] - [place] - 05/01/2024 10:51 AM DIAMOND DIE MAKER FASTING:YES COLLECTION KIT GIVEN TO PATIENT. PATIENT ADVISED TO RETURN. FASTING: YES Resulting Agency Comment Performing Organization Information: Site ID: [place] Name: [employer] Address: [address] [address] Director: Navid Ramos MD us Natalie Samantha Weinacht [employer] LABORATORY Final Res ult [facility] [place] [address] [address], [place] * MRI LUMB SPINE WO CON (03/11/2024 12:00 AM DIAMOND DIE MAKER) Anatomical Region Laterality Modality Spine Magnetic Resonan ce 03/11/2024 us Natalie Tam [employer] MRI Final Res ult * DIABETIC RETINOPATHY EXAM (NEGATIVE)(SCAN) (03/22/2021) us Documents Scanned SCANNING Final Result [facility] ON[facility] from Last 3 Months or Most Recently Relevant to Health Maintenance Insurance MEDICAID [facility] Advance Directives * Full Code (Latest Code Status on File) Date Activated Date Inactivated Comments 11/04/2021 9:13 AM 12/01/2021 12:18 PM * Full Code Date Activated Date Inactivated Comments 11/03/2021 6:56 AM 11/04/2021 8:59 AM * Full Code Date Activated Date Inactivated Comments 05/29/2021 11:29 AM 09/26/2021 10:05 AM * Full Code Date Activated Date Inactivated Comments 05/20/2021 7:06 PM 05/26/2021 6:07 PM * Full Code Date Activated Date Inactivated Comments 12/04/2020 10:39 AM 12/16/2020 12:17 PM Care Teams Assistant Secretary Relationship Specialty Start Date End Date Natalie Tam NP [address] [place] [address] PCP - General NURSE PRACTITIONER 10/17/22 Jeremias Maguire MD [facility]. [address] [place] [address] Brogue Pug Mill Operator Helper CARDIOVASCULAR DISEASE 07/28/15 India Schaefer, RN [address] [place] [address] Testing Consultant (Ambulatory) REGISTERED NURSE 10/02/18 Lea Rios MD [facility] [address] [place], [place] [address] Consulting Physician CARDIOVASCULAR DISEASE 05/06/24 Juana Carmona MD [address] [facility] [address] [place] [address] ENDOCRINOLOGY 05/06/24 Dudley Acuna PA [address] [facility] [address] [place] [address] Physician Reading Teacher ORTHOPAEDICS 05/06/24
--- OUTSIDE RECORDS SUMMARY | 2024-05-20 18:56 | XMS_ITS | Encounter Summary ---
Author Organization [facility] Address [address] [place] [address] Care Team Providers Care Reshipping Clerk Name Role Phone Deandre Waters MD Primary Care Provider Mary Griffin NP Primary Care Provider UnaMarlee Alonso [facility] Primary Care Provider + Julia [facility] Primary Care Provider + Julia [facility] Unavailable [phone] Jeremias Maguire MD Unavailable [phone] India Schaefer RN Unavailable [phone] Shahla Giles PharmD Unavailable [phone] India Schaefer RN Unavailable [phone] [facility] Unavailable + [phone] India Schaefer RN Unavailable [phone] Natalie Tam TOE TRIMMER Primary Care Provider [phone] Lea Rios MD Unavailable [phone] Juana Carmona MD Unavailable [phone] Dudley Acuna Unavailable [phone] Encounter Details Date Type Department Care Team (Latest Contact Info) Description 10/18/2017 Abstract [facility] , Andreea Pollock MD Social [...] Description 11/07/2024 10:45 AM CDT Office Visit [facility] [address] Lea Rios MD [facility] [address] [place] [address] 05/19/2025 9:30 AM CDT Office Visit [facility] Family Medicine - [place] [address] [facility] [address] [place] [address] Natalie Tam, JEREMIAH [address] [place] [address] documented as of this encounter Visit Diagnoses Not on filedocumented in this encounter Additional Health Concerns Infection Onset Date Last Indicated Resolved Time COVID-19 Rule Out 05/01/2020 05/01/2020 05/02/2020 3:51 PM WEBLOGIC ADMINISTRATOR COVID-19 Rule Out 10/02/2020 10/02/2020 10/02/2020 9:20 AM CDT COVID-19 Rule Out 02/22/2021 02/22/2021 02/22/2021 9:18 AM WEBLOGIC ADMINISTRATOR COVID-19 Rule Out 02/22/2021 02/22/2021 02/23/2021 7:12 PM WEBLOGIC ADMINISTRATOR COVID-19 Rule Out 05/20/2021 05/20/2021 05/20/2021 7:38 PM CDT COVID-19 Patient Reported Positive 09/26/2021202110/17/2021 12:32 AM CDT documented as of this encounter Care Teams Reshipping Clerk Relationship Specialty Start Date End Date Deandre Waters MD PCP - General 10/10/16 07/30/19 Mary Kirkland, TOE TRIMMER PCP - General NURSE PRACTITIONER 07/31/19 12/22/19 [facility] PCP - General Nurse Practitioner Family 12/23/19 11/29/[address] [facility] PCP - General Nurse Practitioner Family 11/30/20 10/16/22 Natalie Tam NP [address] [place] [address] PCP - General NURSE PRACTITIONER 10/17/22 [facility] Nurse Practitioner Family 11/30/20 05/05/24 Jeremias Maguire MD [facility]. [address] [address] [place] [employer] Field Manager CARDIOVASCULAR DISEASE 07/28/15 India Schaefer, RN [address] [place] [address] Roll Former (Ambulatory) REGISTERED NURSE 05/16/18 06/19/18 Shahla Giles, PharmD [address] [place], [place] [id number] Pharmacist Pharmacist 05/16/18 05/09/22 India Schaefer, RN [address] [place] [address] Roll Former (Ambulatory) REGISTERED NURSE 10/02/18 [facility] Nurse Practitioner Nurse Practitioner Family 12/23/19 12/23/19 India Schaefer, RN [address] [place] [address] Roll Former (Ambulatory) REGISTERED NURSE 12/01/20 01/30/21 Lea Rios MD Three [facility] Suite [facility] [place] [address] Consulting Physician CARDIOVASCULAR DISEASE 05/06/24 Jauna Carmona MD [address] [facility] 1 [place], [place] [id number] ENDOCRINOLOGY 05/06/24 Dudley Acuna PA [address] [facility] [address] [place] [address] Physician Digital Photographic Printer ORTHOPAEDICS 05/06/24 documented as of this encounter
--- OUTSIDE RECORDS SUMMARY | 2024-05-20 18:56 | XMS_ITS | Encounter Summary ---
Author Organization [facility] Address [facility] [place] [address] Care Team Providers Care Levi Maker Name Role Phone Jeremias Maguire MD Unavailable [phone] India Schaefer RN Unavailable [phone] Natalie Tam NP Primary Care Provider [phone] Lea Rios MD Unavailable [phone] Juana Carmona MD Unavailable [phone] Dudley Acuna Unavailable [phone] Encounter Details Date Type Department Care Team (Latest Contact Info) Description 05/14/2024 Scan [facility] Scanned, Doc Med Group Social History Tobacco Use Types Packs/Day Years Used Date Smoking Tobacco: Former Cigarettes Passive Smoke Exposure: Past Smokeless Tobacco: Never Comments:quit smoking in 199 5- smoked for a short time Alcohol Use [...] Never 05/06/2024 Overall Financial Resource Strain (CARDIA) Guicho r Date Recorded How hard is it [...] place to sleep or slept in a prison (including now)? No 03/29/2022 Comments No Sex [...] on file documented as of this encounter Functional Status * RETIRED Are you deaf or do you have serious difficulty hearing Answer Date of Assessment Author Status No 09/26/2021 6:48 PM CDT Activ e * RETIRED Are you blind or do you have serious difficulty seeing, even when wearing glasses? Answer Date of Assessment Author Status No 09/26/2021 6:48 PM CDT Activ e * Do you have serious difficulty walking or climbing stairs? Answer Date of Assessment Author Status Yes 09/26/2021 6:48 PM CDT Atiya Hansen RN Active * Do you have difficulty dressing or bathing? Answer Date of Assessment Author Status No 09/26/2021 6:48 PM CDT Atiya Hansen RN Active * Because of a physical, mental, or emotional condition, do you have difficulty doing errands alone such as visiting a doctor's office or shopping? Answer Date of Assessment Author Status Yes 09/26/2021 6:48 PM CDT Atiya Hansen RN Active documented as of this encounter Mental Status * Because of a physical, mental, or emotional condition, do you have serious difficulty concentrating, remembering, or making decisions? Answer Entry Date Author Status No 09/26/2021 6:48 PM CDT Atiya Hansen RN Active documented in this encounter Plan of Treatment Upcoming Encounters Date Type Department Care Team (Late st Contact Info) Description 11/07/2024 10:45 AM CDT Office Visit [facility] [address] Lea Rios MD [facility] [address] [place] [address] 05/19/2025 9:30 AM CDT Office Visit [facility] Medical [facility] Family Medicine - [place] [address] [facility] [address] [place] [address] Natalie Tam NP [address] [place] [address] documented as of this encounter Goals Goal Patient Goal Type Associated Problems Recent Progress Patient-Stated? Author Consistently take medications as Prescribed General On track(2024 3:52 PM CDT) India Walker RN Note: 11/22/23: Patient taking medications as directed. 08/01/23: [place] takes care of patient's medications. Establish Plan for Symptom Monitoring-DM General On track(2024 3:52 PM CDT) India Walker RN Note: Patient will manage diabetes and [...] follow up with provider as scheduled. 03/20/23: Family Support Coordinator office gets readings on her CGM now. [...] least several times a week if able. documented as of this encounter Visit Diagnoses Not on filedocumented in this encounter Additional Health Concerns Assessment Noted Time PHQ-9 Depression Total Score: 3 01/09/20 24 11:10 AM PROPERTY CARETAKER documented as of this encounter Care Teams Levi Maker Relationship Specialty Start Date End Date Natalie Tam NP [address] [place] [address] PCP - General NURSE PRACTITIONER 10/17/22 Jeremias Maguire MD Three [facility]. [address] [place] [address] [place] Merchandise Execution Leader CARDIOVASCULAR DISEASE 07/28/15 India Schaefer RN [address] [place] [address] Electronics Warfare Technician (Ambulatory) REGISTERED NURSE 10/02/18 Lea Rios MD [facility] [address] [place] [address] Consulting Physician CARDIOVASCULAR DISEASE 05/06/24 Juana Carmona MD [address] [facility] 1 [place] [address] ENDOCRINOLOGY 05/06/24 Dudley Acuna PA [facility] 159 [facility] 10 [place] [address] Physician Preforming Machine Operator ORTHOPAEDICS 05/06/24 documented as of this encounter
--- OUTSIDE RECORDS SUMMARY | 2024-05-20 18:56 | XMS_ITS | Encounter Summary ---
Author Organization [facility] Address [address] [place] [address] Care Team Providers Care Manager Account Management Name Role Phone Deandre Waters MD Primary Care Provider Mary Griffin NP Primary Care Provider UnaMarlee Alonso [facility]- Primary Care Provider + Marlee Dumont [facility] Primary Care Provider + [facility] Unavailable [phone] Jeremias Maguire MD Unavailable [phone] Shahla Giles PharmD Unavailable [phone] India Schaefer RN Unavailable [phone] Marlee Dumont [facility]- Unavailable [phone] India Schaefer RN Unavailable [phone] Natalie Tam SQL REPORT DEVELOPER Primary Care Provider [phone] Lea Rios MD Unavailable [phone] Juana Carmona MD Unavailable [phone] Dudley Acuna Unavailable [phone] Encounter Details Date Type Department Care Team (Late st Contact Info) Description 08/16/2018 MORTGAGE UNDERWRITER ONLY [facility] Medical Group Priority Care - Guilherme Cobb [address] [place] [address] Scanned, Documents Social History Tobacco Use Types [...] encounter Progress Notes * Zscanned, Documents - 08/16/2018 12:00 AM CDT MEGAN MENON MD: ACCT: [id number] ADMIT/SERVICE DATE: 07/11/18 DISCHARGE DATE: 08/06/18 : 1940 PT TYPE: DIS RCR SEX: F ORD SITE: [facility] CHART DOCUMENT REHABILITATION DISCHARGE SUMMARY THIS PATIENT WAS SEEN FROM 06/25/18 THROUGH 07/16/18 FOR FOUR VISITS. REASON FOR DISCONTINUATION OF SERVICES: THIS PATIENT CANCELED HER APPOINTMENT ON 07/12/18 AND 07/16/18 AND DID NOT RETURN FOR FURTHER VISITS. CURRENT PHYSICAL/FUNCTIONAL STATUS: WE WERE UNABLE TO RETEST HER STRENGTH, FLEXIBILITY, OR PERDOMO DUE TO NOT SHOWING UP FOR SCHEDULED VISITS. AT HER PREVIOUS VISIT SHE ATTENDED ON 07/11/18, SHE RATED HER PAIN AT 8/10. SHE HAD BEEN GIVEN HEP TO WORK WITH WHILE ATTENDING PHYSICAL THERAPY. DEGREE OF GOAL ACHIEVEMENT: THIS PATIENT DID NOT MEET HER PHYSICAL THERAPY GOALS WITH LIMITED TREATMENT INTERVENTIONS. DISCHARGE PLAN: THIS PATIENT IS BEING DISCHARGED FROM OUTPATIENT PHYSICAL THERAPY SERVICES AND HAS HEP TO CONTINUE WITH. ELECTRONICALLY SIGNED BY ALEJANDRO YANG P.T. 08/19/2018 11:00 A MAJO/JESSICA JOB NO: [id number] DOC NO: [id number] 08/16/2018 08/16/2018 01:43 P CC: documented in this encounter Plan of Treatment Upcoming Encounters Date Type Department Care Team (Late st Contact Info) Description 11/07/2024 10:45 AM CDT Office Visit [facility]-[address] [address] Lea Rios MD [address] [facility] [address] [place] [address] 05/19/2025 9:30 AM CDT Office Visit [facility] Medical [facility] Family Medicine - [place] [address] [facility] [address] [place] [address] Natalie Tam NP [address] [place] [address] documented as of this encounter Visit Diagnoses Not on filedocumented in this encounter Additional Health Concerns Infection Onset Date Last Indicated Resolved Time COVID-19 Rule Out 05/01/2020 05/01/2020 05/02/2020 3:51 PM 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 COVID-19 Rule Out 10/02/2020 10/02/2020 10/02/2020 9:20 AM CDT COVID-19 Rule Out 02/22/2021 02/22/2021 02/22/2021 9:18 AM 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 COVID-19 Rule Out 02/22/2021 02/22/2021 02/23/2021 7:12 PM 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 COVID-19 Rule Out 05/20/2021 05/20/2021 05/20/2021 7:38 PM CDT COVID-19 Patient Reported Positive 09/26/2021202110/17/2021 12:32 AM CDT Assessment Noted Time PHQ-9 Depression Total Score: 6 05/15/19 19 12:39 PM CDT documented as of this encounter Care Teams Manager Account Management Relationship Specialty Start Date End Date Deandre Waters MD PCP - General 10/10/16 07/30/19 Mary Kirkland, SQL REPORT DEVELOPER PCP - General NURSE PRACTITIONER 07/31/19 12/22/19 Marlee Dumont [facility] PCP - General Nurse Practitioner Family 12/23/19 11/29/20 Marlee Dumont [facility] PCP - General Nurse Practitioner Family 11/30/20 10/16/22 Natalie Tam NP [address] [place] [address] PCP - General NURSE PRACTITIONER 10/17/22 Marlee Dumont [facility] Nurse Practitioner Family 11/30/20 05/05/24 Jeremias Maguire MD [address] [id number] [place] Physics Professor CARDIOVASCULAR DISEASE 07/28/15 Shahla Giles, PharmD [address] [place], [place] [address] Pharmacist Pharmacist 05/16/18 05/09/22 India Schaefer, RN [address] [place], [place] [address] Lamination Inspector (Ambulatory) REGISTERED NURSE 10/02/18 Marlee Dumont [facility] Nurse Practitioner Nurse Practitioner Family 12/23/19 12/23/19 India Schaefer, RN [address] [place] [address] Lamination Inspector (Ambulatory) REGISTERED NURSE 12/01/20 01/30/21 Lea Rios MD Three [facility] [address] [place] [address] Consulting Physician CARDIOVASCULAR DISEASE 05/06/24 Juana Carmona MD [address] [facility] 1 [place] [address] ENDOCRINOLOGY 05/06/24 Dudley Acuna PA [facility]4 [facility] [address] [place] [address] Physician Nozzle Worker ORTHOPAEDICS 05/06/24 documented as of this encounter
--- OUTSIDE RECORDS SUMMARY | 2024-05-20 18:57 | XMS_ITS | Encounter Summary ---
Author Organization [facility] Address [facility] [place] [address] Care Team Providers Care Civil Service Clerk Name Role Phone Deandre Waters MD Primary Care Provider Mary Griffin NP Primary Care Provider UnaMarlee Alonso [facility]- Primary Care Provider + Marlee Dumont [facility] Primary Care Provider + [facility] Unavailable [phone] Jeremias Maguire MD Unavailable [phone] Shahla Giles PharmD Unavailable [phone] India Schaefer RN Unavailable [phone] Marlee Dumont [facility]- Unavailable [phone] India Schaefer RN Unavailable [phone] Natalie Tam OCEAN FREIGHT FORWARDER Primary Care Provider [phone] Lea Rios MD Unavailable [phone] Juana Carmona MD Unavailable [phone] Dudley Acuna Unavailable [phone] Reason for Visit * Reason Onset Date Comments Hospital Follow Up 10/07/2018 Encounter Details Date Type Department Care Team (Late st Contact Info) Description 10/07/2018 Hospital Follow-up Call [facility] Care Management [address] [place] [address] Huma Pinto, RN Hospital Follow Up Social History Tobacco Use Types Packs/Day Years [...] Answer Date of Assessment Author Status No 09/29/2018 4:48 PM CDT Activ e * RETIRED Are you blind or do you have serious difficulty seeing, even when wearing glasses? Answer Date of Assessment Author Status No 09/29/2018 4:48 PM CDT Activ e * Do you have serious difficulty walking or climbing stairs? Answer Date of Assessment Author Status No 09/29/2018 4:48 PM CDT Alejandra Rodrigues RN Active * Do you have difficulty dressing or bathing? Answer Date of Assessment Author Status No 09/29/2018 4:48 PM CDT Alejandra Rodrigues RN Active * Because of a physical, mental, or emotional condition, do you have difficulty doing errands alone such as visiting a doctor's office or shopping? Answer Date of Assessment Author Status No 09/29/2018 4:48 PM CDT Alejandra Rodrigues RN Active documented as of this encounter Plan of Treatment Upcoming Encounters Date Type Department Care Team (Late st Contact Info) Description 11/07/2024 10:45 AM CDT Office Visit [facility] [address] Lea Rios MD [facility] [address] [place] [address] 05/19/2025 9:30 AM CDT Office Visit [facility] Medical Group Family Medicine - [place] [address] [facility] [address] [place] [address] Natalie Tam, JEREMIAH [address] [place] [address] documented as of this encounter Visit Diagnoses Not on filedocumented in this encounter Additional Health Concerns Infection Onset Date Last Indicated Resolved Time COVID-19 Rule Out 05/01/2020 05/01/2020 05/02/2020 3:51 PM 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 COVID-19 Rule Out 10/02/2020 10/02/2020 10/02/2020 9:20 AM CDT COVID-19 Rule Out 02/22/2021 02/22/2021 02/22/2021 9:18 AM 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 COVID-19 Rule Out 02/22/2021 02/22/2021 02/23/2021 7:12 PM 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 COVID-19 Rule Out 05/20/2021 05/20/2021 05/20/2021 7:38 PM CDT COVID-19 Patient Reported Positive 09/26/2021202110/17/2021 12:32 AM CDT Assessment Noted Time PHQ-9 Depression Total Score: 6 05/15/19 19 12:39 PM CDT documented as of this encounter Care Teams Civil Service Clerk Relationship Specialty Start Date End Date Deandre Waters MD PCP - General 10/10/16 07/30/19 Mary Kirkland NP PCP - General NURSE PRACTITIONER 07/31/19 12/22/19 Marlee Dumont FNP-BC PCP - General Nurse Practitioner Family 12/23/19 11/29/20 Marlee Dumont FNP-BC PCP - General Nurse Practitioner Family 11/30/20 10/16/22 Natalie Tam NP [address] [place] [address] PCP - General NURSE PRACTITIONER 10/17/22 [facility] Nurse Practitioner Family 11/30/20 05/05/24 Jeremias Maguire MD [facility]. [address] [place], [place] [address] [place] Cloud Engagement Partner CARDIOVASCULAR DISEASE 07/28/15 Shahla Giles, PharmD [address] [place], [place] [address] Pharmacist Pharmacist 05/16/18 05/09/22 India Schaefer, RN [address] [place] [address] Dial Polisher (Ambulatory) REGISTERED NURSE 10/02/18 [facility] Nurse Practitioner Nurse Practitioner Family 12/23/19 12/23/19 India Schaefer, RN [address] [place] [address] Dial Polisher (Ambulatory) REGISTERED NURSE 12/01/20 01/30/21 Lea Rios MD [facility] [address] [place], [place] [address] Consulting Physician CARDIOVASCULAR DISEASE 05/06/24 Juana Carmona MD [address] [place] [address] ENDOCRINOLOGY 05/06/24 Dudley Acuna PA [address] [place] [address] [address] [place] [address] Physician Kitchen Mechanic ORTHOPAEDICS 05/06/24 documented as of this encounter
--- OUTSIDE RECORDS SUMMARY | 2024-05-20 18:57 | XMS_ITS | Encounter Summary ---
Author Organization [facility] Address [facility] [place] [address] Care Team Providers Care Facing Baster Name Role Phone Deandre Waters MD Primary Care Provider Mary Griffin NP Primary Care Provider UnaMarlee Alonso [facility]- Primary Care Provider + Marlee Dumont [facility] Primary Care Provider + [facility] Unavailable [phone] Jeremias Maguire MD Unavailable [phone] Shahla Giles PharmD Unavailable [phone] India Schaefer RN Unavailable [phone] Marlee Dumont [facility]- Unavailable [phone] India Schaefer RN Unavailable [phone] Natalie Tam INTERLOCKING INSTALLER Primary Care Provider [phone] Lea Rios MD Unavailable [phone] Juana Carmona MD Unavailable [phone] Dudley Acuna Unavailable [phone] Encounter Details Date Type Department Care Team (Late st Contact Info) Description 10/02/2018 Hospital Follow-up Call [facility] [address] [place] [address] Michelle Cordova RN Social History Tobacco Use Types Packs/Day Years [...] Description 11/07/2024 10:45 AM CDT Office Visit [facility] [address] Lea Rios MD [facility] [address] [place] [address] 05/19/2025 9:30 AM CDT Office Visit [facility] Family Medicine - [place] [address] [facility] [address] [place] [address] Natalie Tam NP [address] [place] [address] documented as of this encounter Visit Diagnoses Not on filedocumented in this encounter Additional Health Concerns Infection Onset Date Last Indicated Resolved Time COVID-19 Rule Out 05/01/2020 05/01/2020 05/02/2020 3:51 PM 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 COVID-19 Rule Out 10/02/2020 10/02/2020 10/02/2020 9:20 AM CDT COVID-19 Rule Out 02/22/2021 02/22/2021 02/22/2021 9:18 AM 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 COVID-19 Rule Out 02/22/2021 02/22/2021 02/23/2021 7:12 PM 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 COVID-19 Rule Out 05/20/2021 05/20/2021 05/20/2021 7:38 PM CDT COVID-19 Patient Reported Positive 09/26/2021202110/17/2021 12:32 AM CDT Assessment Noted Time PHQ-9 Depression Total Score: 6 05/15/19 19 12:39 PM CDT documented as of this encounter Care Teams Facing Baster Relationship Specialty Start Date End Date Deandre Waters MD PCP - General 10/10/16 07/30/19 Mary Kirkland NP PCP - General NURSE PRACTITIONER 07/31/19 12/22/19 Marlee Dumont FNP-ROSSI PCP - General Nurse Practitioner Family 12/23/19 11/29/20 Marlee Dumont FNP-BC PCP - General Nurse Practitioner Family 11/30/20 10/16/22 Natalie Tam NP [address] [place] [address] PCP - General NURSE PRACTITIONER 10/17/22 Marlee Dumont [facility] Nurse Practitioner Family 11/30/20 05/05/24 Jeremias Maguire MD [facility]. [address] [place], [place] [address] [place] Field Education Director CARDIOVASCULAR DISEASE 07/28/15 Shahla Giles, PharmD [address] [place] [address] Pharmacist Pharmacist 05/16/18 05/09/22 India Schaefer, RN [address] [place] [address] Injection Molding Machine Offbearer (Ambulatory) REGISTERED NURSE 10/02/18 [facility] Pract[facility]er Nurse Practitioner Family 12/23/19 12/23/19 India Schaefer RN [address] [place] [address] Injection Molding Machine Offbearer (Ambulatory) REGISTERED NURSE 12/01/20 01/30/21 Lea Rios MD Three [facility] [address] [place], [place] [address] Consulting Physician CARDIOVASCULAR DISEASE 05/06/24 Juana Carmona MD [address] [place] [address] ENDOCRINOLOGY 05/06/24 Dudley Acuna PA [address] [place] [address] [address] [address] [place] [address] Physician R And D Lab Technician ORTHOPAEDICS 05/06/24 documented as of this encounter
[2024-05-20] MEDS: PROMETHAZINE HCL 25 MG/ML AMPUL 12.5 MG IV PUSH (21:13)
[2024-05-20] MEDS: SODIUM CHLORIDE 0.9% IV 100 ML (21:14)
--- NOTE | 2024-05-20 23:09 | PC.NURSE ---
Dr. Devine at bedside.
== END 2024-05-20 23:28 | disposition home or self-care (01) ==
PROVIDERS: Emergency Provider Physician Assistant
DX: R42 Dizziness and giddiness (principal); H93.8X2 Other specified disorders of left ear; I11.0 Hypertensive heart disease with heart failure; I50.9 Heart failure, unspecified; E11.9 Type 2 diabetes mellitus without complications; Z79.4 Long term (current) use of insulin; K21.9 Gastro-esophageal reflux disease without esophagitis; D64.9 Anemia, unspecified; G47.30 Sleep apnea, unspecified; Z87.440 Personal history of urinary (tract) infections; F32.A Depression, unspecified; E78.5 Hyperlipidemia, unspecified; R82.998 Other abnormal findings in urine
CPT/HCPCS: 36415; 70496; 70498; 80053; 81001; 85025; 85610; 85730; 87086; 93005; 96361; 96374; 96375; 99284; J1200; J2270; J2405; J2550; J7120; Q9967

== ENCOUNTER 2024-07-08 07:45 | Emergency (ER) | payer MEDICARE, MEDICAID, SELFPAY ==
--- NOTE | ~2024-07-08 | CT_ITS ---
EXAMINATION: CT brain wo con DATE: 07/08/2024 08:51 INDICATION: Fall with head injury TECHNIQUE: Computed tomography (CT) of the head was performed without intravenous contrast. Sagittal and coronal reconstructions were performed. The mA was adjusted according to patient size. Iterative reconstruction technique was employed. The dose-length product was 605.33 mGy-cm. COMPARISON: head CT dated 05/20/2024 FINDINGS: No fracture. No acute intracranial hemorrhage, acute infarction or abnormal extra axial fluid collect ion. There is mild scattered white matter hypoattenuation consistent with chronic small vessel ischem ic disease. Symmetric prominence of the sulci consistent with mild age-appropriate diffuse cerebral v olume loss. No mass/mass effect. Pedicles are normal and symmetric. Changes of bilateral intraocular lens replacement. The orbits, paranasal sinuses and mastoid air cells are normal. Intracranial calcif ied cerebral atherosclerosis is noted. IMPRESSION: 1. Normal aging brain. No fracture or acute intracranial process. Reviewed, dictated and finalized at location A.
--- NOTE | ~2024-07-08 | CT_ITS ---
EXAMINATION: CT cervical spine wo con DATE: 07/08/2024 08:51 INDICATION: Fall with head injury TECHNIQUE: Computed tomography (CT) of the cervical spine was performed without intravenous contrast. Automated exposure control and iterative reconstruction technique were employed. The dose-length pro duct was 478.91 mGy-cm. COMPARISON: None FINDINGS: Alignment is normal. Moderate osteoarthritis at the atlantoaxial articulation with some surrounding c alcified pannus. Vertebral body heights are normal. No fracture. Moderate to severe disc height loss with degenerative endplate changes at C3-C4 and C5-C6. Mild disc height loss at C2-C3, C4-C5 and C7-T 1. Severe uncovertebral osteoarthritis bilaterally at C5-C6 and on the left at C3-C4. Mild to moderat e uncovertebral osteoarthritis and remainder of the cervical spine. Small disc bulges at C2-C3 and C4 -C5 and posterior disc osteophyte complexes at C3-C4 and C5-C6 resulting in multilevel mild central c anal stenosis at these levels. Multilevel moderate to severe cervical and upper thoracic facet osteoa rthritis. There is moderate neural foraminal stenosis on the left at C3-C4, right at C4-C5 and bilate rally at C5-C6. Minimal to mild neural from stenosis at many of the remaining cervical neural foramin a. Cervical soft tissues are unremarkable. Groundglass opacities in the lungs apices of lungs. IMPRESSION: 1. Moderate to severe cervical spondylosis. No acute osseous abnormality. 2. Groundglass opacities and small subsolid nodules at the apices of lungs with which could be due to pneumonia or hypersensitivity pneumonitis. Reviewed, dictated and finalized at location A.
--- NOTE | ~2024-07-08 | CT_ITS ---
EXAMINATION: CT thoracic lumbar wo con DATE: 07/08/2024 08:51 INDICATION: Fall with head injury TECHNIQUE: Computed tomography (CT) of the thoracic spine was performed without intravenous contrast. Automated exposure control and iterative reconstruction technique were employed. The dose-length pro duct was 1122.70 mGy-cm. COMPARISON: None FINDINGS: Thoracic spine: 10 degrees upper thoracic levocurvature. Sagittal alignment is normal. Vertebral body heights are nor mal. No fracture. Moderate to severe disc height loss at T11-T12. Moderate disc height loss at T4-T5 through T6-T7 and mild disc height loss at the remaining thoracic levels. There are small disc protru sions contributing to minimal central canal stenosis at T5-T6, T6-T7, T7-T8 and T11-T12. Multilevel m oderate to severe thoracic facet osteoarthritis most prominent at the left side of the upper thoracic spine and right-sided midthoracic spine with solid osseous fusion across the right T5-T6. Respirator y motion and mild atelectasis in the dependent lower lobes. Calcified right hilar and mediastinal lym ph nodes also few small hepatic and splenic calcifications consistent with old granulomatous disease. Small sliding-type hiatal hernia. Lumbar spine: There is 60 degrees thoracolumbar levocurvature and 6 degrees lumbar dextrocurvature. 5 mm anterolist hesis L4 on L5, to have 3 mm retrolisthesis L1 on L2 and one-2 mm retrolisthesis L2 on L3 and L3 on L 4. Vertebral body heights are normal. No acute fracture. Severe disc height loss with degenerative en dplate changes at L1-L2 through L3-L4 and L5-S1. Moderate disc height loss at L4-L5 and T12-L1. There are disc bulges at each of the lumbar levels.. Multilevel severe lumbar facet osteoarthritis. Ligame ntum flavum hypertrophy at L3-L4 where it contributes to moderate central canal stenosis and more pro minently at L4-L5 where it contributes to severe central canal stenosis. There is additional mild oscar tral canal stenosis at T12-L1 through L2-L3. Posterior decompression with left-sided hemilaminotomy a t L5-S1. Calcified degenerated uterine fibroids. Sigmoid diverticulosis without adjacent from trace s tranding to suggest diverticulitis. IMPRESSION: 1. No acute osseous abnormality. Thoracic or lumbar spine. 2. Mild upper thoracic levocurvature with moderate spondylosis. 3. Mild S-shaped curvature of the lumbar spine and thoracolumbar junction with severe spondylosis. Reviewed, dictated and finalized at location A.
[2024-07-08 07:40] VITALS: BP 154/56; PULSE 88; RESP 14; TEMP 36.4; O2SAT 98
[2024-07-08 07:57] VITALS: BP 142/62; PULSE 85; RESP 22; O2SAT 92
--- NOTE | 2024-07-08 08:00 | ED.FALL ---
HPI - Fall General Chief Complaint: Fall Stated Complaint: glf Time Seen by Provider: 07/08/24 08:00 Source: patient and EMS Mode of arrival: EMS History of Present Illness HPI Narrative: 84 years old white female came from senior living by ambulance, complaining of left forehead pain and back pain. Patient tripped this morning into the wall hitting her head patient went down to the floor, no loss of consciousness, complaining of pain all over mainly head and back. History of chronic lower back pain. She denies any fever, chills, nausea, vomiting, shortness of breath, chest pain, diarrhea or constipation or urinary symptom Related Data Home Medications ?Medication ?Instructions ?Recorded ?Confirmed ?Last Taken ?Type amlodipine 5 mg tablet 5 mg PO DAILY 12/17/19 04/30/24 Unknown History aspirin 81 mg tablet,delayed 81 mg PO DAILY 12/17/19 04/30/24 Unknown History release (Adult Aspirin Regimen) atorvastatin 40 mg tablet 40 mg PO HS 12/17/19 04/30/24 Unknown History metoprolol succinate 50 mg 50 mg PO DAILY 12/17/19 04/30/24 Unknown History tablet,extended release 24 hr Daily-Danette 1 tab-cap PO DAILY 04/18/22 04/30/24 Unknown History fluticasone propionate 50 1 spray intranasal BID 04/18/22 04/30/24 Unknown History mcg/actuation nasal spray,suspension nitroglycerin 0.4 mg sublingual 0.4 mg sublingual PRN PRN Chest 04/18/22 04/30/24 Unknown History tablet Pain ergocalciferol (vitamin D2) 1,250 1,250 mcg PO DIRECTED 07/29/22 04/30/24 Unknown History mcg (50,000 unit) capsule polyethylene glycol 3350 17 17 g PO DAILY PRN Constipation 07/29/22 04/30/24 Unknown History gram/dose oral powder clobetasol 0.05 % topical ointment 1 applic topical DAILY 11/07/22 04/30/24 Unknown History conjugated estrogens 0.625 mg/gram 0.625 mg vaginal .COMPLEX 11/07/22 04/30/24 Unknown History vaginal cream (Premarin) trazodone 50 mg tablet 50 mg PO QHS 11/07/22 04/30/24 Unknown History duloxetine 30 mg capsule,delayed mg PO 04/01/24 04/30/24 Unknown History release levocetirizine 5 mg tablet mg 04/01/24 04/30/24 Unknown History vibegron 75 mg tablet (Gemtesa) mg 04/01/24 04/30/24 Unknown History acetaminophen 500 mg tablet 100 mg PO BID PRN 04/30/24 04/30/24 Unknown History (Tylenol Extra Strength) gabapentin 600 mg tablet 600 mg PO TID 04/30/24 04/30/24 Unknown History losartan 50 mg tablet 50 mg PO DAILY 04/30/24 04/30/24 Unknown History amlodipine 2.5 mg tablet mg 05/20/24 Unknown History aspirin 81 mg chewable tablet 05/20/24 Unknown History duloxetine 60 mg capsule,delayed mg PO 05/20/24 Unknown History release hydroxyzine HCl 25 mg tablet mg 05/20/24 Unknown History losartan 100 mg tablet mg 05/20/24 Unknown History multivitamin with folic acid 400 tablet PO 05/20/24 Unknown History mcg tablet (Tab-A-Danette) nystatin 100,000 unit/gram topical topical 05/20/24 Unknown History cream nystatin 100,000 unit/gram topical topical 05/20/24 Unknown History ointment pantoprazole 40 mg tablet,delayed mg PO 05/20/24 Unknown History release sennosides 8.6 mg tablet (senna) mg 05/20/24 Unknown History Allergies Allergy/AdvReac Type Severity Reaction Status Date / Time prednisone Allergy Mild Unknown Verified 05/20/24 16:09 rosiglitazone Allergy Mild Unknown Verified 05/20/24 16:09 azithromycin Allergy Unknown Unknown Verified 05/20/24 16:09 ceftriaxone Allergy Unknown Unknown Verified 05/20/24 16:09 codeine Allergy Unknown Unknown Verified 05/20/24 16:09 ibuprofen Allergy Unknown Unknown Verified 05/20/24 16:09 latex Allergy Unknown Unknown Verified 05/20/24 16:09 naproxen Allergy Unknown Unknown Verified 05/20/24 16:09 Review of Systems Review of Systems: All systems reviewed & are unremarkable except as noted in HPI and below PMFSH Past Medical History Medical History Hyperlipidemia Heart failure with reduced ejection fraction (03/2022) EF 40 to 45%. Basal cell carcinoma Overactive bladder Depression Frequent urinary tract infections Obstructive sleep apnea Arthritis Insulin dependent type 2 diabetes mellitus Gastroesophageal reflux disease Anemia Hypertension Osteopenia Surgical History Surgical History History of esophageal dilatation History of dilation and curettage History of lumbar surgery (1990) History of cholecystectomy History of appendectomy Family History Family History Mother Hypertension Family history of diabetes mellitus in first degree relative Family history of heart disease in male family member before age 55 Father Carcinoma of colon Family history of malignant neoplasm of gastrointestinal tract Social History Social History Social History: Surrogate medical decision maker: angel Dye. Code status: Full code. Smoking status: Never smoker Second hand tobacco smoke exposure: No Alcohol intake: never Substance use: never Do You Feel Safe in your Home?: Yes Lack of Transportation: YES Lack of Food: Never True Current Housing: I Have Housing Concerned About Future Housing: No Difficulty Paying Gas/Electric Bills: No Difficulty Paying for Meds: No Currently Unemployed: No Education: High School Diploma/GED Difficulty w/ Childcare or Family Care: No Additional living arrangements comments: Assisted living at [facility] since 12/15/2021. Spiritual care concerns: No Exam Narrative: General appearance: Well-developed, well-nourished Skin: Normal color Head: Normocephalic, nontraumatic Eyes: Clear conjunctiva ENT: Oropharynx normal, ears normal, nose normal Neck: Supple, nontender Chest and respiratory: Airway patent, no respiratory distress, no accessory muscle use Heart: Regular rate/rhythm Abdomen: Soft, nontender, no organomegaly, quiet bowel sounds Vascular: Normal peripheral pulses, normal capillary refill. Musculoskeletal: Diffuse tenderness along the thoracic and lumbar spine, lumbar surgical scar, no bruises, no swelling Neurologic: Alert and oriented ?3, SIDE SHOW ENTERTAINER is normal as tested, no gross motor deficit Course Vital Signs Vital signs: Vital Signs Temperature 36.4 C L 07/08/24 07:40 Pulse Rate 88 07/08/24 07:40 Respiratory Rate 14 07/08/24 07:40 Blood Pressure 154/56 H 07/08/24 07:40 Pulse Oximetry 98 07/08/24 07:40 Oxygen Delivery Room Air 07/08/24 07:40 Temperature 36.4 C L 07/08/24 07:40 Pulse Rate 88 07/08/24 07:40 Respiratory Rate 14 07/08/24 07:40 Blood Pressure 154/56 H 07/08/24 07:40 Pulse Oximetry 98 07/08/24 07:40 Oxygen Delivery Room Air 07/08/24 07:40 MDM - Fall MDM Narrative Medical decision making narrative: Patient had a fall at the senior living complaining of back pain, left head pain CT head and cervical spine without contrast showed no acute abnormality CT thoracic and lumbar spine showed no acute osseous abnormality Discharge back to senior living, continue home medications. Differential Diagnosis Differential diagnosis: Likely compression fracture, concussion without loss of consciousness and other Imaging Data Radiologist's impression: Impressions Head CT 07/08/24 08:54 IMPRESSION: 1. Normal aging brain. No fracture or acute intracranial process. Cervical Spine CT 07/08/24 09:05 IMPRESSION: 1. Moderate to severe cervical spondylosis. No acute osseous abnormality. 2. Groundglass opacities and small subsolid nodules at the apices of lungs with which could be due to pneumonia or hypersensitivity pneumonitis. Thoracic/Lumbar Spine CT 07/08/24 09:17 IMPRESSION: 1. No acute osseous abnormality. Thoracic or lumbar spine. 2. Mild upper thoracic levocurvature with moderate spondylosis. 3. Mild S-shaped curvature of the lumbar spine and thoracolumbar junction with severe spondylosis. Critical Care Time Critical Care Time Critical Care Time: No Discharge Plan Discharge Clinical Impression: Back pain Patient Disposition: [place] Nursing Home/Asst Living Condition: Stable Instructions: Back Pain (ED) Additional Instructions: Return if symptoms are worsening , call your family physician for appointment, take Tylenol as as needed for aches and pain, continue home medications. Patient Language: Japanese Prescriptions: No Action duloxetine 30 mg capsule,delayed release(DR/EC) PO levocetirizine 5 mg tablet Gemtesa 75 mg tablet albuterol sulfate 90 mcg/actuation HFA aerosol inhaler 2 puff inhalation Q4-6H PRN (Reason: shortness of breath or wheezing) 30 Days Qty: 8.5 0RF gabapentin 600 mg tablet 600 mg PO TID sennosides [senna] 8.6 mg tablet nystatin 100,000 unit/gram ointment TOPICAL amlodipine 2.5 mg tablet pantoprazole 40 mg tablet,delayed release (/EC) PO nystatin 100,000 unit/gram cream TOPICAL aspirin 81 mg tablet,chewable hydroxyzine HCl 25 mg tablet losartan 100 mg tablet duloxetine 60 mg capsule,delayed release(DR/EC) PO multivitamin with folic acid [Tab-A-Danette] 400 mcg tablet PO amlodipine 5 mg tablet 5 mg PO DAILY aspirin [Adult Aspirin Regimen] 81 mg tablet,delayed release (DR/EC) 81 mg PO DAILY atorvastatin 40 mg tablet 40 mg PO HS metoprolol succinate 50 mg tablet extended release 24 hr 50 mg PO DAILY acetaminophen [Tylenol Extra Strength] 500 mg tablet 100 mg PO BID PRN trazodone 50 mg tablet 50 mg PO QHS Premarin 0.625 mg/gram cream 0.625 mg vaginal .COMPLEX Rx Instructions: 0.625 mg vaginally Sunday and Sunday; apply a peas size amount clobetasol 0.05 % ointment 1 applic topical DAILY famotidine [Pepcid] 40 mg tablet 40 mg PO QHS Qty: 90 3RF losartan 50 mg tablet 50 mg PO DAILY Ozempic 2 mg/dose (8 mg/3 mL) pen injector 2 mg subcut WEEKLY 90 Days Qty: 9 3RF doxycycline hyclate 100 mg capsule 100 mg PO BID 7 Days Qty: 14 0RF fluticasone propionate [Flonase Allergy Relief] 50 mcg/actuation spray,suspension 1 spray intranasal Q12H Qty: 16 0RF Rx Instructions: administer into each nostril meclizine 25 mg tablet 25 mg PO BID PRN (Reason: dizziness) Qty: 20 0RF meclizine 25 mg tablet 25 mg PO BID PRN (Reason: dizziness) Qty: 30 0RF doxycycline hyclate 100 mg capsule 100 mg PO BID 7 Days Qty: 14 0RF fluticasone propionate [Flonase Allergy Relief] 50 mcg/actuation spray,suspension 1 spray intranasal BID Qty: 16 0RF Rx Instructions: administer into each nostril nitroglycerin 0.4 mg tablet, sublingual 0.4 mg sublingual PRN PRN (Reason: Chest Pain) Rx Instructions: dissolve 1 tab under the tongue every 5 min for chest pain up to 3 doses in 15 mins if pain persists seek medical attention fluticasone propionate 50 mcg/actuation spray,suspension 1 spray INTRANASAL BID Daily-Danette 1 tab-cap PO DAILY trimethoprim 100 mg tablet 100 mg PO HS Qty: 30 6RF ergocalciferol (vitamin D2) 1,250 mcg (50,000 unit) capsule 1,250 mcg PO DIRECTED Rx Instructions: every sunday polyethylene glycol 3350 17 gram/dose powder 17 g PO DAILY PRN (Reason: Constipation) miconazole nitrate 2 % Cream 1 appful vaginal HS Qty: 45 0RF phenazopyridine 100 mg Tablet 200 mg PO TIDWM Qty: 30 0RF hydrocodone-acetaminophen 5-325 mg tablet 1 tablet PO Q8H PRN (Reason: Pain) Qty: 12 0RF nystatin 100,000 unit/gram powder 1 applic TOPICAL BID Qty: 60 1RF Rx Instructions: apply to gential area bid insulin regular hum U-500 conc 500 unit/mL (3 mL) insulin pen See Rx Instructions subcut .COMPLEX 90 Days Qty: 15 1RF Rx Instructions: 70 units before breakfast one time daily (DME) FreeStyle Shayne 3 [place] Misc See Rx Instructions .Route Qty: 1 0RF Rx Instructions: As directed (DME) FreeStyle Shayne 3 Plus Sensor Device See Rx Instructions .Route Qty: 6 2RF Rx Instructions: As directed Follow-up/Referrals: PHYSICIAN,CLAY STRUCTURE BUILDER AND SERVICER [Non-Staff] -
--- OUTSIDE RECORDS SUMMARY | 2024-07-08 08:13 | XMS_ITS | Clinical Summary ---
Author Organization [facility] Address [address] [address] Phone Care Team Providers Care Strategy Execution Consultant Name Role Phone Ji Blankenship MD Primary Care Provider [phone] Allergies Active Allergy Reactions Criticality Noted Date [...] flaxseed mix with cereal in am by [facility].(Non-D rug; Combo Route) route. Active Active Problems Patient Care Coordination No te Formatting of this note migh t be different from the original. Primary Care: Ji Blankenship MD (General) Referring Provider: Ji Blankenship MD [facility] [address] [place] [address] Other: Problem Noted Date Diagnosed Date Breast [...] MEDICARE PART A AND B Care Teams Strategy Execution Consultant Relationship Specialty Start Date End Date Ji Blankenship MD [facility] [place] [address] [place] [id number] PCP - General Internal Medicine 09/22/14
--- OUTSIDE RECORDS SUMMARY | 2024-07-08 08:13 | XMS_ITS | Continuity of Care Document ---
Author Organization [facility] Address [address] [place] [address] Phone Care Team Providers Care Director Global Intelligence Name Role Phone Chandler OD, [place] Unavailable [...] Date Provider Providers Copied on Encounter [facility], [address] [place] [address] [address], [place], [place], [id number], tel:[phone] [facility] No Information Oct- 0-201 0 Chandler OD Cruzito. [address] , [address], [place], [address], [place]. tel:[phone] [facility], [address], [place], [place], [id number], [place] tel:[phone] [facility] No Information 5-200 9 Chandler OD Cruzito. [address] , [address], [place], [address], [place]. tel:[phone] [facility], [address], [place], [place], [id number], [place] tel:[phone] [facility] No Information 0-200 8 Chandler OD Cruzito. [address] [facility] , [address], [place], [address], [place]. tel:[phone] Referring Provider: Umer Tomlinson MD, [address], [place], [address]. tel:[phone] [facility], [address], [place], [place], [id number], [place] tel:[phone] [facility] No Information 1-200 7 Chandler OD Cruzito. [address] [facility] , [address], [place], [address], [place]. tel:[phone] Referring Provider: Cruzito Chandler OD Armin, [address] [facility] [address], [place], [place], [facility]. tel:[phone] Family History Family Member Type Diagnosis Age At Onset No Information Payers Payer name Insurance type Covered alliance party ID Authorkaylen jaramillo(s) [place] [id number] Social History Type Description Quantity Date Captured [...]
--- OUTSIDE RECORDS SUMMARY | 2024-07-08 08:13 | XMS_ITS | Referral Summary ---
Author Organization [facility] [address] [place] Address [address] [place] [address] Care Team Providers Care Emergency Medical Services Coordinator Name Role Phone Marlee Dumont NP Primary Care Provider [phone] Allergies Active Allergy Reactions Criticality Noted Date [...] on file Legal Sex Female 10:21 AM SHAKER SCREEN OPERATOR Gender Identity Not on file Sexual Orientation Not on file Last Filed Vital Signs Vital Sign Reading Time Taken Comments Blood Pressure 126/78 04/04/2022 9:19 AM SHAKER SCREEN OPERATOR Pulse 82 04/04/2022 9:19 AM SHAKER SCREEN OPERATOR Temperature 36.8 C (98.3 F) 04/04/2022 9:19 AM SHAKER SCREEN OPERATOR Respiratory Rate 18 04/04/2022 9:19 AM SHAKER SCREEN OPERATOR Oxygen Saturation 96% 04/04/2022 9:19 AM SHAKER SCREEN OPERATOR Inhaled Oxygen Concentration - - Weight 100.7 kg (222 lb) 04/04/2022 9:19 AM SHAKER SCREEN OPERATOR Height 160 cm (5' 3 ) 04/04/2022 9:19 AM SHAKER SCREEN OPERATOR Body Mass Index 39.33 04/04/2022 9:19 AM SHAKER SCREEN OPERATOR Plan of Treatment Not on file Insurance [address] [place] [id number] [facility] MEDICARE ADVANTAGE IDPA IDPA Care Teams Emergency Medical Services Coordinator Relationship Specialty [place] [address] [address] PCP - General Nurse Practitioner 04/04/22
--- OUTSIDE RECORDS SUMMARY | 2024-07-08 08:13 | XMS_ITS | Clinical Summary ---
Author Organization [facility] [address] Address [address] [place] [address] Care Team Providers Care Spearer Name Role Phone Marlee Dumont NP Primary Care Provider [phone] Allergies Active Allergy Reactions Criticality Noted Date [...] on file Legal Sex Female 10:21 AM REGISTRAR MUSEUM Gender Identity Not on file Sexual Orientation Not on file Obstetrics History Last Filed Vital Signs Vital Sign Reading Time Taken Comments Blood Pressure 126/78 04/04/2022 9:19 AM REGISTRAR MUSEUM Pulse 82 04/04/2022 9:19 AM REGISTRAR MUSEUM Temperature 36.8 C (98.3 F) 04/04/2022 9:19 AM REGISTRAR MUSEUM Respiratory Rate 18 04/04/2022 9:19 AM REGISTRAR MUSEUM Oxygen Saturation 96% 04/04/2022 9:19 AM REGISTRAR MUSEUM Inhaled Oxygen Concentration - - Weight 100.7 kg (222 lb) 04/04/2022 9:19 AM REGISTRAR MUSEUM Height 160 cm (5' 3 ) 04/04/2022 9:19 AM REGISTRAR MUSEUM Body Mass Index 39.33 04/04/2022 9:19 AM REGISTRAR MUSEUM Plan of Treatment Health Maintenance Due Date [...] 5 season) 2023 06/01/2020, 05/04/2020 Influenza Vaccine (Season Ended) 2024 12/02/2020, 12/09/2019, 12/09/2019, Additional history exists Pneumococcal vaccine 65+ Completed 019, 08/25/2015, 08/22/2015, Additional history exists Insurance [facility] MEDICARE ADVANTAGE IDPA IDPA Care Teams Spearer Relationship Specialty [place] [address] [address] [address] PCP - General Nurse Practitioner 04/04/22
--- OUTSIDE RECORDS SUMMARY | 2024-07-08 08:13 | XMS_ITS | Data Portability ---
Author Organization [facility] Address [address] [place] [address] [place] [address] Care Team Providers Care Manager Video Games Name Role Phone VIDHYA CRAFT Referring Provider [phone] Assessment No assessment recorded. Plan of Treatment Reminders Order Date Submit Date Provider Last Modified By Organization Details Last Modified Time Details Appointments None recorded. Lab urinalysis, dipstick 2024 025 [email or web address] [place], [address], [place], [address], 5 12:29:59 urinalysis, dipstick 2024 025 [email or web address] [place], [address], [place], [address], 5 15:32:20 urinalysis, dipstick 2023 024 [email or web address] [place], [address], [place], [address], 4 14:45:19 Referral None recorded. Procedures None recorded. Surgeries None recorded. Imaging None recorded. Medication Orders levocetiriz ine 5 mg tablet 2023 024 [facility], [address] [place] [address], [address], 4 12:03:48 estradiol 0.01% (0.1 mg/gram) vaginal cream 2023 [facility], [address] [place] [address], [address], 11:55:34 Cipro 500 mg tablet 2023 [facility], [address] [place] [address], [address], 11:25:23 oxybutynin chloride ER 5 mg tablet,exte nded release 24 hr 2023 [facility], [address] [place] [address], [address], 14:55:33 Patient TargetsNo targets recorded. Patient InstructionsNo instructions recorded. Reason for Referral None Reported. Results Created Date Observation Date Name Description Value Unit Range Abnormal Flag Note LastModifiedBy Organization Detail LastModifiedTime 09/19/1909/19/2023 urina lysis , dipst ick Leukocytes + Not Available [facility]i [facility] [address], [place], [address], 09/19/2023 14:44:49 09/19/1909/19/2023 urina lysis , dipst ick Nitrite neg Not Available Elsa [address], [place], [address], 09/19/2023 14:44:49 09/19/1909/19/2023 urina lysis , dipst ick Urobilinogen neg Not Available Terrence villegas [address], [place], [address], 09/19/2023 14:44:49 09/19/1909/19/2023 urina lysis , dipst ick Protein trace Not Available [facility] [address], [place], [address], 09/19/2023 14:44:49 09/19/1909/19/2023 urina lysis , dipst ick pH 6 Not Available [place] [address], [place], [address], 09/19/2023 14:44:49 09/19/19 24 09/19/2023 urina lysis , dipst ick Blood trace Not Available [place] [address], [place], [address], 09/19/2023 14:44:49 09/19/1909/19/2023 urina lysis , dipst ick Specific [place] 1.015 [facility] Available [facility] [address], [place], [address], 09/19/2023 14:44:49 09/19/19 24 09/19/2023 urina lysis , dipst ick Ketone neg Not Available [place] [address], [place], [address], 09/19/2023 14:44:49 09/19/19 24 09/19/2023 urina lysis , dipst ick Bilirubin neg Not Available Antonietta le [address], [place], [address], 09/19/2023 14:44:49 09/19/1909/19/2023 urina lysis , dipst ick Glucose neg Not Available [place] [address], [place], [address], 09/19/2023 14:44:49 09/19/19 24 09/19/2023 urina lysis , dipst ick Appearance clear Not Available [facility] [address], [place], [address], 09/19/2023 14:44:49 09/19/19 24 09/19/2023 urina lysis , dipst ick Color yellow Not Available [place] [address], [place], [address], 09/19/2023 14:44:49 03/14/19 25 03/14/2024 CULTU RE: URINE result report SEE RESULT S BELOW Test: Cultu re: Urine Speci men Sourc e: Urine - Clean Catch Speci men Type: Urine Speci men Date: 2024 1444 Resul t Date: 2024 2134 Resul t Statu s: Final resul t Abnor mal: No Resul ting Lab: [facility] [address] [facility] [address] Tel: CULTU RE ----- ----- ----- --- No growt h in 1 day (dete ction level of 10,00 0 colon ies / ml.) Not Available [facility] (Lab) [address] [facility], [place], [address], 03/15/2024 22:40:00 03/14/19 25 03/14/2024 urina lysis , dipst ick Leukocytes 6 Not Available [facility] [place] [address], [place], [address], 03/14/2024 15:30:25 03/14/19 25 03/14/2024 urina lysis , dipst ick Nitrite NEG Not Available [place] [address], [place], [address], 03/14/2024 15:30:25 03/14/19 25 03/14/2024 urina lysis , dipst ick Urobilinogen NEG Not Available [facility] [address], [place], [address], 03/14/2024 15:30:25 03/14/19 25 03/14/2024 urina lysis , dipst ick Protein POS Not Available [place] [address], [place], [address], 03/14/2024 15:30:25 03/14/19 25 03/14/2024 urina lysis , dipst ick pH 5 Not Available [place] [address], [place], [address], 03/14/2024 15:30:25 03/14/19 25 03/14/2024 urina lysis , dipst ick Blood + Not Available [place] [address], [place], [address], 03/14/2024 15:30:25 03/14/19 25 03/14/2024 urina lysis , dipst ick Specific [place] 1.010 Not Available [facility] [place] [address], [place], [address], 03/14/2024 15:30:25 03/14/19 25 03/14/2024 urina lysis , dipst ick Ketone NEG Not Available [place] [address], [place], [address], 03/14/2024 15:30:25 03/14/19 25 03/14/2024 urina lysis , dipst ick Bilirubin NEG Not Available [facility] [address], [place], [address], 03/14/2024 15:30:25 03/14/19 25 03/14/2024 urina lysis , dipst ick Glucose TRACE Not Available [place] [address], [place], [address], 03/14/2024 15:30:25 03/14/19 25 03/14/2024 urina lysis , dipst ick Color DARK YELLOW Not Available [place] [address], [place], [address], 03/14/2024 15:30:25 03/24/19 25 03/24/2024 CULTU RE: URINE result report SEE RESULT S BELOW Test: Cultu re: Urine Speci men Sourc e: Urine - Clean Catch Speci men Type: Urine Speci men Date: 2024 1132 Resul t Date: 2024 1110 Resul t Statu s: Final resul t Abnor mal: No Resul ting Lab: [facility] [address] [facility] [address] Tel: CULTU RE ----- ----- ----- --- Cultu re resul t (>=3 organ isms prese nt) indic ates possi ble conta minat ion. Repea t cultu re if sympt oms indic ate. Not Available [facility] (Lab) [address], [place], [address], 03/26/2024 12:15:03 03/24/19 25 03/24/2024 urina lysis , dipst ick Leukocytes + Not Available [facility] [place] [address], [place], [address], 03/24/2024 11:41:12 03/24/19 25 03/24/2024 urina lysis , dipst ick Protein trace Not Available [place] [address], [place], [address], 03/24/2024 11:41:12 03/24/19 25 03/24/2024 urina lysis , dipst ick pH 5 Not Available [place] [address], [place], [address], 03/24/2024 11:41:12 03/24/19 25 03/24/2024 urina lysis , dipst ick Blood trace Not Available [place] [address], [place], [address], 03/24/2024 11:41:12 03/24/19 25 03/24/2024 urina lysis , dipst ick Specific [place] 1.015 Not Available [facility] [address], [place], [address], 03/24/2024 11:41:12 03/24/1903/24/2024 urina lysis , dipst ick Appearance cloudy Not Available [facility] [address], [place], [address], 03/24/2024 11:41:12 03/24/1903/24/2024 urina lysis , dipst ick Color yellow Not Available [place] [address], [place], [address], 03/24/2024 11:41:12 Result Notes None recorded. Problems Name Problem SNOMED Code Status Onset Date Resolution Date Notes Provider Name and Address Organization Details Recorded Time Genital lichen sclerosus 883640662 Active 2021 Jayla Adhikari MD [address], [place], [address], [facility] 11:34:33 Genital herpes simplex 32545038 Active 2022 Jayla Adhikari MD [address], [place], [address], [facility] 12:35:52 Notes:Some problems listed i n Document: #[id number] could not be added to this patient's chart. Please review this document and add these problems to the patient's chart manually as needed. Problem Notes None recorded. Procedures Surgical History Date Name Laterality Status Provider Name and Address Organization Details Recorded Time 022 Vulvar Biopsy completed Jayla Adhikari MD [address], [place], [address], [facility] 09/09/2021 11:23:51 996 cholecystectomy completed Gladys Duran [facility] 08/19/2021 10:18:57 991 procedure on back completed Gladys Duran [facility] 08/19/2021 10:19:23 959 Appendectomy completed Gladys Duran [facility] 08/19/2021 10:19:05 Imaging Results None recorded. Procedure Notes None recorded. Medical Equipment None Reported. Allergies Allergen ID Allergen Name Allergen Category Reaction Reaction Severity Criticality Documentation Date Start Date Code Code System Note Provider Name and Address Organization Details Recorded Time 12892 naproxen medicatio n Not available Not available Not available 08/19/2021 7258 [facility] 10:22:01 13660 codeine medicatio n Not available Not available Not available 08/19/2021 2670 [facility] 10:22:13 12298 latex environme nt,medica tion Not available Not available Not available 08/19/2021 33505 91 RxNorm Gladys holliday, [facility] 2 10:22:18 54458 morphine medicatio n Not available Not available Not available 08/19/2021 7052 [facility] 10:22:23 02306 prednison e medicatio n Not available Not available Not available 08/19/2021 8640 RxNorm Gladys holliday, [facility] 2 10:22:35 65127 Rocephin medicatio n Not available Not available Not available 08/19/2021 9449 [facility] 10:22:42 39121 tramadol medicatio n Not available Not available Not available 08/19/2021 32208 RxNorm Gladys holliday [facility] 2 10:22:53 79562 azithromy franky medicatio n Not available Not available Not available 08/19/2021 65802 RxNorm Gladys Duran null, [facility] 2 10:22:58 56665 Substance with sulfonami de structure and antibacte rial mechanism of action (substanc e) medicatio n Not available Not available Not available 08/19/2021 15738 8003 SNOMED Gladysdonn Duran null, [facility] 2 10:23:26 28929 lidocaine medicatio n rash Not available low 08/19/2021 6387 RxNorm Leesa diaz, [facility]- [address], [place], [address] [place] [address], [facility] 2 14:19:07 Medications Name Sig Start [...] No t Available FreeStyle Shayne 14 Day [place] USE DIRECTED active Not Available Not Available [...] Updated DateTime 09/19/2023 160.02 cm 35.1 kg/m2 64629.01 g 148 mm[Hg] 67 mm[Hg] Sarah George [facility] 14:02:54 Date Recorded Body height Body mass index (BMI) Body weight Systolic blood pressure Diastolic blood pressure Provider Name and Address Organization Details Last Updated DateTime 12/13/2023 160.02 cm 35.1 kg/m2 64068.29 g 140 mm[Hg] 80 mm[Hg] Lamar Saldana [facility] 4 11:24:48 Date Recorded Body height Body mass index (BMI) Body weight Provider Name and Address Organization Details Last Updated DateTime 03/14/2024 160.02 cm 35.1 kg/m2 16198.29 g ANASTASIA Roach [facility] 03/14/2024 15:30:05 Date Recorded Body height Body mass index (BMI) Body weight Systolic blood pressure Diastolic blood pressure Provider Name and Address Organization Details Last Updated DateTime 03/24/2024 160.02 cm 34.9 kg/m2 92519.7 g 147 mm[Hg] 70 mm[Hg] [facility] 11:39:33 Date Recorded Body height Body mass index (BMI) Body weight Systolic blood pressure Diastolic blood pressure Provider Name and Address Organization Details Last Updated DateTime 04/22/2024 160.02 cm 35.3 kg/m2 11067.88 g 149 mm[Hg] 68 mm[Hg] Lamar [facility] 10:16:43 Social History Question Answer Notes LastModified by Organizat ion Details LastModified Time Tobacco Smoking Status Never Smoker Gladys holliday [facility] 08/19/2021 10:19:33 Are You Blind Or Do You Have Difficulty Seeing? No Information not available 08/22/2022 Are You Deaf Or Do You Have Serious Difficulty Hearing? No Information not available 08/22/2022 Has Tobacco Cessation Counseling Been Provided? No Information not available 08/19/2021 Sex: Unknown Functional Status Question Answer Note LastModified by Organizat ion Details LastModified Time Do you use any illicit or recreational drugs? No Information not available 08/19/2021 Do you or have you ever used any other forms of tobacco or nicotine? No Information not available 08/19/2021 What is your level of alcohol consumption? None Information not available 08/19/2021 Do you have difficulty walking or climbing stairs? No Information not available 08/22/2022 Are you able to walk? YESWOREST Information not available 08/22/2022 Are you able to care for yourself? Yes Information n ot available 08/22/2022 Do you have difficulty dressing [...] SNOMED-CT Code Diagnosis ICD10 Code Diagnosis Note [id number] Jayla Adhikari MD [place] [address],[place] [address] 08/19/2021 09:44:34 08/19/2021 11:23:42 Candidal vulvovaginitis 04470857 B37.3 Genital li wan sclerosus 993834499 L90.0 [id number] [facility] [address],[place] [address] 08/30/2021 13:53:12 08/30/2021 14:43:15 Sexually transmitted infectious disease 2689014 A64 Vaginitis 36563064 A60.9 Suspect HSV on examSwab takenNo previous [...] possible issues (i.e. Behcet's dz, LS, DIS). [id number] Jayla Adhikari MD [place] [address],[place] [address] 09/09/2021 10:55:34 09/09/2021 11:28:40 Pruritus of vulva 95645723 L29.2 Lesion of vulva 75362320 6 N90.89 [id number] Brittani Ríos JEREMIAH [place] [address],[place] [address] 08/22/2022 09:48:25 08/22/2022 15:12:42 Genital herpes simplex 92832098 A60.9 suspect HSV lesionHSV PCR sentRx for valtrex, R/B/A discussedv ulvar care guidelines discussedl oose clothing recommende drefill clobetasol , R/B/A discussedf /u in 1-2 months for vulvar check Time spent in visit is a total of 30 mins with at least 50% of visit consisting of counseling and review of plan of care. Lichen scl erosus of vulva 111668937 N90.4 [id number] Jayla Adhikari MD [place] [address],[place] [address] 10/03/2022 12:08:08 10/03/2022 14:13:08 Genital herpes simplex 98642930 A60.9 Genital li wan sclerosus 408119335 L90.0 [id number] DANIELA MCDOWELL MD [place] [address],[place] [address] 06/22/2023 15:17:12 06/27/2023 02:47:29 Atrophic vaginitis 16511288 N95.2 - UTI symptoms possibly related to genitourin koki syndrome of - will trial estradiol cream 3x weekly to improve atrophy- culture sent- some prolapse on exam, not significan t for causing UTIs- RTC 1 month [id number] DANIELA MCDOWELL MD [place] [address],[place] [address] 07/24/2023 10:18:06 07/24/2023 11:17:34 Urinary symptoms 385327497 R39.9 - symptoms improved with estradiol cream- continue estradiol per vagina, ok to decrease to 1-2x per week if symptoms continue to improve- rtc 1 year Itching of skin 51259389 0 L29.9 [id number] Db Macario MD [place] [address],[place] [address] 09/19/2023 13:33:32 09/25/2023 09:16:38 Urinary symptoms 273056117 R39.9 Acute urin koki tract infection 135972980 N39.0 Urgent vilma ethel to urinate 86597814 R39.15 Atrophic vulva 495325117 N90.5 this patient is an 83-year-ol d [...] is given precaution s and instructio ns. [id number] Db Macario MD [place] [address],[place] [address] 12/13/2023 11:00:02 12/14/2023 08:18:55 Atrophic vulvovaginitis 18100282 N95.2 83-year-ol d female severe vulvovagin al atrophy /atrophic vulvovagin itis. She has seen a specialist . She was given a series recommenda tion by the specialist and has noted some improvemen t. She was to follow-up here. She can not make the trip out to [facility]. She has been using Crisco Oil. Keeping it dry as possible. We agreed to add estrogen cream to the affected area. I gave her instructio ns and precaution s on Estrogen cream. We talked about the risks, benefits, and alternativ es to estrogen cream. she agreed to follow up in 3 months. Respirator y tract congestion 926660963 R09.89 [id number] Db Macario MD [place] [address],[place] [address] 03/14/2024 10:24:18 03/14/2024 16:34:14 Urinary symptoms 526111414 R39.9 [id number] Db Macario MD [place] [address],[place] [address] 03/24/2024 11:22:24 03/24/2024 12:33:31 Dysuria 00102298 R30.0 Vulvovaginitis 44947124 N76.0 [id number] Db Macario MD [place] [address],[place] [address] 04/22/2024 09:49:56 04/23/2024 06:32:27 Vulvovaginitis 54221676 N76.0 83-year-ol d female who was treated [...] Mendez Member ID Guarantor Name 09/19/2023 1 [facility] (MEDICARE REPLACEMENT/AD VANTAGE - PPO) [id number] Megan Menon [id number] Megan Sinan 09/19/2023 2 [facility] (MEDICAID REPLACEMENT - HMO) Megan Menon [id number] Megan Sinan 12/13/2023 1 [facility] (MEDICARE REPLACEMENT/AD VANTAGE - PPO) [id number] Megan Menon [id number] Megan Sinan 12/13/2023 2 [facility] (MEDICAID REPLACEMENT - HMO) Megan Menon [id number] Megan Sinan 03/14/2024 1 [facility] (MEDICARE REPLACEMENT/AD VANTAGE - PPO) [id number] Megan Menon [id number] Megan Sinan 03/14/2024 2 [facility] (MEDICAID REPLACEMENT - HMO) Megan Menon [id number] Megan Sinan 03/24/2024 1 [facility] (MEDICARE REPLACEMENT/AD VANTAGE - PPO) [id number] Megan Menon [id number] Megan Menon 03/24/2024 2 [facility] (MEDICAID REPLACEMENT - HMO) Megan Menon [id number] Megan Menon 04/22/2024 1 [facility] (MEDICARE REPLACEMENT/AD VANTAGE - PPO) [id number] Megan Menon [id number] Megan Menon 04/22/2024 2 [facility] (MEDICAID REPLACEMENT - HMO) Megan Menon [id number] Megan Menon Notes Date Note Type Note [...] directly. Db Macario MD [address], [place], [address], [facility] 09/22/2023 10:40:41 12/13/2023 text/html 83-year-old fema le severe vulvovaginal atrophy /atrophic vulvovaginitis. She has seen a specialist. She was given a series recommendation by the specialist and has noted some improvement. She was to follow-up here. She can not make the trip out to [place]. She has been using Crisco Oil. Keeping it dry as possible. We agreed to add estrogen cream to the affected area. I gave her instructions and precautions on Estrogen cream. We talked about the risks, benefits, and alternatives to estrogen cream. she agreed to follow up in 3 months. Db Macario MD [address], [place], [address], [facility] 12/14/2023 03:30:45 03/24/2024 text/html 3-year-old femessie [...] instructions. Db Macario MD [address], [place], [address], [facility] 03/24/2024 12:30:45 04/22/2024 text/html 83-year-old hselly live who was treated for severe vulva vaginitis. She had marked skin changes. She reports much improved symptoms. She was treated with a topical antifungal steroid cream. We agreed to treat as needed. She has refills. She will follow-up as needed. Db Macario MD [address], [place], [address], [facility] 04/22/2024 22:29:52 OBGyn Episode Ob Episode Information Episode Created Date Number of Fetuses Patient Bloodtype Patient rh Status Prepregnancy Weight lbs Domestic Partner Domestic Partner Phone Father Name Food And Beverage Coordinator Status 08/20/19 22 1 CLOSED Fetus Data First Name Last Name Admitted to NICU Weight (g) Sex Living Outcome Pediatric Complications Fetus ID Race Codes Race Delivery Type 2778.25 1 M Full Term 13631 Vaginal Delivery Tony Calculation Initial Tony Date [...] Domestic Partner Domestic Partner Phone Father Name Food And Beverage Coordinator Status 08/20/19 22 1 CLOSED Fetus Data First Name Last Name Admitted to NICU Weight (g) Sex Living Outcome Pediatric Complications Fetus ID Race Codes Race Delivery Type 3288.54 2 F Full Term 57426 Vaginal Delivery Tony Calculation Initial Tony Date [...] Domestic Partner Domestic Partner Phone Father Name Food And Beverage Coordinator Status 09/19/19 24 1 CLOSED Fetus Data First Name Last Name Admitted to NICU Weight (g) Sex Living Outcome Pediatric Complications Fetus ID Race Codes Race Delivery Type Full Term 30735 Tony Calculation Initial Tony Date Initial Exam [...] Domestic Partner Domestic Partner Phone Father Name Food And Beverage Coordinator Status 09/19/19 24 1 CLOSED Fetus Data First Name Last Name Admitted to NICU Weight (g) Sex Living Outcome Pediatric Complications Fetus ID Race Codes Race Delivery Type Full Term 24230 Tony Calculation Initial Tony Date Initial Exam [...]
[2024-07-08 09:25] VITALS: BP 142/91; PULSE 80; RESP 17; O2SAT 100
[2024-07-08] MEDS: ACETAMINOPHEN 325 MG TABLET 650 MG PO (09:30)
[2024-07-08 09:31] VITALS: BP 140/59; PULSE 80; RESP 12; O2SAT 100
--- NOTE | 2024-07-08 09:49 | PC.NURSE ---
AUSTIN left with Yoly MARTIN and manager staffing to call back for report. Also requesting to see if they have transportation available for patient to return to [facility]ilty.
== END 2024-07-08 10:16 ==
PROVIDERS: Emergency Provider Emergency Medicine
DX: M54.50 Low back pain, unspecified (principal); E78.5 Hyperlipidemia, unspecified; I11.0 Hypertensive heart disease with heart failure; I50.9 Heart failure, unspecified; F32.A Depression, unspecified; Z87.440 Personal history of urinary (tract) infections; G47.30 Sleep apnea, unspecified; M19.90 Unspecified osteoarthritis, unspecified site; E11.9 Type 2 diabetes mellitus without complications; Z79.4 Long term (current) use of insulin; K21.9 Gastro-esophageal reflux disease without esophagitis; D64.9 Anemia, unspecified; W01.0XXA Fall on same level from slipping, tripping and stumbling without subsequent striking against object, initial encounter
CPT/HCPCS: 70450; 72125; 72128; 72131; 99284; A9270

== ENCOUNTER 2024-07-15 11:07 | Outpatient (CLI) | payer MEDICARE, MEDICAID, SELFPAY ==
--- NOTE | ~2024-07-15 | XR_ITS ---
XR shoulder LT min 2V 07/15/2024 11:35 Indication: Left shoulder pain after fall Procedure: 4 views left shoulder Comparison: No prior studies for comparison. Findings: No fracture, subluxation or dislocation. No soft tissue abnormality. No foreign bodies. The re is mild polyarticular osteoarthritis. Impression: 1: Mild polyarticular osteoarthritis of the left shoulder. Reviewed, dictated and finalized at location B. Impression: 1: Mild polyarticular osteoarthritis of the left shoulder.
--- NOTE | ~2024-07-15 | XR_ITS ---
EXAM: XR elbow LT min 3V DATE: 07/15/2024 11:35 HISTORY: STATUS POST FALL . COMPARISON: None available. FINDINGS: Normal mineralization. No definite fracture dislocation visualized. No dislocation. No lyt ic or blastic lesion. Joint spaces are maintained. No erosion or periosteal change. Displacement of t he anterior fat pad. Soft tissue swelling over the medial epicondyle. Mild medial and lateral epicond ylar enthesopathy. IMPRESSION: Left elbow joint effusion which can accompany occult fractures, likely of the radial head in a patient of this age. Soft tissue swelling over the medial condyle, may represent acute or chron ic soft tissue injury. Reviewed, dictated and finalized at location K. IMPRESSION: Left elbow joint effusion which can accompany occult fractures, lik trish of the radial head in a patient of this age. Soft tissue swelling over the medial condyle, may represent acute or chronic soft tissue injury.
--- OUTSIDE RECORDS SUMMARY | 2024-07-15 11:19 | XMS_ITS | Data Portability ---
Author Organization [facility] Address [address] [place] [address] [place] [address] Care Team Providers Care Flight Crew Ordnanceman Name Role Phone VIDHYA CRAFT Referring Provider [phone] Assessment No assessment recorded. Plan of Treatment Reminders Order Date Submit Date Provider Last Modified By Organization Details Last Modified Time Details Appointments None recorded. Lab urinalysis, dipstick 2024 025 [email or web address] [address], [address], [place], [address], 5 12:29:59 urinalysis, dipstick 2024 025 [address], [address], [place], [address], 5 15:32:20 urinalysis, dipstick 2023 024 [email or web address] [address], [address], [place], [address], 4 14:45:19 Referral None recorded. Procedures None recorded. Surgeries None recorded. Imaging None recorded. Medication Orders levocetiriz ine 5 mg tablet 2023 024 [facility], [address] [place] [address], [address], 4 12:03:48 estradiol 0.01% (0.1 mg/gram) vaginal cream 2023 [facility], [address] [place] [address], [address], 11:55:34 Cipro 500 mg tablet 2023 [facility], [address] [place] [address], [address], 11:25:23 oxybutynin chloride ER 5 mg tablet,exte nded release 24 hr 2023 [facility], [address] [place] [address], [address], 14:55:33 Patient TargetsNo targets recorded. Patient InstructionsNo instructions recorded. Reason for Referral None Reported. Results Created Date Observation Date Name Description Value Unit Range Abnormal Flag Note LastModifiedBy Organization Detail LastModifiedTime 09/19/1909/19/2023 urina lysis , dipst ick Leukocytes + Not Available Mati live [address], [place], [address], 09/19/2023 14:44:49 09/19/1909/19/2023 urina lysis , dipst ick Nitrite neg Not Available Elsa [address], [place], [address], 09/19/2023 14:44:49 09/19/1909/19/2023 urina lysis , dipst ick Urobilinogen neg Not Available Terrence villegas [address], [place], [address], 09/19/2023 14:44:49 09/19/1909/19/2023 urina lysis , dipst ick Protein trace Not Available Elsa [address], [place], [address], 09/19/2023 14:44:49 09/19/1909/19/2023 urina lysis , dipst ick pH 6 Not Available [facility] [address], [place], [address], 09/19/2023 14:44:49 09/19/19 24 09/19/2023 urina lysis , dipst ick Blood trace Not Available [facility] [address], [place], [address], 09/19/2023 14:44:49 09/19/1909/19/2023 urina lysis , dipst ick Specific [place] 1.015 [facility] Available [facility] [address], [place], [address], 09/19/2023 14:44:49 09/19/19 24 09/19/2023 urina lysis , dipst ick Ketone neg Not Available [facility] [address], [place], [address], 09/19/2023 14:44:49 09/19/19 24 09/19/2023 urina lysis , dipst ick Bilirubin neg Not Available Antonietta le [address], [place], [address], 09/19/2023 14:44:49 09/19/1909/19/2023 urina lysis , dipst ick Glucose neg Not Available [facility] [address], [place], [address], 09/19/2023 14:44:49 09/19/19 24 09/19/2023 urina lysis , dipst ick Appearance clear Not Available Mati live [address], [place], [address], 09/19/2023 14:44:49 09/19/19 24 09/19/2023 urina lysis , dipst ick Color yellow Not Available [facility] [address], [place], [address], 09/19/2023 14:44:49 03/14/19 25 03/14/2024 CULTU RE: URINE result report SEE RESULT S BELOW Test: Cultu re: Urine Speci men Sourc e: Urine - Clean Catch Speci men Type: Urine Speci men Date: 2024 1444 Resul t Date: 2024 2134 Resul t Statu s: Final resul t Abnor mal: No Resul ting Lab: [facility] [address] [facility] [address] Tel: CULTU RE ----- ----- ----- --- No growt h in 1 day (dete ction level of 10,00 0 colon ies / ml.) Not Available [facility] (Lab) [address] [facility], [place], [address], 03/15/2024 22:40:00 03/14/19 25 03/14/2024 urina lysis , dipst ick Leukocytes 6 Not Available [facility] calos [address], [place], [address], 03/14/2024 15:30:25 03/14/19 25 03/14/2024 urina lysis , dipst ick Nitrite NEG Not Available [facility] [address], [place], [address], 03/14/2024 15:30:25 03/14/19 25 03/14/2024 urina lysis , dipst ick Urobilinogen NEG Not Available [facility] bakari [address], [place], [address], 03/14/2024 15:30:25 03/14/19 25 03/14/2024 urina lysis , dipst ick Protein POS Not Available [facility] [address], [place], [address], 03/14/2024 15:30:25 03/14/19 25 03/14/2024 urina lysis , dipst ick pH 5 Not Available [facility] [address], [place], [address], 03/14/2024 15:30:25 03/14/19 25 03/14/2024 urina lysis , dipst ick Blood + Not Available [facility] [address], [place], [address], 03/14/2024 15:30:25 03/14/19 25 03/14/2024 urina lysis , dipst ick Specific [place] 1.010 Not Available [facility] [place] [address], [place], [address], 03/14/2024 15:30:25 03/14/19 25 03/14/2024 urina lysis , dipst ick Ketone NEG Not Available [facility] [address], [place], [address], 03/14/2024 15:30:25 03/14/19 25 03/14/2024 urina lysis , dipst ick Bilirubin NEG Not Available [facility] [address], [place], [address], 03/14/2024 15:30:25 03/14/19 25 03/14/2024 urina lysis , dipst ick Glucose TRACE Not Available [facility] [address], [place], [address], 03/14/2024 15:30:25 03/14/19 25 03/14/2024 urina lysis , dipst ick Color DARK YELLOW Not Available [facility] [address], [place], [address], 03/14/2024 15:30:25 03/24/19 25 03/24/2024 CULTU RE: URINE result report SEE RESULT S BELOW Test: Cultu re: Urine Speci men Sourc e: Urine - Clean Catch Speci men Type: Urine Speci men Date: 2024 1132 Resul t Date: 2024 1110 Resul t Statu s: Final resul t Abnor mal: No Resul ting Lab: [facility] [address] [facility] [address] Tel: CULTU RE ----- ----- ----- --- Cultu re resul t (>=3 organ isms prese nt) indic ates possi ble conta minat ion. Repea t cultu re if sympt oms indic ate. Not Available [facility] (Lab) [address], [place], [address], 03/26/2024 12:15:03 03/24/19 25 03/24/2024 urina lysis , dipst ick Leukocytes + Not Available [facility] calos [address], [place], [address], 03/24/2024 11:41:12 03/24/19 25 03/24/2024 urina lysis , dipst ick Protein trace Not Available [facility] [address], [place], [address], 03/24/2024 11:41:12 03/24/19 25 03/24/2024 urina lysis , dipst ick pH 5 Not Available [facility] [address], [place], [address], 03/24/2024 11:41:12 03/24/19 25 03/24/2024 urina lysis , dipst ick Blood trace Not Available [facility] [address], [place], [address], 03/24/2024 11:41:12 03/24/19 25 03/24/2024 urina lysis , dipst ick Specific [place] 1.015 Not Available [facility] [address], [place], [address], 03/24/2024 11:41:12 03/24/1903/24/2024 urina lysis , dipst ick Appearance cloudy Not Available Mati live [address], [place], [address], 03/24/2024 11:41:12 03/24/1903/24/2024 urina lysis , dipst ick Color yellow Not Available [place] [address], [place], [address], 03/24/2024 11:41:12 Result Notes None recorded. Problems Name Problem SNOMED Code Status Onset Date Resolution Date Notes Provider Name and Address Organization Details Recorded Time Genital lichen sclerosus 961821775 Active 2021 Jayla Adhikari MD [address], [place], [address], [facility] 11:34:33 Genital herpes simplex 79021271 Active 2022 Jayla Adhikari MD [address], [place], [address], [facility] 12:35:52 Notes:Some problems listed i n Document: #[id number] could not be added to this patient's chart. Please review this document and add these problems to the patient's chart manually as needed. Problem Notes None recorded. Procedures Surgical History Date Name Laterality Status Provider Name and Address Organization Details Recorded Time 022 Vulvar Biopsy completed Jayla Adhikari MD [address], [place], [address], [facility] 09/09/2021 11:23:51 996 cholecystectomy completed Gladys Duran [facility] 08/19/2021 10:18:57 991 procedure on back completed Gladys Duran [facility] 08/19/2021 10:19:23 959 Appendectomy completed Gladys Duran [facility] 08/19/2021 10:19:05 Imaging Results None recorded. Procedure Notes None recorded. Medical Equipment None Reported. Allergies Allergen ID Allergen Name Allergen Category Reaction Reaction Severity Criticality Documentation Date Start Date Code Code System Note Provider Name and Address Organization Details Recorded Time 14784 naproxen medicatio n Not available Not available Not available 08/19/2021 7258 [facility] 10:22:01 41713 codeine medicatio n Not available Not available Not available 08/19/2021 2670 RxNorm [facility] 2 10:22:13 97785 latex environme nt,medica tion Not available Not available Not available 08/19/2021 16575 91 RxNorm Gladys holliday, [facility] 2 10:22:18 93501 morphine medicatio n Not available Not available Not available 08/19/2021 7052 RxNorm [facility] 2 10:22:23 06050 prednison e medicatio n Not available Not available Not available 08/19/2021 8640 RxNorm Gladys holliday, [facility] 2 10:22:35 23095 Rocephin medicatio n Not available Not available Not available 08/19/2021 9449 RxNorm [facility] 2 10:22:42 43532 tramadol medicatio n Not available Not available Not available 08/19/2021 97542 RxNorm Gladys holliday [facility] 2 10:22:53 86894 azithromy franky medicatio n Not available Not available Not available 08/19/2021 93003 RxNorm Gladys Duran null, [facility] 2 10:22:58 02690 Substance with sulfonami de structure and antibacte rial mechanism of action (substanc e) medicatio n Not available Not available Not available 08/19/2021 56757 8003 SNOMED Gladysdonn Duran null, [facility] 2 10:23:26 30915 lidocaine medicatio n rash Not available low 08/19/2021 6387 RxNorm Leesa diaz, [facility]- [address], [place], [address] [place] [address], P.C[facility] 2 14:19:07 Medications Name Sig Start [...] No t Available FreeStyle Shayne 14 Day [place] USE DIRECTED active Not Available Not Available [...] Updated DateTime 09/19/2023 160.02 cm 35.1 kg/m2 75573.01 g 148 mm[Hg] 67 mm[Hg] Sarah George [facility] 14:02:54 Date Recorded Body height Body mass index (BMI) Body weight Systolic blood pressure Diastolic blood pressure Provider Name and Address Organization Details Last Updated DateTime 12/13/2023 160.02 cm 35.1 kg/m2 79166.29 g 140 mm[Hg] 80 mm[Hg] Lamar Saldana [facility] 4 11:24:48 Date Recorded Body height Body mass index (BMI) Body weight Provider Name and Address Organization Details Last Updated DateTime 03/14/2024 160.02 cm 35.1 kg/m2 68069.29 g ANASTASIA Roach [facility] 03/14/2024 15:30:05 Date Recorded Body height Body mass index (BMI) Body weight Systolic blood pressure Diastolic blood pressure Provider Name and Address Organization Details Last Updated DateTime 03/24/2024 160.02 cm 34.9 kg/m2 71165.7 g 147 mm[Hg] 70 mm[Hg] [facility] 5 11:39:33 Date Recorded Body height Body mass index (BMI) Body weight Systolic blood pressure Diastolic blood pressure Provider Name and Address Organization Details Last Updated DateTime 04/22/2024 160.02 cm 35.3 kg/m2 07462.88 g 149 mm[Hg] 68 mm[Hg] Lamar [facility] 10:16:43 Social History Question Answer Notes LastModified by Organizat ion Details LastModified Time Tobacco Smoking Status Never Smoker Gladys holliday [facility] 08/19/2021 10:19:33 Are You Blind Or Do You Have Difficulty Seeing? No Information not available 08/22/2022 Are You Deaf Or Do You Have Serious Difficulty Hearing? No Information not available 08/22/2022 Has Tobacco Cessation Counseling Been Provided? No Information not available 08/19/2021 Do You Have Difficulty Walking Or Climbing Stairs? No Information not available 08/22/2022 Sex: Unknown Functional Status Question Answer Note LastModified by Organizat ion Details LastModified Time Do you use any illicit or recreational drugs? No Information not available 08/19/2021 Do you or have you ever used any other forms of tobacco or nicotine? No Information not available 08/19/2021 What is your level of alcohol consumption? None Information not available 08/19/2021 Are you able to walk? YESWOREST Information [...] (Food, seasonal, environmental ) N Other N Blood Transfusion N Drug/Latex Allergies/Reactions N Breast Cancer N Dermatologic Disorders N Lung Disease N [...] SNOMED-CT Code Diagnosis ICD10 Code Diagnosis Note [id number] Jayla Adhikari MD [facility] [address],[place] [address] 08/19/2021 09:44:34 08/19/2021 11:23:42 Candidal vulvovaginitis 07257431 B37.3 Genital li wan sclerosus 961943365 L90.0 939021 [facility] [address],[place] [address] 08/30/2021 13:53:12 08/30/2021 14:43:15 Sexually transmitted infectious disease 8172279 A64 Vaginitis 97140005 A60.9 Suspect HSV on examSwab takenNo previous [...] possible issues (i.e. Behcet's dz, LS, DIS). [id number] Jayla Adhikari MD [facility] [address],[place] [address] 09/09/2021 10:55:34 09/09/2021 11:28:40 Pruritus of vulva 90836381 L29.2 Lesion of vulva 11900587 6 N90.89 131756 Brittani Ríos JEREMIAH [facility] [address],[place] [address] 08/22/2022 09:48:25 08/22/2022 15:12:42 Genital herpes simplex 08589904 A60.9 suspect HSV lesionHSV PCR sentRx for valtrex, R/B/A discussedv ulvar care guidelines discussedl oose clothing recommende drefill clobetasol , R/B/A discussedf /u in 1-2 months for vulvar check Time spent in visit is a total of 30 mins with at least 50% of visit consisting of counseling and review of plan of care. Lichen scl erosus of vulva 481436357 N90.4 [id number] Jayla Adhikari MD [facility] [address],[place] [address] 10/03/2022 12:08:08 10/03/2022 14:13:08 Genital herpes simplex 57088693 A60.9 Genital li wan sclerosus 960471640 L90.0 162999 DANIELA MCDOWELL MD [facility] [address],[place] [address] 06/22/2023 15:17:12 06/27/2023 02:47:29 Atrophic vaginitis 61316798 N95.2 - UTI symptoms possibly related to genitourin koki syndrome of - will trial estradiol cream 3x weekly to improve atrophy- culture sent- some prolapse on exam, not significan t for causing UTIs- RTC 1 month [id number] DANIELA MCDOWELL MD [facility] [address],[place] [address] 07/24/2023 10:18:06 07/24/2023 11:17:34 Urinary symptoms 053151395 R39.9 - symptoms improved with estradiol cream- continue estradiol per vagina, ok to decrease to 1-2x per week if symptoms continue to improve- rtc 1 year Itching of skin 55615624 0 L29.9 664588 Db Macairo MD [facility] [address],[place] [address] 09/19/2023 13:33:32 09/25/2023 09:16:38 Urinary symptoms 725341314 R39.9 Acute urin koki tract infection 135215807 N39.0 Urgent vilma ethel to urinate 22869436 R39.15 Atrophic vulva 932757659 N90.5 this patient is an 83-year-ol d [...] is given precaution s and instructio ns. 058371 Db Macario MD [facility] [address],[place] [address] 12/13/2023 11:00:02 12/14/2023 08:18:55 Atrophic vulvovaginitis 12607378 N95.2 83-year-ol d female severe vulvovagin al atrophy /atrophic vulvovagin itis. She has seen a specialist . She was given a series recommenda tion by the specialist and has noted some improvemen t. She was to follow-up here. She can not make the trip out to [facility]. She has been using Crisco Oil. Keeping it dry as possible. We agreed to add estrogen cream to the affected area. I gave her instructio ns and precaution s on Estrogen cream. We talked about the risks, benefits, and alternativ es to estrogen cream. she agreed to follow up in 3 months. Respirator y tract congestion 977157682 R09.89 585123 Db Macario MD [facility] [address],[place] [address] 03/14/2024 10:24:18 03/14/2024 16:34:14 Urinary symptoms 424122216 R39.9 802686 Db Macario MD [facility] [address],[place] [address] 03/24/2024 11:22:24 03/24/2024 12:33:31 Dysuria 71755681 R30.0 Vulvovaginitis 76953995 N76.0 955400 Db Macario MD [facility] [address] [address] 04/22/2024 09:49:56 04/23/2024 06:32:27 Vulvovaginitis 37701965 N76.0 83-year-ol d female who was treated [...] Mendez Member ID Guarantor Name 09/19/2023 1 [facility] (MEDICARE REPLACEMENT/AD VANTAGE - PPO) [id number] Megan Menon [id number] Megan Sinan 09/19/2023 2 [facility] (MEDICAID REPLACEMENT - HMO) Megan Menon [id number] Megan Sinan 12/13/2023 1 [facility] (MEDICARE REPLACEMENT/AD VANTAGE - PPO) [id number] Megan Menon [id number] Megan Sinan 12/13/2023 2 [facility] (MEDICAID REPLACEMENT - HMO) Megan Menon [id number] Megan Sinan 03/14/2024 1 [facility] (MEDICARE REPLACEMENT/AD VANTAGE - PPO) [id number] Megan Menon [id number] Megan Sinan 03/14/2024 2 [facility] (MEDICAID REPLACEMENT - HMO) Megan Menon [id number] Megan Sinan 03/24/2024 1 [facility] (MEDICARE REPLACEMENT/AD VANTAGE - PPO) [id number] Megan Menon [id number] Megan Menon 03/24/2024 2 [facility] (MEDICAID REPLACEMENT - HMO) Megan Menon [id number] Megan Menon 04/22/2024 1 [facility] (MEDICARE REPLACEMENT/AD VANTAGE - PPO) [id number] Megan Menon [id number] Megan Menon 04/22/2024 2 [facility] (MEDICAID REPLACEMENT - HMO) Megan Menon [id number] Megan Menon Notes Date Note Type Note [...] directly. Db Macario MD [address], [place], [address], [facility] 09/22/2023 10:40:41 12/13/2023 text/html 83-year-old fema le severe vulvovaginal atrophy /atrophic vulvovaginitis. She has seen a specialist. She was given a series recommendation by the specialist and has noted some improvement. She was to follow-up here. She can not make the trip out to [place]. She has been using Crisco Oil. Keeping it dry as possible. We agreed to add estrogen cream to the affected area. I gave her instructions and precautions on Estrogen cream. We talked about the risks, benefits, and alternatives to estrogen cream. she agreed to follow up in 3 months. Db Macario MD [address], [place], [address], [facility] 12/14/2023 03:30:45 03/24/2024 text/html 3-year-old [...] instructions. Db Macario MD [address], [place], [address], [facility] 03/24/2024 12:30:45 04/22/2024 text/html 83-year-old shelly live who was treated for severe vulva vaginitis. She had marked skin changes. She reports much improved symptoms. She was treated with a topical antifungal steroid cream. We agreed to treat as needed. She has refills. She will follow-up as needed. Db Macario MD [address], [place], [address], [facility] 04/22/2024 22:29:52 OBGyn Episode Ob Episode Information Episode Created Date Number of Fetuses Patient Bloodtype Patient rh Status Prepregnancy Weight lbs Domestic Partner Domestic Partner Phone Father Name Rack Cleaner Status 08/20/19 22 1 CLOSED Fetus Data First Name Last Name Admitted to NICU Weight (g) Sex Living Outcome Pediatric Complications Fetus ID Race Codes Race Delivery Type 2778.25 1 M Full Term 26868 Vaginal Delivery Tony Calculation Initial Tony Date [...] Domestic Partner Domestic Partner Phone Father Name Rack Cleaner Status 08/20/19 22 1 CLOSED Fetus Data First Name Last Name Admitted to NICU Weight (g) Sex Living Outcome Pediatric Complications Fetus ID Race Codes Race Delivery Type 3288.54 2 F Full Term 84801 Vaginal Delivery Tony Calculation Initial Tony Date [...] Domestic Partner Domestic Partner Phone Father Name Rack Cleaner Status 09/19/19 24 1 CLOSED Fetus Data First Name Last Name Admitted to NICU Weight (g) Sex Living Outcome Pediatric Complications Fetus ID Race Codes Race Delivery Type Full Term 93346 Tony Calculation Initial Tony Date Initial Exam [...] Domestic Partner Domestic Partner Phone Father Name Rack Cleaner Status 09/19/19 24 1 CLOSED Fetus Data First Name Last Name Admitted to NICU Weight (g) Sex Living Outcome Pediatric Complications Fetus ID Race Codes Race Delivery Type Full Term 55743 Tony Calculation Initial Tony Date Initial Exam [...]
--- OUTSIDE RECORDS SUMMARY | 2024-07-15 11:19 | XMS_ITS | Clinical Summary ---
Author Organization [facility] [place] Address [address] [address] Phone Care Team Providers Care Health Concierge Name Role Phone Ji Blankenship MD Primary Care Provider [phone] Allergies Active Allergy Reactions Criticality Noted Date [...] flaxseed mix with cereal in am by [facility].(Non-D rug; Combo Route) route. Active Active Problems Patient Care Coordination No te Formatting of this note migh t be different from the original. Primary Care: Ji Blankenship MD (General) Referring Provider: Ji Blankenship MD [facility] [address] [place] [address] Other: Problem Noted Date Diagnosed Date Breast [...] MEDICARE PART A AND B Care Teams Health Concierge Relationship Specialty Start Date End Date Ji Blankenship MD [facility] [address] [place] [id number] PCP - General Internal Medicine 09/22/14
--- OUTSIDE RECORDS SUMMARY | 2024-07-15 11:19 | XMS_ITS | Continuity of Care Document ---
Author Organization [facility] Address [address] [place] [address] Phone Care Team Providers Care Gastroenterology Physician Name Role Phone Chandler OD, Cruzito Unavailable [...] Diagnoses Date Provider Providers Copied on Encounter [facility], [address] [place] [address] [address], [place], [place], [id number], tel:[phone] [facility] No Information Oct- 0-201 0 Chandler OD Cruzito. [address] , [address], [place], [address], [place]. tel:[phone] [facility], [address], [place], [place], [id number], [place] tel:[phone] [facility] No Information 5-200 9 Chandler OD Cruzito. [address] , [address], [place], [address], [place]. tel:[phone] [facility], [address], [place], [place], [id number], [place] tel:[phone] [facility] No Information 0-200 8 Chandler OD Cruzito. [address] [facility] , [address], [place], [address], [place]. tel:[phone] Referring Provider: Umer Tomlinson MD, [address], [place], [address]. tel:[phone] [facility], [address], [place], [place], [address], [place] tel:[phone] [facility] No Information 1-200 7 Chandler OD Cruzito. [address] [facility] , [address], [place], [address], [place]. tel:[phone] Referring Provider: Cruzito Chandler OD Armin, [address] [facility] [address], [place], [place], [facility]. tel:[phone] Family History Family Member Type Diagnosis Age At Onset No Information Payers Payer name Insurance type Covered libertarian ID Authorkaylen jaramillo(s) [place] [id number] Social History Type Description Quantity Date Captured [...]
== END 2024-07-15 11:08 | disposition home or self-care (01) ==
PROVIDERS: PCP Nurse Practitioner; Visit Provider Nurse Practitioner
DX: M25.512 Pain in left shoulder (principal); M25.422 Effusion, left elbow; Z91.81 History of falling
CPT/HCPCS: 73030; 73080

== ENCOUNTER 2024-08-14 08:52 | Outpatient (CLI) | payer MEDICARE, MEDICAID, SELFPAY ==
--- NOTE | ~2024-08-14 | CT_ITS ---
Clinical Indication: Cough CT Scan of the Chest with Contrast: Technique: Contiguous sections were acquired throughout the chest after intravenous administration of 75 cc of Omnipaque 350. Dose reduction technique was used on this scan by utilizing automated exposu re control and iterative reconstruction technique. The dose-length product (DLP) was 319.69 mGy-cm. Findings: There is no evidence of any significant mediastinal, hilar or axillary lymphadenopathy. There is no f illing defect in the pulmonary arterial tree to suggest pulmonary embolus. There is no evidence of ao rtic dissection or aneurysm. There is no evidence of pleural or pericardial effusion. The lungs are clear, aside from minimal dependent atelectatic changes. Images through the upper abdomen reveal no abnormalities. Impression: No significant abnormality seen. Reviewed, dictated and finalized at [facility]. Impression: No significant abnormality seen.
--- OUTSIDE RECORDS SUMMARY | 2024-08-14 09:07 | XMS_ITS | Clinical Summary ---
Author Organization [facility] Address [address] [address] Phone Care Team Providers Care Food Mixer Repairer Name Role Phone Ji Blankenship MD Primary Care Provider [phone] Allergies Active Allergy Reactions Criticality Noted Date [...] flaxseed mix with cereal in am by [facility].(Non-D rug; Combo Route) route. Active Active Problems Patient Care Coordination No te Formatting of this note migh t be different from the original. Primary Care: Ji Blankenship MD (General) Referring Provider: Ji Blankenship MD [facility] [address] [place] [address] Other: Problem Noted Date Diagnosed Date Breast [...] 2:09 PM CDT Height 160 cm (5' 3) 09/22/2014 2:09 PM CDT Body Mass Index [...] MEDICARE PART A AND B Care Teams Food Mixer Repairer Relationship Specialty Start Date End Date Ji Blankenship MD [facility] [address] [place] [id number] PCP - General Internal Medicine 09/22/14
--- OUTSIDE RECORDS SUMMARY | 2024-08-14 09:08 | XMS_ITS | Referral Summary ---
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 Gender Identity Not on file Sexual Orientation Not on file Last Filed Vital Signs Vital Sign Reading Time Taken Comments Blood Pressure 126/78 04/04/2022 9:19 AM [employer]GE[employer] Pulse 82 04/04/2022 9:19 AM [employer] I [employer]GEANT Temperature 36.8 C (98.3 F) 04/04/2022 9:19 AM [employer] I POLICE SERGEANT Respiratory Rate 18 04/04/2022 9:19 AM [employer] I POLICE SERGEANT Oxygen Saturation 96% 04/04/2022 9:19 AM [employer] I POLICE SERGEANT Inhaled Oxygen Concentration - - Weight 100.7 kg (222 lb) 04/04/2022 9:19 AM [employer] I POLICE SERGEANT Height 160 cm (5' 3) 04/04/2022 9:19 AM [employer]CIN[employer] I POLICE SERGEANT Body Mass Index 39.33 04/04/2022 9:19 AM PRECINCT I POLICE SERGEANT Plan of Treatment Not on file Insurance [address] [place] [id number] [facility] MEDICARE ADVANTAGE IDPA IDPA Care Teams Hot Dip Plating Supervisor Relationship Specialty [place] [address] [address] PCP - General Nurse Practitioner 04/04/22
--- OUTSIDE RECORDS SUMMARY | 2024-08-14 09:08 | XMS_ITS | Continuity of Care Document ---
Author Organization [facility] Address [address] [place] [address] Phone Care Team Providers Care Mortgage Counselor Name Role Phone Chandler OD, Cruzito Unavailable [...] Diagnoses Date Provider Providers Copied on Encounter [facility], [address] [place] [address] [address], [place], [place], [address], tel:[phone] [facility] No Information Oct- 0-201 0 Chandler OD Cruzito. [address] , [address], [place], [address], [place]. tel:[phone] [facility], [address], [place], [place], [address], [place] tel:[phone] [facility] No Information 5-200 9 Chandler OD Cruzito. [address] , [address], [place], [address], [place]. tel:[phone] [facility], [address], [place], [place], [address], [place] tel:[phone] [facility] No Information 0-200 8 Chandler OD Cruzito. [address] [facility] , [address], [place], [address], [place]. tel:[phone] Referring Provider: Umer Tomlinson MD, [address], [place], [address]. tel:[phone] [facility], [address], [place], [place], [address], [place] tel:[phone] [facility] No Information 1-200 7 Chandler OD Cruzito. [address] [facility] , [address], [place], [address], [place]. tel:[phone] Referring Provider: Cruzito Chandler OD Armin, [address] [facility] [address], [place], [place], [facility]. tel:[phone] Family History Family Member Type Diagnosis Age At Onset No Information Payers Payer name Insurance type Covered constitution party ID Authorkaylen jaramillo(s) [place] [id number] Social History Type Description Quantity Date Captured [...]
--- OUTSIDE RECORDS SUMMARY | 2024-08-14 09:08 | XMS_ITS | Data Portability ---
Author Organization [facility] Address [address] [place] [address] [place] [address] Care Team Providers Care Barber Tool Sharpener Name Role Phone VIDHYA CRAFT Referring Provider [phone] Assessment No assessment recorded. Plan of Treatment Reminders Order Date Submit Date Provider Last Modified By Organization Details Last Modified Time Details Appointments None recorded. Lab urinalysis, dipstick 2024 025 [email or web address] [address], [address], [place], [address], 5 12:29:59 urinalysis, dipstick 2024 025 [email or web address] [address], [address], [place], [address], 5 15:32:20 urinalysis, dipstick 2023 024 [email or web address] [address], [address], [place], [address], 4 14:45:19 Referral None recorded. Procedures None recorded. Surgeries None recorded. Imaging None recorded. Medication Orders levocetiriz ine 5 mg tablet 2023 024 [facility], [address] [place] [address], [address], 4 12:03:48 estradiol 0.01% (0.1 mg/gram) vaginal cream 2023 [facility], [address] [place] [address], [address], 11:55:34 Cipro 500 mg tablet 2023 [facility], [address] [place] [address], [address], 11:25:23 oxybutynin chloride ER 5 mg tablet,exte nded release 24 hr 2023 [facility], [address] [place] [address], [address], 14:55:33 Patient TargetsNo targets recorded. Patient InstructionsNo instructions recorded. Reason for Referral None Reported. Results Created Date Observation Date Name Description Value Unit Range Abnormal Flag Note LastModifiedBy Organization Detail LastModifiedTime 09/19/1909/19/2023 urina lysis , dipst ick Leukocytes + Not Available Mati live [address], [place], [address], 09/19/2023 14:44:49 09/19/1909/19/2023 urina lysis , dipst ick Nitrite neg Not Available Elsa [address], [place], [address], 09/19/2023 14:44:49 09/19/1909/19/2023 urina lysis , dipst ick Urobilinogen neg Not Available Terrence villegas [address], [place], [address], 09/19/2023 14:44:49 09/19/1909/19/2023 urina lysis , dipst ick Protein trace Not Available Elsa [address], [place], [address], 09/19/2023 14:44:49 09/19/1909/19/2023 urina lysis , dipst ick pH 6 Not Available [facility] [address], [place], [address], 09/19/2023 14:44:49 09/19/19 24 09/19/2023 urina lysis , dipst ick Blood trace Not Available [address] [address], [place], [address], 09/19/2023 14:44:49 09/19/1909/19/2023 urina lysis , dipst ick Specific Randolph 1.015 Not Available [facility] [address], [place], [address], 09/19/2023 14:44:49 09/19/19 24 09/19/2023 urina lysis , dipst ick Ketone neg Not Available [facility] [address], [place], [address], 09/19/2023 14:44:49 09/19/19 24 09/19/2023 urina lysis , dipst ick Bilirubin neg Not Available Antonietta le [address], [place], [address], 09/19/2023 14:44:49 09/19/1909/19/2023 urina lysis , dipst ick Glucose neg Not Available [facility] [address], [place], [address], 09/19/2023 14:44:49 09/19/19 24 09/19/2023 urina lysis , dipst ick Appearance clear Not Available [facility] [address], [place], [address], 09/19/2023 14:44:49 09/19/19 24 09/19/2023 urina lysis , dipst ick Color yellow Not Available [address], [place], [address], 09/19/2023 14:44:49 03/14/19 25 03/14/2024 CULTU RE: URINE result report SEE RESULT S BELOW Test: Cultu re: Urine Speci men Sourc e: Urine - Clean Catch Speci men Type: Urine Speci men Date: 2024 1444 Resul t Date: 2024 2134 Resul t Statu s: Final resul t Abnor mal: No Resul ting Lab: [facility] [address] [facility] [address] Tel: CULTU RE ----- ----- ----- --- No growt h in 1 day (dete ction level of 10,00 0 colon ies / ml.) Not Available [facility] (Lab) [address] [facility], [place], [address], 03/15/2024 22:40:00 03/14/19 25 03/14/2024 urina lysis , dipst ick Leukocytes 6 Not Available [facility] cal[address], [place], [address], 03/14/2024 15:30:25 03/14/19 25 03/14/2024 urina lysis , dipst ick Nitrite NEG Not Available [facility] [address], [place], [address], 03/14/2024 15:30:25 03/14/19 25 03/14/2024 urina lysis , dipst ick Urobilinogen NEG Not Available [facility] bakari [address], [place], [address], 03/14/2024 15:30:25 03/14/19 25 03/14/2024 urina lysis , dipst ick Protein POS Not Available [facility] [address], [place], [address], 03/14/2024 15:30:25 03/14/19 25 03/14/2024 urina lysis , dipst ick pH 5 Not Available [address], [place], [address], 03/14/2024 15:30:25 03/14/19 25 03/14/2024 urina lysis , dipst ick Blood + Not Available [facility] [address], [place], [address], 03/14/2024 15:30:25 03/14/19 25 03/14/2024 urina lysis , dipst ick Specific Randolph 1.010 Not Available [facility] [address], [place], [address], 03/14/2024 15:30:25 03/14/19 25 03/14/2024 urina lysis , dipst ick Ketone NEG Not Available [facility] [address], [place], [address], 03/14/2024 15:30:25 03/14/19 25 03/14/2024 urina lysis , dipst ick Bilirubin NEG Not Available [facility] [address], [place], [address], 03/14/2024 15:30:25 03/14/19 25 03/14/2024 urina lysis , dipst ick Glucose TRACE Not Available [address], [place], [address], 03/14/2024 15:30:25 03/14/19 25 03/14/2024 urina lysis , dipst ick Color DARK YELLOW Not Available [address], [place], [address], 03/14/2024 15:30:25 03/24/19 25 03/24/2024 CULTU RE: URINE result report SEE RESULT S BELOW Test: Cultu re: Urine Speci men Sourc e: Urine - Clean Catch Speci men Type: Urine Speci men Date: 2024 1132 Resul t Date: 2024 1110 Resul t Statu s: Final resul t Abnor mal: No Resul ting Lab: [facility] [address] [facility] [address] Tel: CULTU RE ----- ----- ----- --- Cultu re resul t (>=3 organ isms prese nt) indic ates possi ble conta minat ion. Repea t cultu re if sympt oms indic ate. Not Available [facility] (Lab) [address], [place], [address], 03/26/2024 12:15:03 03/24/19 25 03/24/2024 urina lysis , dipst ick Leukocytes + Not Available [facility] cal[address], [place], [address], 03/24/2024 11:41:12 03/24/19 25 03/24/2024 urina lysis , dipst ick Protein trace Not Available [facility] [address], [place], [address], 03/24/2024 11:41:12 03/24/19 25 03/24/2024 urina lysis , dipst ick pH 5 Not Available [facility] [address], [place], [address], 03/24/2024 11:41:12 03/24/19 25 03/24/2024 urina lysis , dipst ick Blood trace Not Available [facility] [address], [place], [address], 03/24/2024 11:41:12 03/24/19 25 03/24/2024 urina lysis , dipst ick Specific Randolph 1.015 Not Available [facility] [address], [place], [address], 03/24/2024 11:41:12 03/24/1903/24/2024 urina lysis , dipst ick Appearance cloudy Not Available [facility] [address], [place], [address], 03/24/2024 11:41:12 03/24/1903/24/2024 urina lysis , dipst ick Color yellow Not Available [place] [address], [place], [address], 03/24/2024 11:41:12 Result Notes None recorded. Problems Name Problem SNOMED Code Status Onset Date Resolution Date Notes Provider Name and Address Organization Details Recorded Time Genital lichen sclerosus 065495240 Active 2021 Jayla Adhikari MD [address], [place], [address], [facility] 11:34:33 Genital herpes simplex 74227705 Active 2022 Jayla Adhikari MD [address], [place], [address], [facility] 12:35:52 Notes:Some problems listed i n Document: #[id number] could not be added to this patient's chart. Please review this document and add these problems to the patient's chart manually as needed. Problem Notes None recorded. Procedures Surgical History Date Name Laterality Status Provider Name and Address Organization Details Recorded Time 022 Vulvar Biopsy completed Jayla Adhikari MD [address], [place], [address], [facility] 09/09/2021 11:23:51 996 cholecystectomy completed Gladys Duran [facility] 08/19/2021 10:18:57 991 procedure on back completed Gladys Duran [facility] 08/19/2021 10:19:23 959 Appendectomy completed Gladys Duran [facility] 08/19/2021 10:19:05 Imaging Results None recorded. Procedure Notes None recorded. Medical Equipment None Reported. Allergies Allergen ID Allergen Name Allergen Category Reaction Reaction Severity Criticality Documentation Date Start Date Code Code System Note Provider Name and Address Organization Details Recorded Time 73783 naproxen medicatio n Not available Not available Not available 08/19/2021 7258 [facility] 10:22:01 39792 codeine medicatio n Not available Not available Not available 08/19/2021 2670 [facility] 2 10:22:13 38742 latex environme nt,medica tion Not available Not available Not available 08/19/2021 31291 91 RxNorm Gladys holliday, [facility] 2 10:22:18 56017 morphine medicatio n Not available Not available Not available 08/19/2021 7052 [facility] 10:22:23 20107 prednison e medicatio n Not available Not available Not available 08/19/2021 8640 RxNorm Gladys holliday, [facility] 2 10:22:35 49861 Rocephin medicatio n Not available Not available Not available 08/19/2021 9449 [facility] 10:22:42 11065 tramadol medicatio n Not available Not available Not available 08/19/2021 55282 RxNorm Gladys holliday [facility] 2 10:22:53 71692 azithromy franky medicatio n Not available Not available Not available 08/19/2021 12139 RxNorm Gladys Duran null, [facility] 2 10:22:58 83745 Substance with sulfonami de structure and antibacte rial mechanism of action (substanc e) medicatio n Not available Not available Not available 08/19/2021 91096 8003 SNOMED Gladysdonn Duran null, [facility] 2 10:23:26 09049 lidocaine medicatio n rash Not available low 08/19/2021 6387 RxNorm Leesa diaz, [facility]- [address], [place], [address] [place] [address], P.C[facility] 2 14:19:07 Medications Name Sig Start [...] BY MOUTH TWICE DAILY FOR 10 DAYS active Not Available Not Available No t Available ipratropium 0.5 mg-albutero l 3 mg [...] fluconazole 150 mg tablet Take 1 tablet every 72 hours by oral route. active Not Available Not Available No t Available metoprolol succinate ER 50 mg tablet,exte [...] ne acetonide 0.1 % topical ointment APPLY A THIN LAYER TO THE AFFECTED AREA(S) BY TOPICAL ROUTE ONCE PER DAY active Not Available Not Available No t Available nystatin 100,000 unit/gram topical cream APPLY TO THE AFFECTED AREA(S) BY TOPICAL ROUTE ONE TIME PER DAY 2024 active Not Available Not Available Not Avai lable clotrimazol e-betametha sone 1 %-0.05 % topical [...] Available Not Available Not Available amoxicillin 500 mg-potassiu m clavulanate 125 mg tablet TAKE 1 [...] Available duloxetine 60 mg capsule,del ayed release active Not Available Not Available Not Available solifenacin [...] Duo Pen Needle 30 gauge x 3/16 active Not Available Not Available Not Available lidocaine [...] No t Available FreeStyle Shayne 14 Day [place] USE DIRECTED active Not Available Not Available [...] Updated DateTime 03/14/2024 160.02 cm 35.1 kg/m2 07249.29 g ANASTASIA Roach [facility] 03/14/2024 15:30:05 Date Recorded Body height Body mass index (BMI) Body weight Systolic blood pressure Diastolic blood pressure Provider Name and Address Organization Details Last Updated DateTime 03/24/2024 160.02 cm 34.9 kg/m2 14660.7 g 147 mm[Hg] 70 mm[Hg] [facility] 11:39:33 Date Recorded Body height Body mass index (BMI) Body weight Systolic blood pressure Diastolic blood pressure Provider Name and Address Organization Details Last Updated DateTime 04/22/2024 160.02 cm 35.3 kg/m2 75204.88 g 149 mm[Hg] 68 mm[Hg] Lamar [facility] 5 10:16:43 Date Recorded Body height Body mass index (BMI) Body weight Systolic blood pressure Diastolic blood pressure Provider Name and Address Organization Details Last Updated DateTime 09/19/2023 160.02 cm 35.1 kg/m2 20872.01 g 148 mm[Hg] 67 mm[Hg] Sarah Doris [facility] 4 14:02:54 Date Recorded Body height Body mass index (BMI) Body weight Systolic blood pressure Diastolic blood pressure Provider Name and Address Organization Details Last Updated DateTime 12/13/2023 160.02 cm 35.1 kg/m2 15592.29 g 140 mm[Hg] 80 mm[Hg] Lamar [facility] 4 11:24:48 Social History Question Answer Notes LastModified by Plei Details LastModified Time Tobacco Smoking Status Never Smoker Gladys Duran [facility] 08/19/2021 10:19:33 Are You Blind Or [...] available 2021 10:20:58 Medical History Condition Response Other N Blood Transfusion N Dermatologic Disorders N Gestational Diabetes N Anxiety Disorder N Autoimmune disease N Arthritis N Polyps N Infertility N Acid Reflux (GERD) N Cancer N Varicosities N Stroke N Neurologic/Epilepsy N Fibromyalgia N Headaches N Kidney Disease N Heart Problems N Kidney or Bladder Problems N Eating Disorder N Art (IVF or FET) N Hepatitis/Liver Disease N No Past Medical History N Urinary Tract Infection N Asthma Y Trauma/Violence N Thrombophilias N Allergies (Food, seasonal, environmental ) N Breast Cancer N Drug/Latex Allergies/Reactions N Lung Disease N Defects or Inherited Disease N Breast Problem N Hematologic disorders N Anesthesia Complications N History of STI N Deep Vein Thrombosis N Polycystic ovary syndrome N History of abnormal pap N Endometriosis N High Cholesterol Y Thyroid Problems N GI Problems N Anemia Y Psychiatric Illness N Ovarian Cancer N Diabetes Y Pulmonary (TB, Asthma) N Eczema N Abuse/Domestic Violence N Depression/ depression N Heart Disease N Pre-Eclampsia N Hypertension Y Osteoporosis N Gynecological History Statement/Question Response If Post [...] SNOMED-CT Code Diagnosis ICD10 Code Diagnosis Note [id number] Jayla Adhikari MD [facility] [address],[place] [address] 08/19/2021 09:44:34 08/19/2021 11:23:42 Candidal vulvovaginitis 20562441 B37.3 Genital li wan sclerosus 105415025 L90.0 [id number] [facility] [address],[place] [address] 08/30/2021 13:53:12 08/30/2021 14:43:15 Sexually transmitted infectious disease 4055796 A64 Vaginitis 24151174 A60.9 Suspect HSV on examSwab takenNo previous [...] possible issues (i.e. Behcet's dz, LS, DIS). [id number] Jayla Adhikari MD [facility] [address],[place] [address] 09/09/2021 10:55:34 09/09/2021 11:28:40 Pruritus of vulva 38461389 L29.2 Lesion of vulva 50994347 6 N90.89 [id number] Brittani Ríos JEREMIAH [facility] [address],[place] [address] 08/22/2022 09:48:25 08/22/2022 15:12:42 Genital herpes simplex 42401798 A60.9 suspect HSV lesionHSV PCR sentRx for valtrex, R/B/A discussedv ulvar care guidelines discussedl oose clothing recommende drefill clobetasol , R/B/A discussedf /u in 1-2 months for vulvar check Time spent in visit is a total of 30 mins with at least 50% of visit consisting of counseling and review of plan of care. Lichen scl erosus of vulva 135645712 N90.4 [id number] Jayla Adhikari MD [facility] [address],[place] [address] 10/03/2022 12:08:08 10/03/2022 14:13:08 Genital herpes simplex 12074562 A60.9 Genital li wan sclerosus 391336714 L90.0 [id number] DANIELA MCDOWELL MD [facility] [address],[place] [address] 06/22/2023 15:17:12 06/27/2023 02:47:29 Atrophic vaginitis 00555223 N95.2 - UTI symptoms possibly related to genitourin koki syndrome of - will trial estradiol cream 3x weekly to improve atrophy- culture sent- some prolapse on exam, not significan t for causing UTIs- RTC 1 month [id number] DANIELA MCDOWELL MD [facility] [address],[place] [address] 07/24/2023 10:18:06 07/24/2023 11:17:34 Urinary symptoms 734427324 R39.9 - symptoms improved with estradiol cream- continue estradiol per vagina, ok to decrease to 1-2x per week if symptoms continue to improve- rtc 1 year Itching of skin 17372103 0 L29.9 [id number] Db Macario MD [facility] [address],[place] [address] 09/19/2023 13:33:32 09/25/2023 09:16:38 Urinary symptoms 816066951 R39.9 Acute urin koki tract infection 488546072 N39.0 Urgent vilma ethel to urinate 50999703 R39.15 Atrophic vulva 078624498 N90.5 this patient is an 83-year-ol d [...] is given precaution s and instructio ns. [id number] Db Macario MD [facility] [address],[place] [address] 12/13/2023 11:00:02 12/14/2023 08:18:55 Atrophic vulvovaginitis 88172062 N95.2 83-year-ol d female severe vulvovagin al atrophy /atrophic vulvovagin itis. She has seen a specialist . She was given a series recommenda tion by the specialist and has noted some improvemen t. She was to follow-up here. She can not make the trip out to [facility]. She has been using Crisco Oil. Keeping it dry as possible. We agreed to add estrogen cream to the affected area. I gave her instructio ns and precaution s on Estrogen cream. We talked about the risks, benefits, and alternativ es to estrogen cream. she agreed to follow up in 3 months. Respirator y tract congestion 575235447 R09.89 [id number] Db Macario MD [facility] [address],[place] [address] 03/14/2024 10:24:18 03/14/2024 16:34:14 Urinary symptoms 830304300 R39.9 [id number] Db Macario MD [facility] [address],[place] [address] 03/24/2024 11:22:24 03/24/2024 12:33:31 Dysuria 57298371 R30.0 Vulvovaginitis 53924135 N76.0 [id number] Db Macario MD [facility] [address] [address] 04/22/2024 09:49:56 04/23/2024 06:32:27 Vulvovaginitis 83239629 N76.0 83-year-ol d female who was treated [...] Recorded Advance Directives Directive None Recorded Payers Insurance Date Sequence Insurance Name Policy Number Policy Mendez Covered Member ID Mendez Member ID Guarantor Name 12/13/2023 2 [place] Megan Menon [id number] Megan Menon 12/13/2023 1 [facility] (PPO) [id number] Megan Menon [id number] Megan Menon 04/23/2024 1 [facility] (MEDICARE REPLACEMENT/AD VANTAGE - PPO) [id number] Megan Menon [id number] Megan Menon 05/22/2024 3 [facility] (MEDICAID REPLACEMENT - HMO) Megan Menon [id number] Megan Menon 04/22/2024 3 [place] [facility] OF PUBLIC AID Megan Menon [id number] Megan Menon 05/22/2024 2 [facility] (MEDICAID REPLACEMENT - HMO) Megan Menon [id number] Megan Menon Notes Date Note Type Note [...] directly. Db Macario MD [address], [place], [address], [facility] 09/22/2023 10:40:41 12/13/2023 text/html 83-year-old fema le severe vulvovaginal atrophy /atrophic vulvovaginitis. She has seen a specialist. She was given a series recommendation by the specialist and has noted some improvement. She was to follow-up here. She can not make the trip out to [place]. She has been using Crisco Oil. Keeping it dry as possible. We agreed to add estrogen cream to the affected area. I gave her instructions and precautions on Estrogen cream. We talked about the risks, benefits, and alternatives to estrogen cream. she agreed to follow up in 3 months. Db Macario MD [address], [place], [address], [facility] 12/14/2023 03:30:45 03/24/2024 text/html 3-year-old femal e with severe vulvar irritation and dysuria. The [...] instructions. Db Macario MD [address], [place], [address], [facility] 03/24/2024 12:30:45 04/22/2024 text/html 83-year-old fema calos who was treated for severe vulva vaginitis. She had marked skin changes. She reports much improved symptoms. She was treated with a topical antifungal steroid cream. We agreed to treat as needed. She has refills. She will follow-up as needed. Db Macario MD [address], [place], [address], [facility] 04/22/2024 22:29:52 OBGyn Episode Ob Episode Information Episode Created Date Number of Fetuses Patient Bloodtype Patient rh Status Prepregnancy Weight lbs Domestic Partner Domestic Partner Phone Father Name Stained Glass Artist Status 08/20/19 22 1 CLOSED Fetus Data First Name Last Name Admitted to NICU Weight (g) Sex Living Outcome Pediatric Complications Fetus ID Race Codes Race Delivery Type 2778.25 1 M Full Term 35873 Vaginal Delivery Tony Calculation Initial Tony Date [...] Domestic Partner Domestic Partner Phone Father Name Stained Glass Artist Status 08/20/19 22 1 CLOSED Fetus Data First Name Last Name Admitted to NICU Weight (g) Sex Living Outcome Pediatric Complications Fetus ID Race Codes Race Delivery Type 3288.54 2 F Full Term 18649 Vaginal Delivery Tony Calculation Initial Tony Date [...] Domestic Partner Domestic Partner Phone Father Name Stained Glass Artist Status 09/19/19 1 CLOSED Fetus Data First Name Last Name Admitted to NICU Weight (g) Sex Living Outcome Pediatric Complications Fetus ID Race Codes Race Delivery Type Full Term 81969 Tony Calculation Initial Tony Date Initial Exam [...] Domestic Partner Domestic Partner Phone Father Name Stained Glass Artist Status 09/19/19 1 CLOSED Fetus Data First Name Last Name Admitted to NICU Weight (g) Sex Living Outcome Pediatric Complications Fetus ID Race Codes Race Delivery Type Full Term 07796 Tony Calculation Initial Tony Date Initial Exam [...]
--- OUTSIDE RECORDS SUMMARY | 2024-08-14 09:08 | XMS_ITS | Clinical Summary ---
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 Gender Identity Not on file Sexual Orientation Not on file Obstetrics History Last Filed Vital Signs Vital Sign Reading Time Taken Comments Blood Pressure 126/78 04/04/2022 9:19 AM STOPPER MAKER HELPER Pulse 82 04/04/2022 9:19 AM STOPPER MAKER HELPER Temperature 36.8 C (98.3 F) 04/04/2022 9:19 AM STOPPER MAKER HELPER Respiratory Rate 18 04/04/2022 9:19 AM STOPPER MAKER HELPER Oxygen Saturation 96% 04/04/2022 9:19 AM STOPPER MAKER HELPER Inhaled Oxygen Concentration - - Weight 100.7 kg (222 lb) 04/04/2022 9:19 AM STOPPER MAKER HELPER Height 160 cm (5' 3) 04/04/2022 9:19 AM STOPPER MAKER HELPER Body Mass Index 39.33 04/04/2022 9:19 AM STOPPER MAKER HELPER Plan of Treatment Health Maintenance Due Date Last Done Comments Albumin Creatinine Ratio, Urine 1938 Depression Screening 1938 Fall Risk Assessment 1938 Hemoglobin A1C 1938 Osteoporosis Screening-Bone Density Scan 1938 eGFR 1938 Dilated Eye Exam 1938 [...] 019, 08/25/2015, 08/22/2015, Additional history exists Insurance [facility] MEDICARE ADVANTAGE IDPA IDPA Care Teams Can Solderer Relationship Specialty [place] [address] [place] [address] PCP - General Nurse Practitioner 04/04/22
[2024-08-14 09:46] LABS: Estimated Glomerular Filt Rate 59
== END 2024-08-14 08:53 | disposition home or self-care (01) ==
PROVIDERS: PCP Nurse Practitioner; Visit Provider Nurse Practitioner
DX: R05.3 Chronic cough (principal)
CPT/HCPCS: 71260; Q9967

== ENCOUNTER 2024-08-30 08:18 | Emergency (ER) | payer MEDICARE, MEDICAID, SELFPAY ==
[2024-08-30 08:28] VITALS: BP 148/64; PULSE 79; RESP 16; TEMP 36.6; O2SAT 97
--- NOTE | 2024-08-30 08:51 | ED.SKABFB ---
HPI - Skin/Abscess/Foreign Bdy General Chief complaint: Skin/Abscess/Foreign Body Stated complaint: Urogenital Irritation/Blister Time Seen by Provider: 08/30/24 08:52 Source: patient and RN notes reviewed Mode of arrival: ambulatory Limitations: no limitations History of Present Illness HPI narrative: 84 y/o female with hx DM and CHF presented for c/o painful bump to the groin area worsening for about one week. Pt contacted her PCP who prescribed valacyclovir on 08/27, for history of HSV. Says the pain is worsening, endorses pain with sitting. Denies drainage or painful urination, n/v/d/f/c. Took oxycodone for chronic back pain. Obgyn is Dr Macario. Related Data Home Medications ?Medication ?Instructions ?Recorded ?Confirmed ?Last Taken ?Type amlodipine 5 mg tablet 5 mg PO DAILY 12/17/19 08/20/24 Unknown History atorvastatin 40 mg tablet 40 mg PO HS 12/17/19 08/20/24 Unknown History metoprolol succinate 50 mg 50 mg PO DAILY 12/17/19 08/20/24 Unknown History tablet,extended release 24 hr Daily-Danette 1 tab-cap PO DAILY 04/18/22 08/20/24 Unknown History nitroglycerin 0.4 mg sublingual 0.4 mg sublingual PRN PRN Chest 04/18/22 08/20/24 Unknown History tablet Pain ergocalciferol (vitamin D2) 1,250 1,250 mcg PO DIRECTED 07/29/22 08/20/24 Unknown History mcg (50,000 unit) capsule polyethylene glycol 3350 17 17 g PO DAILY PRN Constipation 07/29/22 08/20/24 Unknown History gram/dose oral powder clobetasol 0.05 % topical ointment 1 applic topical DAILY 11/07/22 08/20/24 Unknown History conjugated estrogens 0.625 mg/gram 0.625 mg vaginal .COMPLEX 11/07/22 08/20/24 Unknown History vaginal cream (Premarin) trazodone 50 mg tablet 50 mg PO QHS 11/07/22 08/20/24 Unknown History levocetirizine 5 mg tablet mg 04/01/24 08/20/24 Unknown History vibegron 75 mg tablet (Gemtesa) mg 04/01/24 08/20/24 Unknown History acetaminophen 500 mg tablet 100 mg PO BID PRN 04/30/24 08/20/24 Unknown History (Tylenol Extra Strength) gabapentin 600 mg tablet 600 mg PO TID 04/30/24 08/20/24 Unknown History amlodipine 2.5 mg tablet mg 05/20/24 08/20/24 Unknown History aspirin 81 mg chewable tablet 05/20/24 08/20/24 Unknown History duloxetine 60 mg capsule,delayed mg PO 05/20/24 08/20/24 Unknown History release hydroxyzine HCl 25 mg tablet mg 05/20/24 08/20/24 Unknown History losartan 100 mg tablet mg 05/20/24 08/20/24 Unknown History multivitamin with folic acid 400 tablet PO 05/20/24 08/20/24 Unknown History mcg tablet (Tab-A-Danette) nystatin 100,000 unit/gram topical topical 05/20/24 08/20/24 Unknown History cream pantoprazole 40 mg tablet,delayed mg PO 05/20/24 08/20/24 Unknown History release polyethylene glycol 3350 17 17 g PO DAILY 08/13/24 08/20/24 Unknown History gram/dose oral powder (Miralax) estradiol 0.01% (0.1 mg/gram) vaginal 08/30/24 Unknown History vaginal cream Allergies Allergy/AdvReac Type Severity Reaction Status Date / Time prednisone Allergy Mild Unknown Verified 08/30/24 09:14 rosiglitazone Allergy Mild Unknown Verified 08/30/24 09:14 azithromycin Allergy Unknown Unknown Verified 08/30/24 09:14 ceftriaxone Allergy Unknown Unknown Verified 08/30/24 09:14 codeine Allergy Unknown Unknown Verified 08/30/24 09:14 ibuprofen Allergy Unknown Unknown Verified 08/30/24 09:14 latex Allergy Unknown Unknown Verified 08/30/24 09:14 naproxen Allergy Unknown Unknown Verified 08/30/24 09:14 Review of Systems Review of Systems: CONSTITUTIONAL: Denies body aches, fever, chills, or sweats. CARDIOVASCULAR: Denies chest pain, palpitations, or edema. RESPIRATORY: Denies cough or dyspnea. GASTROINTESTINAL: Denies abdominal pain, nausea, vomiting, or diarrhea. GENITOURINARY: Reports painful bump to groin area. denies dysuria, frequency, urgency, hematuria, flank pain, discharge SKIN: Denies rash, itching, or wounds. MUSCULOSKELETAL: Denies back pain or myalgia. [facility] Past Medical History Medical History Hyperlipidemia Heart failure with reduced ejection fraction (03/2022) EF 40 to 45%. Basal cell carcinoma Overactive bladder Depression Frequent urinary tract infections Obstructive sleep apnea Arthritis Insulin dependent type 2 diabetes mellitus Gastroesophageal reflux disease Anemia Hypertension Osteopenia Surgical History Surgical History History of esophageal dilatation History of dilation and curettage History of lumbar surgery (1990) History of cholecystectomy History of appendectomy Family History Family History Mother Hypertension Family history of diabetes mellitus in first degree relative Family history of heart disease in male family member before age 55 Father Carcinoma of colon Family history of malignant neoplasm of gastrointestinal tract Social History Social History Social History: Surrogate medical decision maker: angel Dye. Code status: Full code. Smoking status: Never smoker Second hand tobacco smoke exposure: No Alcohol intake: never Substance use: never Do You Feel Safe in your Home?: Yes Lack of Transportation: YES Lack of Food: Never True Current Housing: I Have Housing Concerned About Future Housing: No Difficulty Paying Gas/Electric Bills: No Difficulty Paying for Meds: No Currently Unemployed: No Education: High School Diploma/GED Difficulty w/ Childcare or Family Care: No Additional living arrangements comments: Assisted living at [facility] since 12/15/2021. Spiritual care concerns: No Comments At time of signature, I have reviewed and agree with nursing past medical, surgical, social and family history unless otherwise noted. Please see nursing chart for further information. There is no relevant family history pertinent to the presenting complaint Exam Narrative: GENERAL: Well-appearing and in no acute distress. ENT: Mucous membranes pink and moist. NECK: Normal AROM. Supple. CHEST: No respiratory distress. Clear to auscultation. HEART: Regular rate and rhythm. ABDOMEN: Soft, nontender, nondistended, normal active bowel sounds. No CVA tenderness SKIN: Warm, dry, no rash. Left labia erythematous, with approx 1.5cm firm subcutaneous nodule posteriorly, tender, no fluctuance or active drainage. Vaginal introitus also erythematous and mildly excoriated, nontender No vesicles. NEURO: No focal deficits. Alert and oriented x3. Gait steady. PSYCH: Normal affect. : Female genitals images:  1. area of 1.5cm firm abscess. 2. area of erythema Course Course Emergency Course: Patient is aware of diagnosis, understands and agrees to treatment plan. Anticipatory guidance given. Patient agrees to follow-up as directed and is aware of reasons to seek care at the emergency department. Portions of this record may have been created with voice recognition software Level of Care: Express Care Visit Vital Signs Vital signs: Vital Signs Temperature 97.8 F 08/30/24 08:28 Pulse Rate 79 08/30/24 08:28 Respiratory Rate 16 08/30/24 08:28 Blood Pressure 148/64 H 08/30/24 08:28 Pulse Oximetry 97 08/30/24 08:28 Temperature 97.8 F 08/30/24 08:28 Pulse Rate 79 08/30/24 08:28 Respiratory Rate 16 08/30/24 08:28 Blood Pressure 148/64 H 08/30/24 08:28 Pulse Oximetry 97 08/30/24 08:28 Reviewed MDM - Skin/Abscess/Foreign Bdy MDM Narrative Medical decision making narrative: Discussed physical exam findings; left labia abscess, tender, redness extending anteriorly. No fluctuance or active drainage to indicate I&D. Pt completed valacyclovir without improvement. Will start oral ABX. Advised supportive measures and signs/symptoms to go to the ER at length. Pt is appropriate for outpt treatment and f/u. She will contact Dr Macario Sunday. Differential Diagnosis Differential diagnosis: Likely abscess of skin or subcutaneous tissue, dermatophytosis, herpes zoster, cellulitis, impetigo and contact dermatitis Discharge Plan Discharge Clinical Impression: Abscess of labia Patient Disposition: Home Condition: Stable Instructions: Antibiotic Form, Abscess (ED) Additional Instructions: Cleanse with warm soapy water Warm compresses at least 4 times a day to the site to help expel any drainage. Take antibiotic as directed Tylenol every 8 hours for pain as needed (you can up to 3000mg of acetaminophen from all sources in 24 hours) Follow up with your primary care physician or Obgyn in 3 days for a wound check. Call Sunday to schedule an appointment Go to the Emergency Department immediately if you develop any of the following symptoms: Fevers, Increased redness, pain, or swelling around where your abscess was, generalized weakness or vomiting or any other concerns Patient Language: Gabonese Prescriptions: New doxycycline hyclate 100 mg tablet 100 mg PO BID 7 Days Qty: 14 0RF No Action estradiol 0.01 % (0.1 mg/gram) cream VAGINAL levocetirizine 5 mg tablet Gemtesa 75 mg tablet albuterol sulfate 90 mcg/actuation HFA aerosol inhaler 2 puff inhalation Q4-6H PRN (Reason: shortness of breath or wheezing) 30 Days Qty: 8.5 0RF gabapentin 600 mg tablet 600 mg PO TID amlodipine 2.5 mg tablet pantoprazole 40 mg tablet,delayed release (DR/EC) PO nystatin 100,000 unit/gram cream TOPICAL aspirin 81 mg tablet,chewable hydroxyzine HCl 25 mg tablet losartan 100 mg tablet duloxetine 60 mg capsule,delayed release(DR/EC) PO multivitamin with folic acid [Tab-A-Danette] 400 mcg tablet PO amlodipine 5 mg tablet 5 mg PO DAILY atorvastatin 40 mg tablet 40 mg PO HS metoprolol succinate 50 mg tablet extended release 24 hr 50 mg PO DAILY acetaminophen [Tylenol Extra Strength] 500 mg tablet 100 mg PO BID PRN trazodone 50 mg tablet 50 mg PO QHS Premarin 0.625 mg/gram cream 0.625 mg vaginal .COMPLEX Rx Instructions: 0.625 mg vaginally Sunday and Sunday; apply a peas size amount clobetasol 0.05 % ointment 1 applic topical DAILY famotidine [Pepcid] 40 mg tablet 40 mg PO QHS Qty: 90 3RF Ozempic 2 mg/dose (8 mg/3 mL) pen injector 2 mg subcut WEEKLY 90 Days Qty: 9 3RF insulin regular hum U-500 conc 500 unit/mL (3 mL) insulin pen See Rx Instructions subcut .COMPLEX Qty: 18 1RF Rx Instructions: 90 units before breakfast, 30 units before lunch polyethylene glycol 3350 [Miralax] 17 gram/dose powder 17 g PO DAILY fluticasone propionate [Flonase Allergy Relief] 50 mcg/actuation spray,suspension 1 spray intranasal Q12H Qty: 16 0RF Rx Instructions: administer into each nostril meclizine 25 mg tablet 25 mg PO BID PRN (Reason: dizziness) Qty: 20 0RF nitroglycerin 0.4 mg tablet, sublingual 0.4 mg sublingual PRN PRN (Reason: Chest Pain) Rx Instructions: dissolve 1 tab under the tongue every 5 min for chest pain up to 3 doses in 15 mins if pain persists seek medical attention Daily-Danette 1 tab-cap PO DAILY trimethoprim 100 mg tablet 100 mg PO HS Qty: 30 6RF ergocalciferol (vitamin D2) 1,250 mcg (50,000 unit) capsule 1,250 mcg PO DIRECTED Rx Instructions: every sunday polyethylene glycol 3350 17 gram/dose powder 17 g PO DAILY PRN (Reason: Constipation) hydrocodone-acetaminophen 5-325 mg tablet 1 tablet PO Q8H PRN (Reason: Pain) Qty: 12 0RF nystatin 100,000 unit/gram powder 1 applic TOPICAL BID Qty: 60 1RF Rx Instructions: apply to gential area bid (DME) FreeStyle Shayne 3 [place] Misc See Rx Instructions .Route Qty: 1 0RF Rx Instructions: As directed (DME) FreeStyle Shayne 3 Plus Sensor Device See Rx Instructions .Route Qty: 6 2RF Rx Instructions: As directed (DME) blood-glucose meter [OneTouch Verio Flex meter] Misc See Rx Instructions .Route Qty: 1 0RF Rx Instructions: As directed (DME) lancets [OneTouch Delica Plus Lancet] 33 gauge misc See Rx Instructions .ROUTE .MEDSUPPLY Qty: 100 0RF Rx Instructions: Check glcuose (DME) OneTouch Verio test strips Strip See Rx Instructions .ROUTE .MEDSUPPLY Qty: 400 1RF Rx Instructions: Check glucose 3-4 times a day Follow-up/Referrals: Yonatan,Natalie Davis, ANP [Primary Care Provider] -
== END 2024-08-30 09:21 | disposition home or self-care (01) ==
PROVIDERS: Emergency Provider Nurse Practitioner Family; PCP Nurse Practitioner
DX: N76.4 Abscess of vulva (principal); I11.0 Hypertensive heart disease with heart failure; I50.9 Heart failure, unspecified; E78.5 Hyperlipidemia, unspecified; E11.9 Type 2 diabetes mellitus without complications; Z79.4 Long term (current) use of insulin; Z79.85 Long-term (current) use of injectable non-insulin antidiabetic drugs; K21.9 Gastro-esophageal reflux disease without esophagitis; M85.80 Other specified disorders of bone density and structure, unspecified site; M19.90 Unspecified osteoarthritis, unspecified site; F32.A Depression, unspecified; Z79.82 Long term (current) use of aspirin; Z85.828 Personal history of other malignant neoplasm of skin
CPT/HCPCS: 99213; G0463

== ENCOUNTER 2024-09-08 09:32 | Emergency (ER) | payer MEDICARE, MEDICAID, SELFPAY ==
[2024-09-08 09:45] VITALS: BP 127/39; PULSE 75; RESP 16; TEMP 36.6; O2SAT 100
--- NOTE | 2024-09-08 10:08 | ED_ITS ---
HPI - General Adult General Chief complaint: Wound/Laceration Stated complaint: Cellilitis Time Seen by Provider: 09/08/24 10:08 Source: patient, RN notes reviewed and old records reviewed Mode of arrival: ambulatory Limitations: no limitations History of Present Illness HPI narrative: 84-year-old female presents to the [facility] with concerns for cellulitis. Patient reports she has had some increased pain, swelling to the left lower leg. Reports that she had some redness and increased warmth last night, none today. Denies any history of blood clots. Patient with a history of acid reflux, high blood pressure, diabetes. Onset (ago): day(s) (2-3) Treatments prior to arrival: other (Resting, elevating) Related Data Home Medications ?Medication ?Instructions ?Recorded ?Confirmed ?Last Taken ?Type amlodipine 5 mg tablet 5 mg PO DAILY 12/17/19 09/08/24 Unknown History atorvastatin 40 mg tablet 40 mg PO HS 12/17/19 09/08/24 Unknown History metoprolol succinate 50 mg 50 mg PO DAILY 12/17/19 09/08/24 Unknown History tablet,extended release 24 hr Daily-Danette 1 tab-cap PO DAILY 04/18/22 09/08/24 Unknown History nitroglycerin 0.4 mg sublingual 0.4 mg sublingual PRN PRN Chest 04/18/22 09/08/24 Unknown History tablet Pain ergocalciferol (vitamin D2) 1,250 1,250 mcg PO DIRECTED 07/29/22 09/08/24 Unknown History mcg (50,000 unit) capsule polyethylene glycol 3350 17 17 g PO DAILY PRN Constipation 07/29/22 09/08/24 Unknown History gram/dose oral powder clobetasol 0.05 % topical ointment 1 applic topical DAILY 11/07/22 09/08/24 Unknown History conjugated estrogens 0.625 mg/gram 0.625 mg vaginal .COMPLEX 11/07/22 09/08/24 Unknown History vaginal cream (Premarin) trazodone 50 mg tablet 50 mg PO QHS 11/07/22 09/08/24 Unknown History levocetirizine 5 mg tablet 5 mg PO QPM 04/01/24 09/08/24 Unknown History vibegron 75 mg tablet (Gemtesa) 75 mg PO DAILY 04/01/24 09/08/24 Unknown History acetaminophen 500 mg tablet 100 mg PO BID PRN fever or pain 04/30/24 09/08/24 Unknown History (Tylenol Extra Strength) gabapentin 600 mg tablet 600 mg PO TID 04/30/24 09/08/24 Unknown History amlodipine 2.5 mg tablet 2.5 mg PO DAILY 05/20/24 09/08/24 Unknown History aspirin 81 mg chewable tablet 81 mg PO DAILY 05/20/24 09/08/24 Unknown History duloxetine 60 mg capsule,delayed 60 mg PO DAILY 05/20/24 09/08/24 Unknown History release hydroxyzine HCl 25 mg tablet 25 mg PO DAILY 05/20/24 09/08/24 Unknown History losartan 100 mg tablet 100 mg PO DAILY 05/20/24 09/08/24 Unknown History multivitamin with folic acid 400 1 tablet PO DAILY 05/20/24 09/08/24 Unknown History mcg tablet (Tab-A-Danette) pantoprazole 40 mg tablet,delayed 40 mg PO DAILY 05/20/24 09/08/24 Unknown History release polyethylene glycol 3350 17 17 g PO DAILY 08/13/24 09/08/24 Unknown History gram/dose oral powder (Miralax) estradiol 0.01% (0.1 mg/gram) 1 appful vaginal WEEKLY 08/30/24 09/08/24 Unknown History vaginal cream Allergies Allergy/AdvReac Type Severity Reaction Status Date / Time prednisone Allergy Mild Unknown Verified 09/08/24 09:49 rosiglitazone Allergy Mild Unknown Verified 09/08/24 09:49 azithromycin Allergy Unknown Unknown Verified 09/08/24 09:49 ceftriaxone Allergy Unknown Unknown Verified 09/08/24 09:49 codeine Allergy Unknown Unknown Verified 09/08/24 09:49 ibuprofen Allergy Unknown Unknown Verified 09/08/24 09:49 latex Allergy Unknown Unknown Verified 09/08/24 09:49 naproxen Allergy Unknown Unknown Verified 09/08/24 09:49 Review of Systems 2 Review of Systems: All systems reviewed & are unremarkable except as noted in HPI and below Constitutional: Constitutional: Reports no additional constitutional complaints ENT: Reports system reviewed and no additional complaints, except as documented Cardiovascular: Cardiovascular: Reports no additional cardiovascular complaints, Denies chest pain and Denies dyspnea Respiratory: Respiratory: Reports no additional respiratory complaints, Denies chest congestion, Denies cough and Denies dyspnea Musculoskeletal: Musculoskeletal: Reports as per HPI Integumentary/Breasts: Skin/Breast: Reports as per HPI [facility] Past Medical History Medical History Hyperlipidemia Heart failure with reduced ejection fraction (03/2022) EF 40 to 45%. Basal cell carcinoma Overactive bladder Depression Frequent urinary tract infections Obstructive sleep apnea Arthritis Insulin dependent type 2 diabetes mellitus Gastroesophageal reflux disease Anemia Hypertension Osteopenia Surgical History Surgical History History of esophageal dilatation History of dilation and curettage History of lumbar surgery (1990) History of cholecystectomy History of appendectomy Family History Family History Mother Hypertension Family history of diabetes mellitus in first degree relative Family history of heart disease in male family member before age 55 Father Carcinoma of colon Family history of malignant neoplasm of gastrointestinal tract Social History Social History Social History: Surrogate medical decision maker: angel Dye. Code status: Full code. Smoking status: Never smoker Second hand tobacco smoke exposure: No Alcohol intake: never Substance use: never Do You Feel Safe in your Home?: Yes Lack of Transportation: YES Lack of Food: Never True Current Housing: I Have Housing Concerned About Future Housing: No Difficulty Paying Gas/Electric Bills: No Difficulty Paying for Meds: No Currently Unemployed: No Education: High School Diploma/GED Difficulty w/ Childcare or Family Care: No Additional living arrangements comments: Assisted living at [facility] since 12/15/2021. Spiritual care concerns: No Comments At the time of my signature, I reviewed and agree with the nursing past medical, surgical, social, and family history. There is no relevant family history pertinent to the patient complaint. Exam 2 Const: General: cooperative, comfortable, no acute distress, well developed, alert, ill appearing chronically and well nourished Nutritional Appearance: w ell nourished Orientation/consciousness: patient oriented x3 Limitations: no limitations HENMT: Head: normal to inspection Eyes: General: appearance normal, both eyes and all related structures A lignment and Position: alignment normal Neck: Neck: normal visual inspection, full ROM, no lymphadenopathy and no meningeal signs Chest: Chest palpation & inspection: normal inspection of the chest Resp: Effort & Inspection: normal respiratory effort and able to speak in complete sentences Cardio: Rate: regular rate Neuro: General: patient oriented x3, moves all extremities and no meningeal signs Cognition (Neuro): normal cognition Speech: normal speech Gait exam (Neuro): Assisted gait required walker Extrem: General: normal to inspection, full ROM, capillary refill normal and normal gait Left lower extremity: knee, lower leg Details: tenderness, pitting edema Details: 2+ and ecchymosis; no penetrating wound, no deformity and no unusual warmth and ankle Details: swelling Ankle/foot/toe images: 1. 23cm 2. 26 cm Pitting edema Other: Positive Homans sign Psych: Appearance: grossly normal and well kempt Mental Status: mental status grossly normal Speech and movement: Normal speech and movement present and Clear speech present Affect: normal affect Attitude: cooperative Course Course Level of Care: Express Care Visit Vital Signs Vital signs: Vital Signs Temperature 97.8 F 09/08/24 09:45 Pulse Rate 75 09/08/24 09:45 Respiratory Rate 16 09/08/24 09:45 Blood Pressure 127/39 L 09/08/24 09:45 Pulse Oximetry 100 09/08/24 09:45 Oxygen Delivery Room Air 09/08/24 09:45 Temperature 97.8 F 09/08/24 09:45 Pulse Rate 75 09/08/24 09:45 Respiratory Rate 16 09/08/24 09:45 Blood Pressure 127/39 L 09/08/24 09:45 Pulse Oximetry 100 09/08/24 09:45 Oxygen Delivery Room Air 09/08/24 09:45 Reviewed Transfer Transfered to: [place] Transportation: Other (POV per patient request) Transfer rationale: Patient with unilateral left-sided edema, worse at night. Positive Homans sign sending for higher level of care Accepting physician: Spoke with Anca DANIELS, Dr. Storey Medical Decision Making MDM Narrative Medical decision making narrative: Patient sitting comfortably in exam room. Nontoxic, vitals stable. Patient in no acute distress Patient presents for left leg pain and swelling. No injury. States symptoms are worse at night, still having pitting edema to the left lower leg. Concern for DVT Sending for higher level of care Transfer instructions reviewed with patient and her son to go directly to the ER. All questions have been answered, and the patient deny any further questions Some parts of this dictation were generated by voice recognition software and may contain typographical and/or grammatical inaccuracies. Differential Diagnosis Differential Diagnosis: Heart failure, DVT, cellulitis, dependent edema Medical Records Medical records reviewed: Yes I reviewed the external patient's medical records. Vital Signs Vital Signs: Vital Signs Temperature 97.8 F 09/08/24 09:45 Pulse Rate 75 09/08/24 09:45 Respiratory Rate 16 09/08/24 09:45 Blood Pressure 127/39 L 09/08/24 09:45 Pulse Oximetry 100 09/08/24 09:45 Oxygen Delivery Room Air 09/08/24 09:45 Temperature 97.8 F 09/08/24 09:45 Pulse Rate 75 09/08/24 09:45 Respiratory Rate 16 09/08/24 09:45 Blood Pressure 127/39 L 09/08/24 09:45 Pulse Oximetry 100 09/08/24 09:45 Oxygen Delivery Room Air 09/08/24 09:45 Reviewed Lab Data Lab results reviewed: Yes I reviewed the patient's lab results. Labs: Reviewed Critical Care Time Critical Care Time Critical Care Time: No Discharge Plan Discharge Clinical Impression: Pain and swelling of left lower leg Patient Disposition: Acute Care Hospital Condition: Stable Patient Language: Fijian Prescriptions: No Action estradiol 0.01 % (0.1 mg/gram) cream 1 appful VAGINAL WEEKLY levocetirizine 5 mg tablet 5 mg PO QPM Gemtesa 75 mg tablet 75 mg PO DAILY albuterol sulfate 90 mcg/actuation HFA aerosol inhaler 2 puff inhalation Q4-6H PRN (Reason: shortness of breath or wheezing) 30 Days Qty: 8.5 0RF gabapentin 600 mg tablet 600 mg PO TID amlodipine 2.5 mg tablet 2.5 mg PO DAILY pantoprazole 40 mg tablet,delayed release (DR/EC) 40 mg PO DAILY aspirin 81 mg tablet,chewable 81 mg PO DAILY hydroxyzine HCl 25 mg tablet 25 mg PO DAILY losartan 100 mg tablet 100 mg PO DAILY duloxetine 60 mg capsule,delayed release(DR/EC) 60 mg PO DAILY multivitamin with folic acid [Tab-A-Danette] 400 mcg tablet 1 tablet PO DAILY amlodipine 5 mg tablet 5 mg PO DAILY atorvastatin 40 mg tablet 40 mg PO HS metoprolol succinate 50 mg tablet extended release 24 hr 50 mg PO DAILY acetaminophen [Tylenol Extra Strength] 500 mg tablet 100 mg PO BID PRN (Reason: fever or pain) trazodone 50 mg tablet 50 mg PO QHS Premarin 0.625 mg/gram cream 0.625 mg vaginal .COMPLEX Rx Instructions: 0.625 mg vaginally Sunday and Sunday; apply a peas size amount clobetasol 0.05 % ointment 1 applic topical DAILY famotidine [Pepcid] 40 mg tablet 40 mg PO QHS Qty: 90 3RF Ozempic 2 mg/dose (8 mg/3 mL) pen injector 2 mg subcut WEEKLY 90 Days Qty: 9 3RF insulin regular hum U-500 conc 500 unit/mL (3 mL) insulin pen See Rx Instructions subcut .COMPLEX Qty: 18 1RF Rx Instructions: 90 units before breakfast, 30 units before lunch polyethylene glycol 3350 [Miralax] 17 gram/dose powder 17 g PO DAILY fluticasone propionate [Flonase Allergy Relief] 50 mcg/actuation spray,suspension 1 spray intranasal Q12H Qty: 16 0RF Rx Instructions: administer into each nostril meclizine 25 mg tablet 25 mg PO BID PRN (Reason: dizziness) Qty: 20 0RF nitroglycerin 0.4 mg tablet, sublingual 0.4 mg sublingual PRN PRN (Reason: Chest Pain) Rx Instructions: dissolve 1 tab under the tongue every 5 min for chest pain up to 3 doses in 15 mins if pain persists seek medical attention Daily-Danette 1 tab-cap PO DAILY trimethoprim 100 mg tablet 100 mg PO HS Qty: 30 6RF ergocalciferol (vitamin D2) 1,250 mcg (50,000 unit) capsule 1,250 mcg PO DIRECTED Rx Instructions: every sunday polyethylene glycol 3350 17 gram/dose powder 17 g PO DAILY PRN (Reason: Constipation) hydrocodone-acetaminophen 5-325 mg tablet 1 tablet PO Q8H PRN (Reason: Pain) Qty: 12 0RF nystatin 100,000 unit/gram powder 1 applic TOPICAL BID Qty: 60 1RF Rx Instructions: apply to gential area bid (DME) FreeStyle Shayne 3 [place] Misc See Rx Instructions .Route Qty: 1 0RF Rx Instructions: As directed (DME) FreeStyle Shayne 3 Plus Sensor Device See Rx Instructions .Route Qty: 6 2RF Rx Instructions: As directed (DME) blood-glucose meter [OneTouch Verio Flex meter] Misc See Rx Instructions .Route Qty: 1 0RF Rx Instructions: As directed (DME) lancets [OneTouch Delica Plus Lancet] 33 gauge misc See Rx Instructions .ROUTE .MEDSUPPLY Qty: 100 0RF Rx Instructions: Check glcuose (DME) OneTouch Verio test strips Strip See Rx Instructions .ROUTE .MEDSUPPLY Qty: 400 1RF Rx Instructions: Check glucose 3-4 times a day Follow-up/Referrals: Yonatan,Natalie Davis, ANP [Primary Care Provider] -
== END 2024-09-08 10:27 | disposition short-term general hospital (02) ==
PROVIDERS: Emergency Provider Nurse Practitioner; PCP Nurse Practitioner
DX: M79.662 Pain in left lower leg (principal); R22.42 Localized swelling, mass and lump, left lower limb; I11.0 Hypertensive heart disease with heart failure; I50.9 Heart failure, unspecified; E11.9 Type 2 diabetes mellitus without complications; Z79.4 Long term (current) use of insulin; Z79.85 Long-term (current) use of injectable non-insulin antidiabetic drugs; K21.9 Gastro-esophageal reflux disease without esophagitis; M85.80 Other specified disorders of bone density and structure, unspecified site; D64.9 Anemia, unspecified; N32.81 Overactive bladder; Z85.828 Personal history of other malignant neoplasm of skin; E78.5 Hyperlipidemia, unspecified; M19.90 Unspecified osteoarthritis, unspecified site; Z79.82 Long term (current) use of aspirin; F32.A Depression, unspecified
CPT/HCPCS: 99212; G0463

== ENCOUNTER 2024-09-08 10:48 | Emergency (ER) | payer MEDICARE, MEDICAID, SELFPAY ==
--- NOTE | ~2024-09-08 | US_ITS ---
LEFT LOWER EXTREMITY VENOUS ULTRASOUND Ordering provider: Tess Fung APRN History: . swelling and pain . Comparison: None. FINDINGS: --COMMON FEMORAL: Patent and free of thrombus. Normal compressibility, phasic flow and augmentation. --PROXIMAL SUPERFICIAL FEMORAL: Patent and free of thrombus. Normal compressibility, phasic flow and augmentation. --DISTAL SUPERFICIAL FEMORAL: Patent and free of thrombus. Normal compressibility, phasic flow and au gmentation. --POPLITEAL: Patent and free of thrombus. Normal compressibility, phasic flow and augmentation. --POSTERIOR TIBIAL: Patent and free of thrombus. Normal compressibility, phasic flow and augmentation . IMPRESSION: Negative left lower extremity venous US. No deep vein thrombosis. Reviewed, dictated and finalized at location A.
--- OUTSIDE RECORDS SUMMARY | 2024-09-08 10:52 | XMS_ITS | Clinical Summary ---
Author Organization [facility] Address [address] [address] Phone Care Team Providers Care Retirement Village Manager Name Role Phone Ji Blankenship MD Primary Care Provider [phone] Allergies Active Allergy Reactions Criticality Noted Date [...] flaxseed mix with cereal in am by [facility].(Non-D rug; Combo Route) route. Active Active Problems Patient Care Coordination No te Formatting of this note migh t be different from the original. Primary Care: Ji Blankenship MD (General) Referring Provider: Ji Blankenship MD [facility] [address] [place] [address] Other: Problem Noted Date Diagnosed Date Breast [...] 1-dose 75+ series) 2013 INFLUENZA VACCINE (#1) 2024 Insurance MEDICARE PART A AND B Care Teams Retirement Village Manager Relationship Specialty Start Date End Date Ji Blankenship MD [facility] [address] [place] [id number] PCP - General Internal Medicine 09/22/14
--- OUTSIDE RECORDS SUMMARY | 2024-09-08 10:53 | XMS_ITS | Continuity of Care Document ---
Author Organization [facility] Address [address] [place] [address] Phone Care Team Providers Care Aemt Name Role Phone Chandler OD, Cruz[place] Unavailable [...] Diagnoses Date Provider Providers Copied on Encounter [facility], [address] [place] [address] [address], [place], [place], [id number], tel:[phone] [facility] No Information Oct- 0-201 0 Chandler OD Cruzito. [address] , [address], [place], [address], [place]. tel:[phone] [facility], [address], [place], [place], [id number], [place] tel:[phone] [facility] No Information 5-200 9 Chandler OD Cruzito. [address] , [address], [place], [address], [place]. tel:[phone] [facility], [address], [place], [place], [id number], [place] tel:[phone] [facility] No Information 0-200 8 Chandler OD Cruzito. [address] [facility] , [address], [place], [address], [place]. tel:[phone] Referring Provider: Umer Tomlinson MD, [address], [place], [address]. tel:[phone] [facility], [address], [place], [place], [id number], [place] tel:[phone] [facility] No Information 1-200 7 Chandler OD Cruzito. [address] [facility] , [address], [place], [address], [place]. tel:[phone] Referring Provider: Cruzito Chandler OD Armin, [address] [facility] [address], [place], [place], [facility]. tel:[phone] Family History Family Member Type Diagnosis Age At Onset No Information Payers Payer name Insurance type Covered republican ID Authorkaylen jaramillo(s) [place] [id number] Social History Type Description Quantity Date Captured [...]
--- OUTSIDE RECORDS SUMMARY | 2024-09-08 10:53 | XMS_ITS | Data Portability ---
Author Organization [facility] Address [address] [place] [address] Care Team Providers Care Agricultural Produce Sorter Name Role Phone VIDHYA CRAFT Referring Provider [phone] Assessment No assessment recorded. Plan of Treatment Reminders Order Date Submit Date Provider Last Modified By Organization Details Last Modified Time Details Appointments None recorded. Lab urinalysis, dipstick 2024 025 [email or web address] [facility], [address], [place], [address], 5 12:29:59 urinalysis, dipstick 2024 025 [email or web address] [facility], [address], [place], [address], 5 15:32:20 urinalysis, dipstick 2023 024 [email or web address] [facility], [address], [place], [address], 4 14:45:19 Referral None recorded. Procedures None recorded. Surgeries None recorded. Imaging None recorded. Medication Orders levocetiriz ine 5 mg tablet 2023 024 [facility], [address] [place] [address], [address], 4 12:03:48 estradiol 0.01% (0.1 mg/gram) vaginal cream 2023 [facility], [address] [place] [address], [address], 11:55:34 Cipro 500 mg tablet 2023 [facility], [address] [place] [address], [address], 11:25:23 oxybutynin chloride ER 5 mg tablet,exte nded release 24 hr 2023 [facility], [address] [place] [address], [address], 14:55:33 Patient TargetsNo targets recorded. Patient InstructionsNo instructions recorded. Reason for Referral None Reported. Results Created Date Observation Date Name Description Value Unit Range Abnormal Flag Note LastModifiedBy Organization Detail LastModifiedTime 09/19/1909/19/2023 urina lysis , dipst ick Leukocytes + Not Available [facility] [address], [place], [address], 09/19/2023 14:44:49 09/19/1909/19/2023 urina lysis , dipst ick Nitrite neg Not Available [facility] [address], [place], [address], 09/19/2023 14:44:49 09/19/1909/19/2023 urina lysis , dipst ick Urobilinogen neg Not Available [facility] villegas [address], [place], [address], 09/19/2023 14:44:49 09/19/1909/19/2023 urina lysis , dipst ick Protein trace Not Available [facility] [address], [place], [address], 09/19/2023 14:44:49 09/19/1918 0909/19/2023 urina lysis , dipst ick pH 6 Not Available [facility] [address], [place], [address], 09/19/2023 14:44:49 09/19/19 24 09/19/2023 urina lysis , dipst ick Blood trace Not Available [facility] [address], [place], [address], 09/19/2023 14:44:49 09/19/19 24 09/19/2023 urina lysis , dipst ick Specific [place] 1.015 Not Available [facility] [address], [place], [address], 09/19/2023 14:44:49 09/19/19 24 09/19/2023 urina lysis , dipst ick Ketone neg Not Available [facility] [address], [place], [address], 09/19/2023 14:44:49 09/19/19 24 09/19/2023 urina lysis , dipst ick Bilirubin neg Not Available [facility] [address], [place], [address], 09/19/2023 14:44:49 09/19/19 24 09/19/2023 urina lysis , dipst ick Glucose neg Not Available [facility] [address], [place], [address], 09/19/2023 14:44:49 09/19/19 24 09/19/2023 urina lysis , dipst ick Appearance clear Not Available [facility] [address], [place], [address], 09/19/2023 14:44:49 09/19/19 24 09/19/2023 urina lysis , dipst ick Color yellow Not Available [facility] [address], [place], [address], 09/19/2023 14:44:49 03/14/19 25 03/14/2024 CULTU RE: URINE result report SEE RESULT S BELOW Test: Cultu re: Urine Speci men Sourc e: Urine - Clean Catch Speci men Type: Urine Speci men Date: 2024 1444 Resul t Date: 2024 2134 Resul t Statu s: Final resul t Abnor mal: No Resul ting Lab: [facility] [address] [facility] [address] Tel: CULTU RE ----- ----- ----- --- No growt h in 1 day (dete ction level of 10,00 0 colon ies / ml.) Not Available [facility] (Lab) [address], [place], [address], 03/15/2024 22:40:00 03/14/19 25 03/14/2024 urina lysis , dipst ick Leukocytes 6 Not Available [facility] [address], [place], [address], 03/14/2024 15:30:25 03/14/19 25 03/14/2024 urina lysis , dipst ick Nitrite NEG Not Available [facility] [address], [place], [address], 03/14/2024 15:30:25 03/14/19 25 03/14/2024 urina lysis , dipst ick Urobilinogen NEG Not Available [facility]leg[facility] [address], [place], [address], 03/14/2024 15:30:25 03/14/19 25 03/14/2024 urina lysis , dipst ick Protein POS Not Available [facility] [address], [place], [address], 03/14/2024 15:30:25 03/14/19 25 03/14/2024 urina lysis , dipst ick pH 5 Not Available [facility] [address], [place], [address], 03/14/2024 15:30:25 03/14/19 25 03/14/2024 urina lysis , dipst ick Blood + Not Available [facility] [address], [place], [address], 03/14/2024 15:30:25 03/14/19 25 03/14/2024 urina lysis , dipst ick Specific [place] 1.010 Not Available [facility] [address], [place], [address], 03/14/2024 15:30:25 03/14/19 25 03/14/2024 urina lysis , dipst ick Ketone NEG Not Available [facility] [address], [place], [address], 03/14/2024 15:30:25 03/14/19 25 03/14/2024 urina lysis , dipst ick Bilirubin NEG Not Available [facility] [address], [place], [address], 03/14/2024 15:30:25 03/14/19 25 03/14/2024 urina lysis , dipst ick Glucose TRACE Not Available [facility] [address], [place], [address], 03/14/2024 15:30:25 03/14/19 25 03/14/2024 urina lysis , dipst ick Color DARK YELLOW Not Available [facility] [address], [place], [address], 03/14/2024 15:30:25 03/24/19 25 03/24/2024 CULTU RE: URINE result report SEE RESULT S BELOW Test: Cultu re: Urine Speci men Sourc e: Urine - Clean Catch Speci men Type: Urine Speci men Date: 2024 1132 Resul t Date: 2024 1110 Resul t Statu s: Final resul t Abnor mal: No Resul ting Lab: [facility] [address] [facility] [address] Tel: CULTU RE ----- ----- ----- --- Cultu re resul t (>=3 organ isms prese nt) indic ates possi ble conta minat ion. Repea t cultu re if sympt oms indic ate. Not Available [facility] (Lab) [address], [place], [address], 03/26/2024 12:15:03 03/24/19 25 03/24/2024 urina lysis , dipst ick Leukocytes + Not Available [facility] [address], [place], [address], 03/24/2024 11:41:12 03/24/19 25 03/24/2024 urina lysis , dipst ick Protein trace Not Available [facility] [address], [place], [address], 03/24/2024 11:41:12 03/24/19 25 03/24/2024 urina lysis , dipst ick pH 5 Not Available [facility] [address], [place], [address], 03/24/2024 11:41:12 03/24/19 25 03/24/2024 urina lysis , dipst ick Blood trace Not Available [facility] [address], [place], [address], 03/24/2024 11:41:12 03/24/19 25 03/24/2024 urina lysis , dipst ick Specific [place] 1.015 Not Available [facility] [address], [place], [address], 03/24/2024 11:41:12 03/24/1903/24/2024 urina lysis , dipst ick Appearance cloudy Not Available [facility] [address], [place], [address], 03/24/2024 11:41:12 03/24/1903/24/2024 urina lysis , dipst ick Color yellow Not Available [place] [address], [place], [address], 03/24/2024 11:41:12 Result Notes None recorded. Problems Name Problem SNOMED Code Status Onset Date Resolution Date Notes Provider Name and Address Organization Details Recorded Time Genital lichen sclerosus 728882463 Active 2021 Jayla Adhikari MD [address], [place], [address], [facility] 11:34:33 Genital herpes simplex 05459372 Active 2022 Jayla Adhikari MD [address], [place], [address], [facility] 12:35:52 Notes:Some problems listed i n Document: #[id number] could not be added to this patient's chart. Please review this document and add these problems to the patient's chart manually as needed. Problem Notes None recorded. Procedures Surgical History Date Name Laterality Status Provider Name and Address Organization Details Recorded Time 022 Vulvar Biopsy completed Jayla Adhikari MD [address], [place], [address], [facility] 09/09/2021 11:23:51 996 cholecystectomy completed Gladys Duran [facility] 08/19/2021 10:18:57 991 procedure on back completed Gladys Duran [facility] 08/19/2021 10:19:23 959 Appendectomy completed Gladys Duran [facility] 08/19/2021 10:19:05 Imaging Results None recorded. Procedure Notes None recorded. Medical Equipment None Reported. Allergies Allergen ID Allergen Name Allergen Category Reaction Reaction Severity Criticality Documentation Date Start Date Code Code System Note Provider Name and Address Organization Details Recorded Time 20175 naproxen medicatio n Not available Not available Not available 08/19/2021 7258 RxNorm [facility] 2 10:22:01 71745 codeine medicatio n Not available Not available Not available 08/19/2021 2670 RxNorm [facility] 2 10:22:13 26604 latex environme nt,medica tion Not available Not available Not available 08/19/2021 83155 91 RxNorm [facility] 2 10:22:18 22856 morphine medicatio n Not available Not available Not available 08/19/2021 7052 RxNorm [facility] 2 10:22:23 35507 prednison e medicatio n Not available Not available Not available 08/19/2021 8640 RxNorm [facility] 2 10:22:35 75292 Rocephin medicatio n Not available Not available Not available 08/19/2021 9449 RxNorm Gladys Duran [facility] 2 10:22:42 21836 tramadol medicatio n Not available Not available Not available 08/19/2021 28713 RxNorm [facility] 2 10:22:53 46005 azithromy franky medicatio n Not available Not available Not available 08/19/2021 88482 RxNorm Gladys Duran [facility], [facility] 2 10:22:58 95409 Substance with sulfonami de structure and antibacte rial mechanism of action (substanc e) medicatio n Not available Not available Not available 08/19/2021 86235 8003 SNOMED Gladys Renee [facility], [facility] 2 10:23:26 09468 lidocaine medicatio n rash Not available low 08/19/2021 6387 RxNorm Leesa diaz, [facility]- [address], [place], [address] , [facility] 2 14:19:07 Medications Name Sig Start [...] ne acetonide 0.1 % topical ointment APPLY THIN LAYER TO AFFECTED AREA(S) TOPICALLY ONCE DAILY active Not Available Not Available No t Available nystatin 100,000 unit/gram topical cream APPLY TO THE AFFECTED AREA(S) BY TOPICAL ROUTE ONE TIME PER DAY active Not Available Not Available [...] No t Available FreeStyle Shayne [employer] Day [place] USE DIRECTED active Not Available Not Available [...] completed Not Available Not Available Not Available AutoShield Duo Pen Needle 30 gauge x 16 active Not Available Not Available Not Available Vitals Date Recorded Body height Body mass index (BMI) Body weight Provider Name and Address Organization Details Last Updated DateTime 03/14/2024 160.02 cm 35.1 kg/m2 46638.29 g ANASTASIA Roach [facility] 03/14/2024 15:30:05 Date Recorded Body height Body mass index (BMI) Body weight Systolic And Diastolic Provider Name and Address Organization Details Last Updated DateTime 03/24/2024 160.02 cm 34.9 kg/m2 43081.7 g 147/70 mm[Hg] Lamar Saldana [facility] 03/24/2024 11:39:33 Date Recorded Body height Body mass index (BMI) Body weight Systolic And Diastolic Provider Name and Address Organization Details Last Updated DateTime 04/22/2024 160.02 cm 35.3 kg/m2 37074.88 g 149/68 mm[Hg] Lamardanni Grijalvaer [facility] 04/22/2024 10:16:43 Date Recorded Body height Body mass index (BMI) Body weight Systolic And Diastolic Provider Name and Address Organization Details Last Updated DateTime 09/19/2023 160.02 cm 35.1 kg/m2 64194.01 g 148/67 mm[Hg] Sarah Doris [facility] 09/19/2023 14:02:54 Date Recorded Body height Body mass index (BMI) Body weight Systolic And Diastolic Provider Name and Address Organization Details Last Updated DateTime 12/13/2023 160.02 cm 35.1 kg/m2 88994.29 g 140/80 mm[Hg] Lamar Les [facility] 12/13/2023 11:24:48 Social History Question Answer Notes LastModified by [employer] Details LastModified Time Tobacco Smoking Status Never Smoker [facility] 08/19/2021 10:19:33 Are You Blind Or [...] Functional Status Question Answer Note LastModified by [employer] ion Details LastModified Time Do you use [...] SNOMED-CT Code Diagnosis ICD10 Code Diagnosis Note [id number] Jayla Adhikari MD [facility] [address],[place] [address] 08/19/2021 09:44:34 08/19/2021 11:23:42 Candidal vulvovaginitis 42817298 B37.3 Genital li wan sclerosus 205440964 L90.0 111668 [facility] [address],[place] [address] 08/30/2021 13:53:12 08/30/2021 14:43:15 Sexually transmitted infectious disease 4439294 A64 Vaginitis 99680520 A60.9 Suspect HSV on examSwab takenNo previous [...] possible issues (i.e. Behcet's dz, LS, DIS). [id number] Jayla Adhikari MD [facility] [address],[place] [address] 09/09/2021 10:55:34 09/09/2021 11:28:40 Pruritus of vulva 95789796 L29.2 Lesion of vulva 80918925 6 N90.89 [id number] Brittani Ríos [facility] [address] [place] [address] 08/22/2022 09:48:25 08/22/2022 15:12:42 Genital herpes simplex 42979651 A60.9 suspect HSV lesionHSV PCR sentRx for valtrex, R/B/A discussedv ulvar care guidelines discussedl oose clothing recommende drefill clobetasol , R/B/A discussedf /u in 1-2 months for vulvar check Time spent in visit is a total of 30 mins with at least 50% of visit consisting of counseling and review of plan of care. Lichen scl erosus of vulva 637745297 N90.4 [id number] Jayla Adhikari MD [facility] [address],[place] [address] 10/03/2022 12:08:08 10/03/2022 14:13:08 Genital herpes simplex 27238042 A60.9 Genital li wan sclerosus 970905157 L90.0 [id number] DANIELA MCDOWELL MD [facility] [address],[place] [address] 06/22/2023 15:17:12 06/27/2023 02:47:29 Atrophic vaginitis 16669906 N95.2 - UTI symptoms possibly related to genitourin koki syndrome of - will trial estradiol cream 3x weekly to improve atrophy- culture sent- some prolapse on exam, not significan t for causing UTIs- RTC 1 month [id number] DANIELA MCDOWELL MD [facility] [address],[place] [address] 07/24/2023 10:18:06 07/24/2023 11:17:34 Urinary symptoms 093506286 R39.9 - symptoms improved with estradiol cream- continue estradiol per vagina, ok to decrease to 1-2x per week if symptoms continue to improve- rtc 1 year Itching of skin 98358605 0 L29.9 [id number] Db Macario MD [facility] [address],[place] [address] 09/19/2023 13:33:32 09/25/2023 09:16:38 Urinary symptoms 598198237 R39.9 Acute urin koki tract infection 174301011 N39.0 Urgent vilma ethel to urinate 39542435 R39.15 Atrophic vulva 092956487 N90.5 this patient is an 83-year-ol d [...] is given precaution s and instructio ns. [id number] Db Macario MD [facility] [address],[place] [address] 12/13/2023 11:00:02 12/14/2023 08:18:55 Atrophic vulvovaginitis 05890810 N95.2 83-year-ol d female severe vulvovagin al atrophy /atrophic vulvovagin itis. She has seen a specialist . She was given a series recommenda tion by the specialist and has noted some improvemen t. She was to follow-up here. She can not make the trip out to [facility]. She has been using Crisco Oil. Keeping it dry as possible. We agreed to add estrogen cream to the affected area. I gave her instructio ns and precaution s on Estrogen cream. We talked about the risks, benefits, and alternativ es to estrogen cream. she agreed to follow up in 3 months. Respirator y tract congestion 762491767 R09.89 [id number] Db Macario MD [facility] [address],[place] [address] 03/14/2024 10:24:18 03/14/2024 16:34:14 Urinary symptoms 733395059 R39.9 [id number] Db Macario MD [facility] [address],[place] [address] 03/24/2024 11:22:24 03/24/2024 12:33:31 Dysuria 75941141 R30.0 Vulvovaginitis 78107590 N76.0 [id number] Db Macario MD [facility] [address] [address] 04/22/2024 09:49:56 04/23/2024 06:32:27 Vulvovaginitis 58904159 N76.0 83-year-ol d female who was treated [...] Mendez Member ID Guarantor Name 12/13/2023 2 [place] [employer] Megan Menon [id number] Megan Menon 12/13/2023 1 [facility] (PPO) [id number] Megan Menon [id number] Megan Menon 04/23/2024 1 [facility] (MEDICARE REPLACEMENT/AD VANTAGE - PPO) [id number] Megan Menon [id number] Megan Menon 05/22/2024 3 [facility] (MEDICAID REPLACEMENT - HMO) Megan Menon [id number] Megan Menon 04/22/2024 3 [place] Megan Menon [id number] Megan Menon 05/22/2024 2 [facility] (MEDICAID REPLACEMENT - HMO) Megan Menon [id number] Megan Menon Notes Date Note Type Note [...] directly. Db Macario MD [address], [place], [address], [facility] 09/22/2023 10:40:41 12/13/2023 text/html 83-year-old fema le severe vulvovaginal atrophy /atrophic vulvovaginitis. She has seen a specialist. She was given a series recommendation by the specialist and has noted some improvement. She was to follow-up here. She can not make the trip out to [place]. She has been using Crisco Oil. Keeping it dry as possible. We agreed to add estrogen cream to the affected area. I gave her instructions and precautions on Estrogen cream. We talked about the risks, benefits, and alternatives to estrogen cream. she agreed to follow up in 3 months. Db Macario MD [address], [place], [address], [facility] 12/14/2023 03:30:45 03/24/2024 text/html 3-year-old femal [...] instructions. Db Macario MD [address], [place], [address], [facility] 03/24/2024 12:30:45 04/22/2024 text/html 83-year-old fema le who was treated for severe vulva vaginitis. She had marked skin changes. She reports much improved symptoms. She was treated with a topical antifungal steroid cream. We agreed to treat as needed. She has refills. She will follow-up as needed. Db Macario MD [address], [place], [address], [facility] 04/22/2024 22:29:52 OBGyn Episode Ob Episode Information Episode Created Date Number of Fetuses Patient Bloodtype Patient rh Status Prepregnancy Weight lbs Domestic Partner Domestic Partner Phone Father Name Client Care Manager Status 08/20/19 22 1 CLOSED Fetus Data First Name Last Name Admitted to NICU Weight (g) Sex Living Outcome Pediatric Complications Fetus ID Race Codes Race Delivery Type 2778.25 1 M Full Term 67124 Vaginal Delivery Tony Calculation Initial Tony Date [...] Domestic Partner Domestic Partner Phone Father Name Client Care Manager Status 08/20/19 22 1 CLOSED Fetus Data First Name Last Name Admitted to NICU Weight (g) Sex Living Outcome Pediatric Complications Fetus ID Race Codes Race Delivery Type 3288.54 2 F Full Term 33212 Vaginal Delivery Tony Calculation Initial Tony Date [...] Domestic Partner Domestic Partner Phone Father Name Client Care Manager Status 09/19/19 1 CLOSED Fetus Data First Name Last Name Admitted to NICU Weight (g) Sex Living Outcome Pediatric Complications Fetus ID Race Codes Race Delivery Type Full Term 61898 Tony Calculation Initial Tony Date Initial Exam [...] Domestic Partner Domestic Partner Phone Father Name Client Care Manager Status 09/19/19 1 CLOSED Fetus Data First Name Last Name Admitted to NICU Weight (g) Sex Living Outcome Pediatric Complications Fetus ID Race Codes Race Delivery Type Full Term 83113 Tony Calculation Initial Tony Date Initial Exam [...]
--- OUTSIDE RECORDS SUMMARY | 2024-09-08 10:53 | XMS_ITS | Clinical Summary ---
Author Organization [facility] [address] Address [address] [place] [address] Care Team Providers Care Tire Finisher Name Role Phone Marlee Dumont NP Primary Care Provider [phone] Allergies Active Allergy Reactions Criticality Noted Date [...] on file Legal Sex Female 10:21 AM FIELD SUPPORT REP Gender Identity Not on file Sexual Orientation Not on file Obstetrics History Last Filed Vital Signs Vital Sign Reading Time Taken Comments Blood Pressure 126/78 04/04/2022 9:19 AM FIELD SUPPORT REP Pulse 82 04/04/2022 9:19 AM FIELD SUPPORT REP Temperature 36.8 C (98.3 F) 04/04/2022 9:19 AM FIELD SUPPORT REP Respiratory Rate 18 04/04/2022 9:19 AM FIELD SUPPORT REP Oxygen Saturation 96% 04/04/2022 9:19 AM FIELD SUPPORT REP Inhaled Oxygen Concentration - - Weight 100.7 kg (222 lb) 04/04/2022 9:19 AM FIELD SUPPORT REP Height 160 cm (5' 3) 04/04/2022 9:19 AM FIELD SUPPORT REP Body Mass Index 39.33 04/04/2022 9:19 AM FIELD SUPPORT REP Plan of Treatment Health Maintenance Due Date [...] season) 2023 06/01/2020, 05/04/2020 Influenza Vaccine (#1) 2024 , 12/09/2019, 12/09/2019, Additional history exists Pneumococcal vaccine 65+ Completed 019, 08/25/2015, 08/22/2015, Additional history exists Insurance [facility] MEDICARE ADVANTAGE IDPA IDPA Care Teams Tire Finisher Relationship Specialty [place] [address] [place] [address] PCP - General Nurse Practitioner 04/04/22
--- OUTSIDE RECORDS SUMMARY | 2024-09-08 10:53 | XMS_ITS | Referral Summary ---
Author Organization [facility] [address] Address [address] [place] [address] Care Team Providers Care Application Engineer Name Role Phone Marlee Dumont NP Primary Care Provider [phone] Allergies Active Allergy Reactions Criticality Noted Date [...] on file Legal Sex Female 10:21 AM VETERINARY LABORATORY TECHNICIAN Gender Identity Not on file Sexual Orientation Not on file Last Filed Vital Signs Vital Sign Reading Time Taken Comments Blood Pressure 126/78 04/04/2022 9:19 AM VETERINARY LABORATORY TECHNICIAN Pulse 82 04/04/2022 9:19 AM VETERINARY LABORATORY TECHNICIAN Temperature 36.8 C (98.3 F) 04/04/2022 9:19 AM VETERINARY LABORATORY TECHNICIAN Respiratory Rate 18 04/04/2022 9:19 AM VETERINARY LABORATORY TECHNICIAN Oxygen Saturation 96% 04/04/2022 9:19 AM VETERINARY LABORATORY TECHNICIAN Inhaled Oxygen Concentration - - Weight 100.7 kg (222 lb) 04/04/2022 9:19 AM VETERINARY LABORATORY TECHNICIAN Height 160 cm (5' 3) 04/04/2022 9:19 AM VETERINARY LABORATORY TECHNICIAN Body Mass Index 39.33 04/04/2022 9:19 AM VETERINARY LABORATORY TECHNICIAN Plan of Treatment Not on file Insurance [address] [place] [id number] [facility] MEDICARE ADVANTAGE IDPA IDPA Care Teams Application Engineer Relationship Specialty [place] [address] [address] [address] PCP - General Nurse Practitioner 04/04/22
[2024-09-08 11:19] VITALS: BP 133/47; PULSE 74; RESP 18; TEMP 36.3; O2SAT 96
--- OUTSIDE RECORDS SUMMARY | 2024-09-08 11:19 | XMS_ITS | Clinical Summary ---
Author Organization [facility] Address [address] [address] Phone Care Team Providers Care Tire Fabricator Name Role Phone Ji Blankenship MD Primary Care Provider [phone] Allergies Active Allergy Reactions Criticality Noted Date [...] flaxseed mix with cereal in am by [facility].(Non-D rug; Combo Route) route. Active Active Problems Patient Care Coordination No te Formatting of this note migh t be different from the original. Primary Care: Ji Blankenship MD (General) Referring Provider: Ji Blankenship MD [facility] [address] [place] [address] Other: Problem Noted Date Diagnosed Date Breast [...] MEDICARE PART A AND B Care Teams Tire Fabricator Relationship Specialty Start Date End Date Ji Blankenship MD [facility] [place] [address] [place] [id number] PCP - General Internal Medicine 09/22/14
--- OUTSIDE RECORDS SUMMARY | 2024-09-08 11:19 | XMS_ITS | Continuity of Care Document ---
Author Organization [facility] Address [address] [place] [address] Phone Care Team Providers Care Chef Saucier Name Role Phone Chandler OD, [place] Unavailable [...] Diagnoses Date Provider Providers Copied on Encounter [facility], [address] [place] [address] [address], [place], [place], [id number], tel:[phone] [facility] No Information Oct- 0-201 0 Chandler OD [place]. [address] , [address], [place], [address], [place]. tel:[phone] [facility], [address], [place], [place], [id number], [place] tel:[phone] [facility] No Information 5-200 9 Chandler OD [place]. [address] , [address], [place], [address], [place]. tel:[phone] [facility] Eye [facility], [address], [place], [place], [address], [place] tel:[phone] [facility] No Information 0-200 8 Chandler OD [place]. [address] , [address], [place], [address], [place]. tel:[phone] Referring Provider: Umer Tomlinson MD, [address], [place], [address]. tel:[phone] [facility] Eye [facility], [address], [place], [place], [address], [place] tel:[phone] [facility] No Information 1-200 7 Chandler OD [place]. [address] , [address], [place], [address], [place]. tel:[phone] Referring Provider: Cruzito Chandler OD Armin, [address], [place], [place], [facility]. tel:[phone] Family History Family Member Type Diagnosis Age At Onset No Information Payers Payer name Insurance type Covered republican ID Authorkaylen jaramillo(s) [place] [id number] Social History Type Description Quantity Date Captured [...]
--- OUTSIDE RECORDS SUMMARY | 2024-09-08 11:19 | XMS_ITS | Referral Summary ---
Author Organization [facility] [email or web address] Address [address] [place] [address] Care Team Providers Care Creamery Worker Name Role Phone Marlee Dumont NP Primary Care Provider [phone] Allergies Active Allergy Reactions Criticality Noted Date [...] on file Legal Sex Female 10:21 AM OCCUPATIONAL THERAPIST ASSISTANTS Gender Identity Not on file Sexual Orientation Not on file Last Filed Vital Signs Vital Sign Reading Time Taken Comments Blood Pressure 126/78 04/04/2022 9:19 AM OCCUPATIONAL THERAPIST ASSISTANTS Pulse 82 04/04/2022 9:19 AM OCCUPATIONAL THERAPIST ASSISTANTS Temperature 36.8 C (98.3 F) 04/04/2022 9:19 AM OCCUPATIONAL THERAPIST ASSISTANTS Respiratory Rate 18 04/04/2022 9:19 AM OCCUPATIONAL THERAPIST ASSISTANTS Oxygen Saturation 96% 04/04/2022 9:19 AM OCCUPATIONAL THERAPIST ASSISTANTS Inhaled Oxygen Concentration - - Weight 100.7 kg (222 lb) 04/04/2022 9:19 AM OCCUPATIONAL THERAPIST ASSISTANTS Height 160 cm (5' 3) 04/04/2022 9:19 AM OCCUPATIONAL THERAPIST ASSISTANTS Body Mass Index 39.33 04/04/2022 9:19 AM OCCUPATIONAL THERAPIST ASSISTANTS Plan of Treatment Not on file Insurance [address] [place] [id number] [facility] MEDICARE ADVANTAGE IDPA IDPA Care Teams Creamery Worker Relationship Specialty [place] [address] [address] PCP - General Nurse Practitioner 04/04/22
--- OUTSIDE RECORDS SUMMARY | 2024-09-08 11:19 | XMS_ITS | Clinical Summary ---
Author Organization [facility] [address] [place] [address] Care Team Providers Care Machine Setter Supervisor Name Role Phone Marlee Dumont NP Primary Care Provider [phone] Allergies Active Allergy Reactions Criticality Noted Date [...] on file Legal Sex Female 10:21 AM SERVICE TRAINER Gender Identity Not on file Sexual Orientation Not on file Obstetrics History Last Filed Vital Signs Vital Sign Reading Time Taken Comments Blood Pressure 126/78 04/04/2022 9:19 AM SERVICE TRAINER Pulse 82 04/04/2022 9:19 AM SERVICE TRAINER Temperature 36.8 C (98.3 F) 04/04/2022 9:19 AM SERVICE TRAINER Respiratory Rate 18 04/04/2022 9:19 AM SERVICE TRAINER Oxygen Saturation 96% 04/04/2022 9:19 AM SERVICE TRAINER Inhaled Oxygen Concentration - - Weight 100.7 kg (222 lb) 04/04/2022 9:19 AM SERVICE TRAINER Height 160 cm (5' 3) 04/04/2022 9:19 AM SERVICE TRAINER Body Mass Index 39.33 04/04/2022 9:19 AM SERVICE TRAINER Plan of Treatment Health Maintenance Due Date [...] 019, 08/25/2015, 08/22/2015, Additional history exists Insurance [facility] MEDICARE ADVANTAGE IDPA IDPA Care Teams Machine Setter Supervisor Relationship Specialty [place] [address] [place] [address] PCP - General Nurse Practitioner 04/04/22
--- NOTE | 2024-09-08 11:22 | ED.GENADULT ---
HPI - General Adult General Chief complaint: Extremity Problem,Nontraumatic <Tess Fung, SENIOR LITIGATION PARALEGAL - Last Filed: 09/08/24 12:31> Stated complaint: Left leg swelling with pain <Tess Fung, SENIOR LITIGATION PARALEGAL - Last Filed: 09/08/24 12:31> Time Seen by Provider: 09/08/24 11:04 <Tess De La Torre June, SENIOR LITIGATION PARALEGAL - Last Filed: 09/08/24 12:31> History of Present Illness HPI narrative: Megan eMnon is an 84 year female who presents today from [facility] care for DVT rule out. She states that she has had some intermittent swelling over the past 3-4 days to the left lower leg. She states that when she elevates it and rest at bedtime the swelling goes down but it comes back after she is up and moving around. Denies any shortness of breath or chest pain. No recent history of fall or injury or trauma. <Tess Fung, SENIOR LITIGATION PARALEGAL - Last Filed: 09/08/24 12:31> Related Data Home medications: Home Medications ?Medication ?Instructions ?Recorded ?Confirmed ?Last Taken ?Type amlodipine 5 mg tablet 5 mg PO DAILY 12/17/19 09/08/24 Unknown History atorvastatin 40 mg tablet 40 mg PO HS 12/17/19 09/08/24 Unknown History metoprolol succinate 50 mg 50 mg PO DAILY 12/17/19 09/08/24 Unknown History tablet,extended release 24 hr Daily-Danette 1 tab-cap PO DAILY 04/18/22 09/08/24 Unknown History nitroglycerin 0.4 mg sublingual 0.4 mg sublingual PRN PRN Chest 04/18/22 09/08/24 Unknown History tablet Pain ergocalciferol (vitamin D2) 1,250 1,250 mcg PO DIRECTED 07/29/22 09/08/24 Unknown History mcg (50,000 unit) capsule polyethylene glycol 3350 17 17 g PO DAILY PRN Constipation 07/29/22 09/08/24 Unknown History gram/dose oral powder clobetasol 0.05 % topical ointment 1 applic topical DAILY 11/07/22 09/08/24 Unknown History conjugated estrogens 0.625 mg/gram 0.625 mg vaginal .COMPLEX 11/07/22 09/08/24 Unknown History vaginal cream (Premarin) trazodone 50 mg tablet 50 mg PO QHS 11/07/22 09/08/24 Unknown History levocetirizine 5 mg tablet 5 mg PO QPM 04/01/24 09/08/24 Unknown History vibegron 75 mg tablet (Gemtesa) 75 mg PO DAILY 04/01/24 09/08/24 Unknown History acetaminophen 500 mg tablet 100 mg PO BID PRN fever or pain 04/30/24 09/08/24 Unknown History (Tylenol Extra Strength) gabapentin 600 mg tablet 600 mg PO TID 04/30/24 09/08/24 Unknown History amlodipine 2.5 mg tablet 2.5 mg PO DAILY 05/20/24 09/08/24 Unknown History aspirin 81 mg chewable tablet 81 mg PO DAILY 05/20/24 09/08/24 Unknown History duloxetine 60 mg capsule,delayed 60 mg PO DAILY 05/20/24 09/08/24 Unknown History release hydroxyzine HCl 25 mg tablet 25 mg PO DAILY 05/20/24 09/08/24 Unknown History losartan 100 mg tablet 100 mg PO DAILY 05/20/24 09/08/24 Unknown History multivitamin with folic acid 400 1 tablet PO DAILY 05/20/24 09/08/24 Unknown History mcg tablet (Tab-A-Danette) pantoprazole 40 mg tablet,delayed 40 mg PO DAILY 05/20/24 09/08/24 Unknown History release polyethylene glycol 3350 17 17 g PO DAILY 08/13/24 09/08/24 Unknown History gram/dose oral powder (Miralax) estradiol 0.01% (0.1 mg/gram) 1 appful vaginal WEEKLY 08/30/24 09/08/24 Unknown History vaginal cream <Tess Fung, SENIOR LITIGATION PARALEGAL - Last Filed: 09/08/24 12:31> Allergies/adverse reactions: Allergies Allergy/AdvReac Type Severity Reaction Status Date / Time prednisone Allergy Mild Unknown Verified 09/08/24 09:49 rosiglitazone Allergy Mild Unknown Verified 09/08/24 09:49 azithromycin Allergy Unknown Unknown Verified 09/08/24 09:49 ceftriaxone Allergy Unknown Unknown Verified 09/08/24 09:49 codeine Allergy Unknown Unknown Verified 09/08/24 09:49 ibuprofen Allergy Unknown Unknown Verified 09/08/24 09:49 latex Allergy Unknown Unknown Verified 09/08/24 09:49 naproxen Allergy Unknown Unknown Verified 09/08/24 09:49 <Tess Fung APRN - Last Filed: 09/08/24 12:31> Review of Systems Review of Systems: All systems reviewed & are unremarkable except as noted in HPI and below <Tess Fung APRN - Last Filed: 09/08/24 12:31> [facility] Past Medical History Medical History: Medical History Hyperlipidemia Heart failure with reduced ejection fraction (03/2022) EF 40 to 45%. Basal cell carcinoma Overactive bladder Depression Frequent urinary tract infections Obstructive sleep apnea Arthritis Insulin dependent type 2 diabetes mellitus Gastroesophageal reflux disease Anemia Hypertension Osteopenia <Tess Fung APRN - Last Filed: 09/08/24 12:31> Surgical History Surgical History: Surgical History History of esophageal dilatation History of dilation and curettage History of lumbar surgery (1990) History of cholecystectomy History of appendectomy <Tess Fung APRN - Last Filed: 09/08/24 12:31> Family History Family History: Family History Mother Hypertension Family history of diabetes mellitus in first degree relative Family history of heart disease in male family member before age 55 Father Carcinoma of colon Family history of malignant neoplasm of gastrointestinal tract <Tess Fung APRN - Last Filed: 09/08/24 12:31> Social History Social History: Social History Social History: Surrogate medical decision maker: angel Dye. Code status: Full code. Smoking status: Never smoker Second hand tobacco smoke exposure: No Alcohol intake: never Substance use: never Do You Feel Safe in your Home?: Yes Lack of Transportation: YES Lack of Food: Never True Current Housing: I Have Housing Concerned About Future Housing: No Difficulty Paying Gas/Electric Bills: No Difficulty Paying for Meds: No Currently Unemployed: No Education: High School Diploma/GED Difficulty w/ Childcare or Family Care: No Additional living arrangements comments: Assisted living at [facility] since 12/15/2021. Spiritual care concerns: No <Tess Fung, SENIOR LITIGATION PARALEGAL - Last Filed: 09/08/24 12:31> Exam Narrative: GENERAL: Well-appearing, well-nourished, and in no acute distress. HEAD: Normocephalic, atraumatic. EYES: PERRLA and EOMI. ENT: Nares clear, no rhinorrhea or epistaxis. Mucous membranes moist. Oropharynx without tonsillar hypertrophy exudate or other lesions. NECK: Supple. No adenopathy or masses. No carotid bruits or JVD CHEST: Clear to auscultation. No respiratory distress. No wheezes rales or rhonchi HEART: Regular rate and rhythm. No murmur heard. Normal peripheral pulses. ABDOMEN: Soft, nontender, nondistended, normal active bowel sounds. EXTREMITIES: Normal range of motion. Pitting edema swelling to the left lower extremity strong pedal pulses present SKIN: Warm, dry, no rash. NEURO: No focal deficits. Alert and oriented x3. PSYCH: Normal mood and affect. <Tess Fung, SENIOR LITIGATION PARALEGAL - Last Filed: 09/08/24 12:31> Course BASTING MARKER/PA Physician Supervision I agree with midlevel documentation; I performed the medical decision making component of this evaluation. <Loretta Storey MD - Last Filed: 09/08/24 12:43> Vital Signs Vital signs: Vital Signs Temperature 97.4 F L 09/08/24 11:19 Pulse Rate 74 09/08/24 11:19 Respiratory Rate 18 09/08/24 11:19 Blood Pressure 133/47 L 09/08/24 11:19 Pulse Oximetry 96 09/08/24 11:19 Oxygen Delivery Room Air 09/08/24 11:19 Temperature 97.4 F L 09/08/24 11:19 Pulse Rate 74 09/08/24 11:19 Respiratory Rate 18 09/08/24 11:19 Blood Pressure 133/47 L 09/08/24 11:19 Pulse Oximetry 96 09/08/24 11:19 Oxygen Delivery Room Air 09/08/24 11:19 <Tess Fung, SENIOR LITIGATION PARALEGAL - Last Filed: 09/08/24 12:31> Vital Signs Temperature 97.4 F L 09/08/24 11:19 Pulse Rate 74 09/08/24 11:19 Respiratory Rate 18 09/08/24 11:19 Blood Pressure 133/47 L 09/08/24 11:19 Pulse Oximetry 96 09/08/24 11:19 Oxygen Delivery Room Air 09/08/24 11:19 Temperature 97.4 F L 09/08/24 11:19 Pulse Rate 74 09/08/24 11:19 Respiratory Rate 18 09/08/24 11:19 Blood Pressure 133/47 L 09/08/24 11:19 Pulse Oximetry 96 09/08/24 11:19 Oxygen Delivery Room Air 09/08/24 11:19 <Loretta Storey MD - Last Filed: 09/08/24 12:43> Medical Decision Making MDM Narrative Medical decision making narrative: 84-year-old here for DVT rule out. She reports she has been having some swelling off and on the past 3-4 days gets better with elevation of her extremity and returns when she is up and walking. plan to check basic labs and US of lower extremity US negative for DVT Patient updated on imaging and plan for d/c home, encouraged to use compression stockings and to elevate her legs while at rest to help reduce the swelling Close PCP recommended Strict return precautions. <Tess Fung, SENIOR LITIGATION PARALEGAL - Last Filed: 09/08/24 12:31> Medical Records Medical records reviewed: Yes I reviewed the external patient's medical records. <Tess Fung, SENIOR LITIGATION PARALEGAL - Last Filed: 09/08/24 12:31> Vital Signs Vital Signs: Vital Signs Temperature 97.4 F L 09/08/24 11:19 Pulse Rate 74 09/08/24 11:19 Respiratory Rate 18 09/08/24 11:19 Blood Pressure 133/47 L 09/08/24 11:19 Pulse Oximetry 96 09/08/24 11:19 Oxygen Delivery Room Air 09/08/24 11:19 Temperature 97.4 F L 09/08/24 11:19 Pulse Rate 74 09/08/24 11:19 Respiratory Rate 18 09/08/24 11:19 Blood Pressure 133/47 L 09/08/24 11:19 Pulse Oximetry 96 09/08/24 11:19 Oxygen Delivery Room Air 09/08/24 11:19 vitals reviewed by ny <Tess De La Torre June, SENIOR LITIGATION PARALEGAL - Last Filed: 09/08/24 12:31> Vital Signs Temperature 97.4 F L 09/08/24 11:19 Pulse Rate 74 09/08/24 11:19 Respiratory Rate 18 09/08/24 11:19 Blood Pressure 133/47 L 09/08/24 11:19 Pulse Oximetry 96 09/08/24 11:19 Oxygen Delivery Room Air 09/08/24 11:19 Temperature 97.4 F L 09/08/24 11:19 Pulse Rate 74 09/08/24 11:19 Respiratory Rate 18 09/08/24 11:19 Blood Pressure 133/47 L 09/08/24 11:19 Pulse Oximetry 96 09/08/24 11:19 Oxygen Delivery Room Air 09/08/24 11:19 <Loretta Storey MD - Last Filed: 09/08/24 12:43> Lab Data Lab results reviewed: Yes I reviewed the patient's lab results. <Tess Fung APRN - Last Filed: 09/08/24 12:31> Result diagrams: 09/08/24 11:51 09/08/24 11:51 <Tess Fung APRN - Last Filed: 09/08/24 12:31> Labs: Lab Results 09/08/24 Range/Units 11:51 WBC 15.3 H (4.5-10.0) K/mm3 RBC 4.04 L (4.2-5.4) M/mm3 Hgb 11.9 L (12.0-15.0) g/dL Hct 37.0 (37.0-47.0) % MCV 91.6 (80-100) fl MCH 29.5 (26-34) pg MCHC 32.2 (32-36) g/dl RDW 13.5 (11.5-14.5) % Plt Count 291 (150-375) k/mm3 MPV 8.4 (7.4-10.4) fl Immature Gran % (Auto) 0.7 H (0-0.5) % Neut % (Auto) 70.8 (45.5-73.1) % Lymph % (Auto) 19.8 (18.3-44.2) % Stanly % (Auto) 6.4 (2.6-8.5) % Eos % (Auto) 1.8 (0-4.4) % Baso % (Auto) 0.5 (0.2-1.2) % Lymph # (Auto) 3.03 (0.9-3.2) K/mm3 Stanly # (Auto) 1.0 H (0.1-0.6) K/mm3 Eos # (Auto) 0.3 (0-0.3) K/mm3 Baso # (Auto) 0.1 (0.0-0.1) K/mm3 Abs Immat Gran (auto) 0.10 H (0.00-0.031) K/mm3 Absolute Neuts (auto) 10.8 H (1.3-6.7) K/mm3 Absolute Nucleated RBC 0.000 (0.0-0.012) K/mm3 Nucleated RBC % 0.0 (0.0-0.2) % PT Pending INR Pending APTT Pending Sodium 130 L (137-145) mmol/L Potassium 4.4 (3.4-5.0) mmol/L Chloride 97 L (98-107) mmol/L Carbon Dioxide 25 (22-30) mmol/L Anion Gap 8 (4-12) mmol/L BUN 12 (7-17) mg/dL Creatinine 0.83 (0.7-1.0) mg/dL Estim Creat Clear Calc 45 ml/min Estimated GFR > 60 (59 - ) Glucose 170 H (65-110) mg/dL Calcium 9.3 (8.4-10.2) mg/dL <Tess Fung, SENIOR LITIGATION PARALEGAL - Last Filed: 09/08/24 12:31> Lab Results 09/08/24 Range/Units 11:51 WBC 15.3 H (4.5-10.0) K/mm3 RBC 4.04 L (4.2-5.4) M/mm3 Hgb 11.9 L (12.0-15.0) g/dL Hct 37.0 (37.0-47.0) % MCV 91.6 (80-100) fl MCH 29.5 (26-34) pg MCHC 32.2 (32-36) g/dl RDW 13.5 (11.5-14.5) % Plt Count 291 (150-375) k/mm3 MPV 8.4 (7.4-10.4) fl Immature Gran % (Auto) 0.7 H (0-0.5) % Neut % (Auto) 70.8 (45.5-73.1) % Lymph % (Auto) 19.8 (18.3-44.2) % Stanly % (Auto) 6.4 (2.6-8.5) % Eos % (Auto) 1.8 (0-4.4) % Baso % (Auto) 0.5 (0.2-1.2) % Lymph # (Auto) 3.03 (0.9-3.2) K/mm3 Stanly # (Auto) 1.0 H (0.1-0.6) K/mm3 Eos # (Auto) 0.3 (0-0.3) K/mm3 Baso # (Auto) 0.1 (0.0-0.1) K/mm3 Abs Immat Gran (auto) 0.10 H (0.00-0.031) K/mm3 Absolute Neuts (auto) 10.8 H (1.3-6.7) K/mm3 Absolute Nucleated RBC 0.000 (0.0-0.012) K/mm3 Nucleated RBC % 0.0 (0.0-0.2) % PT Pending INR Pending APTT Pending Sodium 130 L (137-145) mmol/L Potassium 4.4 (3.4-5.0) mmol/L Chloride 97 L (98-107) mmol/L Carbon Dioxide 25 (22-30) mmol/L Anion Gap 8 (4-12) mmol/L BUN 12 (7-17) mg/dL Creatinine 0.83 (0.7-1.0) mg/dL Estim Creat Clear Calc 45 ml/min Estimated GFR > 60 (59 - ) Glucose 170 H (65-110) mg/dL Calcium 9.3 (8.4-10.2) mg/dL <Loretta Storey MD - Last Filed: 09/08/24 12:43> Imaging Data Radiologist's impression: Impressions Venous Doppler Study 09/08/24 11:53 IMPRESSION: Negative left lower extremity venous US. No deep vein thrombosis. <Tess Fung APRN - Last Filed: 09/08/24 12:31> Discharge Plan Discharge Clinical Impression: Swelling <Tess Fung APRN - Last Filed: 09/08/24 12:31> Patient Disposition: Home <Tess Fung APRN - Juan Miguel Filed: 09/08/24 12:31> Condition: Stable <Tess De La Torre June, - Last Filed: 09/08/24 12:31> Instructions: Antibiotic Form <Tess De La Torre June, - Last Filed: 09/08/24 12:31> Additional Instructions: Continue to elevate your extremities when your rest review and to try to wear compression stockings to help with swelling. Follow-up with your primary care doctor in the next week to ensure this is improving If you develop any worsening symptoms or concerns return to the ER. <Tess De La Torre June, SENIOR LITIGATION PARALEGAL - Last Filed: 09/08/24 12:31> Patient Language: German <Tess De La Torre June, - Last Filed: 09/08/24 12:31> Prescriptions: New (DME) compression socks, large Misc See Rx Instructions .Route Qty: 2 0RF Rx Instructions: As directed No Action estradiol 0.01 % (0.1 mg/gram) cream 1 appful VAGINAL WEEKLY levocetirizine 5 mg tablet 5 mg PO QPM Gemtesa 75 mg tablet 75 mg PO DAILY albuterol sulfate 90 mcg/actuation HFA aerosol inhaler 2 puff inhalation Q4-6H PRN (Reason: shortness of breath or wheezing) 30 Days Qty: 8.5 0RF gabapentin 600 mg tablet 600 mg PO TID amlodipine 2.5 mg tablet 2.5 mg PO DAILY pantoprazole 40 mg tablet,delayed release (DR/EC) 40 mg PO DAILY aspirin 81 mg tablet,chewable 81 mg PO DAILY hydroxyzine HCl 25 mg tablet 25 mg PO DAILY losartan 100 mg tablet 100 mg PO DAILY duloxetine 60 mg capsule,delayed release(DR/EC) 60 mg PO DAILY multivitamin with folic acid [Tab-A-Danette] 400 mcg tablet 1 tablet PO DAILY amlodipine 5 mg tablet 5 mg PO DAILY atorvastatin 40 mg tablet 40 mg PO HS metoprolol succinate 50 mg tablet extended release 24 hr 50 mg PO DAILY acetaminophen [Tylenol Extra Strength] 500 mg tablet 100 mg PO BID PRN (Reason: fever or pain) trazodone 50 mg tablet 50 mg PO QHS Premarin 0.625 mg/gram cream 0.625 mg vaginal .COMPLEX Rx Instructions: 0.625 mg vaginally Sunday and Shashi; apply a peas size amount clobetasol 0.05 % ointment 1 applic topical DAILY famotidine [Pepcid] 40 mg tablet 40 mg PO QHS Qty: 90 3RF Ozempic 2 mg/dose (8 mg/3 mL) pen injector 2 mg subcut WEEKLY 90 Days Qty: 9 3RF insulin regular hum U-500 conc 500 unit/mL (3 mL) insulin pen See Rx Instructions subcut .COMPLEX Qty: 18 1RF Rx Instructions: 90 units before breakfast, 30 units before lunch polyethylene glycol 3350 [Miralax] 17 gram/dose powder 17 g PO DAILY fluticasone propionate [Flonase Allergy Relief] 50 mcg/actuation spray,suspension 1 spray intranasal Q12H Qty: 16 0RF Rx Instructions: administer into each nostril meclizine 25 mg tablet 25 mg PO BID PRN (Reason: dizziness) Qty: 20 0RF nitroglycerin 0.4 mg tablet, sublingual 0.4 mg sublingual PRN PRN (Reason: Chest Pain) Rx Instructions: dissolve 1 tab under the tongue every 5 min for chest pain up to 3 doses in 15 mins if pain persists seek medical attention Daily-Danette 1 tab-cap PO DAILY trimethoprim 100 mg tablet 100 mg PO HS Qty: 30 6RF ergocalciferol (vitamin D2) 1,250 mcg (50,000 unit) capsule 1,250 mcg PO DIRECTED Rx Instructions: every sunday polyethylene glycol 3350 17 gram/dose powder 17 g PO DAILY PRN (Reason: Constipation) hydrocodone-acetaminophen 5-325 mg tablet 1 tablet PO Q8H PRN (Reason: Pain) Qty: 12 0RF nystatin 100,000 unit/gram powder 1 applic TOPICAL BID Qty: 60 1RF Rx Instructions: apply to gential area bid (DME) FreeStyle Shayne 3 [place] Mis See Rx Instructions .Route Qty: 1 0RF Rx Instructions: As directed (DME) FreeStyle Shayne 3 Plus Sensor Device See Rx Instructions .Route Qty: 6 2RF Rx Instructions: As directed (DME) blood-glucose meter [OneTouch Verio Flex meter] Misc See Rx Instructions .Route Qty: 1 0RF Rx Instructions: As directed (DME) lancets [OneTouch Delica Plus Lancet] 33 gauge misc See Rx Instructions .ROUTE .MEDSUPPLY Qty: 100 0RF Rx Instructions: Check glcuose (DME) OneTouch Verio test strips Strip See Rx Instructions .ROUTE .MEDSUPPLY Qty: 400 1RF Rx Instructions: Check glucose 3-4 times a day <Tess Fung APRN - Last Filed: 09/08/24 12:31> Follow-up/Referrals: Yonatan,JOSLYN Will [Primary Care Provider] - 1 Week <Tess Fung APRN - Last Filed: 09/08/24 12:31> Time of Disposition: 12:26 <Tess Fung APRN - Last Filed: 09/08/24 12:31> 12:26 <Loretta Storey MD - Last Filed: 09/08/24 12:43>
[2024-09-08 11:59] LABS: Hematocrit 37.0 % (37.0-47.0); Hemoglobin 11.9 g/dL (12.0-15.0); Immature Granulocyte Percent A 0.7 % (0-0.5); Lymphocytes Absolute Auto 3.03 K/mm3 (0.9-3.2); Mean Corpuscular HGB Conc 32.2 g/dl (32-36); Mean Corpuscular Hemoglobin 29.5 pg (26-34); Mean Corpuscular Volume 91.6 fl (80-100); Nucleated Red Blood Cells Absolute Auto 0.000 K/mm3 (0.0-0.012); Nucleated Red Blood Cells Perc 0.0 % (0.0-0.2); Platelet Count Result 291 k/mm3 (150-375); Red Blood Count 4.04 M/mm3 (4.2-5.4); White Blood Count 15.3 K/mm3 (4.5-10.0)
[2024-09-08 12:11] LABS: Anion Gap 8 mmol/L (4-12); Blood Urea Nitrogen 12 mg/dL (7-17); Calcium 9.3 mg/dL (8.4-10.2); Carbon Dioxide 25 mmol/L (22-30); Chloride 97 mmol/L (98-107); Estimated CRCL calculation 45 ml/min; Estimated Glomerular Filt Rate > 60; Glucose 170 mg/dL (65-110); Potassium 4.4 mmol/L (3.4-5.0); Sodium 130 mmol/L (137-145)
[2024-09-08 12:43] VITALS: BP 140/52; PULSE 70; RESP 18; TEMP 35.8; O2SAT 98
== END 2024-09-08 12:45 | disposition home or self-care (01) ==
PROVIDERS: Emergency Provider Nurse Practitioner Family; PCP Nurse Practitioner
DX: R22.42 Localized swelling, mass and lump, left lower limb (principal); I50.9 Heart failure, unspecified; I11.0 Hypertensive heart disease with heart failure; E11.9 Type 2 diabetes mellitus without complications; E78.5 Hyperlipidemia, unspecified; N32.81 Overactive bladder; G47.33 Obstructive sleep apnea (adult) (pediatric); M85.80 Other specified disorders of bone density and structure, unspecified site; M19.90 Unspecified osteoarthritis, unspecified site; F32.A Depression, unspecified; Z85.828 Personal history of other malignant neoplasm of skin; Z90.49 Acquired absence of other specified parts of digestive tract; Z79.82 Long term (current) use of aspirin; Z79.899 Other long term (current) drug therapy; Z79.85 Long-term (current) use of injectable non-insulin antidiabetic drugs; Z79.4 Long term (current) use of insulin
CPT/HCPCS: 36415; 80048; 85025; 85610; 85730; 93971; 99284

== ENCOUNTER 2024-10-16 12:53 | Emergency (ER) | payer MEDICARE, MEDICAID, SELFPAY ==
[2024-10-16 12:51] VITALS: BP 149/60; PULSE 73; RESP 16; TEMP 36.9; O2SAT 100
[2024-10-16 13:30] VITALS: BP 101/60; PULSE 73; RESP 16; O2SAT 97
--- OUTSIDE RECORDS SUMMARY | 2024-10-16 13:45 | XMS_ITS | Clinical Summary ---
Author Organization [facility] Address [address] [place] [address] Phone Care Team Providers Care Crane Service Technician Name Role Phone Ji Blankenship MD Primary Care Provider [phone] Allergies Active Allergy Reactions Criticality Noted Date [...] flaxseed mix with cereal in am by [facility].(Non-D rug; Combo Route) route. Active Active Problems Patient Care Coordination No te Formatting of this note migh t be different from the original. Primary Care: Ji Blankenship MD (General) Referring Provider: Ji Blankenship MD [facility] [address] [place] [address] Other: Problem Noted Date Diagnosed Date Breast [...] MEDICARE PART A AND B Care Teams Crane Service Technician Relationship Specialty Start Date End Date Ji Blankenship MD [facility] [address] [place] [id number] PCP - General Internal Medicine 09/22/14
--- OUTSIDE RECORDS SUMMARY | 2024-10-16 13:45 | XMS_ITS | Clinical Summary ---
Author Organization [facility] [address] Address [address] [place] [address] Care Team Providers Care Bridge Operator Slip Name Role Phone Marlee Dumont NP Primary Care Provider [phone] Allergies Active Allergy Reactions Criticality Noted Date [...] Urinary tract infection Type 2 diabetes mellitus Diabete s type 2 Hx Other Medical ABNORMAL SKIN [...] on file Legal Sex Female 10:21 AM SCREEN MACHINE OPERATOR Gender Identity Not on file Sexual Orientation Not on file Obstetrics History Last Filed Vital Signs Vital Sign Reading Time Taken Comments Blood Pressure 126/78 04/04/2022 9:19 AM SCREEN MACHINE OPERATOR Pulse 82 04/04/2022 9:19 AM SCREEN MACHINE OPERATOR Temperature 36.8 C (98.3 F) 04/04/2022 9:19 AM SCREEN MACHINE OPERATOR Respiratory Rate 18 04/04/2022 9:19 AM SCREEN MACHINE OPERATOR Oxygen Saturation 96% 04/04/2022 9:19 AM SCREEN MACHINE OPERATOR Inhaled Oxygen Concentration - - Weight 100.7 kg (222 lb) 04/04/2022 9:19 AM SCREEN MACHINE OPERATOR Height 160 cm (5' 3) 04/04/2022 9:19 AM SCREEN MACHINE OPERATOR Body Mass Index 39.33 04/04/2022 9:19 AM SCREEN MACHINE OPERATOR Plan of Treatment Health Maintenance Due Date [...] 019, 08/25/2015, 08/22/2015, Additional history exists Insurance [facility] MEDICARE [employer] [facility] Address: [address] [address] [place] [address] [facility] Address: [address] [address] [place] [address] IDPA IDPA Care Teams Bridge Operator Slip Relationship Specialty [place] [address] [place] [address] PCP - General Nurse Practitioner 04/04/22
[2024-10-16] MEDS: SULFAMETHOXAZOLE/TRIMETHOPRIM 800/160 MG DS TABLET 1 TAB PO (14:05)
--- NOTE | 2024-10-16 14:13 | ED.WOUNDLAC ---
HPI - Wound/Laceration General Chief Complaint: Wound/Laceration Stated Complaint: leg infection Time Seen by Provider: 10/16/24 13:10 History of Present Illness HPI narrative: This is an 84-year-old female presents the ED from assisted living for concerns for wound infection. Patient states a week ago, she hit her right castro when she was getting on the bus and had a skin tear. She was seen by her PCP at that time started on antibiotic. She has continued to have increasing redness prompting her to come to the ED. Denies fevers, chills, chest pain, shortness of breath, red streaking. Related Data Home Medications ?Medication ?Instructions ?Recorded ?Confirmed ?Last Taken ?Type amlodipine 5 mg tablet 5 mg PO DAILY 12/17/19 09/08/24 Unknown History atorvastatin 40 mg tablet 40 mg PO HS 12/17/19 09/08/24 Unknown History metoprolol succinate 50 mg 50 mg PO DAILY 12/17/19 09/08/24 Unknown History tablet,extended release 24 hr Daily-Danette 1 tab-cap PO DAILY 04/18/22 09/08/24 Unknown History nitroglycerin 0.4 mg sublingual 0.4 mg sublingual PRN PRN Chest 04/18/22 09/08/24 Unknown History tablet Pain ergocalciferol (vitamin D2) 1,250 1,250 mcg PO DIRECTED 07/29/22 09/08/24 Unknown History mcg (50,000 unit) capsule polyethylene glycol 3350 17 17 g PO DAILY PRN Constipation 07/29/22 09/08/24 Unknown History gram/dose oral powder clobetasol 0.05 % topical ointment 1 applic topical DAILY 11/07/22 09/08/24 Unknown History conjugated estrogens 0.625 mg/gram 0.625 mg vaginal .COMPLEX 11/07/22 09/08/24 Unknown History vaginal cream (Premarin) trazodone 50 mg tablet 50 mg PO QHS 11/07/22 09/08/24 Unknown History levocetirizine 5 mg tablet 5 mg PO QPM 04/01/24 09/08/24 Unknown History vibegron 75 mg tablet (Gemtesa) 75 mg PO DAILY 04/01/24 09/08/24 Unknown History acetaminophen 500 mg tablet 100 mg PO BID PRN fever or pain 04/30/24 09/08/24 Unknown History (Tylenol Extra Strength) gabapentin 600 mg tablet 600 mg PO TID 04/30/24 09/08/24 Unknown History amlodipine 2.5 mg tablet 2.5 mg PO DAILY 05/20/24 09/08/24 Unknown History aspirin 81 mg chewable tablet 81 mg PO DAILY 05/20/24 09/08/24 Unknown History duloxetine 60 mg capsule,delayed 60 mg PO DAILY 05/20/24 09/08/24 Unknown History release hydroxyzine HCl 25 mg tablet 25 mg PO DAILY 05/20/24 09/08/24 Unknown History losartan 100 mg tablet 100 mg PO DAILY 05/20/24 09/08/24 Unknown History multivitamin with folic acid 400 1 tablet PO DAILY 05/20/24 09/08/24 Unknown History mcg tablet (Tab-A-Danette) pantoprazole 40 mg tablet,delayed 40 mg PO DAILY 05/20/24 09/08/24 Unknown History release polyethylene glycol 3350 17 17 g PO DAILY 08/13/24 09/08/24 Unknown History gram/dose oral powder (Miralax) estradiol 0.01% (0.1 mg/gram) 1 appful vaginal WEEKLY 08/30/24 09/08/24 Unknown History vaginal cream Allergies Allergy/AdvReac Type Severity Reaction Status Date / Time prednisone Allergy Mild Unknown Verified 10/16/24 13:23 rosiglitazone Allergy Mild Unknown Verified 10/16/24 13:23 azithromycin Allergy Unknown Unknown Verified 10/16/24 13:23 ceftriaxone Allergy Unknown Unknown Verified 10/16/24 13:23 codeine Allergy Unknown Unknown Verified 10/16/24 13:23 ibuprofen Allergy Unknown Unknown Verified 10/16/24 13:23 latex Allergy Unknown Unknown Verified 10/16/24 13:23 naproxen Allergy Unknown Unknown Verified 10/16/24 13:23 Review of Systems Review of Systems: Gen.: Denies fevers or chills Eyes: Denies eye pain or visual change ENT: Denies congestion Respiratory: Denies shortness of breath or cough CV: Denies chest pain or palpitations GI: Denies abdominal pain nausea, emesis or diarrhea denies burning, urgency, frequency or hematuria Musculoskeletal: Denies back pain or muscle pain Neuro: Denies numbness, tingling, weakness or focal weakness Skin: As per HPI Except as documented, all other systems reviewed and negative FOR[facility]LY [facility] Past Medical History Medical History Hyperlipidemia Heart failure with reduced ejection fraction (03/2022) EF 40 to 45%. Basal cell carcinoma Overactive bladder Depression Frequent urinary tract infections Obstructive sleep apnea Arthritis Insulin dependent type 2 diabetes mellitus Gastroesophageal reflux disease Anemia Hypertension Osteopenia Surgical History Surgical History History of esophageal dilatation History of dilation and curettage History of lumbar surgery (1990) History of cholecystectomy History of appendectomy Family History Family History Mother Hypertension Family history of diabetes mellitus in first degree relative Family history of heart disease in male family member before age 55 Father Carcinoma of colon Family history of malignant neoplasm of gastrointestinal tract Social History Social History Social History: Surrogate medical decision maker: Mario or angel Cannon. Code status: Full code. Smoking status: Never smoker Second hand tobacco smoke exposure: No Alcohol intake: never Substance use: never Do You Feel Safe in your Home?: Yes Lack of Transportation: YES Lack of Food: Never True Current Housing: I Have Housing Concerned About Future Housing: No Difficulty Paying Gas/Electric Bills: No Difficulty Paying for Meds: No Currently Unemployed: No Education: High School Diploma/GED Difficulty w/ Childcare or Family Care: No Additional living arrangements comments: Assisted living at [facility] since 12/15/2021. Spiritual care concerns: No Exam Narrative: APPEARANCE: No acute distress, nontoxic, resting in bed EYES: EOMI HEENT: Normocephalic, atraumatic, OMM RESPIRATORY: No respiratory distress Clear to auscultation bilaterally with no rhonchi wheezing or rales. CARDIOVASCULAR: Regular rate and rhythm without murmurs rubs or gallops. ABDOMINAL: Soft, nontender, nondistended, no rebound or guarding MUSCULOSKELETAL: Moves all extremities. No clubbing, cyanosis or edema. NEURO: Awake and alert. Following commands, speech normal, no focal deficits SKIN:: old skin tear to the right castro without drainage. There is surrounding erythema an area about [id number]. No lymphangitis PSYCHIATRIC: Normal affect/mood, Course Vital Signs Vital signs: Vital Signs Temperature 98.4 F 10/16/24 12:51 Pulse Rate 73 10/16/24 12:51 Respiratory Rate 16 10/16/24 12:51 Blood Pressure 149/60 H 10/16/24 12:51 Pulse Oximetry 100 10/16/24 12:51 Oxygen Delivery Room Air 10/16/24 12:51 Temperature 98.4 F 10/16/24 12:51 Pulse Rate 70 10/16/24 14:45 Respiratory Rate 16 10/16/24 14:45 Blood Pressure 138/60 10/16/24 14:45 Pulse Oximetry 98 10/16/24 14:45 Oxygen Delivery Room Air 10/16/24 12:51 MDM - Wound/Laceration MDM Narrative Medical decision making narrative: Is secured female that presents to the ED for concerns for cellulitis. On initial evaluation, patient was in no acute distress, afebrile, hemodynamically stable. She did have an old skin tear to her right anterior lower leg with a large area of erythema surrounding concerning for cellulitis. Could vaguely make out the prior skin ginette the orders in it did appear that this was tracking inferior to this. There is no tracking proximal. Patient has a history of diabetes and she was given a prescription for Keflex. Suspect that this is not an adequate coverage for cellulitis for her. She will be switched to clindamycin. Patient was advised to follow-up with her PCP in the next week for re-evaluation. Patient was agreeable to this plan. Given strict return precautions. Medical Records Attestation: I reviewed the patient's medical records. Discharge Plan Discharge Clinical Impression: Cellulitis Qualifiers: Site of cellulitis: extremity Site of cellulitis of extremity: lower extremity Laterality: right Qualified Code(s): L03.115 - Cellulitis of right lower limb Type 2 diabetes mellitus Qualifiers: Diabetes mellitus shelter insulin use: unspecified shelter insulin use status Diabetes mellitus complication status: without complication Qualified Code(s): E11.9 - Type 2 diabetes mellitus without complications Patient Disposition: Home Condition: Stable Instructions: Antibiotic Form, Cellulitis (ED) Additional Instructions: take clindamycin as prescribed. Continue follow-up with her PCP. Continue to track the redness return to the ED if the redness spreads beyond the marked area. Patient Language: Spanish Prescriptions: New clindamycin HCl [Cleocin HCl] 300 mg capsule 300 mg PO Q8H 7 Days Qty: 21 0RF No Action estradiol 0.01 % (0.1 mg/gram) cream 1 appful VAGINAL WEEKLY levocetirizine 5 mg tablet 5 mg PO QPM Gemtesa 75 mg tablet 75 mg PO DAILY albuterol sulfate 90 mcg/actuation HFA aerosol inhaler 2 puff inhalation Q4-6H PRN (Reason: shortness of breath or wheezing) 30 Days Qty: 8.5 0RF gabapentin 600 mg tablet 600 mg PO TID amlodipine 2.5 mg tablet 2.5 mg PO DAILY pantoprazole 40 mg tablet,delayed release (DR/EC) 40 mg PO DAILY aspirin 81 mg tablet,chewable 81 mg PO DAILY hydroxyzine HCl 25 mg tablet 25 mg PO DAILY losartan 100 mg tablet 100 mg PO DAILY duloxetine 60 mg capsule,delayed release(DR/EC) 60 mg PO DAILY multivitamin with folic acid [Tab-A-Danette] 400 mcg tablet 1 tablet PO DAILY amlodipine 5 mg tablet 5 mg PO DAILY atorvastatin 40 mg tablet 40 mg PO HS metoprolol succinate 50 mg tablet extended release 24 hr 50 mg PO DAILY acetaminophen [Tylenol Extra Strength] 500 mg tablet 100 mg PO BID PRN (Reason: fever or pain) trazodone 50 mg tablet 50 mg PO QHS Premarin 0.625 mg/gram cream 0.625 mg vaginal .COMPLEX Rx Instructions: 0.625 mg vaginally Sunday and Sunday; apply a peas size amount clobetasol 0.05 % ointment 1 applic topical DAILY famotidine [Pepcid] 40 mg tablet 40 mg PO QHS Qty: 90 3RF Ozempic 2 mg/dose (8 mg/3 mL) pen injector 2 mg subcut WEEKLY 90 Days Qty: 9 3RF insulin regular hum U-500 conc 500 unit/mL (3 mL) insulin pen See Rx Instructions subcut .COMPLEX Qty: 18 1RF Rx Instructions: 90 units before breakfast, 30 units before lunch polyethylene glycol 3350 [Miralax] 17 gram/dose powder 17 g PO DAILY fluticasone propionate [Flonase Allergy Relief] 50 mcg/actuation spray,suspension 1 spray intranasal Q12H Qty: 16 0RF Rx Instructions: administer into each nostril meclizine 25 mg tablet 25 mg PO BID PRN (Reason: dizziness) Qty: 20 0RF nitroglycerin 0.4 mg tablet, sublingual 0.4 mg sublingual PRN PRN (Reason: Chest Pain) Rx Instructions: dissolve 1 tab under the tongue every 5 min for chest pain up to 3 doses in 15 mins if pain persists seek medical attention Daily-Danette 1 tab-cap PO DAILY trimethoprim 100 mg tablet 100 mg PO HS Qty: 30 6RF ergocalciferol (vitamin D2) 1,250 mcg (50,000 unit) capsule 1,250 mcg PO DIRECTED Rx Instructions: every sunday polyethylene glycol 3350 17 gram/dose powder 17 g PO DAILY PRN (Reason: Constipation) hydrocodone-acetaminophen 5-325 mg tablet 1 tablet PO Q8H PRN (Reason: Pain) Qty: 12 0RF (DME) compression socks, large Misc See Rx Instructions .Route Qty: 2 0RF Rx Instructions: As directed nystatin 100,000 unit/gram powder 1 applic TOPICAL BID Qty: 60 1RF Rx Instructions: apply to gential area bid (DME) FreeStyle Shayne 3 Salyer Misc See Rx Instructions .Route Qty: 1 0RF Rx Instructions: As directed (DME) FreeStyle Shayne 3 Plus Sensor Device See Rx Instructions .Route Qty: 6 2RF Rx Instructions: As directed (DME) blood-glucose meter [OneTouch Verio Flex meter] Misc See Rx Instructions .Route Qty: 1 0RF Rx Instructions: As directed (DME) lancets [OneTouch Delica Plus Lancet] 33 gauge misc See Rx Instructions .ROUTE .MEDSUPPLY Qty: 100 0RF Rx Instructions: Check glcuose (DME) OneTouch Verio test strips Strip See Rx Instructions .ROUTE .MEDSUPPLY Qty: 400 1RF Rx Instructions: Check glucose 3-4 times a day Follow-up/Referrals: Yonatan,JOSLYN Will [Primary Care Provider, Unknown]
[2024-10-16 14:45] VITALS: BP 138/60; PULSE 70; RESP 16; O2SAT 98
== END 2024-10-16 14:45 ==
PROVIDERS: Emergency Provider Student in an Organized Health Care Education/Training Program; PCP Nurse Practitioner
DX: L03.115 Cellulitis of right lower limb (principal); E11.9 Type 2 diabetes mellitus without complications; I11.0 Hypertensive heart disease with heart failure; I50.9 Heart failure, unspecified; E78.5 Hyperlipidemia, unspecified; N32.81 Overactive bladder; G47.33 Obstructive sleep apnea (adult) (pediatric); K21.9 Gastro-esophageal reflux disease without esophagitis; M19.90 Unspecified osteoarthritis, unspecified site; M85.80 Other specified disorders of bone density and structure, unspecified site; F32.A Depression, unspecified; Z87.440 Personal history of urinary (tract) infections; Z85.828 Personal history of other malignant neoplasm of skin; Z86.2 Personal history of diseases of the blood and blood-forming organs and certain disorders involving the immune mechanism; Z90.49 Acquired absence of other specified parts of digestive tract; Z79.82 Long term (current) use of aspirin; Z79.899 Other long term (current) drug therapy; Z79.85 Long-term (current) use of injectable non-insulin antidiabetic drugs; Z79.4 Long term (current) use of insulin
CPT/HCPCS: 99283; A9270

== ENCOUNTER 2024-10-31 13:58 | Emergency (ER) | payer MEDICARE, MEDICAID, SELFPAY ==
[2024-10-31 14:06] VITALS: BP 143/74; PULSE 87; RESP 18; TEMP 36.6; O2SAT 96
--- NOTE | 2024-10-31 14:08 | ED.SKABFB ---
HPI - Skin/Abscess/Foreign Bdy General Chief complaint: Skin/Abscess/Foreign Body Stated complaint: Wound Time Seen by Provider: 10/31/24 14:08 Source: patient, RN notes reviewed and old records reviewed Mode of arrival: ambulatory Limitations: no limitations History of Present Illness HPI narrative: 84-year-old female presents to the [facility] with concerns of a wound to the right lower extremity that is not healing. Patient was evaluated in the ER on the October 16, was discharged home. Was prescribed clindamycin. Has a home health nurse that is coming and doing her wound dressings. Patient reports that she did take all of the clindamycin, has been getting dressing changes by a wound nurse. States that she called her primary care provider was told to get further evaluation. Patient has a history of diabetes. Patient with significant medication allergies. Treatments prior to arrival: bandages and other (Antibiotics) Related Data Home Medications ?Medication ?Instructions ?Recorded ?Confirmed ?Last Taken ?Type atorvastatin 40 mg tablet 40 mg PO HS 12/17/19 10/31/24 Unknown History metoprolol succinate 50 mg 50 mg PO DAILY 12/17/19 10/31/24 Unknown History tablet,extended release 24 hr Daily-Danette 1 tab-cap PO DAILY 04/18/22 10/31/24 Unknown History nitroglycerin 0.4 mg sublingual 0.4 mg sublingual PRN PRN Chest 04/18/22 10/31/24 Unknown History tablet Pain ergocalciferol (vitamin D2) 1,250 1,250 mcg PO DIRECTED 07/29/22 10/31/24 Unknown History mcg (50,000 unit) capsule polyethylene glycol 3350 17 17 g PO DAILY PRN Constipation 07/29/22 10/31/24 Unknown History gram/dose oral powder clobetasol 0.05 % topical ointment 1 applic topical DAILY 11/07/22 10/31/24 Unknown History conjugated estrogens 0.625 mg/gram 0.625 mg vaginal .COMPLEX 11/07/22 10/31/24 Unknown History vaginal cream (Premarin) levocetirizine 5 mg tablet 5 mg PO QPM 04/01/24 10/31/24 Unknown History vibegron 75 mg tablet (Gemtesa) 75 mg PO DAILY 04/01/24 10/31/24 Unknown History acetaminophen 500 mg tablet 1,000 mg PO BID PRN fever or pain 04/30/24 10/31/24 Unknown History (Tylenol Extra Strength) gabapentin 600 mg tablet 600 mg PO TID 04/30/24 10/31/24 Unknown History amlodipine 2.5 mg tablet 2.5 mg PO DAILY 05/20/24 10/31/24 Unknown History aspirin 81 mg chewable tablet 81 mg PO DAILY 05/20/24 10/31/24 Unknown History duloxetine 60 mg capsule,delayed 60 mg PO DAILY 05/20/24 10/31/24 Unknown History release hydroxyzine HCl 25 mg tablet 25 mg PO Q8H PRN anxiety 05/20/24 10/31/24 Unknown History losartan 100 mg tablet 100 mg PO DAILY 05/20/24 10/31/24 Unknown History multivitamin with folic acid 400 1 tablet PO DAILY 05/20/24 10/31/24 Unknown History mcg tablet (Tab-A-Danette) pantoprazole 40 mg tablet,delayed 40 mg PO HS 05/20/24 10/31/24 Unknown History release estradiol 0.01% (0.1 mg/gram) 1 appful vaginal WEEKLY 08/30/24 10/31/24 Unknown History vaginal cream diphenhydramine-zinc acetate 2 1 applic topical BID PRN itching 10/31/24 10/31/24 Unknown History %-0.1 % topical solution hydrochlorothiazide 12.5 mg capsule 12.5 mg PO DAILY 10/31/24 10/31/24 Unknown History hydrocodone 5 mg-acetaminophen 325 1 tablet PO Q12H PRN Pain 10/31/24 10/31/24 Unknown History mg tablet methocarbamol 500 mg tablet 500 mg PO BID 10/31/24 10/31/24 Unknown History miconazole nitrate 2 % vaginal 1 appful vaginal HS 10/31/24 10/31/24 Unknown History cream (Miconazole-7) phenazopyridine 200 mg tablet 200 mg PO TID PRN pain 10/31/24 10/31/24 Unknown History sennosides 8.6 mg tablet (senna) 17.2 mg PO BID PRN constipation 10/31/24 10/31/24 Unknown History triamcinolone acetonide 0.1 % 1 applic topical DAILY 10/31/24 10/31/24 Unknown History topical ointment Allergies Allergy/AdvReac Type Severity Reaction Status Date / Time prednisone Allergy Mild Unknown Verified 11/01/24 05:42 rosiglitazone Allergy Mild Unknown Verified 11/01/24 05:42 azithromycin Allergy Unknown Unknown Verified 11/01/24 05:42 ceftriaxone Allergy Unknown Unknown Verified 11/01/24 05:42 codeine Allergy Unknown Unknown Verified 11/01/24 05:42 ibuprofen Allergy Unknown Unknown Verified 11/01/24 05:42 latex Allergy Unknown Unknown Verified 11/01/24 05:42 naproxen Allergy Unknown Unknown Verified 11/01/24 05:42 Review of Systems Review of Systems: All systems reviewed & are unremarkable except as noted in HPI and below Constitutional: Constitutional: Reports no additional constitutional complaints Musculoskeletal: Musculoskeletal: Reports as per HPI and Reports other Integumentary/Breasts: Skin/Breast: Reports as per HPI PMFSH Past Medical History Medical History Hyperlipidemia Heart failure with reduced ejection fraction (03/2022) EF 40 to 45%. Basal cell carcinoma Overactive bladder Depression Frequent urinary tract infections Obstructive sleep apnea Arthritis Insulin dependent type 2 diabetes mellitus Gastroesophageal reflux disease Anemia Hypertension Osteopenia Surgical History Surgical History History of esophageal dilatation History of dilation and curettage History of lumbar surgery (1990) History of cholecystectomy History of appendectomy Family History Family History Mother Hypertension Family history of diabetes mellitus in first degree relative Family history of heart disease in male family member before age 55 Father Carcinoma of colon Family history of malignant neoplasm of gastrointestinal tract Social History Social History Social History: Surrogate medical decision maker: angel Dye. Code status: Full code. Smoking status: Never smoker Second hand tobacco smoke exposure: No Alcohol intake: never Substance use: never Substance use type: does not use Do You Feel Safe in your Home?: Yes Lack of Transportation: YES Lack of Food: Never True Current Housing: I Have Housing Concerned About Future Housing: No Difficulty Paying Gas/Electric Bills: No Difficulty Paying for Meds: No Currently Unemployed: No Education: High School Diploma/GED Difficulty w/ Childcare or Family Care: No Additional living arrangements comments: Assisted living at [facility] since 12/15/2021. Spiritual care concerns: No Comments At the time of my signature, I reviewed and agree with the nursing past medical, surgical, social, and family history. There is no relevant family history pertinent to the patient complaint. Exam Const: General: cooperative, no acute distress, well developed, alert, uncomfortable and well nourished Nutritional Appearance: well nourished Orientation/consciousness: patient oriented x3 Limitations: no limitations HENMT: Head: normal to inspection Eyes: General: appearance normal, both eyes and all related structures Alignment and Position: alignment normal Neck: Neck: normal visual inspection, full ROM, no lymphadenopathy and no meningeal signs Chest: Chest palpation & inspection: normal inspection of the chest Resp: Effort & Inspection: normal respiratory effort and able to speak in complete sentences Cardio: Rate: regular rate Skin: Wounds: wounds noted (Open wound, dressing cover) Other: Circumferential cellulitis just below knee to heal right lower leg, wound that is dressed anterior right castro Lower leg swelling noted Neuro: General: patient oriented x3, moves all extremities and no meningeal signs Cognition (Neuro): normal cognition Speech: normal speech Gait exam (Neuro): Assisted gait required walker Extrem: General: normal to inspection, full ROM, capillary refill normal and normal gait Psych: Appearance: grossly normal and well kempt Mental Status: mental status grossly normal Speech and movement: Normal speech and movement present and Clear speech present Affect: normal affect Attitude: cooperative Course Course Level of Care: Express Care Visit Vital Signs Vital signs: Vital Signs Temperature 97.8 F 10/31/24 14:06 Pulse Rate 87 10/31/24 14:06 Respiratory Rate 18 10/31/24 14:06 Blood Pressure 143/74 H 10/31/24 14:06 Pulse Oximetry 96 10/31/24 14:06 Oxygen Delivery Room Air 10/31/24 14:06 Temperature 97.8 F 10/31/24 14:06 Pulse Rate 87 10/31/24 14:06 Respiratory Rate 18 10/31/24 14:06 Blood Pressure 143/74 H 10/31/24 14:06 Pulse Oximetry 96 10/31/24 14:06 Oxygen Delivery Room Air 10/31/24 14:06 Reviewed Transfer Transfered to: [facility]: Other (POV) Transfer rationale: Patient with an unhealing wound right lower extremity, worsening redness, circumferential cellulitis. Sending for higher level of care Accepting physician: Dr Holland MDM - Skin/Abscess/Foreign Bdy MDM Narrative Medical decision making narrative: Patient with continued wound to the right lower leg, worsening redness, swelling to the right lower leg was on clindamycin, reports that never healed. Redness care getting worse. Sending for higher level of care Transfer instructions reviewed with patient and her son to go directly to the emergency room All questions have been answered, and the patient deny any further questions. Some parts of this dictation were generated by voice recognition software and may contain typographical and/or grammatical inaccuracies. Differential Diagnosis Differential diagnosis: Likely abscess of skin or subcutaneous tissue, cellulitis and contact dermatitis Critical Care Time Critical Care Time Critical Care Time: No Discharge Plan Discharge Clinical Impression: Non-healing wound of right lower extremity Patient Disposition: Acute Care Hospital Condition: Stable Patient Language: Barbadian Prescriptions: No Action estradiol 0.01 % (0.1 mg/gram) cream 1 appful VAGINAL WEEKLY levocetirizine 5 mg tablet 5 mg PO QPM Gemtesa 75 mg tablet 75 mg PO DAILY albuterol sulfate 90 mcg/actuation HFA aerosol inhaler 2 puff inhalation Q4-6H PRN (Reason: shortness of breath or wheezing) 30 Days Qty: 8.5 0RF gabapentin 600 mg tablet 600 mg PO TID amlodipine 2.5 mg tablet 2.5 mg PO DAILY pantoprazole 40 mg tablet,delayed release (DR/EC) 40 mg PO HS aspirin 81 mg tablet,chewable 81 mg PO DAILY hydroxyzine HCl 25 mg tablet 25 mg PO Q8H PRN (Reason: anxiety) losartan 100 mg tablet 100 mg PO DAILY duloxetine 60 mg capsule,delayed release(DR/EC) 60 mg PO DAILY multivitamin with folic acid [Tab-A-Danette] 400 mcg tablet 1 tablet PO DAILY atorvastatin 40 mg tablet 40 mg PO HS metoprolol succinate 50 mg tablet extended release 24 hr 50 mg PO DAILY acetaminophen [Tylenol Extra Strength] 500 mg tablet 1,000 mg PO BID PRN (Reason: fever or pain) Premarin 0.625 mg/gram cream 0.625 mg vaginal .COMPLEX Rx Instructions: 0.625 mg vaginally Sunday and Sunday; apply a peas size amount clobetasol 0.05 % ointment 1 applic topical DAILY famotidine [Pepcid] 40 mg tablet 40 mg PO QHS Qty: 90 3RF Ozempic 2 mg/dose (8 mg/3 mL) pen injector 2 mg subcut WEEKLY 90 Days Qty: 9 3RF Patient Comments: sunday insulin regular hum U-500 conc 500 unit/mL (3 mL) insulin pen See Rx Instructions subcut .COMPLEX Qty: 18 1RF Rx Instructions: 90 units before breakfast, 30 units before lunch fluticasone propionate [Flonase Allergy Relief] 50 mcg/actuation spray,suspension 1 spray intranasal Q12H Qty: 16 0RF Rx Instructions: administer into each nostril meclizine 25 mg tablet 25 mg PO BID PRN (Reason: dizziness) Qty: 20 0RF nitroglycerin 0.4 mg tablet, sublingual 0.4 mg sublingual PRN PRN (Reason: Chest Pain) Rx Instructions: dissolve 1 tab under the tongue every 5 min for chest pain up to 3 doses in 15 mins if pain persists seek medical attention Daily-Danette 1 tab-cap PO DAILY trimethoprim 100 mg tablet 100 mg PO HS Qty: 30 6RF ergocalciferol (vitamin D2) 1,250 mcg (50,000 unit) capsule 1,250 mcg PO DIRECTED Rx Instructions: every sunday polyethylene glycol 3350 17 gram/dose powder 17 g PO DAILY PRN (Reason: Constipation) methocarbamol 500 mg tablet 500 mg PO BID miconazole nitrate [Miconazole-7] 2 % cream 1 appful vaginal HS phenazopyridine 200 mg tablet 200 mg PO TID PRN (Reason: pain) sennosides [senna] 8.6 mg tablet 17.2 mg PO BID PRN (Reason: constipation) triamcinolone acetonide 0.1 % ointment 1 applic TOPICAL DAILY hydrochlorothiazide 12.5 mg capsule 12.5 mg PO DAILY diphenhydramine-zinc acetate 2-0.1 % solution 1 applic topical BID PRN (Reason: itching) Rx Instructions: for leg itching hydrocodone-acetaminophen 5-325 mg tablet 1 tablet PO Q12H PRN (Reason: Pain) nystatin 100,000 unit/gram powder 1 applic TOPICAL BID Qty: 60 1RF Rx Instructions: apply to gential area bid (DME) FreeStyle [place] 3 [place] Misc See Rx Instructions .Route Qty: 1 0RF Rx Instructions: As directed (DME) FreeStyle Shayne 3 Plus Sensor Device See Rx Instructions .Route Qty: 6 2RF Rx Instructions: As directed (DME) blood-glucose meter [OneTouch Verio Flex meter] Misc See Rx Instructions .Route Qty: 1 0RF Rx Instructions: As directed (DME) lancets [OneTouch Delica Plus Lancet] 33 gauge misc See Rx Instructions .ROUTE .MEDSUPPLY Qty: 100 0RF Rx Instructions: Check glcuose (DME) OneTouch Verio test strips Strip See Rx Instructions .ROUTE .MEDSUPPLY Qty: 400 1RF Rx Instructions: Check glucose 3-4 times a day Follow-up/Referrals: Yonatan,Natalie Davis, JOSLYN [Primary Care Provider, Unknown]
== END 2024-10-31 14:22 | disposition short-term general hospital (02) ==
PROVIDERS: Emergency Provider Nurse Practitioner; PCP Nurse Practitioner
DX: S81.801D Unspecified open wound, right lower leg, subsequent encounter (principal); X58.XXXD Exposure to other specified factors, subsequent encounter; I11.0 Hypertensive heart disease with heart failure; I50.9 Heart failure, unspecified; E78.5 Hyperlipidemia, unspecified; E11.9 Type 2 diabetes mellitus without complications; Z79.4 Long term (current) use of insulin; Z79.85 Long-term (current) use of injectable non-insulin antidiabetic drugs; N32.81 Overactive bladder; M19.90 Unspecified osteoarthritis, unspecified site; K21.9 Gastro-esophageal reflux disease without esophagitis; M85.80 Other specified disorders of bone density and structure, unspecified site; Z79.82 Long term (current) use of aspirin
CPT/HCPCS: 99212; G0463

== ENCOUNTER 2024-10-31 14:53 | Inpatient (IN) | payer MEDICARE, MEDICAID, SELFPAY ==
--- OUTSIDE RECORDS SUMMARY | 2009-11-05 03:15 | XMS_ITS | Continuity of Care Document ---
Author Organization [facility] Address [address] [place] [address] Phone Care Team Providers Care Jar Filler Name Role Phone Chandler OD, Cruzito Unavailable Unavailable Procedures Procedure Date Eye Exam & Treatment Dilated Retinal Exam W Interpretation Se Refraction Eye Exam & Treatment Dilated Retinal Exam W Interpretation No Script Refraction Eye Exam & Treatment Refraction Dilated Retinal Exam W Interpretation Ju Eye Exam & Treatment Fundus Photography W/ Report Advance Directives Directive Yes / No Effective Date File Name No Information Encounters Encounter Description Practice Location Reason(s) For Visit Diagnoses Date Provider Providers Copied on Encounter [facility], [id number] [place] [address] [address], [place], [place], [id number], tel:[phone] [facility] No Information Oct- 0-201 0 Chandler OD Cruzito. [address] , [address], [place], [address], [place]. tel:[phone] [facility], [address], [place], [place], [id number], [place] tel:[phone] [facility] No Information 5-200 9 Chandler OD Cruzito. [address] , [address], [place], [address], [place]. tel:[phone] [facility], [address], [place], [place], [id number], [place] tel:[phone] [facility] No Information 0-200 8 Chandler OD Cruzito. [address] [facility] , [address], [place], [address], [place]. tel:[phone] Referring Provider: Umer Tomlinson MD, [address], [place], [address]. tel:[phone] [facility], [address], [place], [place], [address], [place] tel:[phone] [facility] No Information 1-200 7 Chandler OD Cruzito. [address] [facility] , [address], [place], [address], [place]. tel:[phone] Referring Provider: Cruzito Chandler OD Armin, [address] [facility] [address], [place], [place], [facility]. tel:[phone] Family History Family Member Type Diagnosis Age At Onset No Information Payers Payer name Insurance type Covered republican ID Authorkaylen jaramillo(s) [place] [id number] Social History Type Description Quantity Date Captured Comments Sex Female Smoking Status No Information Chief Complaint And Reason For Visit No Information Reason For Referral Reason For Referral No Information History Of Present Illness Encounter Date Complaint History Of Prese nt Illness No Information Functional Status Date Functional Assessmen t No Information Instructions Date Instruction Additional Infor mation No Information Assessments Type Assessment Date No Information Patient Care Teams Name Effective Dates (start - stop) Status Members No Information
--- OUTSIDE RECORDS SUMMARY | 2009-11-05 03:15 | XMS_ITS | Continuity of Care Document ---
Author Organization [facility] Address [address] [place] [address] Phone Care Team Providers Care Offset Printing Operator Name Role Phone Chandler OD, Cruzito Unavailable [...] Diagnoses Date Provider Providers Copied on Encounter [facility], [id number] [place] [address] [address], [place], [place], [id number], tel:[phone] [facility] No Information Oct- 0-201 0 Chandler OD Cruzito. [address] , [address], [place], [address], [place]. tel:[phone] [facility], [address], [place], [place], [address], [place] tel:[phone] [facility] No Information 5-200 9 Chandler OD Cruzito. [address] , [address], [place], [address], [place]. tel:[phone] [facility], [address], [place], [place], [id number], [place] tel:[phone] [facility] No Information 0-200 8 Chandler OD Cruzito. [address] [facility] , [address], [place], [address], [place]. tel:[phone] Referring Provider: Umer Tomlinson MD, [address], [place], [address]. tel:[phone] [facility], [address], [place], [place], [address], [place] tel:[phone] [facility] No Information 1-200 7 Chandler OD Cruzito. [address] [facility] , [address], [place], [address], [place]. tel:[phone] Referring Provider: Cruzito Chandler OD Armin, [address] [facility] [address], [place], [place], [facility]. tel:[phone] Family History Family Member Type Diagnosis Age At Onset No Information Payers Payer name Insurance type Covered republican ID Authorkaylen jaramillo(s) [place] [id number] Social History Type Description Quantity Date Captured [...]
--- NOTE | ~2024-10-31 | US_ITS ---
EXAMINATION: US arterial duplex LE DATE: 11/02/2024 15:22 INDICATION: Nonhealing lower limb veins TECHNIQUE: Multiple grayscale and Doppler ultrasound images of the arteries of the bilateral lower limbs were obtained. COMPARISON: None FINDINGS: Triphasic waveforms with brisk systolic upstrokes at the left common femoral, superficial femoral, posterior tibial, anterior tibial and dorsalis pedis arteries. Biphasic waveforms also with brisk systolic upstrokes at the left profunda femoral and popliteal arteries. Triphasic waveforms with brisk systolic upstrokes at the right common femoral, superficial femoral, popliteal, posterior tibial and anterior tibial arteries. Biphasic waveform with brisk systolic upstroke at the right profunda femoral an dorsalis pedis arteries. IMPRESSION: 1. Normal brisk systolic upstrokes throughout the arteries of the bilateral lower limbs, the majority with triphasic and a few with biphasic waveforms. Reviewed, dictated and finalized at location A. IMPRESSION: 1. Normal brisk systolic upstrokes throughout the arteries of the bilateral low er limbs, the majority with triphasic and a few with biphasic waveforms.
--- NOTE | ~2024-10-31 | XR_ITS ---
XR tibia fibula RT 2V 10/31/2024 17:55 Indication: Right lower extremity ulcer Procedure: 2 views right tibia/fibula Comparison: 01/03/2017 Findings: There is osteoarthritis of the right knee. There is chondrocalcinosis. There are degenerative calcaneal enthesophytes. No evidence for osteomyelitis. Impression: 1: No acute bone or joint abnormality. No evidence for osteomyelitis. Reviewed, dictated and finalized at location O. Impression: 1: No acute bone or joint abnormality. No evidence for osteomyelitis.
--- OUTSIDE RECORDS SUMMARY | 2024-10-31 14:55 | XMS_ITS | Clinical Summary ---
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 Gender Identity Not on file Sexual Orientation Not on file Obstetrics History Last Filed Vital Signs Vital Sign Reading Time Taken Comments Blood Pressure 126/78 04/04/2022 9:19 AM MUSIC COMPOSITION TEACHER Pulse 82 04/04/2022 9:19 AM MUSIC COMPOSITION TEACHER Temperature 36.8 C (98.3 F) 04/04/2022 9:19 AM MUSIC COMPOSITION TEACHER Respiratory Rate 18 04/04/2022 9:19 AM MUSIC COMPOSITION TEACHER Oxygen Saturation 96% 04/04/2022 9:19 AM MUSIC COMPOSITION TEACHER Inhaled Oxygen Concentration - - Weight 100.7 kg (222 lb) 04/04/2022 9:19 AM MUSIC COMPOSITION TEACHER Height 160 cm (5' 3) 04/04/2022 9:19 AM MUSIC COMPOSITION TEACHER Body Mass Index 39.33 04/04/2022 9:19 AM MUSIC COMPOSITION TEACHER Plan of Treatment Health Maintenance Due Date [...] 01/02/2020 0, 01/01/2020 Covid-19 Vaccine (3 - 2024-2 6 season) 2024 06/01/2020, 05/04/2020 Influenza Vaccine (#1) 2024 , 12/09/2019, 12/09/2019, Additional history exists Pneumococcal vaccine 65+ Completed 019, 08/25/2015, 08/22/2015, Additional history exists Insurance [facility] MEDICARE ADVANT[facility] IDPA IDPA Care Teams Refinery Operator Coking Relationship Specialty [place] [address] [place] [address] PCP - General Nurse Practitioner 04/04/22
--- OUTSIDE RECORDS SUMMARY | 2024-10-31 14:55 | XMS_ITS | Clinical Summary ---
Author Organization [facility] [employer] Address [address] [address] Phone Care Team Providers Care Telephone Order Clerk Room Service Name Role Phone Ji Blankenship MD Primary Care Provider [phone] Allergies Active Allergy Reactions Criticality Noted Date [...] flaxseed mix with cereal in am by [facility].(Non-D rug; Combo Route) route. Active Active Problems Patient Care Coordination No te Formatting of this note migh t be different from the original. Primary Care: Ji Blaneknship MD (General) Referring Provider: Ji Blankenship MD [facility] [address] [place] [address] Other: Problem Noted Date Diagnosed Date Breast [...] MEDICARE PART A AND B Care Teams Telephone Order Clerk Room Service Relationship Specialty Start Date End Date Ji Blankenship MD [facility] [place] [address] [place] [id number] PCP - General Internal Medicine 09/22/14
[2024-10-31 15:04] VITALS: BP 146/57; PULSE 87; RESP 22; TEMP 36.8; O2SAT 95
--- OUTSIDE RECORDS SUMMARY | 2024-10-31 17:22 | XMS_ITS | Clinical Summary ---
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 Gender Identity Not on file Sexual Orientation Not on file Obstetrics History Last Filed Vital Signs Vital Sign Reading Time Taken Comments Blood Pressure 126/78 04/04/2022 9:19 AM AT RISK SPECIALIST Pulse 82 04/04/2022 9:19 AM AT RISK SPECIALIST Temperature 36.8 C (98.3 F) 04/04/2022 9:19 AM AT RISK SPECIALIST Respiratory Rate 18 04/04/2022 9:19 AM AT RISK SPECIALIST Oxygen Saturation 96% 04/04/2022 9:19 AM AT RISK SPECIALIST Inhaled Oxygen Concentration - - Weight 100.7 kg (222 lb) 04/04/2022 9:19 AM AT RISK SPECIALIST Height 160 cm (5' 3) 04/04/2022 9:19 AM AT RISK SPECIALIST Body Mass Index 39.33 04/04/2022 9:19 AM AT RISK SPECIALIST Plan of Treatment Health Maintenance Due Date [...] 08/22/2015, Additional history exists Insurance [facility] MEDIC[facility] ADVANTAGE [facility] Address: [address] [address] [place] [address] [facility] Address: [address] [address] [place] [address] IDPA IDPA Care Teams Shoe Associate Relationship Specialty [place] [address] [place] [address] PCP - General Nurse Practitioner 04/04/22
--- NOTE | 2024-10-31 17:38 | ECG_ITS ---
Test Date: 2024-10-31 18:29:56 Measurements Intervals [place] Rate: 79 P: 0 KS: 0 QRS: -35 QRSD: 150 T: 69 QT: 419 QTc: 480 Interpretive Statements SINUS RHYTHM WITH OCCASIONAL PREMATURE ATRIAL CONTRACTIONS LEFT BUNDLE BRANCH BLOCK [120+ ms QRS DURATION, 80+ ms Q/S IN V1/V2, 85+ ms R IN I/aVL/V5/V6] Compared to ECG 05/20/2024 22:54:35 NO SIGNIFICANT CHANGES Electronically Signed On 11-01-2024 10:47:36 CDT by Jose Elias Madrigal M.D.
--- NOTE | 2024-10-31 17:55 | ED.LOWEXIN ---
HPI - Extremity Injury (Lower) General Chief Complaint: Extremity Injury, Lower <Leta Kim APRN - Last Filed: 10/31/24 20:42> Stated Complaint: right leg injury on 10/16/24 <Leta Kim APRN - Last Filed: 10/31/24 20:42> Time Seen by Provider: 10/31/24 17:06 <Leta Kim APRN - Last Filed: 10/31/24 20:42> History of Present Illness HPI Narrative: Patient is an 84-year-old female who presents to the ER with right lower extremity cellulitis and open wound. She reports on October 16, 2024 she was getting onto the bus when her knees collapse. Patient reports she fell and hit her right leg. She reports she was evaluated in the ER after the incident. Patient reports she was placed on oral antibiotics and completed does on October 23, 2024. She reports she sees a unemployment specialist and has a home healthcare nurse. Today patient's home healthcare nurse came to evaluate patient and change her dressing. The home healthcare nurse had concerns that patient's wound is worsening. Patient spoke with her primary care provider who advised her to come to the ER for further evaluation. She endorses a history of diabetes, high blood pressure, and CHF. Patient denies any calf pain, recent fevers, knee pain, or urinary symptoms. <Leta Kim APRN - Last Filed: 10/31/24 20:42> Related Data Home Medications: Home Medications ?Medication ?Instructions ?Recorded ?Confirmed ?Last Taken ?Type amlodipine 5 mg tablet 5 mg PO DAILY 12/17/19 09/08/24 Unknown History atorvastatin 40 mg tablet 40 mg PO HS 12/17/19 09/08/24 Unknown History metoprolol succinate 50 mg 50 mg PO DAILY 12/17/19 09/08/24 Unknown History tablet,extended release 24 hr Daily-Danette 1 tab-cap PO DAILY 04/18/22 09/08/24 Unknown History nitroglycerin 0.4 mg sublingual 0.4 mg sublingual PRN PRN Chest 04/18/22 09/08/24 Unknown History tablet Pain ergocalciferol (vitamin D2) 1,250 1,250 mcg PO DIRECTED 07/29/22 09/08/24 Unknown History mcg (50,000 unit) capsule polyethylene glycol 3350 17 17 g PO DAILY PRN Constipation 07/29/22 09/08/24 Unknown History gram/dose oral powder clobetasol 0.05 % topical ointment 1 applic topical DAILY 11/07/22 09/08/24 Unknown History conjugated estrogens 0.625 mg/gram 0.625 mg vaginal .COMPLEX 11/07/22 09/08/24 Unknown History vaginal cream (Premarin) trazodone 50 mg tablet 50 mg PO QHS 11/07/22 09/08/24 Unknown History levocetirizine 5 mg tablet 5 mg PO QPM 04/01/24 09/08/24 Unknown History vibegron 75 mg tablet (Gemtesa) 75 mg PO DAILY 04/01/24 09/08/24 Unknown History acetaminophen 500 mg tablet 100 mg PO BID PRN fever or pain 04/30/24 09/08/24 Unknown History (Tylenol Extra Strength) gabapentin 600 mg tablet 600 mg PO TID 04/30/24 09/08/24 Unknown History amlodipine 2.5 mg tablet 2.5 mg PO DAILY 05/20/24 09/08/24 Unknown History aspirin 81 mg chewable tablet 81 mg PO DAILY 05/20/24 09/08/24 Unknown History duloxetine 60 mg capsule,delayed 60 mg PO DAILY 05/20/24 09/08/24 Unknown History release hydroxyzine HCl 25 mg tablet 25 mg PO DAILY 05/20/24 09/08/24 Unknown History losartan 100 mg tablet 100 mg PO DAILY 05/20/24 09/08/24 Unknown History multivitamin with folic acid 400 1 tablet PO DAILY 05/20/24 09/08/24 Unknown History mcg tablet (Tab-A-Danette) pantoprazole 40 mg tablet,delayed 40 mg PO DAILY 05/20/24 09/08/24 Unknown History release polyethylene glycol 3350 17 17 g PO DAILY 08/13/24 09/08/24 Unknown History gram/dose oral powder (Miralax) estradiol 0.01% (0.1 mg/gram) 1 appful vaginal WEEKLY 08/30/24 09/08/24 Unknown History vaginal cream <Leta Kim, EMPLOYMENT REPRESENTATIVE - Last Filed: 10/31/24 20:42> Allergies/Adverse Reactions: Allergies Allergy/AdvReac Type Severity Reaction Status Date / Time prednisone Allergy Mild Unknown Verified 10/31/24 16:37 rosiglitazone Allergy Mild Unknown Verified 10/31/24 16:37 azithromycin Allergy Unknown Unknown Verified 10/31/24 16:37 ceftriaxone Allergy Unknown Unknown Verified 10/31/24 16:37 codeine Allergy Unknown Unknown Verified 10/31/24 16:37 ibuprofen Allergy Unknown Unknown Verified 10/31/24 16:37 latex Allergy Unknown Unknown Verified 10/31/24 16:37 naproxen Allergy Unknown Unknown Verified 10/31/24 16:37 <Leta Kim APRN - Last Filed: 10/31/24 20:42> Review of Systems Review of Systems: All systems reviewed & are unremarkable except as noted in HPI and below <Leta Kim APRN - Last Filed: 10/31/24 20:42> [facility] Past Medical History Medical History: Medical History Hyperlipidemia Heart failure with reduced ejection fraction (03/2022) EF 40 to 45%. Basal cell carcinoma Overactive bladder Depression Frequent urinary tract infections Obstructive sleep apnea Arthritis Insulin dependent type 2 diabetes mellitus Gastroesophageal reflux disease Anemia Hypertension Osteopenia <Leta Kim APRN - Last Filed: 10/31/24 20:42> Surgical History Surgical History: Surgical History History of esophageal dilatation History of dilation and curettage History of lumbar surgery (1990) History of cholecystectomy History of appendectomy <Leta Kim APRN - Last Filed: 10/31/24 20:42> Family History Family History: Family History Mother Hypertension Family history of diabetes mellitus in first degree relative Family history of heart disease in male family member before age 55 Father Carcinoma of colon Family history of malignant neoplasm of gastrointestinal tract <Leta Kim APRN - Last Filed: 10/31/24 20:42> Social History Social History: Social History Social History: Surrogate medical decision maker: angel Dye. Code status: Full code. Smoking status: Never smoker Second hand tobacco smoke exposure: No Alcohol intake: never Substance use: never Substance use type: does not use Do You Feel Safe in your Home?: Yes Lack of Transportation: YES Lack of Food: Never True Current Housing: I Have Housing Concerned About Future Housing: No Difficulty Paying Gas/Electric Bills: No Difficulty Paying for Meds: No Currently Unemployed: No Education: High School Diploma/GED Difficulty w/ Childcare or Family Care: No Additional living arrangements comments: Assisted living at [facility] since 12/15/2021. Spiritual care concerns: No <Leta Kim APRN - Last Filed: 10/31/24 20:42> Exam Narrative: GENERAL: Well appearing, obese, non-toxic, in no acute distress. HEAD: Normocephalic, atraumatic. NECK: Supple. No adenopathy, no masses. RESPIRATORY: Airway patent, respirations nonlabored. Clear to auscultation bilaterally, no rales, rhonchi, wheezing. CARDIOVASCULAR: Regular rate and rhythm without murmurs, rubs, or gallops. Peripheral pulses 2+ and equal bilaterally. ABDOMINAL: Soft, nontender, nondistended, no hepatosplenomegaly. Normoactive BS. MUSCULOSKELETAL: Moves all extremities. Strength/ROM intact. SKIN: Warm, dry, normal color. No rashes. Right lower extremity edema, redness from below the calf down to ankle. Open wound figure-eight shaped with each side approximately quarter-sized, mid point of figure 8 is darker in color. No purulence drainage noted, no area of induration. Wound is pink an open area. NEURO: A&O X3. Speech clear. Cranial nerves II-XII intact. No ataxic movements. PSYCHIATRIC: Appropriate mood and affect. Normal interaction. <Leta Kim APRN - Last Filed: 10/31/24 20:42> Course HOISTING ENGINEER/PA Physician Supervision This visit was performed by both a physician and an APC. For this patient encounter, I reviewed the HOISTING ENGINEER or PA documentation, treatment plan, and medical decision making and had [id number] time with this patient. I performed all aspects of the MDM as documented. <Linsey Zepeda MD - Last Filed: 10/31/24 22:05> Vital Signs Vital signs: Vital Signs Temperature 98.3 F 10/31/24 15:04 Pulse Rate 87 10/31/24 15:04 Respiratory Rate 22 H 10/31/24 15:04 Blood Pressure 146/57 H 10/31/24 15:04 Pulse Oximetry 95 10/31/24 15:04 Oxygen Delivery Room Air 10/31/24 15:04 Temperature 97.6 F 10/31/24 21:36 Pulse Rate 73 10/31/24 21:36 Respiratory Rate 20 10/31/24 21:36 Blood Pressure 136/72 10/31/24 21:36 Pulse Oximetry 96 10/31/24 21:36 Oxygen Delivery Room Air 10/31/24 15:04 <Leta Kim APRN - Last Filed: 10/31/24 20:42> Vital Signs Temperature 98.3 F 10/31/24 15:04 Pulse Rate 87 10/31/24 15:04 Respiratory Rate 22 H 10/31/24 15:04 Blood Pressure 146/57 H 10/31/24 15:04 Pulse Oximetry 95 10/31/24 15:04 Oxygen Delivery Room Air 10/31/24 15:04 Temperature 97.6 F 10/31/24 21:36 Pulse Rate 73 10/31/24 21:36 Respiratory Rate 20 10/31/24 21:36 Blood Pressure 136/72 10/31/24 21:36 Pulse Oximetry 96 10/31/24 21:36 Oxygen Delivery Room Air 10/31/24 15:04 <Linsey Zepeda MD - Last Filed: 10/31/24 22:05> MDM - Extremity Injury (Lower) MDM Narrative Medical decision making narrative: Patient is an 84-year-old female who presents to the ER with right lower extremity cellulitis and open wound. She reports on October 16, 2024 she was getting onto the bus when her knees collapse. Patient reports she fell and hit her right leg. She reports she was evaluated in the ER after the incident. Patient reports she was placed on oral antibiotics and completed does on October 23, 2024. She reports she sees a unemployment specialist and has a home healthcare nurse. Today patient's home healthcare nurse came to evaluate patient and change her dressing. The home healthcare nurse had concerns that patient's wound is worsening. Patient spoke with her primary care provider who advised her to come to the ER for further evaluation. She endorses a history of diabetes, high blood pressure, and CHF. Patient denies any calf pain, recent fevers, knee pain, or urinary symptoms. Labs Ordered: CBC, CMP, lactic acid, CRP, PTT, INR, blood cultures Imaging Ordered: Right tib-fib x-ray Medications Ordered: Flagyl 500 mg IV, cefepime 2 g IV, vancomycin 1250 mg IV 1 L normal saline IV bolus Results: Patient's x-ray indicates No acute bone or joint abnormality. No evidence for osteomyelitis. Her CBC indicates white blood cell count of 10.2, RBCs of 4.05, hemoglobin 11.5, hematocrit of 36.9%. Patient's CMP indicates a sodium of 132, glucose of 140. Her CRP is 1.5. Patient's coags were within normal limits. Patient's urinalysis was unremarkable. Diagnosis: Diabetic ulcer Results of imaging and lab work shared with patient and their family. It was advised patient be admitted to the hospital for further evaluation and treatment. Patient and their family verbalized understanding and are in agreement with plan. 1943-spoke with hospitalist, Makayla Harmon NP, who was in agreement with plan for admission. Patient will be admitted to the med/surg floor. Less than 30ml/kg crystalloid bolus was ordered because it would be detrimental or harmful for the patient despite having concern for sepsis. The patient has a history of congestive Heart failure. In place of the 30ml/kg crystalloid bolus, the patient is to receive 1L NS IV bolus. CRITICAL CARE ADDENDUM: Indication: risk for sepsis Time type: intermittent I provided a total of 55 minutes of critical care excluding separately billable procedures. This includes time w/ EMS, initial bedside evaluation, reviewing old records, review of testing done while under my care, discussion w/ the family, nurses, consultants intern and guiding the patient?s care while in the emergency department. Approximate time distribution: 15 minutes ? Initial evaluation, d/w involved parties, attempting to gather old records. 10 minutes ? Documenting medical record 10 minutes ? Review of results (EKGs, labs, imaging) 10 minutes ? Serial repeat bedside evaluation 10 minutes ? Discussing case with multiple providers Please see main chart for details. Excludes separately billable procedures. <Leta Kim, EMPLOYMENT REPRESENTATIVE - Last Filed: 10/31/24 20:42> Patient is an 84-year-old female who presents to the ER with right lower extremity cellulitis and open wound. She reports on October 16, 2024 she was getting onto the bus when her knees collapse. Patient reports she fell and hit her right leg. She reports she was evaluated in the ER after the incident. Patient reports she was placed on oral antibiotics and completed does on October 23, 2024. She reports she sees a unemployment specialist and has a home healthcare nurse. Today patient's home healthcare nurse came to evaluate patient and change her dressing. The home healthcare nurse had concerns that patient's wound is worsening. Patient spoke with her primary care provider who advised her to come to the ER for further evaluation. She endorses a history of diabetes, high blood pressure, and CHF. Patient denies any calf pain, recent fevers, knee pain, or urinary symptoms. Labs Ordered: CBC, CMP, lactic acid, CRP, PTT, INR, blood cultures Imaging Ordered: Right tib-fib x-ray Medications Ordered: Flagyl 500 mg IV, cefepime 2 g IV, vancomycin 1250 mg IV 1 L normal saline IV bolus Results: Patient's x-ray indicates No acute bone or joint abnormality. No evidence for osteomyelitis. Her CBC indicates white blood cell count of 10.2, RBCs of 4.05, hemoglobin 11.5, hematocrit of 36.9%. Patient's CMP indicates a sodium of 132, glucose of 140. Her CRP is 1.5. Patient's coags were within normal limits. Patient's urinalysis was unremarkable. Diagnosis: Diabetic ulcer Results of imaging and lab work shared with patient and their family. It was advised patient be admitted to the hospital for further evaluation and treatment. Patient and their family verbalized understanding and are in agreement with plan. 1943-spoke with hospitalist, Makayla Harmon NP, who was in agreement with plan for admission. Patient will be admitted to the med/surg floor. Less than 30ml/kg crystalloid bolus was ordered because it would be detrimental or harmful for the patient despite having concern for sepsis. The patient has a history of congestive Heart failure. In place of the 30ml/kg crystalloid bolus, the patient is to receive 1L NS IV bolus. CRITICAL CARE ADDENDUM: Indication: risk for sepsis Time type: intermittent I provided a total of 55 minutes of critical care excluding separately billable procedures. This includes time w/ EMS, initial bedside evaluation, reviewing old records, review of testing done while under my care, discussion w/ the family, nurses, consultants intern and guiding the patient?s care while in the emergency department. Approximate time distribution: 15 minutes ? Initial evaluation, d/w involved parties, attempting to gather old records. 10 minutes ? Documenting medical record 10 minutes ? Review of results (EKGs, labs, imaging) 10 minutes ? Serial repeat bedside evaluation 10 minutes ? Discussing case with multiple providers Please see main chart for details. Excludes separately billable procedures. <Linsey Zepeda MD - Last Filed: 10/31/24 22:05> Differential Diagnosis Differential diagnosis: Likely other (Osteomyelitis, cellulitis, abscess, sepsis) <Leta Kim APRN - Last Filed: 10/31/24 20:42> Lab Data Attestation: I reviewed the patient's lab results. <Leta Kim APRN - Last Filed: 10/31/24 20:42> Result diagrams: 10/31/24 18:21 10/31/24 18:21 <Leta Kim APRN - Last Filed: 10/31/24 20:42> Labs: Lab Results 10/31/24 10/31/24 10/31/24 Range/Units 18:21 19:04 19:34 WBC 10.2 H (4.5-10.0) K/mm3 RBC 4.05 L (4.2-5.4) M/mm3 Hgb 11.5 L (12.0-15.0) g/dL Hct 36.9 L (37.0-47.0) % MCV 91.1 (80-100) fl MCH 28.4 (26-34) pg MCHC 31.2 L (32-36) g/dl RDW 13.5 (11.5-14.5) % Plt Count 356 (150-375) k/mm3 MPV 8.4 (7.4-10.4) fl Immature Gran % (Auto) 0.5 (0-0.5) % Neut % (Auto) 51.8 (45.5-73.1) % Lymph % (Auto) 32.0 (18.3-44.2) % [place] % (Auto) 8.3 (2.6-8.5) % Eos % (Auto) 6.3 H (0-4.4) % Baso % (Auto) 1.1 (0.2-1.2) % Lymph # (Auto) 3.25 H (0.9-3.2) K/mm3 [place] # (Auto) 0.8 H (0.1-0.6) K/mm3 Eos # (Auto) 0.6 H (0-0.3) K/mm3 Baso # (Auto) 0.1 (0.0-0.1) K/mm3 Abs Immat Gran (auto) 0.05 H (0.00-0.031) K/mm3 Absolute Neuts (auto) 5.3 (1.3-6.7) K/mm3 Absolute Nucleated RBC 0.000 (0.0-0.012) K/mm3 Nucleated RBC % 0.0 (0.0-0.2) % PT 13.5 (11.1-14.7) Seconds INR 1.0 APTT 27.2 (22.3-36.8) Seconds Sodium 132 L (137-145) mmol/L Potassium 4.4 (3.4-5.0) mmol/L Chloride 99 (98-107) mmol/L Carbon Dioxide 26 (22-30) mmol/L Anion Gap 7 (4-12) mmol/L BUN 9 (7-17) mg/dL Creatinine 0.78 (0.7-1.0) mg/dL Estim Creat Clear Calc 48 ml/min Estimated GFR > 60 (59 - ) Glucose 140 H (65-110) mg/dL POC Capillary Glucose 152 H (65-105) mg/dl Lactic Acid 1.1 (0.7-2.0) mmol/L Calcium 9.2 (8.4-10.2) mg/dL Total Bilirubin 0.8 (0.2-1.3) mg/dL AST 30 (14-36) U/L ALT 26 (6-35) U/L Alkaline Phosphatase 82 (38-126) U/L C-Reactive Protein 1.5 H (<1.0) mg/dL Total Protein 6.9 (6.3-8.2) g/dL Albumin 3.8 (3.5-5.1) g/dL Urine Color Yellow (Yellow) Urine Appearance Clear (Clear) Urine pH 6.0 (5.0-9.0) Ur Specific [place] 1.011 (1.001-1.035) Urine Protein Negative (Negative) mg/dL Urine Glucose (UA) Negative (Negative) mg/dL Urine Ketones Negative (Negative) mg/dL Ur Blood (Man) Negative (Negative) Urine Nitrate Negative (Negative) Urine Bilirubin Negative (Negative) Urine Urobilinogen 1.0 (<2.0) mg/dL Leukocyte Esterase Rfl Trace H (Negative) JEAN-CLAUDE/UL Urine RBC 0-2 (0-2) /hpf Urine WBC 0-5 (0-3) /hpf Ur Squamous Epith Cells None seen (Few) /hpf Urine Bacteria None seen /hpf Urine Casts 0-2 <Leta Kim, EMPLOYMENT REPRESENTATIVE - Last Filed: 10/31/24 20:42> Lab Results 10/31/24 10/31/24 10/31/24 Range/Units 18:21 19:04 19:34 WBC 10.2 H (4.5-10.0) K/mm3 RBC 4.05 L (4.2-5.4) M/mm3 Hgb 11.5 L (12.0-15.0) g/dL Hct 36.9 L (37.0-47.0) % MCV 91.1 (80-100) fl MCH 28.4 (26-34) pg MCHC 31.2 L (32-36) g/dl RDW 13.5 (11.5-14.5) % Plt Count 356 (150-375) k/mm3 MPV 8.4 (7.4-10.4) fl Immature Gran % (Auto) 0.5 (0-0.5) % Neut % (Auto) 51.8 (45.5-73.1) % Lymph % (Auto) 32.0 (18.3-44.2) % [place] % (Auto) 8.3 (2.6-8.5) % Eos % (Auto) 6.3 H (0-4.4) % Baso % (Auto) 1.1 (0.2-1.2) % Lymph # (Auto) 3.25 H (0.9-3.2) K/mm3 [place] # (Auto) 0.8 H (0.1-0.6) K/mm3 Eos # (Auto) 0.6 H (0-0.3) K/mm3 Baso # (Auto) 0.1 (0.0-0.1) K/mm3 Abs Immat Gran (auto) 0.05 H (0.00-0.031) K/mm3 Absolute Neuts (auto) 5.3 (1.3-6.7) K/mm3 Absolute Nucleated RBC 0.000 (0.0-0.012) K/mm3 Nucleated RBC % 0.0 (0.0-0.2) % PT 13.5 (11.1-14.7) Seconds INR 1.0 APTT 27.2 (22.3-36.8) Seconds Sodium 132 L (137-145) mmol/L Potassium 4.4 (3.4-5.0) mmol/L Chloride 99 (98-107) mmol/L Carbon Dioxide 26 (22-30) mmol/L Anion Gap 7 (4-12) mmol/L BUN 9 (7-17) mg/dL Creatinine 0.78 (0.7-1.0) mg/dL Estim Creat Clear Calc 48 ml/min Estimated GFR > 60 (59 - ) Glucose 140 H (65-110) mg/dL POC Capillary Glucose 152 H (65-105) mg/dl Lactic Acid 1.1 (0.7-2.0) mmol/L Calcium 9.2 (8.4-10.2) mg/dL Total Bilirubin 0.8 (0.2-1.3) mg/dL AST 30 (14-36) U/L ALT 26 (6-35) U/L Alkaline Phosphatase 82 (38-126) U/L C-Reactive Protein 1.5 H (<1.0) mg/dL Total Protein 6.9 (6.3-8.2) g/dL Albumin 3.8 (3.5-5.1) g/dL Urine Color Yellow (Yellow) Urine Appearance Clear (Clear) Urine pH 6.0 (5.0-9.0) Ur Specific [place] 1.011 (1.001-1.035) Urine Protein Negative (Negative) mg/dL Urine Glucose (UA) Negative (Negative) mg/dL Urine Ketones Negative (Negative) mg/dL Ur Blood (Man) Negative (Negative) Urine Nitrate Negative (Negative) Urine Bilirubin Negative (Negative) Urine Urobilinogen 1.0 (<2.0) mg/dL Leukocyte Esterase Rfl Trace H (Negative) JEAN-CLAUDE/UL Urine RBC 0-2 (0-2) /hpf Urine WBC 0-5 (0-3) /hpf Ur Squamous Epith Cells None seen (Few) /hpf Urine Bacteria None seen /hpf Urine Casts 0-2 <Linsey Zepeda MD - Last Filed: 10/31/24 22:05> Imaging Data Attestation: I personally reviewed and interpreted this imaging study as follows: <Leta Kim APRN - Last Filed: 10/31/24 20:42> Radiologist's impression: Impressions Tibia/Fibula X-Ray 10/31/24 17:56 Impression: 1: No acute bone or joint abnormality. No evidence for osteomyelitis. <Leta Kim APRN - Last Filed: 10/31/24 20:42> Critical Care Time Critical Care Time Critical Care Time: Yes <Leta Kim APRN - Last Filed: 10/31/24 20:42> Total Critical Care Time: 55 <Leta Kim APRN - Last Filed: 10/31/24 20:42> 55 (Please refer to [facility] for attestation.) <Linsey Zepeda MD - Last Filed: 10/31/24 22:05> Discharge Plan Discharge Clinical Impression: Non-healing wound of right lower extremity, Diabetic ulcer of right lower leg, limited to breakdown of skin, Cellulitis <Leta Kim APRN - Last Filed: 10/31/24 20:42> Patient Disposition: Still a Patient <Leta Kim APRN - Last Filed: 10/31/24 20:42> Condition: Stable <Leta Kim APRN - Last Filed: 10/31/24 20:42>
[2024-10-31] MEDS: SODIUM CHLORIDE 0.9% IV 1,000 ML 999 ML IV CONT (18:19)
[2024-10-31] MEDS: CEFEPIME 2 GM in SODIUM CHLORIDE 0.9% IV 50 ML 100 ML IVPB (18:19)
[2024-10-31] MEDS: metroNIDAZOLE 500 MG/ISO 100ML 500 MG/100 ML BAG 100 MG IVPB (18:20)
[2024-10-31 18:28] LABS: Hematocrit 36.9 % (37.0-47.0); Hemoglobin 11.5 g/dL (12.0-15.0); Immature Granulocyte Percent A 0.5 % (0-0.5); Lymphocytes Absolute Auto 3.25 K/mm3 (0.9-3.2); Mean Corpuscular HGB Conc 31.2 g/dl (32-36); Mean Corpuscular Hemoglobin 28.4 pg (26-34); Mean Corpuscular Volume 91.1 fl (80-100); Nucleated Red Blood Cells Absolute Auto 0.000 K/mm3 (0.0-0.012); Nucleated Red Blood Cells Perc 0.0 % (0.0-0.2); Platelet Count Result 356 k/mm3 (150-375); Red Blood Count 4.05 M/mm3 (4.2-5.4); White Blood Count 10.2 K/mm3 (4.5-10.0)
[2024-10-31 18:44] LABS: Alanine Aminotransferase 26 U/L (6-35); Albumin Level 3.8 g/dL (3.5-5.1); Alkaline Phosphatase 82 U/L (38-126); Anion Gap 7 mmol/L (4-12); Aspartate Amino Transferase 30 U/L (14-36); Bilirubin,Total 0.8 mg/dL (0.2-1.3); Blood Urea Nitrogen 9 mg/dL (7-17); CRP 1.5 mg/dL (<1.0); Calcium 9.2 mg/dL (8.4-10.2); Carbon Dioxide 26 mmol/L (22-30); Chloride 99 mmol/L (98-107); Estimated CRCL calculation 48 ml/min; Estimated Glomerular Filt Rate > 60; Glucose 140 mg/dL (65-110); Potassium 4.4 mmol/L (3.4-5.0); Sodium 132 mmol/L (137-145); Total Protein 6.9 g/dL (6.3-8.2)
[2024-10-31 18:53] LABS: INR 1.0; Prothrombin Time 13.5 Seconds (11.1-14.7)
[2024-10-31 18:54] LABS: Partial Thromboplastin Time 27.2 Seconds (22.3-36.8)
[2024-10-31] MEDS: HYDROcodone/acetaminophen (*CRX) 10-325 MG TABLET 1 TAB PO (18:55)
[2024-10-31 19:14] LABS: Add Urine Microscopic? YES; Glucose Urine UA Negative (Negative); Leukocyte Esterase Ur Trace LEU/UL (Negative); Nitrate Urine Negative (Negative); Non Pathogenic Casts 0-2; Specific Grav Ur 1.011 (1.001-1.035)
[2024-10-31 19:15] VITALS: BP 155/93; PULSE 85; RESP 16; TEMP 36.5; O2SAT 96
[2024-10-31 19:19] LABS: Appearance Urine Clear (Clear)
--- NOTE | 2024-10-31 19:34 | PC.NURSE ---
Received report from Ioana Zapata for cont. of care. Pt AOx3 lying on stretcher, respirations even and unlabored. Pt denies pain and/or discomfort at this time. Pt is ambulatory to bathroom with even and steady gait. BG 152
--- NOTE | 2024-10-31 19:56 | PM.IMHP ---
H&P: HPI History of Present Illness Date/Time: 10/31/24 19:56 Chief Complaint: Leg Wound Narrative: 84 y/o F with PMH of HLD, HFrEF, basal cell carcinoma, OAB, depression, PONCHO, DM2, GERD, anemia, osteopenia, and hypertension presents here with redness and an open wound to her right lower extremity. The patient presents here from home on 10/31 for further evaluation of her right lower extremity. She reports she initially injured her right leg around 10/09 when she was getting off the bus she hit her right leg causing a skin tear. She was later evaluated at [facility] on 10/16 as she had developed redness to her right lower extremity. She initially contacted her PCP who started her on cephalexin 500 mg. Despite compliance with the antibiotics the redness continued to worsen. She was then discharged on clindamycin 300 mg x7 days. She completed this course on 10/23. She has additionally been following with a it technical support specialist and has a home health nurse had who have assisted her with dressing her lower extremity. Home health her nurse today became concerned when she felt the wound had continued to worsen. Patient contacted her PCP who directed her to the emergency department. Today she is endorsing discomfort and itching to this region. Denies fever, chills, body aches, nausea, vomiting, or diarrhea. Initial VS at presentation: 98.3? F, HR 87, RR 22, 146/57, and 95% on RA. ED workup showed: WBC 10.2, hemoglobin 11.5, normal coags, no significant electrolyte derangements, glucose 140, creatinine 0.78 and GFR >60, lactic 1.1, CRP 1.5, and UA showed trace leuk esterase otherwise unremarkable. Tib/fib XR showed no acute bone or joint abnormality, no evidence of osteomyelitis. Review of Systems Review of Systems: All systems reviewed & are unremarkable except as noted in HPI and below PMFSH Past Medical History Medical History Hyperlipidemia Heart failure with reduced ejection fraction (03/2022) EF 40 to 45%. Basal cell carcinoma Overactive bladder Depression Frequent urinary tract infections Obstructive sleep apnea Arthritis Insulin dependent type 2 diabetes mellitus Gastroesophageal reflux disease Anemia Hypertension Osteopenia Surgical History Surgical History History of esophageal dilatation History of dilation and curettage History of lumbar surgery (1990) History of cholecystectomy History of appendectomy Family History Family History Mother Hypertension Family history of diabetes mellitus in first degree relative Family history of heart disease in male family member before age 55 Father Carcinoma of colon Family history of malignant neoplasm of gastrointestinal tract Social History Social History Social History: Surrogate medical decision maker: angel Dye. Code status: Full code. Smoking status: Never smoker Second hand tobacco smoke exposure: No Alcohol intake: never Substance use: never Substance use type: does not use Do You Feel Safe in your Home?: Yes Lack of Transportation: YES Lack of Food: Never True Current Housing: I Have Housing Concerned About Future Housing: No Difficulty Paying Gas/Electric Bills: No Difficulty Paying for Meds: No Currently Unemployed: No Education: High School Diploma/GED Difficulty w/ Childcare or Family Care: No Additional living arrangements comments: Assisted living at [facility] since 12/15/2021. Spiritual care concerns: No Meds Home Medications and Allergies Home Medications ?Medication ?Instructions ?Recorded ?Confirmed ?Type atorvastatin 40 mg tablet 40 mg PO HS 12/17/19 10/31/24 History metoprolol succinate 50 mg 50 mg PO DAILY 12/17/19 10/31/24 History tablet,extended release 24 hr Daily-Danette 1 tab-cap PO DAILY 04/18/22 10/31/24 History nitroglycerin 0.4 mg sublingual 0.4 mg sublingual PRN PRN Chest 04/18/22 10/31/24 History tablet Pain trimethoprim 100 mg tablet 100 mg PO HS #30 tabs 04/19/22 10/31/24 Rx ergocalciferol (vitamin D2) 1,250 1,250 mcg PO DIRECTED 07/29/22 10/31/24 History mcg (50,000 unit) capsule polyethylene glycol 3350 17 17 g PO DAILY PRN Constipation 07/29/22 10/31/24 History gram/dose oral powder nystatin 100,000 unit/gram topical 1 applic topical BID #60 grams 10/19/22 10/31/24 Rx powder clobetasol 0.05 % topical ointment 1 applic topical DAILY 11/07/22 10/31/24 History conjugated estrogens 0.625 mg/gram 0.625 mg vaginal .COMPLEX 11/07/22 10/31/24 History vaginal cream (Premarin) famotidine 40 mg tablet (Pepcid) 40 mg PO QHS #90 tabs 11/07/22 10/31/24 Rx albuterol sulfate 90 mcg/actuation 2 puff inhalation Q4-6H PRN 04/01/24 10/31/24 Rx aerosol inhaler shortness of breath or wheezing 30 days #8.5 grams levocetirizine 5 mg tablet 5 mg PO QPM 04/01/24 10/31/24 History vibegron 75 mg tablet (Gemtesa) 75 mg PO DAILY 04/01/24 10/31/24 History acetaminophen 500 mg tablet 1,000 mg PO BID PRN fever or pain 04/30/24 10/31/24 History (Tylenol Extra Strength) gabapentin 600 mg tablet 600 mg PO TID 04/30/24 10/31/24 History semaglutide 2 mg/dose (8 mg/3 mL) 2 mg (0.75 mL) subcut WEEKLY 90 04/30/24 10/31/24 Rx subcutaneous pen injector (Ozempic) days #9 mL amlodipine 2.5 mg tablet 2.5 mg PO DAILY 05/20/24 10/31/24 History aspirin 81 mg chewable tablet 81 mg PO DAILY 05/20/24 10/31/24 History duloxetine 60 mg capsule,delayed 60 mg PO DAILY 05/20/24 10/31/24 History release fluticasone propionate 50 1 spray intranasal Q12H #16 grams 05/20/24 10/31/24 Rx mcg/actuation nasal spray,suspension (Flonase Allergy Relief) hydroxyzine HCl 25 mg tablet 25 mg PO Q8H PRN anxiety 05/20/24 10/31/24 History losartan 100 mg tablet 100 mg PO DAILY 05/20/24 10/31/24 History meclizine 25 mg tablet 25 mg PO BID PRN dizziness #20 tabs 05/20/24 10/31/24 Rx multivitamin with folic acid 400 1 tablet PO DAILY 05/20/24 10/31/24 History mcg tablet (Tab-A-Danette) pantoprazole 40 mg tablet,delayed 40 mg PO HS 05/20/24 10/31/24 History release blood-glucose sensor (FreeStyle #6 ea 06/16/24 10/31/24 Rx Shayne 3 Plus Sensor device) blood-glucose,rod mill tender,cont #1 ea 06/16/24 10/31/24 Rx (FreeStyle Shayne 3 [place]) insulin regular hum U-500 conc 500 See Rx Instructions subcut 08/07/24 10/31/24 Rx unit/mL(3 mL) subcut pen .COMPLEX #18 mL blood sugar diagnostic (OneTouch #400 ea 08/27/24 10/31/24 Rx Verio test strips) blood-glucose meter (OneTouch #1 ea 08/27/24 10/31/24 Rx Verio Flex Meter) lancets 33 gauge (OneTouch Delica #100 ea 08/27/24 10/31/24 Rx Plus Lancet) estradiol 0.01% (0.1 mg/gram) 1 appful vaginal WEEKLY 08/30/24 10/31/24 History vaginal cream diphenhydramine-zinc acetate 2 1 applic topical BID PRN itching 10/31/24 10/31/24 History %-0.1 % topical solution hydrochlorothiazide 12.5 mg capsule 12.5 mg PO DAILY 10/31/24 10/31/24 History hydrocodone 5 mg-acetaminophen 325 1 tablet PO Q12H PRN Pain 10/31/24 10/31/24 History mg tablet methocarbamol 500 mg tablet 500 mg PO BID 10/31/24 10/31/24 History miconazole nitrate 2 % vaginal 1 appful vaginal HS 10/31/24 10/31/24 History cream (Miconazole-7) phenazopyridine 200 mg tablet 200 mg PO TID PRN pain 10/31/24 10/31/24 History sennosides 8.6 mg tablet (senna) 17.2 mg PO BID PRN constipation 10/31/24 10/31/24 History triamcinolone acetonide 0.1 % 1 applic topical DAILY 10/31/24 10/31/24 History topical ointment Allergies Allergy/AdvReac Type Severity Reaction Status Date / Time prednisone Allergy Mild Unknown Verified 10/31/24 16:37 rosiglitazone Allergy Mild Unknown Verified 10/31/24 16:37 azithromycin Allergy Unknown Unknown Verified 10/31/24 16:37 ceftriaxone Allergy Unknown Unknown Verified 10/31/24 16:37 codeine Allergy Unknown Unknown Verified 10/31/24 16:37 ibuprofen Allergy Unknown Unknown Verified 10/31/24 16:37 latex Allergy Unknown Unknown Verified 10/31/24 16:37 naproxen Allergy Unknown Unknown Verified 10/31/24 16:37 Vital Signs Vital Signs - 24 hr 10/31/24 15:04 10/31/24 19:15 Temperature 98.3 F 97.7 F Pulse Rate 87 85 Respiratory Rate 22 H 16 Blood Pressure 146/57 H 155/93 H Pulse Oximetry 95 96 Oxygen Delivery Room Air Exam Const: General: comfortable and no acute distress Other: , female, nontoxic appearance HENMT: Face/Nose/Sinus: Normal nares present Mouth: Yes moist mucous membranes Eyes: General: appearance normal, both eyes and all related structures Sclera: sclerae normal Pupils: Equal, round and reactive pupils present EOM: EOMs intact bilaterally Resp: Effort & Inspection: normal respiratory effort Auscultation: clear to auscultation bilaterally Cardio: Rate: regular rate Rhythm: regular rhythm Other: S1-S2 present without murmur, rub, ectopy GI: Other: Abdomen soft, nondistended, nontender. Normoactive bowel sounds in all quadrants. Skin: Other: Erythema and tenderness to the right lower extremity with an open wound measuring approximately 8 cm x 3 cm. Wound bed bright red and moist. Neuro: Speech: normal speech Motor exam (neuro): 5/5 motor strength present throughout Sensory Exam: normal sensation Other: A&O x4 Extrem: General: normal to inspection Psych: Mental Status: mental status grossly normal Affect: normal affect Other: Fair insight and judgment, pleasant H&P: Results Labs Labs: Short CBC 10/31/24 Range/Units 18:21 WBC 10.2 H (4.5-10.0) K/mm3 Hgb 11.5 L (12.0-15.0) g/dL Hct 36.9 L (37.0-47.0) % Plt Count 356 (150-375) k/mm3 BMP 10/31/24 18:21 Sodium 132 L Potassium 4.4 Chloride 99 Carbon Dioxide 26 BUN 9 Creatinine 0.78 Glucose 140 H Calcium 9.2 Liver Function 10/31/24 Range/Units 18:21 Total Bilirubin 0.8 (0.2-1.3) mg/dL AST 30 (14-36) U/L ALT 26 (6-35) U/L Alkaline Phosphatase 82 (38-126) U/L Albumin 3.8 (3.5-5.1) g/dL Urine 10/31/24 Range/Units 19:04 Urine Color Yellow (Yellow) Urine Appearance Clear (Clear) Urine pH 6.0 (5.0-9.0) Ur Specific [place] 1.011 (1.001-1.035) Urine Protein Negative (Negative) mg/dL Urine Glucose (UA) Negative (Negative) mg/dL Assessment and Plan Assessment and plan (1) Non-healing wound of right lower extremity: Code(s): S81.801A - Unspecified open wound, right lower leg, initial encounter Status: Acute Assessment and Plan: - did not meet SIRS criteria. however blood cultures were obtained on 10/31, follow. Lactic 1.1 - tib/fib XR, 10/31: No acute bone or joint abnormality. No evidence for osteomyelitis. - started on cefepime, Flagyl, and vancomycin on 10/31 - wound RN consulted - wound culture, if obtainable - analgesics p.r.n. - trend WBC (2) Type 2 diabetes mellitus: Qualifiers: Diabetes mellitus complication status: without complication Diabetes mellitus intermediate designer insulin use: unspecified prison insulin use status Qualified Code(s): E11.9 - Type 2 diabetes mellitus without complications Code(s): E11.9 - Type 2 diabetes mellitus without complications Status: Chronic Assessment and Plan: - hypoglycemia protocol - POC blood glucose ACHS - home medication: Patient is on U 500 90 units before breakfast and 30 units before lunch, held (NF). Lantus 23u HS based off BMI ordered. - correct regimen ordered - high dose TIDWM and HS, based off BMI - A1C 7.5% on 08/07/2024 (3) Heart failure with reduced ejection fraction: Onset Date: 03/2022 Code(s): I50.20 - Unspecified systolic (congestive) heart failure Status: Chronic Assessment and Plan: - no evidence of exacerbation - patient only on HCTZ daily, continued (4) Chronic anemia: Code(s): D64.9 - Anemia, unspecified Status: Chronic Assessment and Plan: - Hgb 11.5, previously 11.9 on 09/08/2024 - transfuse if <7 - monitor (5) Hypertension: Qualifiers: Hypertension type: primary hypertension Qualified Code(s): I10 - Essential (primary) hypertension Code(s): I10 - Essential (primary) hypertension Status: Chronic Assessment and Plan: - chronic, currently 155/93 - continue home medications: Metoprolol ER, losartan, HCTZ, amlodipine - monitor (6) Obstructive sleep apnea: Code(s): G47.33 - Obstructive sleep apnea (adult) (pediatric) Status: Chronic Assessment and Plan: - continue home CPAP Plan Diet: Diabetic GI Prophylaxis: N/a DVT Prophylaxis: Lovenox SQ IV fluids: 1L bolus Lines/Tubes: Peripheral IV Code Status: Full code Quality VTE Prophylaxis VTE prophylaxis: pharmacologic ordered Hospitalist MIPS Advance Care Plan I have confirmed that the patient's Advanced Care Plan is present, code status is documented, or surrogate decision maker is listed in patient medical record.: Yes Medication Reconciliation I have utilized all available resources to obtain, update and review the patients current medications (includes all prescriptions, OTC, herbals, cannabis, and nutritional supplements).: Yes
[2024-10-31] MEDS: VANCOMYCIN 1,250 MG/NS 250 ML 1,250 MG/250 ML BAG 166.67 MG IVPB (20:39)
[2024-10-31 21:11] VITALS: BMI 36.3
[2024-10-31 21:36] VITALS: BP 136/72; PULSE 73; RESP 20; TEMP 36.4; O2SAT 96
--- NOTE | 2024-10-31 21:40 | ADMGEN ---
This patient, Megan Menon, was admitted to 2 Medical Room 254-01. Patient/family oriented to hospital policies and general routines including ID bracelet, bed and alarms, visiting hours, pain management, procedures, bathroom and other care routines, personal items, smoking policy, room service/diet, and visiting hours. Information on how to activate the Rapid Response Team has been discussed. Patient/Family are encouraged to report perceived risks to care and to ask questions if they do not understand what they are told or what they should do.
[2024-10-31] MEDS: VANCOMYCIN HCL 1,000 MG in SODIUM CHLORIDE 0.9% IV 250 ML 250 MG IVPB (22:43)
[2024-10-31 23:05] VITALS: O2SAT 95
[2024-11-01] MEDS: FAMOTIDINE 20 MG TABLET 40 MG PO ×2 (02:24→21:31)
[2024-11-01] MEDS: SENNA/DOCUSATE SODIUM TABLET 1 TAB PO ×2 (02:25→21:31)
[2024-11-01] MEDS: ATORVASTATIN 40 MG TABLET PO ×2 (02:25→21:31)
[2024-11-01] MEDS: TRIMETHOPRIM 100 MG TABLET PO ×2 (02:25→21:32)
[2024-11-01] MEDS: metroNIDAZOLE 500 MG/ISO 100ML 500 MG/100 ML BAG 100 MG IVPB ×3 (02:26→18:45)
[2024-11-01] MEDS: INSULIN GLARGINE (*BKC) 100 UNITS/ML 23 UNITS SUB-Q ×2 (02:28→21:33)
[2024-11-01] MEDS: HYDROcodone/acetaminophen (*CRX) 5-325 MG TABLET 1 TAB PO (02:50)
[2024-11-01 04:10] VITALS: BP 177/65; PULSE 91; RESP 20; TEMP 36.4; O2SAT 93
[2024-11-01] MEDS: CEFEPIME 1 GM in SODIUM CHLORIDE 0.9% IV 50 ML 100 ML IVPB ×2 (05:24→17:20)
[2024-11-01 05:37] LABS: Estimated CRCL calculation 59 ml/min; Estimated Glomerular Filt Rate > 60; Potassium 4.0 mmol/L (3.4-5.0)
--- NOTE | 2024-11-01 07:06 | P.PNIM_ITS ---
Progress Note: A&P Assessment and Plan (1) Non-healing wound of right lower extremity: Code(s): S81.801A - Unspecified open wound, right lower leg, initial encounter Status: Acute Assessment and Plan: * did not meet SIRS criteria. however blood cultures were obtained on 10/31, follow. Lactic 1.1 * tib/fib XR, 10/31: No acute bone or joint abnormality. No evidence for osteomyelitis. * started on cefepime, Flagyl, and vancomycin on 10/31 * wound RN consulted * wound culture, if obtainable * analgesics p.r.n. trend WBC -slight increased today from 10.2->10.4 (2) Type 2 diabetes mellitus: Qualifiers: Diabetes mellitus complication status: without complication Diabetes mellitus jail insulin use: unspecified jail insulin use status Qualified Code(s): E11.9 - Type 2 diabetes mellitus without complications Code(s): E11.9 - Type 2 diabetes mellitus without complications Status: Chronic Assessment and Plan: * hypoglycemia protocol * POC blood glucose ACHS * home medication: Patient is on U 500 90 units before breakfast and 30 units before lunch, held (NF). Lantus 23u HS based off BMI ordered. * correct regimen ordered - high dose TIDWM and HS, based off BMI * A1C 7.5% on 08/07/2024 (3) Heart failure with reduced ejection fraction: Onset Date: 03/2022 Code(s): I50.20 - Unspecified systolic (congestive) heart failure Status: Chronic Assessment and Plan: * no evidence of exacerbation * patient only on HCTZ daily, continued (4) Chronic anemia: Code(s): D64.9 - Anemia, unspecified Status: Chronic Assessment and Plan: * Hgb 11.5, previously 11.9 on 09/08/2024 * transfuse if <7 * monitor * 11/01:10.9 (5) Hypertension: Qualifiers: Hypertension type: primary hypertension Qualified Code(s): I10 - Essential (primary) hypertension Code(s): I10 - Essential (primary) hypertension Status: Chronic Assessment and Plan: * chronic, currently 155/93 * continue home medications: Metoprolol ER, losartan, HCTZ, amlodipine * monitor (6) Obstructive sleep apnea: Code(s): G47.33 - Obstructive sleep apnea (adult) (pediatric) Status: Chronic Assessment and Plan: * continue home CPAP Plan Diet: Diabetic GI Prophylaxis: N/a DVT Prophylaxis: Lovenox SQ IV fluids: 1L bolus Lines/Tubes: Peripheral IV Code Status: Full code Subjective Date/time seen: 11/01/24 07:06 Interval history: 84 y/o F with PMH of HLD, HFrEF, basal cell carcinoma, OAB, depression, PONCHO, DM2, GERD, anemia, osteopenia, and hypertension presents here with redness and an open wound to her right lower extremity. 11/01/2024 Patient sitting comfortably in bed at time examination. Denies any chest pain, shortness a breath, nausea/vomiting, headache/dizziness, or lower extremity numbness/tingling. Still some redness and tenderness to palpation to anterior right lower extremity. Still some slight leukocytosis with a WBC of 10.4, no fever. Wound Care consulted. Hyponatremic but appears to be chronic, no other major electrolyte abnormalities. Blood cultures pending. Review of Systems Review of Systems: All systems reviewed & are unremarkable except as noted in HPI and below Exam Const: General: comfortable and no acute distress Other: , female, nontoxic appearance HENMT: Face/Nose/Sinus: Normal nares present Mouth: Yes moist mucous mem branes Eyes: General: appearance normal, both eyes and all related structures Sclera: sclerae normal Pupils: Equal, round and reactive pupils present EOM: EOMs intact bilaterally Resp: Effort & Inspection: normal respiratory effort Auscultation: clear to auscultation bilaterally Cardio: Rate: regular rate Rhythm: regular rhythm Other: S1-S2 present without murmur, rub, ectopy GI: Other: Abdomen soft, nondistended, nontender. Normoactive bowel sounds in all quadrants. Skin: Other: Erythema and tenderness to the right lower extremity with an open wound measuring approximately 8 cm x 3 cm. Wound bed bright red and moist. Neuro: Cranial nerves: Yes Equal, round and reactive pupils present Speech: normal speech Motor exam (neuro): 5/5 motor strength present throughout Sensory Exam: normal sensation Other: A&O x4 Extrem: General: normal to inspection Psych: Mental Status: mental status grossly normal Affect: normal affect Other: Fair insight and judgment, pleasant Objective Data Vital Signs Vital Signs: Vital Signs - 24 hr 10/31/24 15:04 10/31/24 19:15 10/31/24 21:36 Temperature 98.3 F 97.7 F 97.6 F Pulse Rate 87 85 73 Respiratory Rate 22 H 16 20 Blood Pressure 146/57 H 155/93 H 136/72 Pulse Oximetry 95 96 96 Oxygen Delivery Room Air 10/31/24 23:05 11/01/24 04:10 Temperature 97.6 F Pulse Rate 91 Respiratory Rate 20 Blood Pressure 177/65 H Pulse Oximetry 95 93 Oxygen Delivery Room Air Intake/Output Intake/Output: Intake & Output 10/29/24 10/30/24 10/31/24 11/01/24 23:59 23:59 23:59 23:59 Intake Total 1400 490 Output Total 200 Balance 1400 290 Meds/Results Medications: Active Medications Generic Name Dose Route Start Last Admin Trade Name Freq PRN Reason Stop Dose Admin Hydrocodone Bitart/Acetaminophen 1 tab 10/31/24 23:01 11/01/24 02:50 Hydrocodone/Acetaminophen (*Crx) 5-325 Mg Tablet PO 1 tab Q12H PRN Administration Pain Rated 7-10 Albuterol 2 puff 10/31/24 23:01 Albuterol Sulfate (*Sp) Aerosol 1 Puff INHALATION Q4-6H PRN Shortness Of Breath Or Wheezing Amlodipine Besylate 2.5 mg 11/01/24 09:00 Amlodipine Besylate 2.5 Mg Tablet PO DAILY [facility] Aspirin 81 mg 11/01/24 09:00 Aspirin 81 Mg Chewable Tablet PO DAILY [facility] Atorvastatin Calcium 40 mg 10/31/24 23:20 11/01/24 02:25 Atorvastatin 40 Mg Tablet PO 40 mg HS [facility] Administration Dextrose 12.5 gm 10/31/24 20:09 Dextrose 50% 25 Gm/50 Ml Syringe IV PUSH PRN PRN Hypoglycemia Protocol Duloxetine HCl 60 mg 11/01/24 09:00 Duloxetine Hcl 60 Mg Capsule.Dr PO DAILY [facility] Enoxaparin Sodium 40 mg 11/01/24 09:00 Enoxaparin 40 Mg/0.4 Ml Syringe SUB-Q DAILY [facility] Ergocalciferol 1,250 mcg 11/05/24 09:00 Ergocalciferol (Vitamin D2) 1,250 Mcg (50,000 Units) Capsule PO We@0900 [facility] Estradiol 1 applic 11/12/24 09:00 Estradiol Vaginal Cream 42.5 Gm VAGINAL We@0900 [facility] Estrogens Conjugated 1 applic 11/03/24 09:00 Estrogens, Conjugated Vaginal Cream 30 Gm VAGINAL MoFr@0900 [facility] Famotidine 40 mg 10/31/24 23:25 11/01/24 02:24 Famotidine 20 Mg Tablet PO 40 mg QHS [facility] Administration Fluticasone Propionate 1 spray 11/01/24 09:00 Fluticasone Propionate 0.05% Na Spr 16 Gm Btl (*Bkc) NASAL Q12HR [facility] Gabapentin 600 mg 11/01/24 09:00 Gabapentin 300 Mg Capsule PO TID [facility] Glucagon 1 mg 10/31/24 20:09 Glucagon For Inj 1 Mg Vial IM PRN PRN Hypoglycemia Protocol Glucose 15 gm 10/31/24 20:09 Glucose Oral Gel 15 Gm Of Glucse In 37.5 Gm Tube PO PRN PRN Hypoglycemia Protocol Hydrochlorothiazide 12.5 mg 11/01/24 09:00 Hydrochlorothiazide 12.5 Mg Capsule PO DAILY [facility] Hydroxyzine HCl 25 mg 10/31/24 23:01 Hydroxyzine Hcl 25 Mg Tablet PO Q8H PRN Anxiety Metronidazole 500 mg in 100 mls @ 100 mls/hr 11/01/24 03:00 11/01/24 03:54 Flagyl 500 Mg/Iso Soln 100 Ml IVPB Infused Q8H [facility] Infusion Dextrose 1,000 mls @ 100 mls/hr 10/31/24 20:09 Dextrose 5% 1,000 Ml IVPB PRN PRN Hypoglycemia Protocol Cefepime HCl 1 gm/ Sodium 50 mls @ 100 mls/hr 11/01/24 06:00 11/01/24 05:54 Chloride IVPB Infused Q12H [facility] Infusion Vancomycin HCl 1,500 mg in 500 mls @ 250 mls/hr 11/01/24 20:00 Vancomycin 1,500 Mg/Ns 500 Ml IVPB Q24H [facility] Insulin Aspart 4 - 8 units 11/01/24 08:00 Insulin Aspart (*Bkc) 100 Units/Ml SUB-Q TIDWM [facility] Protocol Insulin Aspart 2 - 4 units 11/01/24 21:00 Insulin Aspart (*Bkc) 100 Units/Ml SUB-Q HS [facility] Protocol Insulin Glargine 23 units 10/31/24 23:35 11/01/24 02:28 Insulin Glargine (*Bkc) 100 Units/Ml 0.25 units/kg (23 units) 23 units SUB-Q Administration HS [facility] Loratadine 10 mg 11/01/24 18:00 Loratadine 10 Mg Tablet PO QPM [facility] Losartan Potassium 100 mg 11/01/24 09:00 Losartan Potassium 100 Mg Tablet PO DAILY [facility] Magnesium Hydroxide 30 ml 10/31/24 23:19 Magnesium Hydroxide Susp 30 Ml Udc PO QAM PRN Constipation Meclizine HCl 25 mg 10/31/24 23:01 Meclizine Hcl 25 Mg Tablet PO BID PRN Dizziness Methocarbamol 500 mg 11/01/24 09:00 Methocarbamol 500 Mg Tablet PO BID [facility] Metoprolol Succinate 50 mg 11/01/24 09:00 Metoprolol Succinate Ext Rel 50 Mg Tabcr PO DAILY [facility] Miscellaneous Information 0 each 10/31/24 23:55 11/01/24 02:30 Vibegron [Gemtesa] 75 Mg Tablet- Nonformulary. Please Obtain A Home Supply Or Hold Hile In XX 11/30/24 23:54 Not Given CLARIFY [facility] Multivitamins Therapeutic 1 tablet 11/01/24 09:00 Multivitamins Therapeutic Tab (*Bkc) PO DAILY [facility] Nitroglycerin 0.4 mg 10/31/24 23:01 Nitroglycerin Sl 0.4 Mg Tablet SUBLINGUAL Q5MIN PRN Chest Pain Non-Formulary Medication 75 mg 11/01/24 09:00 Vibegron [Gemtesa] PO 12/01/24 08:59 DAILY [facility] Pantoprazole Sodium 40 mg 11/01/24 21:00 Pantoprazole 40 Mg Tablet PO HS [facility] Polyethylene Glycol 17 gm 10/31/24 23:01 Polyethylene Glycol 3350 17 Gm Powd.Pack PO DAILY PRN Constipation Senna 17.2 mg 10/31/24 23:01 Sennosides 8.6 Mg Tablet PO BID PRN Constipation Senna/Docusate Sodium 1 tab 10/31/24 23:20 11/01/24 02:25 Senna/Docusate Sodium Tablet PO 1 tab HS [facility] Administration Triamcinolone Acetonide 1 applic 11/01/24 09:00 Triamcinolone Acet 0.1% Oint 15 Gm Tube TOPICAL Q12HR PRN Itching Trimethoprim 100 mg 10/31/24 23:30 11/01/24 02:25 Trimethoprim 100 Mg Tablet PO 100 mg HS [facility] Administration Radiology Results: ITS Impressions Tibia/Fibula X-Ray 10/31/24 17:56 Impression: 1: No acute bone or joint abnormality. No evidence for osteomyelitis. Labs Labs: Laboratory Results - last 24 hr 10/31/24 10/31/24 10/31/24 18:21 19:04 19:34 WBC 10.2 H RBC 4.05 L Hgb 11.5 L Hct 36.9 L MCV 91.1 MCH 28.4 MCHC 31.2 L RDW 13.5 Plt Count 356 MPV 8.4 Immature Gran % (Auto) 0.5 Neut % (Auto) 51.8 Lymph % (Auto) 32.0 [place] % (Auto) 8.3 Eos % (Auto) 6.3 H Baso % (Auto) 1.1 Lymph # (Auto) 3.25 H [place] # (Auto) 0.8 H Eos # (Auto) 0.6 H Baso # (Auto) 0.1 Abs Immat Gran (auto) 0.05 H Absolute Neuts (auto) 5.3 Absolute Nucleated RBC 0.000 Nucleated RBC % 0.0 PT 13.5 INR 1.0 APTT 27.2 Sodium 132 L Potassium 4.4 Chloride 99 Carbon Dioxide 26 Anion Gap 7 BUN 9 Creatinine 0.78 Estim Creat Clear Calc 48 Estimated GFR > 60 Glucose 140 H POC Capillary Glucose 152 H Lactic Acid 1.1 Calcium 9.2 Total Bilirubin 0.8 AST 30 ALT 26 Alkaline Phosphatase 82 C-Reactive Protein 1.5 H Total Protein 6.9 Albumin 3.8 Urine Color Yellow Urine Appearance Clear Urine pH 6.0 Ur Specific [place] 1.011 Urine Protein Negative Urine Glucose (UA) Negative Urine Ketones Negative Ur Blood (Man) Negative Urine Nitrate Negative Urine Bilirubin Negative Urine Urobilinogen 1.0 Leukocyte Esterase Rfl Trace H Urine RBC 0-2 Urine WBC 0-5 Ur Squamous Epith Cells None seen Urine Bacteria None seen Urine Casts 0-2 10/31/24 11/01/24 21:41 04:32 WBC RBC Hgb Hct MCV MCH MCHC RDW Plt Count MPV Immature Gran % (Auto) Neut % (Auto) Lymph % (Auto) [place] % (Auto) Eos % (Auto) Baso % (Auto) Lymph # (Auto) [place] # (Auto) Eos # (Auto) Baso # (Auto) Abs Immat Gran (auto) Absolute Neuts (auto) Absolute Nucleated RBC Nucleated RBC % PT INR APTT Sodium Potassium 4.0 Chloride Carbon Dioxide Anion Gap BUN Creatinine 0.63 L Estim Creat Clear Calc 59 Estimated GFR > 60 Glucose POC Capillary Glucose 181 H Lactic Acid Calcium Total Bilirubin AST ALT Alkaline Phosphatase C-Reactive Protein Total Protein Albumin Urine Color Urine Appearance Urine pH Ur Specific [place] Urine Protein Urine Glucose (UA) Urine Ketones Ur Blood (Man) Urine Nitrate Urine Bilirubin Urine Urobilinogen Leukocyte Esterase Rfl Urine RBC Urine WBC Ur Squamous Epith Cells Urine Bacteria Urine Casts Quality VTE Prophylaxis VTE prophylaxis: pharmacologic ordered
[2024-11-01 08:22] LABS: Alanine Aminotransferase 26 U/L (6-35); Albumin Level 3.4 g/dL (3.5-5.1); Alkaline Phosphatase 86 U/L (38-126); Anion Gap 8 mmol/L (4-12); Aspartate Amino Transferase 29 U/L (14-36); Bilirubin,Total 0.7 mg/dL (0.2-1.3); Blood Urea Nitrogen 8 mg/dL (7-17); Calcium 8.9 mg/dL (8.4-10.2); Carbon Dioxide 21 mmol/L (22-30); Chloride 102 mmol/L (98-107); Glucose 223 mg/dL (65-110); Sodium 131 mmol/L (137-145); Total Protein 6.1 g/dL (6.3-8.2)
[2024-11-01 08:28] VITALS: PULSE 91
[2024-11-01] MEDS: LOSARTAN POTASSIUM 100 MG TABLET PO (08:28)
[2024-11-01] MEDS: DULoxetine HCL 60 MG CAPSULE.DR PO (08:28)
[2024-11-01] MEDS: MULTIVITAMINS THERAPEUTIC TAB (*BKC) 1 TABLET PO (08:28)
[2024-11-01] MEDS: GABAPENTIN 300 MG CAPSULE 600 MG PO ×3 (08:28→17:19)
[2024-11-01] MEDS: METOPROLOL SUCCINATE EXT REL 50 MG TABCR PO (08:28)
[2024-11-01] MEDS: ENOXAPARIN 40 MG/0.4 ML SYRINGE SUB-Q (08:29)
[2024-11-01] MEDS: ASPIRIN 81 MG CHEWABLE TABLET PO (08:30)
[2024-11-01 08:32] LABS: Hematocrit 35.1 % (37.0-47.0); Hemoglobin 10.9 g/dL (12.0-15.0); Immature Granulocyte Percent A 0.5 % (0-0.5); Lymphocytes Absolute Auto 1.56 K/mm3 (0.9-3.2); Mean Corpuscular HGB Conc 31.1 g/dl (32-36); Mean Corpuscular Hemoglobin 28.6 pg (26-34); Mean Corpuscular Volume 92.1 fl (80-100); Nucleated Red Blood Cells Absolute Auto 0.100 K/mm3 (0.0-0.012); Nucleated Red Blood Cells Perc 1.0 % (0.0-0.2); Platelet Count Result 369 k/mm3 (150-375); Red Blood Count 3.81 M/mm3 (4.2-5.4); White Blood Count 10.4 K/mm3 (4.5-10.0)
[2024-11-01] MEDS: INSULIN ASPART (*BKC) 100 UNITS/ML SUB-Q ×2 (08:35→17:18)
[2024-11-01] MEDS: FLUTICASONE PROPIONATE 0.05% NA SPR 16 GM BTL (*BKC) 1 SPRAY NASAL ×2 (11:02→21:33)
[2024-11-01 13:17] VITALS: BP 154/53; PULSE 83; RESP 18; TEMP 36.7; O2SAT 94
[2024-11-01] MEDS: LORATADINE 10 MG TABLET PO (17:19)
[2024-11-01 20:55] VITALS: BP 163/68; PULSE 79; RESP 18; TEMP 36.8; O2SAT 97
[2024-11-01] MEDS: VANCOMYCIN 1,500 MG/NS 500 ML 1,500 MG/500 ML BAG 250 MG IVPB (21:28)
[2024-11-01] MEDS: PANTOPRAZOLE 40 MG TABLET PO (21:32)
[2024-11-01 23:50] VITALS: O2SAT 97
[2024-11-02 05:01] LABS: Hematocrit 35.6 % (37.0-47.0); Hemoglobin 10.6 g/dL (12.0-15.0); Immature Granulocyte Percent A 0.4 % (0-0.5); Lymphocytes Absolute Auto 2.24 K/mm3 (0.9-3.2); Mean Corpuscular HGB Conc 29.8 g/dl (32-36); Mean Corpuscular Hemoglobin 28.6 pg (26-34); Mean Corpuscular Volume 96.2 fl (80-100); Nucleated Red Blood Cells Absolute Auto 0.000 K/mm3 (0.0-0.012); Nucleated Red Blood Cells Perc 0.0 % (0.0-0.2); Platelet Count Result 300 k/mm3 (150-375); Red Blood Count 3.70 M/mm3 (4.2-5.4); White Blood Count 7.5 K/mm3 (4.5-10.0)
[2024-11-02 05:17] LABS: Anisocytosis 1+; Ovalocytes 1+; Poikilocytosis 1+; Schistocytes None Seen
[2024-11-02 05:24] LABS: Alanine Aminotransferase 21 U/L (6-35); Albumin Level 3.0 g/dL (3.5-5.1); Alkaline Phosphatase 77 U/L (38-126); Anion Gap 5 mmol/L (4-12); Aspartate Amino Transferase 24 U/L (14-36); Bilirubin,Total 1.0 mg/dL (0.2-1.3); Blood Urea Nitrogen 7 mg/dL (7-17); Calcium 8.9 mg/dL (8.4-10.2); Carbon Dioxide 23 mmol/L (22-30); Chloride 102 mmol/L (98-107); Estimated CRCL calculation 61 ml/min; Estimated Glomerular Filt Rate > 60; Glucose 152 mg/dL (65-110); Potassium 4.1 mmol/L (3.4-5.0); Sodium 130 mmol/L (137-145); Total Protein 5.6 g/dL (6.3-8.2)
[2024-11-02] MEDS: metroNIDAZOLE 500 MG/ISO 100ML 500 MG/100 ML BAG 100 MG IVPB ×3 (05:34→21:31)
[2024-11-02 06:00] VITALS: BP 144/53; PULSE 90; RESP 18; TEMP 37.6; O2SAT 94
[2024-11-02] MEDS: CEFEPIME 1 GM in SODIUM CHLORIDE 0.9% IV 50 ML 100 ML IVPB ×2 (06:10→17:04)
[2024-11-02 08:18] VITALS: PULSE 60
[2024-11-02] MEDS: ASPIRIN 81 MG CHEWABLE TABLET PO (08:18)
[2024-11-02] MEDS: FLUTICASONE PROPIONATE 0.05% NA SPR 16 GM BTL (*BKC) 1 SPRAY NASAL ×2 (08:18→21:31)
[2024-11-02] MEDS: LOSARTAN POTASSIUM 100 MG TABLET PO (08:18)
[2024-11-02] MEDS: METOPROLOL SUCCINATE EXT REL 50 MG TABCR PO (08:18)
[2024-11-02] MEDS: DULoxetine HCL 60 MG CAPSULE.DR PO (08:19)
[2024-11-02] MEDS: ENOXAPARIN 40 MG/0.4 ML SYRINGE SUB-Q (08:19)
[2024-11-02] MEDS: GABAPENTIN 300 MG CAPSULE 600 MG PO ×3 (08:19→16:05)
[2024-11-02] MEDS: MULTIVITAMINS THERAPEUTIC TAB (*BKC) 1 TABLET PO (08:20)
--- NOTE | 2024-11-02 09:40 | P.PNIM_ITS ---
Progress Note: A&P Assessment and Plan (1) Non-healing wound of right lower extremity: Code(s): S81.801A - Unspecified open wound, right lower leg, initial encounter Status: Acute Assessment and Plan: * did not meet SIRS criteria. however blood cultures were obtained on 10/31, follow. Lactic 1.1 * tib/fib XR, 10/31: No acute bone or joint abnormality. No evidence for osteomyelitis. * started on cefepime, Flagyl, and vancomycin on 10/31 * wound RN consulted * wound culture pending * analgesics p.r.n. trend WBC -normal today - check JOSE MIGUEL's - consult surgery to evaluate if patient may need debridement - nurse reports patient still has a large amount of purulent drainage from the wound - AM labs (2) Type 2 diabetes mellitus: Qualifiers: Diabetes mellitus complication status: without complication Diabetes mellitus extermination inspector insulin use: unspecified extermination inspector insulin use status Qualified Code(s): E11.9 - Type 2 diabetes mellitus without complications Code(s): E11.9 - Type 2 diabetes mellitus without complications Status: Chronic Assessment and Plan: * hypoglycemia protocol * POC blood glucose ACHS * home medication: Patient is on U 500 90 units before breakfast and 30 units before lunch, held (NF). Lantus 23u HS based off BMI ordered. * correct regimen ordered - high dose TIDWM and HS, based off BMI * A1C 7.5% on 08/07/2024, check HgbA1c in AM (3) Heart failure with reduced ejection fraction: Onset Date: 03/2022 Code(s): I50.20 - Unspecified systolic (congestive) heart failure Status: Chronic Assessment and Plan: * no evidence of exacerbation * patient only on HCTZ daily, continued (4) Chronic anemia: Code(s): D64.9 - Anemia, unspecified Status: Chronic Assessment and Plan: * Hgb 11.5, previously 11.9 on 09/08/2024 * transfuse if <7 * monitor * 11/01:10.9 (5) Hypertension: Qualifiers: Hypertension type: primary hypertension Qualified Code(s): I10 - Essential (primary) hypertension Code(s): I10 - Essential (primary) hypertension Status: Chronic Assessment and Plan: * chronic, currently 155/93 * continue home medications: Metoprolol ER, losartan, HCTZ, amlodipine * monitor (6) Obstructive sleep apnea: Code(s): G47.33 - Obstructive sleep apnea (adult) (pediatric) Status: Chronic Assessment and Plan: * continue home CPAP Plan Diet: Diabetic GI Prophylaxis: N/a DVT Prophylaxis: Lovenox SQ IV fluids: SLIV Lines/Tubes: Peripheral IV Code Status: Full code Subjective Date/time seen: 11/02/24 09:40 Interval history: 84 y/o F with PMH of HLD, HFrEF, basal cell carcinoma, OAB, depression, PONCHO, DM2, GERD, anemia, osteopenia, and hypertension presents here with redness and an open wound to her right lower extremity. Patient seen in her room, lying in bed, in no acute distress. Patient denies acute pain. Patient's WBC count is improved today. Blood and wound cultures pending. Patient continues on IV antibiotics. Nursing reports wound still have a large amount of purulent drainage. JOSE MIGUEL's ordered, consider MRI of RLE due to location of wound to bony area. Surgery consulted to assess if debridement needed. PT/OT consult placed. Review of Systems Review of Systems: All systems reviewed & are unremarkable except as noted in HPI and below Exam Const: General: comfortable and no acute distress Other: , female, nontoxic appearance HENMT: Face/Nose/Sinus: Normal nares present Mouth: Yes moist mucous membranes Eyes: General: appearance normal, both eyes and all related structures Sclera: sclerae normal Resp: Effort & Inspection: normal respiratory effort Auscultation: clear to auscultation bilaterally Cardio: Rate: regular rate Rhythm: regular rhythm Other: S1-S2 present without murmur, rub, ectopy GI: Other: Abdomen soft, nondistended, nontender. Normoactive bowel sounds in all quadrants. Skin: Other: Erythema and tenderness to the right lower extremity with an open wound measuring approximately 8 cm x [address] with scant drainage noted. Neuro: Speech: normal speech Motor exam (neuro): 5/5 motor strength present throughout Sensory Exam: normal sensation Other: A&O x4 Extrem: General: normal to inspection Psych: Mental Status: mental status grossly normal Affect: normal affect Other: Fair insight and judgment, pleasant Objective Data Vital Signs Vital Signs: Vital Signs - 24 hr 11/01/24 13:17 11/01/24 20:55 11/01/24 23:50 Temperature 98.0 F 98.2 F Pulse Rate 83 79 Respiratory Rate 18 18 Blood Pressure 154/53 H 163/68 H Pulse Oximetry 94 97 97 Oxygen Delivery Room Air 11/02/24 06:00 11/02/24 08:18 Temperature 99.7 F H Pulse Rate 90 60 Respiratory Rate 18 Blood Pressure 144/53 H Pulse Oximetry 94 Oxygen Delivery Intake/Output Intake/Output: Intake & Output 10/30/24 10/31/24 11/01/24 11/02/24 23:59 23:59 23:59 23:59 Intake Total 1400 1920 270 Output Total 900 700 Balance 1400 1020 -430 Meds/Results Medications: Active Medications Generic Name Dose Route Start Last Admin Trade Name Freq PRN Reason Stop Dose Admin Hydrocodone Bitart/Acetaminophen 1 tab 10/31/24 23:01 11/01/24 02:50 Hydrocodone/Acetaminophen (*Crx) 5-325 Mg Tablet PO 1 tab Q12H PRN Administration Pain Rated 7-10 Albuterol 2 puff 10/31/24 23:01 Albuterol Sulfate (*Sp) Aerosol 1 Puff INHALATION Q4-6H PRN Shortness Of Breath Or Wheezing Amlodipine Besylate 2.5 mg 11/01/24 09:00 11/02/24 08:18 Amlodipine Besylate 2.5 Mg Tablet PO 2.5 mg DAILY [facility] Administration Aspirin 81 mg 11/01/24 09:00 11/02/24 08:18 Aspirin 81 Mg Chewable Tablet PO 81 mg DAILY [facility] Administration Atorvastatin Calcium 40 mg 10/31/24 23:20 11/01/24 21:31 Atorvastatin 40 Mg Tablet PO 40 mg HS [facility] Administration Dextrose 12.5 gm 10/31/24 20:09 Dextrose 50% 25 Gm/50 Ml Syringe IV PUSH PRN PRN Hypoglycemia Protocol Duloxetine HCl 60 mg 11/01/24 09:00 11/02/24 08:19 Duloxetine Hcl 60 Mg Capsule.Dr PO 60 mg DAILY [facility] Administration Enoxaparin Sodium 40 mg 11/01/24 09:00 11/02/24 08:19 Enoxaparin 40 Mg/0.4 Ml Syringe SUB-Q 40 mg DAILY [facility] Administration Ergocalciferol 1,250 mcg 11/05/24 09:00 Ergocalciferol (Vitamin D2) 1,250 Mcg (50,000 Units) Capsule PO We@0900 [facility] Estradiol 1 applic 11/12/24 09:00 Estradiol Vaginal Cream 42.5 Gm VAGINAL We@0900 [facility] Estrogens Conjugated 1 applic 11/03/24 09:00 Estrogens, Conjugated Vaginal Cream 30 Gm VAGINAL MoFr@0900 [facility] Famotidine 40 mg 10/31/24 23:25 11/01/24 21:31 Famotidine 20 Mg Tablet PO 40 mg QHS [facility] Administration Fluticasone Propionate 1 spray 11/01/24 09:00 11/02/24 08:18 Fluticasone Propionate 0.05% Na Spr 16 Gm Btl (*Bkc) NASAL 1 spray Q12HR [facility] Administration Gabapentin 600 mg 11/01/24 09:00 11/02/24 08:19 Gabapentin 300 Mg Capsule PO 600 mg TID [facility] Administration Glucagon 1 mg 10/31/24 20:09 Glucagon For Inj 1 Mg Vial IM PRN PRN Hypoglycemia Protocol Glucose 15 gm 10/31/24 20:09 Glucose Oral Gel 15 Gm Of Glucse In 37.5 Gm Tube PO PRN PRN Hypoglycemia Protocol Hydrochlorothiazide 12.5 mg 11/01/24 09:00 11/02/24 08:18 Hydrochlorothiazide 12.5 Mg Capsule PO 12.5 mg DAILY [facility] Administration Hydroxyzine HCl 25 mg 10/31/24 23:01 Hydroxyzine Hcl 25 Mg Tablet PO Q8H PRN Anxiety Dextrose 1,000 mls @ 100 mls/hr 10/31/24 20:09 Dextrose 5% 1,000 Ml IVPB PRN PRN Hypoglycemia Protocol Cefepime HCl 1 gm/ Sodium 50 mls @ 100 mls/hr 11/01/24 06:00 11/02/24 06:40 Chloride IVPB Infused Q12H [facility] Infusion Vancomycin HCl 1,500 mg in 500 mls @ 250 mls/hr 11/01/24 20:00 11/01/24 23:28 Vancomycin 1,500 Mg/Ns 500 Ml IVPB Infused Q24H [facility] Infusion Metronidazole 500 mg in 100 mls @ 100 mls/hr 11/02/24 13:00 Flagyl 500 Mg/Iso Soln 100 Ml IVPB Q8H [facility] Insulin Aspart 4 - 8 units 11/01/24 08:00 11/02/24 08:17 Insulin Aspart (*Bkc) 100 Units/Ml SUB-Q Not Given TIDWM [facility] Protocol Insulin Aspart 2 - 4 units 11/01/24 21:00 11/01/24 21:33 Insulin Aspart (*Bkc) 100 Units/Ml SUB-Q Not Given HS [facility] Protocol Insulin Glargine 23 units 10/31/24 23:35 11/01/24 21:33 Insulin Glargine (*Bkc) 100 Units/Ml 0.25 units/kg (23 units) 23 units SUB-Q Administration HS [facility] Loratadine 10 mg 11/01/24 18:00 11/01/24 17:19 Loratadine 10 Mg Tablet PO 10 mg QPM [facility] Administration Losartan Potassium 100 mg 11/01/24 09:00 11/02/24 08:18 Losartan Potassium 100 Mg Tablet PO 100 mg DAILY [facility] Administration Magnesium Hydroxide 30 ml 10/31/24 23:19 Magnesium Hydroxide Susp 30 Ml Udc PO QAM PRN Constipation Meclizine HCl 25 mg 10/31/24 23:01 Meclizine Hcl 25 Mg Tablet PO BID PRN Dizziness Methocarbamol 500 mg 11/01/24 09:00 11/02/24 08:18 Methocarbamol 500 Mg Tablet PO 500 mg BID [facility] Administration Metoprolol Succinate 50 mg 11/01/24 09:00 11/02/24 08:18 Metoprolol Succinate Ext Rel 50 Mg Tabcr PO 50 mg DAILY [facility] Administration Miscellaneous Information 0 each 10/31/24 23:55 11/01/24 02:30 Vibegron [Gemtesa] 75 Mg Tablet- Nonformulary. Please Obtain A Home Supply Or Hold Hile In XX 11/30/24 23:54 Not Given CLARIFY [facility] Multivitamins Therapeutic 1 tablet 11/01/24 09:00 11/02/24 08:20 Multivitamins Therapeutic Tab (*Bkc) PO 1 tablet DAILY [facility] Administration Nitroglycerin 0.4 mg 10/31/24 23:01 Nitroglycerin Sl 0.4 Mg Tablet SUBLINGUAL Q5MIN PRN Chest Pain Non-Formulary Medication 75 mg 11/01/24 09:00 Vibegron [Gemtesa] PO 12/01/24 08:59 DAILY [facility] Pantoprazole Sodium 40 mg 11/01/24 21:00 11/01/24 21:32 Pantoprazole 40 Mg Tablet PO 40 mg HS [facility] Administration Polyethylene Glycol 17 gm 10/31/24 23:01 Polyethylene Glycol 3350 17 Gm Powd.Pack PO DAILY PRN Constipation Senna 17.2 mg 10/31/24 23:01 Sennosides 8.6 Mg Tablet PO BID PRN Constipation Senna/Docusate Sodium 1 tab 10/31/24 23:20 11/01/24 21:31 Senna/Docusate Sodium Tablet PO 1 tab HS [facility] Administration Triamcinolone Acetonide 1 applic 11/01/24 09:00 Triamcinolone Acet 0.1% Oint 15 Gm Tube TOPICAL Q12HR PRN Itching Trimethoprim 100 mg 10/31/24 23:30 11/01/24 21:32 Trimethoprim 100 Mg Tablet PO 100 mg HS [facility] Administration Radiology Results: ITS Impressions Tibia/Fibula X-Ray 10/31/24 17:56 Impression: 1: No acute bone or joint abnormality. No evidence for osteomyelitis. Labs Labs: Laboratory Results - last 24 hr 11/01/24 11/01/24 11/01/24 12:08 16:51 20:04 WBC RBC Hgb Hct MCV MCH MCHC RDW Plt Count MPV Immature Gran % (Auto) Neut % (Auto) Lymph % (Auto) [place] % (Auto) Eos % (Auto) Baso % (Auto) Lymph # (Auto) [place] # (Auto) Eos # (Auto) Baso # (Auto) Abs Immat Gran (auto) Absolute Neuts (auto) Absolute Nucleated RBC Band Neutrophils % Nucleated RBC % Platelet Estimate Poikilocytosis Anisocytosis Ovalocytes Schistocytes Sodium Potassium Chloride Carbon Dioxide Anion Gap BUN Creatinine Estim Creat Clear Calc Estimated GFR Glucose POC Capillary Glucose 186 H 208 H 166 H Calcium Total Bilirubin AST ALT Alkaline Phosphatase Total Protein Albumin 11/02/24 11/02/24 04:37 07:31 WBC 7.5 RBC 3.70 L Hgb 10.6 L Hct 35.6 L MCV 96.2 MCH 28.6 MCHC 29.8 L RDW 13.4 Plt Count 300 MPV 8.5 Immature Gran % (Auto) 0.4 Neut % (Auto) 53.9 Lymph % (Auto) 29.7 [place] % (Auto) 8.5 Eos % (Auto) 6.2 H Baso % (Auto) 1.3 H Lymph # (Auto) 2.24 [place] # (Auto) 0.6 Eos # (Auto) 0.5 H Baso # (Auto) 0.1 Abs Immat Gran (auto) 0.03 Absolute Neuts (auto) 4.1 Absolute Nucleated RBC 0.000 Band Neutrophils % Not Reportable Nucleated RBC % 0.0 Platelet Estimate Slightly increased Poikilocytosis 1+ Anisocytosis 1+ Ovalocytes 1+ Schistocytes None seen Sodium 130 L Potassium 4.1 Chloride 102 Carbon Dioxide 23 Anion Gap 5 BUN 7 Creatinine 0.61 L Estim Creat Clear Calc 61 Estimated GFR > 60 Glucose 152 H POC Capillary Glucose 164 H Calcium 8.9 Total Bilirubin 1.0 AST 24 ALT 21 Alkaline Phosphatase 77 Total Protein 5.6 L Albumin 3.0 L Quality VTE Prophylaxis VTE prophylaxis: pharmacologic ordered
[2024-11-02 12:22] VITALS: BP 130/88; PULSE 86; RESP 18; TEMP 36.5; O2SAT 96
[2024-11-02] MEDS: HYDROcodone/acetaminophen (*CRX) 5-325 MG TABLET 1 TAB PO (16:04)
[2024-11-02] MEDS: LORATADINE 10 MG TABLET PO (17:07)
[2024-11-02 20:07] VITALS: BP 143/48; PULSE 71; RESP 20; TEMP 36.3; O2SAT 96
[2024-11-02] MEDS: PANTOPRAZOLE 40 MG TABLET PO (21:30)
[2024-11-02] MEDS: TRIMETHOPRIM 100 MG TABLET PO (21:30)
[2024-11-02] MEDS: SENNA/DOCUSATE SODIUM TABLET 1 TAB PO (21:30)
[2024-11-02] MEDS: ATORVASTATIN 40 MG TABLET PO (21:30)
[2024-11-02] MEDS: FAMOTIDINE 20 MG TABLET 40 MG PO (21:31)
[2024-11-02] MEDS: VANCOMYCIN 1,500 MG/NS 500 ML 1,500 MG/500 ML BAG 250 MG IVPB (21:32)
[2024-11-02] MEDS: INSULIN ASPART (*BKC) 100 UNITS/ML SUB-Q (21:33)
[2024-11-02] MEDS: INSULIN GLARGINE (*BKC) 100 UNITS/ML 23 UNITS SUB-Q (21:36)
[2024-11-03 03:52] VITALS: BP 141/49; PULSE 73; RESP 20; TEMP 36.4; O2SAT 94
[2024-11-03] MEDS: HYDROcodone/acetaminophen (*CRX) 5-325 MG TABLET 1 TAB PO (04:47)
[2024-11-03 04:50] LABS: Hematocrit 32.2 % (37.0-47.0); Hemoglobin 10.5 g/dL (12.0-15.0); Immature Granulocyte Percent A 0.5 % (0-0.5); Lymphocytes Absolute Auto 2.53 K/mm3 (0.9-3.2); Mean Corpuscular HGB Conc 32.6 g/dl (32-36); Mean Corpuscular Hemoglobin 28.8 pg (26-34); Mean Corpuscular Volume 88.2 fl (80-100); Nucleated Red Blood Cells Absolute Auto 0.000 K/mm3 (0.0-0.012); Nucleated Red Blood Cells Perc 0.0 % (0.0-0.2); Platelet Count Result 327 k/mm3 (150-375); Red Blood Count 3.65 M/mm3 (4.2-5.4); White Blood Count 8.1 K/mm3 (4.5-10.0)
[2024-11-03] MEDS: CEFEPIME 1 GM in SODIUM CHLORIDE 0.9% IV 50 ML 100 ML IVPB (04:58)
[2024-11-03] MEDS: metroNIDAZOLE 500 MG/ISO 100ML 500 MG/100 ML BAG 100 MG IVPB (04:58)
[2024-11-03 05:11] LABS: Alanine Aminotransferase 22 U/L (6-35); Albumin Level 3.1 g/dL (3.5-5.1); Alkaline Phosphatase 79 U/L (38-126); Anion Gap 5 mmol/L (4-12); Aspartate Amino Transferase 25 U/L (14-36); Bilirubin,Total 0.8 mg/dL (0.2-1.3); Blood Urea Nitrogen 5 mg/dL (7-17); Calcium 8.7 mg/dL (8.4-10.2); Carbon Dioxide 29 mmol/L (22-30); Chloride 98 mmol/L (98-107); Estimated CRCL calculation 53 ml/min; Estimated Glomerular Filt Rate > 60; Glucose 146 mg/dL (65-110); Potassium 3.5 mmol/L (3.4-5.0); Sodium 132 mmol/L (137-145); Total Protein 5.8 g/dL (6.3-8.2)
[2024-11-03 05:25] LABS: Hemoglobin A1C 7.7 % (<5.7)
--- NOTE | 2024-11-03 06:59 | P.PNIM_ITS ---
Progress Note: A&P Assessment and Plan (1) Non-healing wound of right lower extremity: Code(s): S81.801A - Unspecified open wound, right lower leg, initial encounter Status: Acute Assessment and Plan: * did not meet SIRS criteria. however blood cultures were obtained on 10/31, follow. Lactic 1.1 * tib/fib XR, 10/31: No acute bone or joint abnormality. No evidence for osteomyelitis. * started on cefepime, Flagyl, and vancomycin on 10/31 * wound RN following patient * wound culture pending * analgesics p.r.n. 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 Lantus 23u HS based off BMI ordered. * correct regimen ordered - high dose TIDWM and HS, based off BMI * A1C 7.5% on 08/07/2024, HgbA1c 11/03/2024 7.7% (3) Heart failure with reduced ejection fraction: Onset Date: 03/2022 Code(s): I50.20 - Unspecified systolic (congestive) heart failure Status: Chronic Assessment and Plan: * no evidence of exacerbation * patient only on HCTZ daily, continued (4) Chronic anemia: Code(s): D64.9 - Anemia, unspecified Status: Chronic Assessment and Plan: * Hgb 11.5, previously 11.9 on 09/08/2024 * transfuse if <7 * monitor * 11/01:10.9 (5) Hypertension: Qualifiers: Hypertension type: primary hypertension Qualified Code(s): I10 - Essential (primary) hypertension Code(s): I10 - Essential (primary) hypertension Status: Chronic Assessment and Plan: * chronic, currently 155/93 * continue home medications: Metoprolol ER, losartan, HCTZ, amlodipine * monitor (6) Obstructive sleep apnea: Code(s): G47.33 - Obstructive sleep apnea (adult) (pediatric) Status: Chronic Assessment and Plan: * continue home CPAP Plan Diet: Diabetic GI Prophylaxis: N/a DVT Prophylaxis: Lovenox SQ IV fluids: SLIV Lines/Tubes: Peripheral IV Code Status: Full code Subjective Date/time seen: 11/03/24 06:59 Interval history: 84 y/o F with PMH of HLD, HFrEF, basal cell carcinoma, OAB, depression, PONCHO, DM2, GERD, anemia, osteopenia, and hypertension presents here with redness and an open wound to her right lower extremity. Patient seen in her room, lying in bed, in no acute distress. Patient denies acute pain. General surgery consult pending. Patient had JOS EMIGUEL's done this AM and results showed normal arterial blood flow to the lower extremities. Patient continues on IV antibiotics. Wound culture pending. Continue wound care. Labs reviewed. Review of Systems Review of Systems: All systems reviewed & are unremarkable except as noted in HPI and below Exam Const: General: comfortable and no acute distress Other: , female, nontoxic appearance HENMT: Face/Nose/Sinus: Normal nares present Mouth: Yes moist mucous mem branes Eyes: General: appearance normal, both eyes and all related structures Sclera: sclerae normal Pupils: Equal, round and reactive pupils present EOM: EOMs intact bilaterally Resp: Effort & Inspection: normal respiratory effort Auscultation: clear to auscultation bilaterally Cardio: Rate: regular rate Rhythm: regular rhythm Other: S1-S2 present without murmur, rub, ectopy GI: Other: Abdomen soft, nondistended, nontender. Normoactive bowel sounds in all quadrants. Skin: Other: Erythema and tenderness to the right lower extremity with an open wound measuring approximately 8 cm x [address] with scant drainage noted. Neuro: Cranial nerves: Yes Equal, round and reactive pupils present Speech: normal speech Motor exam (neuro): 5/5 motor strength present throughout Sensory Exam: normal sensation Other: A&O x4 Extrem: General: normal to inspection Psych: Mental Status: mental status grossly normal Affect: normal affect Other: Fair insight and judgment, pleasant Objective Data Vital Signs Vital Signs: Vital Signs - 24 hr 11/02/24 08:00 11/02/24 08:18 11/02/24 12:22 Temperature 97.7 F Pulse Rate 60 86 Respiratory Rate 18 Blood Pressure 130/88 Pulse Oximetry 96 Oxygen Delivery Room Air 11/02/24 20:07 11/03/24 03:52 Temperature 97.4 F L 97.6 F Pulse Rate 71 73 Respiratory Rate 20 20 Blood Pressure 143/48 H 141/49 H Pulse Oximetry 96 94 Oxygen Delivery Intake/Output Intake/Output: Intake & Output 10/31/24 11/01/24 11/02/24 11/03/24 23:59 23:59 23:59 23:59 Intake Total 1400 1920 1260 490 Output Total 900 700 Balance 1400 1020 560 490 Meds/Results Medications: Active Medications Generic Name Dose Route Start Last Admin Trade Name Freq PRN Reason Stop Dose Admin Hydrocodone Bitart/Acetaminophen 1 tab 10/31/24 23:01 11/03/24 04:47 Hydrocodone/Acetaminophen (*Crx) 5-325 Mg Tablet PO 1 tab Q12H PRN Administration Pain Rated 7-10 Albuterol 2 puff 10/31/24 23:01 Albuterol Sulfate (*Sp) Aerosol 1 Puff INHALATION Q4-6H PRN Shortness Of Breath Or Wheezing Amlodipine Besylate 2.5 mg 11/01/24 09:00 11/02/24 08:18 Amlodipine Besylate 2.5 Mg Tablet PO 2.5 mg DAILY [facility] Administration Aspirin 81 mg 11/01/24 09:00 11/02/24 08:18 Aspirin 81 Mg Chewable Tablet PO 81 mg DAILY [facility] Administration Atorvastatin Calcium 40 mg 10/31/24 23:20 11/02/24 21:30 Atorvastatin 40 Mg Tablet PO 40 mg HS [facility] Administration Dextrose 12.5 gm 10/31/24 20:09 Dextrose 50% 25 Gm/50 Ml Syringe IV PUSH PRN PRN Hypoglycemia Protocol Duloxetine HCl 60 mg 11/01/24 09:00 11/02/24 08:19 Duloxetine Hcl 60 Mg Capsule.Dr PO 60 mg DAILY [facility] Administration Enoxaparin Sodium 40 mg 11/01/24 09:00 11/02/24 08:19 Enoxaparin 40 Mg/0.4 Ml Syringe SUB-Q 40 mg DAILY [facility] Administration Ergocalciferol 1,250 mcg 11/05/24 09:00 Ergocalciferol (Vitamin D2) 1,250 Mcg (50,000 Units) Capsule PO We@0900 [facility] Estradiol 1 applic 11/12/24 09:00 Estradiol Vaginal Cream 42.5 Gm VAGINAL We@0900 [facility] Estrogens Conjugated 1 applic 11/03/24 09:00 Estrogens, Conjugated Vaginal Cream 30 Gm VAGINAL MoFr@0900 [facility] Famotidine 40 mg 10/31/24 23:25 11/02/24 21:31 Famotidine 20 Mg Tablet PO 40 mg QHS [facility] Administration Fluticasone Propionate 1 spray 11/01/24 09:00 11/02/24 21:31 Fluticasone Propionate 0.05% Na Spr 16 Gm Btl (*Bkc) NASAL 1 spray Q12HR [facility] Administration Gabapentin 600 mg 11/01/24 09:00 11/02/24 16:05 Gabapentin 300 Mg Capsule PO 600 mg TID [facility] Administration Glucagon 1 mg 10/31/24 20:09 Glucagon For Inj 1 Mg Vial IM PRN PRN Hypoglycemia Protocol Glucose 15 gm 10/31/24 20:09 Glucose Oral Gel 15 Gm Of Glucse In 37.5 Gm Tube PO PRN PRN Hypoglycemia Protocol Hydrochlorothiazide 12.5 mg 11/01/24 09:00 11/02/24 08:18 Hydrochlorothiazide 12.5 Mg Capsule PO 12.5 mg DAILY [facility] Administration Hydroxyzine HCl 25 mg 10/31/24 23:01 11/02/24 21:58 Hydroxyzine Hcl 25 Mg Tablet PO 25 mg Q8H PRN Administration Anxiety Dextrose 1,000 mls @ 100 mls/hr 10/31/24 20:09 Dextrose 5% 1,000 Ml IVPB PRN PRN Hypoglycemia Protocol Cefepime HCl 1 gm/ Sodium 50 mls @ 100 mls/hr 11/01/24 06:00 11/03/24 05:28 Chloride IVPB Infused Q12H [facility] Infusion Metronidazole 500 mg in 100 mls @ 100 mls/hr 11/02/24 13:00 11/03/24 05:58 Flagyl 500 Mg/Iso Soln 100 Ml IVPB Infused Q8H [facility] Infusion Vancomycin HCl 1,500 mg in 500 mls @ 250 mls/hr 11/02/24 21:00 11/02/24 23:32 Vancomycin 1,500 Mg/Ns 500 Ml IVPB Infused Q12H [facility] Infusion Insulin Aspart 4 - 8 units 11/01/24 08:00 11/02/24 17:03 Insulin Aspart (*Bkc) 100 Units/Ml SUB-Q Not Given TIDWM [facility] Protocol Insulin Aspart 2 - 4 units 11/01/24 21:00 11/02/24 21:33 Insulin Aspart (*Bkc) 100 Units/Ml SUB-Q 2 units HS [facility] Administration Protocol Insulin Glargine 23 units 10/31/24 23:35 11/02/24 21:36 Insulin Glargine (*Bkc) 100 Units/Ml 0.25 units/kg (23 units) 23 units SUB-Q Administration [facility] Loratadine 10 mg 11/01/24 18:00 11/02/24 17:07 Loratadine 10 Mg Tablet PO 10 mg QPM [facility] Administration Losartan Potassium 100 mg 11/01/24 09:00 11/02/24 08:18 Losartan Potassium 100 Mg Tablet PO 100 mg DAILY [facility] Administration Magnesium Hydroxide 30 ml 10/31/24 23:19 Magnesium Hydroxide Susp 30 Ml Udc PO QAM PRN Constipation Meclizine HCl 25 mg 10/31/24 23:01 Meclizine Hcl 25 Mg Tablet PO BID PRN Dizziness Methocarbamol 500 mg 11/01/24 09:00 11/02/24 16:05 Methocarbamol 500 Mg Tablet PO 500 mg BID [facility] Administration Metoprolol Succinate 50 mg 11/01/24 09:00 11/02/24 08:18 Metoprolol Succinate Ext Rel 50 Mg Tabcr PO 50 mg DAILY [facility] Administration Miscellaneous Information 0 each 10/31/24 23:55 11/01/24 02:30 Vibegron [Gemtesa] 75 Mg Tablet- Nonformulary. Please Obtain A Home Supply Or Hold Hile In XX 11/30/24 23:54 Not Given CLARIFY [facility] Multivitamins Therapeutic 1 tablet 11/01/24 09:00 11/02/24 08:20 Multivitamins Therapeutic Tab (*Bkc) PO 1 tablet DAILY [facility] Administration Nitroglycerin 0.4 mg 10/31/24 23:01 Nitroglycerin Sl 0.4 Mg Tablet SUBLINGUAL Q5MIN PRN Chest Pain Non-Formulary Medication 75 mg 11/01/24 09:00 Vibegron [Gemtesa] PO 12/01/24 08:59 DAILY [facility] Pantoprazole Sodium 40 mg 11/01/24 21:00 11/02/24 21:30 Pantoprazole 40 Mg Tablet PO 40 mg HS [facility] Administration Polyethylene Glycol 17 gm 10/31/24 23:01 Polyethylene Glycol 3350 17 Gm Powd.Pack PO DAILY PRN Constipation Senna 17.2 mg 10/31/24 23:01 Sennosides 8.6 Mg Tablet PO BID PRN Constipation Senna/Docusate Sodium 1 tab 10/31/24 23:20 11/02/24 21:30 Senna/Docusate Sodium Tablet PO 1 tab HS [facility] Administration Triamcinolone Acetonide 1 applic 11/01/24 09:00 Triamcinolone Acet 0.1% Oint 15 Gm Tube TOPICAL Q12HR PRN Itching Trimethoprim 100 mg 10/31/24 23:30 11/02/24 21:30 Trimethoprim 100 Mg Tablet PO 100 mg HS [facility] Administration Radiology Results: ITS Impressions Tibia/Fibula X-Ray 10/31/24 17:56 Impression: 1: No acute bone or joint abnormality. No evidence for osteomyelitis. Labs Labs: Laboratory Results - last 24 hr 11/02/24 11/02/24 11/02/24 07:31 11:48 16:45 WBC RBC Hgb Hct MCV MCH MCHC RDW Plt Count MPV Immature Gran % (Auto) Neut % (Auto) Lymph % (Auto) [facility] % (Auto) Eos % (Auto) Baso % (Auto) Lymph # (Auto) [facility] # (Auto) Eos # (Auto) Baso # (Auto) Abs Immat Gran (auto) Absolute Neuts (auto) Absolute Nucleated RBC Nucleated RBC % Sodium Potassium Chloride Carbon Dioxide Anion Gap BUN Creatinine Estim Creat Clear Calc Estimated GFR Glucose POC Capillary Glucose 164 H 189 H 193 H Hemoglobin A1c Calcium Total Bilirubin AST ALT Alkaline Phosphatase Total Protein Albumin Vancomycin Trough 11/02/24 11/02/24 11/03/24 18:49 20:14 04:31 WBC 8.1 RBC 3.65 L Hgb 10.5 L Hct 32.2 L MCV 88.2 D MCH 28.8 MCHC 32.6 RDW 13.2 Plt Count 327 MPV 8.4 Immature Gran % (Auto) 0.5 Neut % (Auto) 49.2 Lymph % (Auto) 31.1 [facility] % (Auto) 10.7 H Eos % (Auto) 7.4 H Baso % (Auto) 1.1 Lymph # (Auto) 2.53 [facility] # (Auto) 0.9 H Eos # (Auto) 0.6 H Baso # (Auto) 0.1 Abs Immat Gran (auto) 0.04 H Absolute Neuts (auto) 4.0 Absolute Nucleated RBC 0.000 Nucleated RBC % 0.0 Sodium 132 L Potassium 3.5 Chloride 98 Carbon Dioxide 29 Anion Gap 5 BUN 5 L Creatinine 0.72 Estim Creat Clear Calc 53 Estimated GFR > 60 Glucose 146 H POC Capillary Glucose 245 H Hemoglobin A1c 7.7 H Calcium 8.7 Total Bilirubin 0.8 AST 25 ALT 22 Alkaline Phosphatase 79 Total Protein 5.8 L Albumin 3.1 L Vancomycin Trough 9.3 L Quality VTE Prophylaxis VTE prophylaxis: pharmacologic ordered
[2024-11-03 08:02] VITALS: BP 149/78; PULSE 89; RESP 16; TEMP 36.4; O2SAT 97
[2024-11-03 08:05] VITALS: PULSE 89; RESP 16; O2SAT 97
[2024-11-03] MEDS: MULTIVITAMINS THERAPEUTIC TAB (*BKC) 1 TABLET PO (08:05)
[2024-11-03] MEDS: DULoxetine HCL 60 MG CAPSULE.DR PO (08:05)
[2024-11-03] MEDS: ASPIRIN 81 MG CHEWABLE TABLET PO (08:05)
[2024-11-03] MEDS: GABAPENTIN 300 MG CAPSULE 600 MG PO ×3 (08:05→16:59)
[2024-11-03] MEDS: METOPROLOL SUCCINATE EXT REL 50 MG TABCR PO (08:05)
[2024-11-03] MEDS: LOSARTAN POTASSIUM 100 MG TABLET PO (08:05)
[2024-11-03] MEDS: ENOXAPARIN 40 MG/0.4 ML SYRINGE SUB-Q (08:06)
[2024-11-03] MEDS: FLUTICASONE PROPIONATE 0.05% NA SPR 16 GM BTL (*BKC) 1 SPRAY NASAL ×2 (08:06→20:58)
[2024-11-03] MEDS: VANCOMYCIN 1,500 MG/NS 500 ML 1,500 MG/500 ML BAG 250 MG IVPB (08:11)
--- NOTE | 2024-11-03 10:09 | PM.CNGS ---
Assessment and Plan Assessment and plan (1) Non-healing wound of right lower extremity: Code(s): S81.801A - Unspecified open wound, right lower leg, initial encounter Status: Acute Assessment and Plan: Patient presented to the ED 10/31 with a RLE anterior castro wound that started roughly 3-4 weeks ago after patient fell getting onto the bus and scraped the front portion of her leg. She has seen her PCP and [facility] multiple times and has completed courses of Keflex and Clindamycin. Upon admission to the hospital she has been on Cefepime, Flagyl, and Vancomycin. Tib/Fib xray demonstrated no acute bone or joint abnormality and no evidence of osteomyelitis. Arterial duplex scan of the lower extremities was normal. WBC was 10.2 on admission, now down to 8.1. Reportedly, nurse noted excessive purulent drainage from the wound yesterday and this morning, thus prompting a general surgery consult. On exam, the wound appears very superficial and stable with no areas of fluctuance. There is moderate surrounding erythema and warmth. No purulent drainage appreciated. No surgical intervention or debridement necessary at this time. Continue wound care with Xeroform gauze with dry gauze dressing and kerlix wrap. Patient does also state that she has home health that comes twice a week for wound care. Continue IV antibiotics. (2) Bilateral primary osteoarthritis of knee: Code(s): M17.0 - Bilateral primary osteoarthritis of knee Status: Acute Assessment and Plan: Noted on Xray. (3) Obstructive sleep apnea: Code(s): G47.33 - Obstructive sleep apnea (adult) (pediatric) Status: Chronic (4) Type 2 diabetes mellitus with hyperglycemia: Qualifiers: Diabetes mellitus snf insulin use: with snf use Qualified Code(s): E11.65 - Type 2 diabetes mellitus with hyperglycemia; Z79.4 - retirement (current) use of insulin Code(s): E11.65 - Type 2 diabetes mellitus with hyperglycemia Status: Acute (5) Heart failure with reduced ejection fraction: Onset Date: 03/2022 Code(s): I50.20 - Unspecified systolic (congestive) heart failure Status: Chronic Plan Discussed patient's case and plan of care with Dr. Reece. History of Present Illness Consult details Consult date: 11/03/24 Reason for consult: other (RLE non-healing wound) Requesting physician: Jahaira Cruz, SANDY Narrative: Patient is a 84 year old female with history of hyperlipidemia, HFrEF, T2DM, GERd, anemia, osteopenia, PONCHO, and hypertension who we have been asked to see in surgical consultation for a RLE wound. *Patient is a poor historian, as history provided by patient does not correlate with EMR documentation. Patient states that she first noted the wound when she fell and scraped the anterior portion of her right lower leg while trying to get onto the bus approximately 3-4 weeks ago. She states that an ambulance was called, but she refused EMS transportation to the hospital. She presented to her PCP who prescribed her Keflex. Per EMR, patient presented to the ED on 10/16/24 for increased redness and suspected cellulitis and was then prescribed clinamycin. Home health was coming to do wound dressings twice a week. Patient did not note wound to get any better after course of clindamycin so she called her PCP who recommended seeking further care. She presented to [facility] on 10/31/24. They instructed patient to present to ED for higher level of care. Upon admission, labs demonstrated leukocytosis of 10.2. An Xray of the tibia nad fibula was obtained and showed no acute bone or join abnormality. No evidence of osteomyelitis. There is osteoarthritis of the right knee. Patient did not meet SIRS criteria. Blood cultures were obtained and still pending. She was started on Cefepime, Flagyl, and Vancomycin. Yesterday, nurse reported that the patient had a large amount of purulent drainage from the wound. This was again reported by nurse this morning, thus prompting consult to general surgery for possible debridement. Wound care team was also consulted. Arterial duplex scan this morning demonstrated normal brisk systolic upstrokes throughout the arteries of the bilateral lower limbs, the majority with triphasic and a few biphasic waveforms. Upon interview today, patient denies any systemic symptoms including fever, nausea/vomiting, or SOB. She has beeen ambulating with a walker. When asked about the wound, patient does report that last she was at [facility] when she was stopped because the wound was draining fluid into her sock. Patient usually ambulates with walker, but states that she has [id number] arthritis of her knees which often causes them to give out on her. She feels that this is what caused her to fall in the first place. [facility] Past Medical History Medical History Hyperlipidemia Heart failure with reduced ejection fraction (03/2022) EF 40 to 45%. Basal cell carcinoma Overactive bladder Depression Frequent urinary tract infections Obstructive sleep apnea Arthritis Insulin dependent type 2 diabetes mellitus Gastroesophageal reflux disease Anemia Hypertension Osteopenia Surgical History Surgical History History of esophageal dilatation History of dilation and curettage History of lumbar surgery (1990) History of cholecystectomy History of appendectomy Family History Family History Mother Hypertension Family history of diabetes mellitus in first degree relative Family history of heart disease in male family member before age 55 Father Carcinoma of colon Family history of malignant neoplasm of gastrointestinal tract Social History Social History Social History: Surrogate medical decision maker: angel Dye. Code status: Full code. Smoking status: Never smoker Second hand tobacco smoke exposure: No Alcohol intake: never Substance use: never Substance use type: does not use Do You Feel Safe in your Home?: Yes Lack of Transportation: YES Lack of Food: Never True Current Housing: I Have Housing Concerned About Future Housing: No Difficulty Paying Gas/Electric Bills: No Difficulty Paying for Meds: No Currently Unemployed: No Education: High School Diploma/GED Difficulty w/ Childcare or Family Care: No Additional living arrangements comments: Assisted living at [facility] since 12/15/2021. Spiritual care concerns: No Meds Home Medications and Allergies Home Medications ?Medication ?Instructions ?Recorded ?Confirmed ?Type atorvastatin 40 mg tablet 40 mg PO HS 12/17/19 10/31/24 History metoprolol succinate 50 mg 50 mg PO DAILY 12/17/19 10/31/24 History tablet,extended release 24 hr Daily-Danette 1 tab-cap PO DAILY 04/18/22 10/31/24 History nitroglycerin 0.4 mg sublingual 0.4 mg sublingual PRN PRN Chest 04/18/22 10/31/24 History tablet Pain trimethoprim 100 mg tablet 100 mg PO HS #30 tabs 04/19/22 10/31/24 Rx ergocalciferol (vitamin D2) 1,250 1,250 mcg PO DIRECTED 07/29/22 10/31/24 History mcg (50,000 unit) capsule polyethylene glycol 3350 17 17 g PO DAILY PRN Constipation 07/29/22 10/31/24 History gram/dose oral powder nystatin 100,000 unit/gram topical 1 applic topical BID #60 grams 10/19/22 10/31/24 Rx powder clobetasol 0.05 % topical ointment 1 applic topical DAILY 11/07/22 10/31/24 History conjugated estrogens 0.625 mg/gram 0.625 mg vaginal .COMPLEX 11/07/22 10/31/24 History vaginal cream (Premarin) famotidine 40 mg tablet (Pepcid) 40 mg PO QHS #90 tabs 11/07/22 10/31/24 Rx albuterol sulfate 90 mcg/actuation 2 puff inhalation Q4-6H PRN 04/01/24 10/31/24 Rx aerosol inhaler shortness of breath or wheezing 30 days #8.5 grams levocetirizine 5 mg tablet 5 mg PO QPM 04/01/24 10/31/24 History vibegron 75 mg tablet (Gemtesa) 75 mg PO DAILY 04/01/24 10/31/24 History acetaminophen 500 mg tablet 1,000 mg PO BID PRN fever or pain 04/30/24 10/31/24 History (Tylenol Extra Strength) gabapentin 600 mg tablet 600 mg PO TID 04/30/24 10/31/24 History semaglutide 2 mg/dose (8 mg/3 mL) 2 mg (0.75 mL) subcut WEEKLY 90 04/30/24 10/31/24 Rx subcutaneous pen injector (Ozempic) days #9 mL amlodipine 2.5 mg tablet 2.5 mg PO DAILY 05/20/24 10/31/24 History aspirin 81 mg chewable tablet 81 mg PO DAILY 05/20/24 10/31/24 History duloxetine 60 mg capsule,delayed 60 mg PO DAILY 05/20/24 10/31/24 History release fluticasone propionate 50 1 spray intranasal Q12H #16 grams 05/20/24 10/31/24 Rx mcg/actuation nasal spray,suspension (Flonase Allergy Relief) hydroxyzine HCl 25 mg tablet 25 mg PO Q8H PRN anxiety 05/20/24 10/31/24 History losartan 100 mg tablet 100 mg PO DAILY 05/20/24 10/31/24 History meclizine 25 mg tablet 25 mg PO BID PRN dizziness #20 tabs 05/20/24 10/31/24 Rx multivitamin with folic acid 400 1 tablet PO DAILY 05/20/24 10/31/24 History mcg tablet (Tab-A-Danette) pantoprazole 40 mg tablet,delayed 40 mg PO HS 05/20/24 10/31/24 History release blood-glucose sensor (FreeStyle #6 ea 06/16/24 10/31/24 Rx Shayne 3 Plus Sensor device) blood-glucose,habilitation assistant,cont #1 ea 06/16/24 10/31/24 Rx (FreeStyle Shayne 3 [place]) insulin regular hum U-500 conc 500 See Rx Instructions subcut 08/07/24 10/31/24 Rx unit/mL(3 mL) subcut pen .COMPLEX #18 mL blood sugar diagnostic (OneTouch #400 ea 08/27/24 10/31/24 Rx Verio test strips) blood-glucose meter (OneTouch #1 ea 08/27/24 10/31/24 Rx Verio Flex Meter) lancets 33 gauge (OneTouch Delica #100 ea 08/27/24 10/31/24 Rx Plus Lancet) estradiol 0.01% (0.1 mg/gram) 1 appful vaginal WEEKLY 08/30/24 10/31/24 History vaginal cream diphenhydramine-zinc acetate 2 1 applic topical BID PRN itching 10/31/24 10/31/24 History %-0.1 % topical solution hydrochlorothiazide 12.5 mg capsule 12.5 mg PO DAILY 10/31/24 10/31/24 History hydrocodone 5 mg-acetaminophen 325 1 tablet PO Q12H PRN Pain 10/31/24 10/31/24 History mg tablet methocarbamol 500 mg tablet 500 mg PO BID 10/31/24 10/31/24 History miconazole nitrate 2 % vaginal 1 appful vaginal HS 10/31/24 10/31/24 History cream (Miconazole-7) phenazopyridine 200 mg tablet 200 mg PO TID PRN pain 10/31/24 10/31/24 History sennosides 8.6 mg tablet (senna) 17.2 mg PO BID PRN constipation 10/31/24 10/31/24 History triamcinolone acetonide 0.1 % 1 applic topical DAILY 10/31/24 10/31/24 History topical ointment Allergies Allergy/AdvReac Type Severity Reaction Status Date / Time prednisone Allergy Mild Unknown Verified 11/01/24 05:42 rosiglitazone Allergy Mild Unknown Verified 11/01/24 05:42 azithromycin Allergy Unknown Unknown Verified 11/01/24 05:42 ceftriaxone Allergy Unknown Unknown Verified 11/03/24 11:02 codeine Allergy Unknown Unknown Verified 11/01/24 05:42 ibuprofen Allergy Unknown Unknown Verified 11/01/24 05:42 latex Allergy Unknown Unknown Verified 11/01/24 05:42 naproxen Allergy Unknown Unknown Verified 11/01/24 05:42 Vital Signs Vital Signs - 24 hr 11/02/24 12:22 11/02/24 20:07 11/03/24 03:52 Temperature 97.7 F 97.4 F L 97.6 F Pulse Rate 86 71 73 Respiratory Rate 18 20 20 Blood Pressure 130/88 143/48 H 141/49 H Pulse Oximetry 96 96 94 Oxygen Delivery 11/03/24 08:02 11/03/24 08:05 11/03/24 08:05 Temperature 97.6 F Pulse Rate 89 89 89 Respiratory Rate 16 16 Blood Pressure 149/78 H Pulse Oximetry 97 97 Oxygen Delivery Room Air Exam Const: General: comfortable and no acute distress Eyes: General: appearance normal, both eyes and all related structures Neck: Neck: supple and no JVD Resp: Effort & Inspection: normal respiratory effort Cardio: Rate: regular rate Skin: General skin exam: normal color and no rashes or lesions noted Extrem: Other: Right lower extremity anterior portion with superficial abrasion-like wound. Tissue is red and healthy. No purulence noted on today's exam. Minimal serous drainage. Tender to the touch. Surrounding erythema and warmth. Psych: Mental Status: mental status grossly normal Results Labs 11/03/24 04:31 11/03/24 04:31 Labs: Abnormal lab results 11/02/24 11/02/24 11/02/24 Range/Units 11:48 16:45 18:49 RBC (4.2-5.4) M/mm3 Hgb (12.0-15.0) g/dL Hct (37.0-47.0) % Hamilton % (Auto) (2.6-8.5) % Eos % (Auto) (0-4.4) % [place] # (Auto) (0.1-0.6) K/mm3 Eos # (Auto) (0-0.3) K/mm3 Abs Immat Gran (auto) (0.00-0.031) K/mm3 Sodium (137-145) mmol/L BUN (7-17) mg/dL Glucose (65-110) mg/dL POC Capillary Glucose 189 H 193 H (65-105) mg/dl Hemoglobin A1c (<5.7) % Total Protein (6.3-8.2) g/dL Albumin (3.5-5.1) g/dL Vancomycin Trough 9.3 L (10.0-20.0) ug/mL 11/02/24 11/03/24 11/03/24 Range/Units 20:14 04:31 07:55 RBC 3.65 L (4.2-5.4) M/mm3 Hgb 10.5 L (12.0-15.0) g/dL Hct 32.2 L (37.0-47.0) % Hamilton % (Auto) 10.7 H (2.6-8.5) % Eos % (Auto) 7.4 H (0-4.4) % Hamilton # (Auto) 0.9 H (0.1-0.6) K/mm3 Eos # (Auto) 0.6 H (0-0.3) K/mm3 Abs Immat Gran (auto) 0.04 H (0.00-0.031) K/mm3 Sodium 132 L (137-145) mmol/L BUN 5 L (7-17) mg/dL Glucose 146 H (65-110) mg/dL POC Capillary Glucose 245 H 153 H (65-105) mg/dl Hemoglobin A1c 7.7 H (<5.7) % Total Protein 5.8 L (6.3-8.2) g/dL Albumin 3.1 L (3.5-5.1) g/dL Vancomycin Trough (10.0-20.0) ug/mL Diabetes panel 11/03/24 Range/Units 04:31 Sodium 132 L (137-145) mmol/L Potassium 3.5 (3.4-5.0) mmol/L Chloride 98 (98-107) mmol/L Carbon Dioxide 29 (22-30) mmol/L BUN 5 L (7-17) mg/dL Creatinine 0.72 (0.7-1.0) mg/dL Glucose 146 H (65-110) mg/dL Hemoglobin A1c 7.7 H (<5.7) % Calcium 8.7 (8.4-10.2) mg/dL AST 25 (14-36) U/L ALT 22 (6-35) U/L Alkaline Phosphatase 79 (38-126) U/L Total Protein 5.8 L (6.3-8.2) g/dL Albumin 3.1 L (3.5-5.1) g/dL Calcium panel 11/03/24 Range/Units 04:31 Calcium 8.7 (8.4-10.2) mg/dL Albumin 3.1 L (3.5-5.1) g/dL Pituitary panel 11/03/24 Range/Units 04:31 Sodium 132 L (137-145) mmol/L Potassium 3.5 (3.4-5.0) mmol/L Chloride 98 (98-107) mmol/L Carbon Dioxide 29 (22-30) mmol/L BUN 5 L (7-17) mg/dL Creatinine 0.72 (0.7-1.0) mg/dL Glucose 146 H (65-110) mg/dL Calcium 8.7 (8.4-10.2) mg/dL Adrenal panel 11/03/24 Range/Units 04:31 Sodium 132 L (137-145) mmol/L Potassium 3.5 (3.4-5.0) mmol/L Chloride 98 (98-107) mmol/L Carbon Dioxide 29 (22-30) mmol/L BUN 5 L (7-17) mg/dL Creatinine 0.72 (0.7-1.0) mg/dL Glucose 146 H (65-110) mg/dL Calcium 8.7 (8.4-10.2) mg/dL Total Bilirubin 0.8 (0.2-1.3) mg/dL AST 25 (14-36) U/L ALT 22 (6-35) U/L Alkaline Phosphatase 79 (38-126) U/L Total Protein 5.8 L (6.3-8.2) g/dL Albumin 3.1 L (3.5-5.1) g/dL All other labs normal.
--- NOTE | 2024-11-03 10:24 | P.CDI_ITS ---
CDI Query Clarification Request 1) ER documented cellulitis but diagnosis was not carried over in hospitalist documentation. Please clarify if cellulitis has been ruled in or ruled out 2)Please clarify if patients lower extremity wound is related to diabetes? * non-healing wound of lower extremity due to diabetes * non-healing wound of lower extremity not related to diabetes * other, please specify * clinically undetermined Patient is an 84-year-old female who presents to the ER with right lower extremity cellulitis and open wound. She reports on October 16, 2024 she was getting onto the bus when her knees collapse. Patient reports she fell and hit her right leg. She reports she was evaluated in the ER after the incident. Patient reports she was placed on oral antibiotics and completed does on October 23, 2024. She reports she sees a sustainable agriculture specialist and has a home healthcare nurse. Today patient's home healthcare nurse came to evaluate patient and change her dressing. The home healthcare nurse had concerns that patient's wound is worsening. Patient spoke with her primary care provider who advised her to come to the ER for further evaluation. She endorses a history of diabetes, high blood pressure, and CHF. Patient denies any calf pain, recent fevers, knee pain, or urinary symptoms. Labs Ordered: CBC, CMP, lactic acid, CRP, PTT, INR, blood cultures ER: Clinical Impression: Non-healing wound of right lower extremity, Diabetic ulcer of right lower leg, limited to breakdown of skin, Cellulitis Hospitalist: Assessment and Plan (1) Non-healing wound of right lower extremity: Code(s): S81.801A - Unspecified open wound, right lower leg, initial encounter Status: Acute Assessment and Plan: * did not meet SIRS criteria. however blood cultures were obtained on 10/31, follow. Lactic 1.1 * tib/fib XR, 10/31: No acute bone or joint abnormality. No evidence for osteomyelitis. * started on cefepime, Flagyl, and vancomycin on 10/31 * wound RN consulted * wound culture pending * analgesics p.r.n.trend WBC -normal today - check JOSE MIGUEL's - consult surgery to evaluate if patient may need debridement - nurse reports patient still has a large amount of purulent drainage from the wound - AM labs (2) Type 2 diabetes mellitus: Qualifiers: Diabetes mellitus complication status: without complication Diabetes me llitus manager long term care insulin use: unspecified manager long term care insulin use status Qualified Code(s): E11.9 - Type 2 diabetes mellitus without complications Code(s): E11.9 - Type 2 diabetes mellitus without complications Status: Chronic Assessment and Plan: * hypoglycemia protocol * POC blood glucose ACHS * home medication: Patient is on U 500 90 units before breakfast and 30 units before lunch, held (NF). Lantus 23u HS based off BMI ordered. * correct regimen ordered - high dose TIDWM and HS, based off BMI * A1C 7.5% on 08/07/2024, check HgbA1c in AM (3) Heart failure with reduced ejection fraction: Onset Date: 03/2022 Code(s): I50.20 - Unspecified systolic (congestive) heart failure Status: Chronic Assessment and Plan: * no evidence of exacerbation * patient only on HCTZ daily, continued (4) Chronic anemia: Code(s): D64.9 - Anemia, unspecified Status: Chronic Assessment and Plan: * Hgb 11.5, previously 11.9 on 09/08/2024 * transfuse if <7 * monitor * 11/01:10.9 (5) Hypertension: Qualifiers: Hypertension type: primary hypertension Qualified Code(s): I10 - Essential (primary) hypertension Code(s): I10 - Essential (primary) hypertension Status: Chronic Assessment and Plan: * chronic, currently 155/93 * continue home medications: Metoprolol ER, losartan, HCTZ, amlodipine * monitor (6) Obstructive sleep apnea: Code(s): G47.33 - Obstructive sleep apnea (adult) (pediatric) Status: Chronic Assessment and Plan: * continue home CPAP <Lyric Presley RN - Last Filed: 11/03/24 10:32> Clarified Diagnosis Clarified Diagnosis: Non-healing wound of right lower extremity with surrounding cellulitis Not diabetic wound <Jahaira Cruz APRN - Last Filed: 11/04/24 11:47>
[2024-11-03 13:35] VITALS: BP 145/46; PULSE 74; RESP 16; TEMP 36.4; O2SAT 98
[2024-11-03] MEDS: LORATADINE 10 MG TABLET PO (16:59)
[2024-11-03] MEDS: INSULIN ASPART (*BKC) 100 UNITS/ML SUB-Q (17:00)
[2024-11-03 19:35] VITALS: BP 146/48; PULSE 73; RESP 18; TEMP 36.5; O2SAT 99
[2024-11-03 20:27] VITALS: O2SAT 99
[2024-11-03] MEDS: DOXYCYCLINE HYCLATE 100 MG TABLET PO (20:57)
[2024-11-03] MEDS: FAMOTIDINE 20 MG TABLET 40 MG PO (20:57)
[2024-11-03] MEDS: ATORVASTATIN 40 MG TABLET PO (20:57)
[2024-11-03] MEDS: SENNA/DOCUSATE SODIUM TABLET 1 TAB PO (20:57)
[2024-11-03] MEDS: TRIMETHOPRIM 100 MG TABLET PO (20:58)
[2024-11-03] MEDS: PANTOPRAZOLE 40 MG TABLET PO (20:58)
[2024-11-03] MEDS: INSULIN GLARGINE (*BKC) 100 UNITS/ML 23 UNITS SUB-Q (21:03)
[2024-11-04] MEDS: HYDROcodone/acetaminophen (*CRX) 5-325 MG TABLET 1 TAB PO (02:07)
[2024-11-04 04:17] VITALS: BP 157/53; PULSE 74; RESP 18; TEMP 36.5; O2SAT 94
[2024-11-04 05:09] LABS: Hematocrit 34.8 % (37.0-47.0); Hemoglobin 11.4 g/dL (12.0-15.0); Immature Granulocyte Percent A 0.5 % (0-0.5); Lymphocytes Absolute Auto 2.63 K/mm3 (0.9-3.2); Mean Corpuscular HGB Conc 32.8 g/dl (32-36); Mean Corpuscular Hemoglobin 28.9 pg (26-34); Mean Corpuscular Volume 88.1 fl (80-100); Nucleated Red Blood Cells Absolute Auto 0.000 K/mm3 (0.0-0.012); Nucleated Red Blood Cells Perc 0.0 % (0.0-0.2); Platelet Count Result 371 k/mm3 (150-375); Red Blood Count 3.95 M/mm3 (4.2-5.4); White Blood Count 8.5 K/mm3 (4.5-10.0)
[2024-11-04 05:41] LABS: Alanine Aminotransferase 33 U/L (6-35); Albumin Level 3.4 g/dL (3.5-5.1); Alkaline Phosphatase 78 U/L (38-126); Anion Gap 4 mmol/L (4-12); Aspartate Amino Transferase 39 U/L (14-36); Bilirubin,Total 0.7 mg/dL (0.2-1.3); Blood Urea Nitrogen 4 mg/dL (7-17); Calcium 9.0 mg/dL (8.4-10.2); Carbon Dioxide 31 mmol/L (22-30); Chloride 95 mmol/L (98-107); Estimated CRCL calculation 55 ml/min; Estimated Glomerular Filt Rate > 60; Glucose 174 mg/dL (65-110); Potassium 3.5 mmol/L (3.4-5.0); Sodium 130 mmol/L (137-145); Total Protein 6.1 g/dL (6.3-8.2)
[2024-11-04] MEDS: ASPIRIN 81 MG CHEWABLE TABLET PO (08:07)
[2024-11-04] MEDS: DULoxetine HCL 60 MG CAPSULE.DR PO (08:08)
[2024-11-04] MEDS: DOXYCYCLINE HYCLATE 100 MG TABLET PO (08:08)
[2024-11-04 08:09] VITALS: PULSE 81; RESP 18; O2SAT 94
[2024-11-04] MEDS: METOPROLOL SUCCINATE EXT REL 50 MG TABCR PO (08:09)
[2024-11-04] MEDS: LOSARTAN POTASSIUM 100 MG TABLET PO (08:09)
[2024-11-04] MEDS: ENOXAPARIN 40 MG/0.4 ML SYRINGE SUB-Q (08:09)
[2024-11-04] MEDS: FLUTICASONE PROPIONATE 0.05% NA SPR 16 GM BTL (*BKC) 1 SPRAY NASAL (08:09)
[2024-11-04] MEDS: GABAPENTIN 300 MG CAPSULE 600 MG PO ×2 (08:09→12:10)
[2024-11-04] MEDS: MULTIVITAMINS THERAPEUTIC TAB (*BKC) 1 TABLET PO (08:10)
--- NOTE | 2024-11-04 10:58 | PM.PNGS ---
Progress Note: A&P Assessment and Plan (1) Non-healing wound of right lower extremity: Code(s): S81.801A - Unspecified open wound, right lower leg, initial encounter Status: Acute Assessment and Plan: Patient is doing well. Wound healing appropriately. Culture did grow MRSA. Susceptible to tetracyclines. Continue doxycycline and any other antibiotics per ID or hospitalist recommendations. No surgical intervention or debridement necessary at this time. Continue wound care with Xeroform gauze with dry gauze dressing and Kerlix wrap. Patient does also state that she has home health that comes three times a week for wound care. Surgically stable for discharge. (2) Bilateral primary osteoarthritis of knee: Code(s): M17.0 - Bilateral primary osteoarthritis of knee Status: Acute Assessment and Plan: Noted on Xray. 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 Reece. Subjective Subjective Date/Time Seen: 11/04/24 10:58 Patient reports: no new complaints and feels better Interval history: Patient is doing well today. No new complaints. Labs stable. VSS. Wound culture did grow MRSA. Exam Extrem: Other: Right lower extremity anterior portion with superficial abrasion-like wound. Tissue is red and healthy. No purulence noted on today's exam. Minimal serous drainage. Tender to the touch. Surrounding erythema and warmth appears improved from yesterday. Objective Data Vital Signs Vital Signs: Vital Signs - 24 hr 11/03/24 13:35 11/03/24 19:35 11/03/24 20:27 Temperature 97.5 F L 97.7 F Pulse Rate 74 73 Respiratory Rate 16 18 Blood Pressure 145/46 H 146/48 H Pulse Oximetry 98 99 99 Oxygen Delivery Room Air 11/04/24 04:17 11/04/24 08:09 11/04/24 08:09 Temperature 97.7 F Pulse Rate 74 81 81 Respiratory Rate 18 18 Blood Pressure 157/53 H Pulse Oximetry 94 94 Oxygen Delivery Room Air Intake/Output Intake/Output: Intake & Output 11/01/24 11/02/24 11/03/24 11/04/24 23:59 23:59 23:59 23:59 Intake Total 1920 1260 2050 650 Output Total 900 700 Balance 8661 193 8862 650 Meds/Results Medications: Active Medications Generic Name Dose Route Start Last Admin Trade Name Freq PRN Reason Stop Dose Admin Hydrocodone Bitart/Acetaminophen 1 tab 10/31/24 23:01 11/04/24 02:07 Hydrocodone/Acetaminophen (*Crx) 5-325 Mg Tablet PO 1 tab Q12H PRN Administration Pain Rated 7-10 Albuterol 2 puff 10/31/24 23:01 Albuterol Sulfate (*Sp) Aerosol 1 Puff INHALATION Q4-6H PRN Shortness Of Breath Or Wheezing Amlodipine Besylate 2.5 mg 11/01/24 09:00 11/04/24 08:06 Amlodipine Besylate 2.5 Mg Tablet PO 2.5 mg DAILY [facility] Administration Amoxicillin/Clavulanate Potassium 1 tablet 11/03/24 21:00 11/04/24 08:06 Amoxicillin/Clavulanate K 875-125 Mg Tab PO 1 tablet Q12HR [facility] Administration Aspirin 81 mg 11/01/24 09:00 11/04/24 08:07 Aspirin 81 Mg Chewable Tablet PO 81 mg DAILY [facility] Administration Atorvastatin Calcium 40 mg 10/31/24 23:20 11/03/24 20:57 Atorvastatin 40 Mg Tablet PO 40 mg HS [facility] Administration Dextrose 12.5 gm 10/31/24 20:09 Dextrose 50% 25 Gm/50 Ml Syringe IV PUSH PRN PRN Hypoglycemia Protocol Doxycycline Hyclate 100 mg 11/03/24 21:00 11/04/24 08:08 Doxycycline Hyclate 100 Mg Tablet PO 100 mg Q12HR [facility] Administration Duloxetine HCl 60 mg 11/01/24 09:00 11/04/24 08:08 Duloxetine Hcl 60 Mg Capsule.Dr PO 60 mg DAILY [facility] Administration Enoxaparin Sodium 40 mg 11/01/24 09:00 11/04/24 08:09 Enoxaparin 40 Mg/0.4 Ml Syringe SUB-Q 40 mg DAILY [facility] Administration Ergocalciferol 1,250 mcg 11/05/24 09:00 Ergocalciferol (Vitamin D2) 1,250 Mcg (50,000 Units) Capsule PO We@0900 [facility] Estradiol 1 applic 11/12/24 09:00 Estradiol Vaginal Cream 42.5 Gm VAGINAL We@0900 [facility] Estrogens Conjugated 1 applic 11/03/24 09:00 Estrogens, Conjugated Vaginal Cream 30 Gm VAGINAL On Hold: 11/03/24 09:00 MoFr@0900 [facility] Comment: HOLD WHILE INPATIENT. Famotidine 40 mg 10/31/24 23:25 11/03/24 20:57 Famotidine 20 Mg Tablet PO 40 mg QHS [facility] Administration Fluticasone Propionate 1 spray 11/01/24 09:00 11/04/24 08:09 Fluticasone Propionate 0.05% Na Spr 16 Gm Btl (*Bkc) NASAL 1 spray Q12HR [facility] Administration Gabapentin 600 mg 11/01/24 09:00 11/04/24 08:09 Gabapentin 300 Mg Capsule PO 600 mg TID [facility] Administration Glucagon 1 mg 10/31/24 20:09 Glucagon For Inj 1 Mg Vial IM PRN PRN Hypoglycemia Protocol Glucose 15 gm 10/31/24 20:09 Glucose Oral Gel 15 Gm Of Glucse In 37.5 Gm Tube PO PRN PRN Hypoglycemia Protocol Hydrochlorothiazide 12.5 mg 11/01/24 09:00 11/04/24 08:09 Hydrochlorothiazide 12.5 Mg Capsule PO 12.5 mg DAILY [facility] Administration Hydroxyzine HCl 25 mg 10/31/24 23:01 11/03/24 20:58 Hydroxyzine Hcl 25 Mg Tablet PO 25 mg Q8H PRN Administration Anxiety Dextrose 1,000 mls @ 100 mls/hr 10/31/24 20:09 Dextrose 5% 1,000 Ml IVPB PRN PRN Hypoglycemia Protocol Insulin Aspart 4 - 8 units 11/01/24 08:00 11/04/24 08:21 Insulin Aspart (*Bkc) 100 Units/Ml SUB-Q Not Given TIDWM [facility] Protocol Insulin Aspart 2 - 4 units 11/01/24 21:00 11/03/24 21:21 Insulin Aspart (*Bkc) 100 Units/Ml SUB-Q Not Given HS [facility] Protocol Insulin Glargine 23 units 10/31/24 23:35 11/03/24 21:03 Insulin Glargine (*Bkc) 100 Units/Ml 0.25 units/kg (23 units) 23 units SUB-Q Administration HS [facility] Loratadine 10 mg 11/01/24 18:00 11/03/24 16:59 Loratadine 10 Mg Tablet PO 10 mg QPM [facility] Administration Losartan Potassium 100 mg 11/01/24 09:00 11/04/24 08:09 Losartan Potassium 100 Mg Tablet PO 100 mg DAILY [facility] Administration Magnesium Hydroxide 30 ml 11/03/24 12:33 Magnesium Hydroxide Susp 30 Ml Udc PO DAILY@1200 PRN Constipation Meclizine HCl 25 mg 10/31/24 23:01 Meclizine Hcl 25 Mg Tablet PO BID PRN Dizziness Methocarbamol 500 mg 11/01/24 09:00 11/04/24 08:09 Methocarbamol 500 Mg Tablet PO 500 mg BID [facility] Administration Metoprolol Succinate 50 mg 11/01/24 09:00 11/04/24 08:09 Metoprolol Succinate Ext Rel 50 Mg Tabcr PO 50 mg DAILY [facility] Administration Miscellaneous Information 0 each 10/31/24 23:55 11/01/24 02:30 Vibegron [Gemtesa] 75 Mg Tablet- Nonformulary. Please Obtain A Home Supply Or Hold Hilmimi In XX 11/30/24 23:54 Not Given CLARIFY [facility] Multivitamins Therapeutic 1 tablet 11/01/24 09:00 11/04/24 08:10 Multivitamins Therapeutic Tab (*Bkc) PO 1 tablet DAILY [facility] Administration Nitroglycerin 0.4 mg 10/31/24 23:01 Nitroglycerin Sl 0.4 Mg Tablet SUBLINGUAL Q5MIN PRN Chest Pain Non-Formulary Medication 75 mg 11/01/24 09:00 Vibegron [Gemtesa] PO 12/01/24 08:59 DAILY [facility] Pantoprazole Sodium 40 mg 11/01/24 21:00 11/03/24 20:58 Pantoprazole 40 Mg Tablet PO 40 mg HS [facility] Administration Polyethylene Glycol 17 gm 10/31/24 23:01 Polyethylene Glycol 3350 17 Gm Powd.Pack PO DAILY PRN Constipation Senna 17.2 mg 10/31/24 23:01 Sennosides 8.6 Mg Tablet PO BID PRN Constipation Senna/Docusate Sodium 1 tab 10/31/24 23:20 11/03/24 20:57 Senna/Docusate Sodium Tablet PO 1 tab HS [facility] Administration Triamcinolone Acetonide 1 applic 11/01/24 09:00 Triamcinolone Acet 0.1% Oint 15 Gm Tube TOPICAL Q12HR PRN Itching Trimethoprim 100 mg 10/31/24 23:30 11/03/24 20:58 Trimethoprim 100 Mg Tablet PO 100 mg HS [facility] Administration Radiology Results: ITS Impressions Tibia/Fibula X-Ray 10/31/24 17:56 Impression: 1: No acute bone or joint abnormality. No evidence for osteomyelitis. Duplex Scan Lower Extremity Artery 11/03/24 08:37 IMPRESSION: 1. Normal brisk systolic upstrokes throughout the arteries of the bilateral lower limbs, the majority with triphasic and a few with biphasic waveforms. Labs Labs: Laboratory Results - last 24 hr 11/03/24 11/03/24 11/03/24 11:40 16:51 19:40 WBC RBC Hgb Hct MCV MCH MCHC RDW Plt Count MPV Immature Gran % (Auto) Neut % (Auto) Lymph % (Auto) Carroll % (Auto) Eos % (Auto) Baso % (Auto) Lymph # (Auto) [place] # (Auto) Eos # (Auto) Baso # (Auto) Abs Immat Gran (auto) Absolute Neuts (auto) Absolute Nucleated RBC Nucleated RBC % Sodium Potassium Chloride Carbon Dioxide Anion Gap BUN Creatinine Estim Creat Clear Calc Estimated GFR Glucose POC Capillary Glucose 187 H 202 H 194 H Calcium Total Bilirubin AST ALT Alkaline Phosphatase Total Protein Albumin 11/04/24 11/04/24 04:43 08:20 WBC 8.5 RBC 3.95 L Hgb 11.4 L Hct 34.8 L MCV 88.1 MCH 28.9 MCHC 32.8 RDW 13.3 Plt Count 371 MPV 8.4 Immature Gran % (Auto) 0.5 Neut % (Auto) 52.1 Lymph % (Auto) 30.9 Carroll % (Auto) 8.9 H Eos % (Auto) 6.8 H Baso % (Auto) 0.8 Lymph # (Auto) 2.63 Carroll # (Auto) 0.8 H Eos # (Auto) 0.6 H Baso # (Auto) 0.1 Abs Immat Gran (auto) 0.04 H Absolute Neuts (auto) 4.4 Absolute Nucleated RBC 0.000 Nucleated RBC % 0.0 Sodium 130 L Potassium 3.5 Chloride 95 L Carbon Dioxide 31 H Anion Gap 4 BUN 4 L Creatinine 0.69 L Estim Creat Clear Calc 55 Estimated GFR > 60 Glucose 174 H POC Capillary Glucose 149 H Calcium 9.0 Total Bilirubin 0.7 AST 39 H ALT 33 Alkaline Phosphatase 78 Total Protein 6.1 L Albumin 3.4 L
--- NOTE | 2024-11-04 11:47 | P.DS_ITS ---
DS: Admitting Diagnosis Discharge Date 11/04/2024 Admitting Diagnosis Non-healing wound of right lower extremity DS: Discharge Diagnosis Discharge Diagnosis (1) Non-healing wound of right lower extremity: Code(s): S81.801A - Unspecified open wound, right lower leg, initial encounter Status: Acute Assessment and Plan: * with surrounding cellulitis * did not meet SIRS criteria. however blood cultures were obtained on 10/31, follow. Lactic 1.1 * tib/fib XR, 10/31: No acute bone or joint abnormality. No evidence for osteomyelitis. * s/p cefepime, Flagyl, and vancomycin on 10/31 * wound RN following patient * wound culture pending * analgesics p.r.n. 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 Lantus 23u HS based off BMI ordered. * correct regimen ordered - high dose TIDWM and HS, based off BMI * A1C 7.5% on 08/07/2024, HgbA1c 11/03/2024 7.7% (3) Heart failure with reduced ejection fraction: Onset Date: 03/2022 Code(s): I50.20 - Unspecified systolic (congestive) heart failure Status: Chronic Assessment and Plan: * no evidence of exacerbation * patient only on HCTZ daily, continued (4) Chronic anemia: Code(s): D64.9 - Anemia, unspecified Status: Chronic Assessment and Plan: * Hgb 11.5, previously 11.9 on 09/08/2024 * transfuse if <7 - remained stable (5) Hypertension: Qualifiers: Hypertension type: primary hypertension Qualified Code(s): I10 - Essential (primary) hypertension Code(s): I10 - Essential (primary) hypertension Status: Chronic Assessment and Plan: * chronic * continue home medications: Metoprolol ER, losartan, HCTZ, amlodipine (6) Obstructive sleep apnea: Code(s): G47.33 - Obstructive sleep apnea (adult) (pediatric) Status: Chronic Assessment and Plan: * continue home CPAP DS: Summary Hospital Course Reason for hospitalization: Nonhealing wound to [facility] Hospital Course: He presents to the hospital with complaints of a nonhealing right lower extremity wound with surrounding cellulitis. Per the patient and from reviewing the chart it appears the patient's had a fall while getting onto a bus [place] roximately 5 weeks ago and as result of she developed an open wound to her right castro. Patient was treated as an outpatient with oral cephalexin and then clindamycin. Despite treatment the patient's wound had increased perianal drainage, erythema and pain. On admission patient was treated with IV vancomycin, IV cefepime and IV Flagyl. Wound cultures were obtained blood cultures were obtained. Wound nurse was consulted. General surgery was consulted for possible debridement. Patient had an x-ray of the right tib-fib that did not show concern for osteomyelitis. General surgery did not recommend debridement. Patient had ABIs of the bilateral lower extremities which were normal. Patient's cellulitis was improving and wound drainage improving. Patient's wound culture showed MRSA, sensitivities reviewed. Sensitivity showed this bacteria was resistant to clindamycin. Discussed wound care with wound nurse and patient is okay to have dressing changed 3 times per week at home by home health care. Patient will be discharged home with dressing instructions to clean the wound with soap and water, apply Xeroform dressing, gauze 4x4s, Kerlix roll to be changed 3 times per week. Patient will be discharged home on p.o. Augmentin and p.o. doxycycline. Patient to follow-up with her PCP within 1-2 weeks of discharge. Time Spent with Patient Time attestation: Total time spent providing and/or coordinating discharge services: 40 Minutes Exam Const: General: comfortable and no acute distress Other: , female, nontoxic appearance HENMT: Face/Nose/Sinus: Normal nares present Mouth: Yes moist mucous membranes Eyes: General: appearance normal, both eyes and all related structures Sclera: sclerae normal Pupils: Equal, round and reactive pupils present EOM: EOMs intact bilaterally Resp: Effort & Inspection: normal respiratory effort Auscultation: clear to auscultation bilaterally Cardio: Rate: regular rate Rhythm: regular rhythm Other: S1-S2 present without murmur, rub, ectopy GI: Other: Abdomen soft, nondistended, nontender. Normoactive bowel sounds in all quadrants. Skin: Other: Erythema and tenderness improved to the right lower extremity with an open wound measuring approximately 8 cm x [address] with scant drainage noted. Neuro: Cranial nerves: Yes Equal, round and reactive pupils present Speech: normal speech Motor exam (neuro): 5/5 motor strength present throughout Sensory Exam: normal sensation Other: A&O x4 Extrem: General: normal to inspection Psych: Mental Status: mental status grossly normal Affect: normal affect Other: Fair insight and judgment, pleasant DS: Data Data Completed and Pending Labs on day of discharge: Labs from last 24 hours 11/04/24 11/04/24 11/03/24 08:20 04:43 19:40 WBC 8.5 RBC 3.95 L Hgb 11.4 L Hct 34.8 L MCV 88.1 MCH 28.9 MCHC 32.8 RDW 13.3 Plt Count 371 MPV 8.4 Immature Gran % (Auto) 0.5 Neut % (Auto) 52.1 Lymph % (Auto) 30.9 [place] % (Auto) 8.9 H Eos % (Auto) 6.8 H Baso % (Auto) 0.8 Lymph # (Auto) 2.63 [place] # (Auto) 0.8 H Eos # (Auto) 0.6 H Baso # (Auto) 0.1 Abs Immat Gran (auto) 0.04 H Absolute Neuts (auto) 4.4 Absolute Nucleated RBC 0.000 Nucleated RBC % 0.0 Sodium 130 L Potassium 3.5 Chloride 95 L Carbon Dioxide 31 H Anion Gap 4 BUN 4 L Creatinine 0.69 L Estim Creat Clear Calc 55 Estimated GFR > 60 Glucose 174 H POC Capillary Glucose 149 H 194 H Calcium 9.0 Total Bilirubin 0.7 AST 39 H ALT 33 Alkaline Phosphatase 78 Total Protein 6.1 L Albumin 3.4 L 11/03/24 11/03/24 16:51 11:40 WBC RBC Hgb Hct MCV MCH MCHC RDW Plt Count MPV Immature Gran % (Auto) Neut % (Auto) Lymph % (Auto) [place] % (Auto) Eos % (Auto) Baso % (Auto) Lymph # (Auto) [place] # (Auto) Eos # (Auto) Baso # (Auto) Abs Immat Gran (auto) Absolute Neuts (auto) Absolute Nucleated RBC Nucleated RBC % Sodium Potassium Chloride Carbon Dioxide Anion Gap BUN Creatinine Estim Creat Clear Calc Estimated GFR Glucose POC Capillary Glucose 202 H 187 H Calcium Total Bilirubin AST ALT Alkaline Phosphatase Total Protein Albumin Preliminary micro results at discharge 10/31/24 18:21 Blood Culture - Preliminary Blood 10/31/24 22:02 Blood Culture - Preliminary Blood Discharge Plan Discharge Attending physician on discharge: May Iyer Consulting providers: Zaire Barriga; Fred Reece Discharging Clinician: Jahaira Cruz Patient Disposition: Home Activity: as tolerated Diet: heart healthy, diabetic and low sodium Wound Care Instructions: other - see discharge instructions Discharge Instructions: Home health care to change patient's dressing 3x/week. Cleanse wound with soap and water. Apply xeroform guaze, guaze 4x4 pads and roll guaze dressing. Patient Instructions: Antibiotic Form, Heart Failure (GEN) Patient Language: Chinese Stand Alone Forms: General Discharge Information Follow-up/Referrals: Yonatan,JOSLYN Will [Primary Care Provider, Unknown] Referral Note: Call for an appointment to be seen within 1-2 weeks of discharge. Discharge Medications: New doxycycline hyclate 100 mg Tablet 100 mg PO Q12HR Qty: 7 0RF amoxicillin-pot clavulanate 875-125 mg tablet 1 tablet PO Q12H Qty: 7 0RF Continued estradiol 0.01 % (0.1 mg/gram) cream 1 appful VAGINAL WEEKLY levocetirizine 5 mg tablet 5 mg PO QPM Gemtesa 75 mg tablet 75 mg PO DAILY albuterol sulfate 90 mcg/actuation HFA aerosol inhaler 2 puff inhalation Q4-6H PRN (Reason: shortness of breath or wheezing) 30 Days Qty: 8.5 0RF gabapentin 600 mg tablet 600 mg PO TID amlodipine 2.5 mg tablet 2.5 mg PO DAILY pantoprazole 40 mg tablet,delayed release (DR/EC) 40 mg PO HS aspirin 81 mg tablet,chewable 81 mg PO DAILY hydroxyzine HCl 25 mg tablet 25 mg PO Q8H PRN (Reason: anxiety) losartan 100 mg tablet 100 mg PO DAILY duloxetine 60 mg capsule,delayed release(DR/EC) 60 mg PO DAILY multivitamin with folic acid [Tab-A-Danette] 400 mcg tablet 1 tablet PO DAILY atorvastatin 40 mg tablet 40 mg PO HS metoprolol succinate 50 mg tablet extended release 24 hr 50 mg PO DAILY acetaminophen [Tylenol Extra Strength] 500 mg tablet 1,000 mg PO BID PRN (Reason: fever or pain) Premarin 0.625 mg/gram cream 0.625 mg vaginal .COMPLEX Rx Instructions: 0.625 mg vaginally Sunday and Sunday; apply a peas size amount clobetasol 0.05 % ointment 1 applic topical DAILY famotidine [Pepcid] 40 mg tablet 40 mg PO QHS Qty: 90 3RF Ozempic 2 mg/dose (8 mg/3 mL) pen injector 2 mg subcut WEEKLY 90 Days Qty: 9 3RF Patient Comments: sunday insulin regular hum U-500 conc 500 unit/mL (3 mL) insulin pen See Rx Instructions subcut .COMPLEX Qty: 18 1RF Rx Instructions: 90 units before breakfast, 30 units before lunch fluticasone propionate [Flonase Allergy Relief] 50 mcg/actuation spray,suspension 1 spray intranasal Q12H Qty: 16 0RF Rx Instructions: administer into each nostril meclizine 25 mg tablet 25 mg PO BID PRN (Reason: dizziness) Qty: 20 0RF nitroglycerin 0.4 mg tablet, sublingual 0.4 mg sublingual PRN PRN (Reason: Chest Pain) Rx Instructions: dissolve 1 tab under the tongue every 5 min for chest pain up to 3 doses in 15 mins if pain persists seek medical attention Daily-Danette 1 tab-cap PO DAILY trimethoprim 100 mg tablet 100 mg PO HS Qty: 30 6RF ergocalciferol (vitamin D2) 1,250 mcg (50,000 unit) capsule 1,250 mcg PO DIRECTED Rx Instructions: every sunday polyethylene glycol 3350 17 gram/dose powder 17 g PO DAILY PRN (Reason: Constipation) methocarbamol 500 mg tablet 500 mg PO BID miconazole nitrate [Miconazole-7] 2 % cream 1 appful vaginal HS phenazopyridine 200 mg tablet 200 mg PO TID PRN (Reason: pain) sennosides [senna] 8.6 mg tablet 17.2 mg PO BID PRN (Reason: constipation) triamcinolone acetonide 0.1 % ointment 1 applic TOPICAL DAILY hydrochlorothiazide 12.5 mg capsule 12.5 mg PO DAILY hydrocodone-acetaminophen 5-325 mg tablet 1 tablet PO Q12H PRN (Reason: Pain) nystatin 100,000 unit/gram powder 1 applic TOPICAL BID Qty: 60 1RF Rx Instructions: apply to gential area bid (DME) FreeStyle Shayne 3 [place] Misc See Rx Instructions .Route Qty: 1 0RF Rx Instructions: As directed (DME) FreeStyle Shayne 3 Plus Sensor Device See Rx Instructions .Route Qty: 6 2RF Rx Instructions: As directed (DME) blood-glucose meter [OneTouch Verio Flex meter] Misc See Rx Instructions .Route Qty: 1 0RF Rx Instructions: As directed (DME) lancets [OneTouch Delica Plus Lancet] 33 gauge misc See Rx Instructions .ROUTE .MEDSUPPLY Qty: 100 0RF Rx Instructions: Check glcuose (DME) OneTouch Verio test strips Strip See Rx Instructions .ROUTE .MEDSUPPLY Qty: 400 1RF Rx Instructions: Check glucose 3-4 times a day Discontinued diphenhydramine-zinc acetate 2-0.1 % solution 1 applic topical BID PRN (Reason: itching) Rx Instructions: for leg itching Date of admission: 11/01/24 08:26 Primary Care Provider: Yonatan,Natalie Davis Admitting Provider: aMy Iyer Attending physician on admission: May Iyer Condition: Stable Quality VTE Prophylaxis VTE prophylaxis: pharmacologic ordered
== END 2024-11-04 12:46 | disposition home health service (06) | DRG 605 ==
LOC: ANHED 20:37 → ANH2MED 20:53
PROVIDERS: Physician Assistant; Admitting Provider General Practice; Emergency Provider Registered Nurse; PCP Nurse Practitioner; Visit Provider Nurse Practitioner Adult Health
DX: S81.801A Unspecified open wound, right lower leg, initial encounter (principal); I50.22 Chronic systolic (congestive) heart failure; B95.62 Methicillin resistant Staphylococcus aureus infection as the cause of diseases classified elsewhere; W22.8XXA Striking against or struck by other objects, initial encounter; D64.9 Anemia, unspecified; E78.5 Hyperlipidemia, unspecified; E11.9 Type 2 diabetes mellitus without complications; F32.A Depression, unspecified; G47.33 Obstructive sleep apnea (adult) (pediatric); I11.0 Hypertensive heart disease with heart failure; K21.9 Gastro-esophageal reflux disease without esophagitis; M85.80 Other specified disorders of bone density and structure, unspecified site; N32.81 Overactive bladder; Z85.828 Personal history of other malignant neoplasm of skin; Z79.4 Long term (current) use of insulin
CPT/HCPCS: 36415; 73590; 80053; 80202; 81001; 82565; 82948; 83036; 83605; 84132; 85025; 85610; 85730; 86140; 87040; 87070; 87075; 87186; 93005; 93925; 96365; 96366; 96367; 96368; 96375; 97161; 99285; A9270; G0378; J0692; J1650; J1815; J1836; J3373; J7030; J7050

== ENCOUNTER 2024-12-29 16:43 | Emergency (ER) | payer MEDICARE, MEDICAID, SELFPAY ==
[2024-12-29 16:56] VITALS: BP 162/49; PULSE 72; RESP 18; TEMP 36.5; O2SAT 100
--- NOTE | 2024-12-29 17:28 | ED.SKABFB ---
HPI - Skin/Abscess/Foreign Bdy General Chief complaint: Skin/Abscess/Foreign Body Stated complaint: Infected Wound Time Seen by Provider: 12/29/24 17:06 Source: patient and RN notes reviewed Mode of arrival: ambulatory Limitations: no limitations History of Present Illness HPI narrative: 84-year-old female patient with history of diabetes and chronic right lower leg wound since Oct, presents today complaining of increased redness to her chronic leg wound. Patient was initially seen in the ER at the beginning of October due to an infection in an abrasion in the anterior right lower leg that was caused by a fall at the end of September. It was determined that her leg wound was infected and she was admitted to the hospital for a few days at that time. Wound culture showed MRSA. She was discharged home on Augmentin and doxycycline after a course of IV abx. She has been followed by home health since that time, who changes her dressings and monitors her wound. She states that she was recently told that she could start showering and didn't realize that she was supposed to keep the wound dry. She also scratched the wound a few days ago and believes she may have caused an infection. Her home health nurse came today and told her she needed to come get some antibiotics as the area surrounding the wound has become more red. She denies any recent fever, sweats, chills. Related Data Home Medications ?Medication ?Instructions ?Recorded ?Confirmed ?Last Taken ?Type atorvastatin 40 mg tablet 40 mg PO HS 12/17/19 11/12/24 Unknown History metoprolol succinate 50 mg 50 mg PO DAILY 12/17/19 11/12/24 Unknown History tablet,extended release 24 hr Daily-Danette 1 tab-cap PO DAILY 04/18/22 11/12/24 Unknown History nitroglycerin 0.4 mg sublingual 0.4 mg sublingual PRN PRN Chest 04/18/22 11/12/24 Unknown History tablet Pain ergocalciferol (vitamin D2) 1,250 1,250 mcg PO DIRECTED 07/29/22 11/12/24 Unknown History mcg (50,000 unit) capsule polyethylene glycol 3350 17 17 g PO DAILY PRN Constipation 07/29/22 11/12/24 Unknown History gram/dose oral powder clobetasol 0.05 % topical ointment 1 applic topical DAILY 11/07/22 11/12/24 Unknown History conjugated estrogens 0.625 mg/gram 0.625 mg vaginal .COMPLEX 11/07/22 11/12/24 Unknown History vaginal cream (Premarin) levocetirizine 5 mg tablet 5 mg PO QPM 04/01/24 11/12/24 Unknown History vibegron 75 mg tablet (Gemtesa) 75 mg PO DAILY 04/01/24 11/12/24 Unknown History acetaminophen 500 mg tablet 1,000 mg PO BID PRN fever or pain 04/30/24 11/12/24 Unknown History (Tylenol Extra Strength) gabapentin 600 mg tablet 600 mg PO TID 04/30/24 11/12/24 Unknown History amlodipine 2.5 mg tablet 2.5 mg PO DAILY 05/20/24 11/12/24 Unknown History aspirin 81 mg chewable tablet 81 mg PO DAILY 05/20/24 11/12/24 Unknown History duloxetine 60 mg capsule,delayed 60 mg PO DAILY 05/20/24 11/12/24 Unknown History release hydroxyzine HCl 25 mg tablet 25 mg PO Q8H PRN anxiety 05/20/24 11/12/24 Unknown History losartan 100 mg tablet 100 mg PO DAILY 05/20/24 11/12/24 Unknown History multivitamin with folic acid 400 1 tablet PO DAILY 05/20/24 11/12/24 Unknown History mcg tablet (Tab-A-Danette) pantoprazole 40 mg tablet,delayed 40 mg PO HS 05/20/24 11/12/24 Unknown History release estradiol 0.01% (0.1 mg/gram) 1 appful vaginal WEEKLY 08/30/24 11/12/24 Unknown History vaginal cream hydrochlorothiazide 12.5 mg capsule 12.5 mg PO DAILY 10/31/24 11/12/24 Unknown History hydrocodone 5 mg-acetaminophen 325 1 tablet PO Q12H PRN Pain 10/31/24 11/12/24 Unknown History mg tablet sennosides 8.6 mg tablet (senna) 17.2 mg PO BID PRN constipation 10/31/24 11/12/24 Unknown History triamcinolone acetonide 0.1 % 1 applic topical DAILY 10/31/24 11/12/24 Unknown History topical ointment Allergies Allergy/AdvReac Type Severity Reaction Status Date / Time prednisone Allergy Mild Unknown Verified 12/29/24 16:46 rosiglitazone Allergy Mild Unknown Verified 12/29/24 16:46 azithromycin Allergy Unknown Unknown Verified 12/29/24 16:46 ceftriaxone Allergy Unknown Unknown Verified 12/29/24 16:46 codeine Allergy Unknown Unknown Verified 12/29/24 16:46 ibuprofen Allergy Unknown Unknown Verified 12/29/24 16:46 latex Allergy Unknown Unknown Verified 12/29/24 16:46 naproxen Allergy Unknown Unknown Verified 12/29/24 16:46 PMFSH Past Medical History Medical History Hyperlipidemia Heart failure with reduced ejection fraction (03/2022) EF 40 to 45%. Basal cell carcinoma Overactive bladder Depression Frequent urinary tract infections Obstructive sleep apnea Arthritis Insulin dependent type 2 diabetes mellitus Gastroesophageal reflux disease Anemia Hypertension Osteopenia Surgical History Surgical History History of esophageal dilatation History of dilation and curettage History of lumbar surgery (1990) History of cholecystectomy History of appendectomy Family History Family History Mother Hypertension Family history of diabetes mellitus in first degree relative Family history of heart disease in male family member before age 55 Father Carcinoma of colon Family history of malignant neoplasm of gastrointestinal tract Social History Social History (Updated 11/12/24 @ 08:27 by Osiris Kuhn [facility]) Social History: Surrogate medical decision maker: angel Dye. Code status: Full code. Smoking status: Never smoker Second hand tobacco smoke exposure: No Alcohol intake: never Substance use: never Substance use type: does not use Do You Feel Safe in your Home?: Yes Lack of Transportation: YES Lack of Food: Never True Current Housing: I Have Housing Concerned About Future Housing: No Difficulty Paying Gas/Electric Bills: No Difficulty Paying for Meds: No Currently Unemployed: No Education: High School Diploma/GED Difficulty w/ Childcare or Family Care: No Additional living arrangements comments: Assisted living at [facility] since 12/15/2021. Spiritual care concerns: No Comments Review Exam Narrative: GENERAL: Well-appearing, well-nourished, and in no acute distress. HEAD: Normocephalic, atraumatic. EYES: EOMI. No redness or drainage. Conjunctivae normal. ENT: Mucous membranes pink and moist. NECK: Normal AROM. CHEST: No respiratory distress. EXTREMITIES: Right leg: fairly superficial open wounds to the anterior lower leg on an erythematous base. Surrounding skin is very mildly erythematous. Erythema is localized. No active drainage. Wound is dressed in xeroform gauze and mepilex. Wound culture obtained. No red streaking. Neurovascularly intact. SKIN: Warm, dry, no rash. Capillary refill normal. Normal skin turgor. NEURO: No focal deficits. Alert and oriented x3. Gait steady with walker. PSYCH: Normal affect. No signs of depression or anxiety. Course Course Level of Care: Express Care Visit Vital Signs Vital signs: Vital Signs Temperature 97.7 F 12/29/24 16:56 Pulse Rate 72 12/29/24 16:56 Respiratory Rate 18 12/29/24 16:56 Blood Pressure 162/49 H 12/29/24 16:56 Pulse Oximetry 100 12/29/24 16:56 Temperature 97.7 F 12/29/24 16:56 Pulse Rate 72 12/29/24 16:56 Respiratory Rate 18 12/29/24 16:56 Blood Pressure 162/49 H 12/29/24 16:56 Pulse Oximetry 100 12/29/24 16:56 Reviewed MDM - Skin/Abscess/Foreign Bdy MDM Narrative Medical decision making narrative: 84-year-old female patient with history of diabetes and chronic right lower leg wound since Oct, presents today complaining of increased redness to her chronic leg wound. Patient was initially seen in the ER at the beginning of October due to an infection in an abrasion in the anterior right lower leg that was caused by a fall at the end of September. It was determined that her leg wound was infected and she was admitted to the hospital for a few days at that time. Wound culture showed MRSA. She was discharged home on Augmentin and doxycycline after a course of IV abx. She has been followed by home health since that time, who changes her dressings and monitors her wound. She states that she was recently told that she could start showering and didn't realize that she was supposed to keep the wound dry. She also scratched the wound a few days ago and believes she may have caused an infection. Her home health nurse came today and told her she needed to come get some antibiotics as the area surrounding the wound has become more red. She denies any recent fever, sweats, chills. Upon exam, fairly superficial open wounds to the anterior lower leg on an erythematous base. Surrounding skin is very mildly erythematous. Erythema is localized. No active drainage. Wound is dressed in xeroform gauze and mepilex. Wound culture obtained. No red streaking. Neurovascularly intact. Patient will be discharged home with 1 week course of doxycycline after review of previous wound culture from Oct. She will continue home health visits. Next visit in 3 days. Strict ED precautions given to present to the ED. Patient agrees with plan. VSS. Anticipatory guidance given. Differential Diagnosis Differential diagnosis: Likely abscess of skin or subcutaneous tissue, cellulitis and impetigo Critical Care Time Critical Care Time Critical Care Time: No Discharge Plan Discharge Clinical Impression: Traumatic open wound of right lower leg with infection Patient Disposition: Home Condition: Stable Instructions: Antibiotic Form Additional Instructions: Please take the doxycycline as prescribed. Your wound culture has been sent to the hospital and you will be notified if your antibiotic needs to be changed. In the meantime, please proceed to the ER if symptoms worsen to include increased redness, pain, swelling, fever, or drainage. Patient Language: Khmer Prescriptions: New doxycycline hyclate 100 mg tablet 100 mg PO BID 7 Days Qty: 14 0RF No Action estradiol 0.01 % (0.1 mg/gram) cream 1 appful VAGINAL WEEKLY levocetirizine 5 mg tablet 5 mg PO QPM Gemtesa 75 mg tablet 75 mg PO DAILY albuterol sulfate 90 mcg/actuation HFA aerosol inhaler 2 puff inhalation Q4-6H PRN (Reason: shortness of breath or wheezing) 30 Days Qty: 8.5 0RF gabapentin 600 mg tablet 600 mg PO TID amlodipine 2.5 mg tablet 2.5 mg PO DAILY pantoprazole 40 mg tablet,delayed release (DR/EC) 40 mg PO HS aspirin 81 mg tablet,chewable 81 mg PO DAILY hydroxyzine HCl 25 mg tablet 25 mg PO Q8H PRN (Reason: anxiety) losartan 100 mg tablet 100 mg PO DAILY duloxetine 60 mg capsule,delayed release(DR/EC) 60 mg PO DAILY multivitamin with folic acid [Tab-A-Danette] 400 mcg tablet 1 tablet PO DAILY atorvastatin 40 mg tablet 40 mg PO HS metoprolol succinate 50 mg tablet extended release 24 hr 50 mg PO DAILY acetaminophen [Tylenol Extra Strength] 500 mg tablet 1,000 mg PO BID PRN (Reason: fever or pain) Premarin 0.625 mg/gram cream 0.625 mg vaginal .COMPLEX Rx Instructions: 0.625 mg vaginally Sunday and Sunday; apply a peas size amount clobetasol 0.05 % ointment 1 applic topical DAILY famotidine [Pepcid] 40 mg tablet 40 mg PO QHS Qty: 90 3RF insulin regular hum U-500 conc 500 unit/mL (3 mL) insulin pen See Rx Instructions subcut .COMPLEX Qty: 18 1RF Rx Instructions: 90 units before breakfast, 30 units before lunch fluticasone propionate [Flonase Allergy Relief] 50 mcg/actuation spray,suspension 1 spray intranasal Q12H Qty: 16 0RF Rx Instructions: administer into each nostril meclizine 25 mg tablet 25 mg PO BID PRN (Reason: dizziness) Qty: 20 0RF nitroglycerin 0.4 mg tablet, sublingual 0.4 mg sublingual PRN PRN (Reason: Chest Pain) Rx Instructions: dissolve 1 tab under the tongue every 5 min for chest pain up to 3 doses in 15 mins if pain persists seek medical attention Daily-Danette 1 tab-cap PO DAILY trimethoprim 100 mg tablet 100 mg PO HS Qty: 30 6RF ergocalciferol (vitamin D2) 1,250 mcg (50,000 unit) capsule 1,250 mcg PO DIRECTED Rx Instructions: every sunday polyethylene glycol 3350 17 gram/dose powder 17 g PO DAILY PRN (Reason: Constipation) sennosides [senna] 8.6 mg tablet 17.2 mg PO BID PRN (Reason: constipation) triamcinolone acetonide 0.1 % ointment 1 applic TOPICAL DAILY hydrochlorothiazide 12.5 mg capsule 12.5 mg PO DAILY hydrocodone-acetaminophen 5-325 mg tablet 1 tablet PO Q12H PRN (Reason: Pain) nystatin 100,000 unit/gram powder 1 applic TOPICAL BID Qty: 60 1RF Rx Instructions: apply to gential area bid (DME) FreeStyle Shayne 3 [place] Misc See Rx Instructions .Route Qty: 1 0RF Rx Instructions: As directed (DME) FreeStyle Shayne 3 Plus Sensor Device See Rx Instructions .Route Qty: 6 2RF Rx Instructions: As directed (DME) blood-glucose meter [OneTouch Verio Flex meter] Misc See Rx Instructions .Route Qty: 1 0RF Rx Instructions: As directed (DME) lancets [OneTouch Delica Plus Lancet] 33 gauge misc See Rx Instructions .ROUTE .MEDSUPPLY Qty: 100 0RF Rx Instructions: Check glcuose (DME) OneTouch Verio test strips Strip See Rx Instructions .ROUTE .MEDSUPPLY Qty: 400 1RF Rx Instructions: Check glucose 3-4 times a day Ozempic 2 mg/dose (8 mg/3 mL) pen injector 2 mg subcut WEEKLY 90 Days Qty: 9 3RF Patient Comments: sunday Follow-up/Referrals: PHYSICIAN,PRESENTATION DESIGNER [Primary Care Provider, Internal Medicine] Time of Disposition: 17:37
== END 2024-12-29 17:40 | disposition home or self-care (01) ==
PROVIDERS: Emergency Provider Nurse Practitioner
DX: S81.801D Unspecified open wound, right lower leg, subsequent encounter (principal); L08.9 Local infection of the skin and subcutaneous tissue, unspecified; W19.XXXD Unspecified fall, subsequent encounter; E78.5 Hyperlipidemia, unspecified; I11.0 Hypertensive heart disease with heart failure; I50.9 Heart failure, unspecified; E11.9 Type 2 diabetes mellitus without complications; Z79.4 Long term (current) use of insulin; Z79.82 Long term (current) use of aspirin; K21.9 Gastro-esophageal reflux disease without esophagitis; M81.0 Age-related osteoporosis without current pathological fracture; M19.90 Unspecified osteoarthritis, unspecified site; N32.81 Overactive bladder; Z79.85 Long-term (current) use of injectable non-insulin antidiabetic drugs; Z85.828 Personal history of other malignant neoplasm of skin
CPT/HCPCS: 87070; 87186; 87205; 99213; G0463

== ENCOUNTER 2025-02-01 09:14 | Emergency (ER) | payer MEDICARE, MEDICAID, SELFPAY ==
[2025-02-01 09:33] VITALS: BP 134/63; PULSE 76; RESP 16; TEMP 36.4; O2SAT 95
--- NOTE | 2025-02-01 09:47 | ED.GENADULT ---
HPI - General Adult General Chief complaint: Extremity Problem,Nontraumatic Stated complaint: Lump behind L knee Time Seen by Provider: 02/01/25 09:47 Source: patient Mode of arrival: ambulatory Limitations: no limitations History of Present Illness HPI narrative: a 4-year-old female patient presents to [facility] with complaints of a bump to the back of the left knee that she noted in the shower yesterday. Patient lives at an assisted living facility and states 1 of the nurses came and looked at the area and told her she should probably get it checked out. Patient has been hospitalized in the past for MRSA infection and she is a type 2 diabetic, to come and be assessed early. Denies any fevers body aches or chills. Patient denies any worsening issues with ambulation. Related Data Home Medications ?Medication ?Instructions ?Recorded ?Confirmed ?Last Taken ?Type atorvastatin 40 mg tablet 40 mg PO HS 12/17/19 11/12/24 Unknown History metoprolol succinate 50 mg 50 mg PO DAILY 12/17/19 11/12/24 Unknown History tablet,extended release 24 hr Daily-Danette 1 tab-cap PO DAILY 04/18/22 11/12/24 Unknown History nitroglycerin 0.4 mg sublingual 0.4 mg sublingual PRN PRN Chest 04/18/22 11/12/24 Unknown History tablet Pain ergocalciferol (vitamin D2) 1,250 1,250 mcg PO DIRECTED 07/29/22 11/12/24 Unknown History mcg (50,000 unit) capsule polyethylene glycol 3350 17 17 g PO DAILY PRN Constipation 07/29/22 11/12/24 Unknown History gram/dose oral powder clobetasol 0.05 % topical ointment 1 applic topical DAILY 11/07/22 11/12/24 Unknown History conjugated estrogens 0.625 mg/gram 0.625 mg vaginal .COMPLEX 11/07/22 11/12/24 Unknown History vaginal cream (Premarin) levocetirizine 5 mg tablet 5 mg PO QPM 04/01/24 11/12/24 Unknown History vibegron 75 mg tablet (Gemtesa) 75 mg PO DAILY 04/01/24 11/12/24 Unknown History acetaminophen 500 mg tablet 1,000 mg PO BID PRN fever or pain 04/30/24 11/12/24 Unknown History (Tylenol Extra Strength) gabapentin 600 mg tablet 600 mg PO TID 04/30/24 11/12/24 Unknown History amlodipine 2.5 mg tablet 2.5 mg PO DAILY 05/20/24 11/12/24 Unknown History aspirin 81 mg chewable tablet 81 mg PO DAILY 05/20/24 11/12/24 Unknown History duloxetine 60 mg capsule,delayed 60 mg PO DAILY 05/20/24 11/12/24 Unknown History release hydroxyzine HCl 25 mg tablet 25 mg PO Q8H PRN anxiety 05/20/24 11/12/24 Unknown History losartan 100 mg tablet 100 mg PO DAILY 05/20/24 11/12/24 Unknown History multivitamin with folic acid 400 1 tablet PO DAILY 05/20/24 11/12/24 Unknown History mcg tablet (Tab-A-Danette) pantoprazole 40 mg tablet,delayed 40 mg PO HS 05/20/24 11/12/24 Unknown History release estradiol 0.01% (0.1 mg/gram) 1 appful vaginal WEEKLY 08/30/24 11/12/24 Unknown History vaginal cream hydrochlorothiazide 12.5 mg capsule 12.5 mg PO DAILY 10/31/24 11/12/24 Unknown History hydrocodone 5 mg-acetaminophen 325 1 tablet PO Q12H PRN Pain 10/31/24 11/12/24 Unknown History mg tablet sennosides 8.6 mg tablet (senna) 17.2 mg PO BID PRN constipation 10/31/24 11/12/24 Unknown History triamcinolone acetonide 0.1 % 1 applic topical DAILY 10/31/24 11/12/24 Unknown History topical ointment Allergies Allergy/AdvReac Type Severity Reaction Status Date / Time prednisone Allergy Mild Unknown Verified 02/01/25 10:04 rosiglitazone Allergy Mild Unknown Verified 02/01/25 10:04 azithromycin Allergy Unknown Unknown Verified 02/01/25 10:04 ceftriaxone Allergy Unknown Unknown Verified 02/01/25 10:04 codeine Allergy Unknown Unknown Verified 02/01/25 10:04 ibuprofen Allergy Unknown Unknown Verified 02/01/25 10:04 latex Allergy Unknown Unknown Verified 02/01/25 10:04 naproxen Allergy Unknown Unknown Verified 02/01/25 10:04 Review of Systems Review of Systems: CONSTITUTIONAL: Denies fever, chills, or sweats. EYES: Denies visual changes, redness, or discharge. ENT: Denies rhinorrhea, congestion, sore throat, or otalgia. CARDIOVASCULAR: Denies chest pain, palpitations, or edema. RESPIRATORY: Denies cough or dyspnea. GASTROINTESTINAL: Denies abdominal pain, nausea, vomiting, or diarrhea. GENITOURINARY: Denies dysuria or hematuria. SKIN: Denies rash or itching. Positive wound to the back of the left knee. MUSCULOSKELETAL: Denies back pain, joint pain, or myalgia. NEUROLOGIC: Denies headache, numbness, or weakness. PSYCHIATRIC: Denies anxiety or depression. [facility] Past Medical History Medical History Hyperlipidemia Heart failure with reduced ejection fraction (03/2022) EF 40 to 45%. Basal cell carcinoma Overactive bladder Depression Frequent urinary tract infections Obstructive sleep apnea Arthritis Insulin dependent type 2 diabetes mellitus Gastroesophageal reflux disease Anemia Hypertension Osteopenia Surgical History Surgical History History of esophageal dilatation History of dilation and curettage History of lumbar surgery (1990) History of cholecystectomy History of appendectomy Family History Family History Mother Hypertension Family history of diabetes mellitus in first degree relative Family history of heart disease in male family member before age 55 Father Carcinoma of colon Family history of malignant neoplasm of gastrointestinal tract Social History Social History Social History: Surrogate medical decision maker: Mario or angel Cannon. Code status: Full code. Smoking status: Never smoker Second hand tobacco smoke exposure: No Alcohol intake: never Substance use: never Substance use type: does not use Lack of Transportation: YES Lack of Food: Never True Current Housing: I Have Housing Concerned About Future Housing: No Difficulty Paying Gas/Electric Bills: No Difficulty Paying for Meds: No Currently Unemployed: No Education: High School Diploma/GED Difficulty w/ Childcare or Family Care: No Additional living arrangements comments: Assisted living at [facility] since 12/15/2021. Spiritual care concerns: No Comments At the time of my signature I agree with nursing past medical history, surgical, social, and family history. There is no relevant family history pertinent to the presenting complaint. Exam Narrative: GENERAL: Well-appearing, well-nourished, and in no acute distress. HEAD: Normocephalic, atraumatic. EYES: PERRLA and EOMI. ENT: Nares clear, no rhinorrhea or epistaxis. Mucous membranes moist. NECK: Supple. No lymphadenopathy CHEST: Clear to auscultation. No respiratory distress. HEART: Regular rate and rhythm. No murmur heard. Normal peripheral pulses. ABDOMEN: Soft, nontender, nondistended, normal active bowel sounds. EXTREMITIES: Normal range of motion. No edema. SKIN: Warm, dry, no rash. Patient has a very small raised area with extremely small white pimple to the top. The raised area measures approximately less than 0.5 x 0.5. A 18 gauge needle was used to pop the white head and opened up the wound no pus was noted just blood. The area was cleaned antibiotic ointment was applied and Band-Aid was applied to the wound. There was no surrounding erythema or warmth noted. NEURO: No focal deficits. Alert and oriented x3. Course Course Level of Care: Express Care Visit Vital Signs Vital signs: Vital Signs Temperature 36.4 C 02/01/25 09:33 Pulse Rate 76 02/01/25 09:33 Respiratory Rate 16 02/01/25 09:33 Blood Pressure 134/63 02/01/25 09:33 Pulse Oximetry 95 02/01/25 09:33 Temperature 36.4 C 02/01/25 09:33 Pulse Rate 76 02/01/25 09:33 Respiratory Rate 16 02/01/25 09:33 Blood Pressure 134/63 02/01/25 09:33 Pulse Oximetry 95 02/01/25 09:33 Vital signs reviewed The patient has been informed that they may have pre-hypertension or Hypertension based on a BP reading in the department. I recommend that the patient call the primary care provider listed on their discharge instructions or a physician of their choice this week to arrange follow up for further evaluation of possible pre-hypertension or Hypertension MDM MDM Narrative Medical decision making narrative: Plan care for patient is to discharge home with a topical antibiotic ointment since the wound is very small and there was no pus when we opened the wound. Discussed with patient that since she does have risk factors such as a previous MRSA infection and she is type 2 diabetic I a.m. going to send her home also with a wait and see prescription for an oral antibiotic. Discussed with patient to continue to monitor the area and if it worsens or she develops symptoms such as fevers, body aches, chills or any other concerning symptoms and she can start the antibiotic that was prescribed to her today. Patient does have a follow-up with her primary doctor on Sunday and encouraged her to ask him to check the wound then. Patient verbalized understanding denies any other questions or concerns at this time. Differential Diagnosis Differential Diagnosis: differential diagnosis: Knee contusion, sprain, ligament injury, patellar dislocation, joint dislocation, patella or tibial plateau fracture, Newell's cyst, DVT, meniscus tear, PCL tear, prepatellar bursitis, septic joint, gout, tumor. Children: Ownl-Akazg-Dralohx or [place]-Schlatter disease. Critical Care Time Critical Care Time Critical Care Time: No Discharge Plan Discharge Clinical Impression: Abscess of left leg Patient Disposition: Home Condition: Stable Instructions: Antibiotic Form, Abscess (ED), Abscess Incision and Drainage (DC) Additional Instructions: wash the area with soap water daily and apply the antibiotic ointment that was prescribed to you today and cover with Band-Aid. continue to monitor signs and symptoms and if you start having fevers, body aches, chills or the wound area continues to get bigger or has more pain then please start oral antibiotic dose prescribed to you today. Please follow-up with your primary doctor for further evaluation treatment as needed. Patient Language: Greenlandic Prescriptions: New clindamycin HCl [Cleocin HCl] 300 mg capsule 300 mg PO Q6H 7 Days Qty: 28 0RF clindamycin HCl [Cleocin HCl] 150 mg capsule 150 mg PO Q6H 7 Days Qty: 28 0RF mupirocin [Centany] 2 % ointment 1 applic topical TID Qty: 22 0RF No Action estradiol 0.01 % (0.1 mg/gram) cream 1 appful VAGINAL WEEKLY levocetirizine 5 mg tablet 5 mg PO QPM Gemtesa 75 mg tablet 75 mg PO DAILY albuterol sulfate 90 mcg/actuation HFA aerosol inhaler 2 puff inhalation Q4-6H PRN (Reason: shortness of breath or wheezing) 30 Days Qty: 8.5 0RF gabapentin 600 mg tablet 600 mg PO TID amlodipine 2.5 mg tablet 2.5 mg PO DAILY pantoprazole 40 mg tablet,delayed release (DR/EC) 40 mg PO HS aspirin 81 mg tablet,chewable 81 mg PO DAILY hydroxyzine HCl 25 mg tablet 25 mg PO Q8H PRN (Reason: anxiety) losartan 100 mg tablet 100 mg PO DAILY duloxetine 60 mg capsule,delayed release(DR/EC) 60 mg PO DAILY multivitamin with folic acid [Tab-A-Danette] 400 mcg tablet 1 tablet PO DAILY atorvastatin 40 mg tablet 40 mg PO HS metoprolol succinate 50 mg tablet extended release 24 hr 50 mg PO DAILY acetaminophen [Tylenol Extra Strength] 500 mg tablet 1,000 mg PO BID PRN (Reason: fever or pain) Premarin 0.625 mg/gram cream 0.625 mg vaginal .COMPLEX Rx Instructions: 0.625 mg vaginally Sunday and Sunday; apply a peas size amount clobetasol 0.05 % ointment 1 applic topical DAILY famotidine [Pepcid] 40 mg tablet 40 mg PO QHS Qty: 90 3RF insulin regular hum U-500 conc 500 unit/mL (3 mL) insulin pen See Rx Instructions subcut .COMPLEX Qty: 18 1RF Rx Instructions: 90 units before breakfast, 30 units before lunch fluticasone propionate [Flonase Allergy Relief] 50 mcg/actuation spray,suspension 1 spray intranasal Q12H Qty: 16 0RF Rx Instructions: administer into each nostril meclizine 25 mg tablet 25 mg PO BID PRN (Reason: dizziness) Qty: 20 0RF nitroglycerin 0.4 mg tablet, sublingual 0.4 mg sublingual PRN PRN (Reason: Chest Pain) Rx Instructions: dissolve 1 tab under the tongue every 5 min for chest pain up to 3 doses in 15 mins if pain persists seek medical attention Daily-Danette 1 tab-cap PO DAILY trimethoprim 100 mg tablet 100 mg PO HS Qty: 30 6RF ergocalciferol (vitamin D2) 1,250 mcg (50,000 unit) capsule 1,250 mcg PO DIRECTED Rx Instructions: every sunday polyethylene glycol 3350 17 gram/dose powder 17 g PO DAILY PRN (Reason: Constipation) sennosides [senna] 8.6 mg tablet 17.2 mg PO BID PRN (Reason: constipation) triamcinolone acetonide 0.1 % ointment 1 applic TOPICAL DAILY hydrochlorothiazide 12.5 mg capsule 12.5 mg PO DAILY hydrocodone-acetaminophen 5-325 mg tablet 1 tablet PO Q12H PRN (Reason: Pain) nystatin 100,000 unit/gram powder 1 applic TOPICAL BID Qty: 60 1RF Rx Instructions: apply to gential area bid (DME) FreeStyle Shayne 3 [place] Misc See Rx Instructions .Route Qty: 1 0RF Rx Instructions: As directed (DME) FreeStyle Shayne 3 Plus Sensor Device See Rx Instructions .Route Qty: 6 2RF Rx Instructions: As directed (DME) blood-glucose meter [OneTouch Verio Flex meter] Misc See Rx Instructions .Route Qty: 1 0RF Rx Instructions: As directed (DME) lancets [OneTouch Delica Plus Lancet] 33 gauge misc See Rx Instructions .ROUTE .MEDSUPPLY Qty: 100 0RF Rx Instructions: Check glcuose (DME) OneTouch Verio test strips Strip See Rx Instructions .ROUTE .MEDSUPPLY Qty: 400 1RF Rx Instructions: Check glucose 3-4 times a day Ozempic 2 mg/dose (8 mg/3 mL) pen injector 2 mg subcut WEEKLY 90 Days Qty: 9 3RF Patient Comments: sunday Follow-up/Referrals: PHYSICIAN,EDITOR [Primary Care Provider, Internal Medicine] Time of Disposition: 10:12
== END 2025-02-01 10:19 | disposition home or self-care (01) ==
PROVIDERS: Emergency Provider Nurse Practitioner Family
DX: L02.416 Cutaneous abscess of left lower limb (principal); I11.0 Hypertensive heart disease with heart failure; I50.9 Heart failure, unspecified; E11.9 Type 2 diabetes mellitus without complications; Z79.4 Long term (current) use of insulin; Z79.85 Long-term (current) use of injectable non-insulin antidiabetic drugs; E78.5 Hyperlipidemia, unspecified; K21.9 Gastro-esophageal reflux disease without esophagitis; M85.80 Other specified disorders of bone density and structure, unspecified site; N32.81 Overactive bladder; Z85.828 Personal history of other malignant neoplasm of skin; Z79.82 Long term (current) use of aspirin
CPT/HCPCS: 99213; G0463